=== PATIENT | female | born 1960 | race Caucasian/White ===

== ENCOUNTER → 2020-11-11 08:55 | Outpatient (BNVA) | payer OTHER, SELFPAY | PROVIDERS: PCP Internal Medicine; Visit Provider Nurse Practitioner Family | DX: M47.816 Spondylosis without myelopathy or radiculopathy, lumbar region (principal); M53.3 Sacrococcygeal disorders, not elsewhere classified; Z79.899 Other long term (current) drug therapy | CPT/HCPCS: 99202 ==

== ENCOUNTER → 2020-11-28 15:25 | Outpatient (BNVA) | payer OTHER, SELFPAY | PROVIDERS: PCP Internal Medicine; Visit Provider Nurse Practitioner Family | DX: M47.816 Spondylosis without myelopathy or radiculopathy, lumbar region (principal); M53.3 Sacrococcygeal disorders, not elsewhere classified | CPT/HCPCS: 99212 ==

== ENCOUNTER → 2020-12-26 14:26 | Outpatient (BNVA) | payer OTHER, SELFPAY | PROVIDERS: PCP Internal Medicine; Visit Provider Nurse Practitioner Family | DX: M47.816 Spondylosis without myelopathy or radiculopathy, lumbar region (principal); M53.3 Sacrococcygeal disorders, not elsewhere classified | CPT/HCPCS: 99212 ==

== ENCOUNTER 2021-01-18 12:56 | Outpatient (REF) | payer OTHER, SELFPAY ==
--- NOTE | ~2021-01-18 | XR_ITS ---
EXAMINATION: XR HIP, RIGHT CLINICAL INFORMATION: Unilateral primary osteoarthritis right hip COMPARISON: None TECHNIQUE: Two views of the right hip. FINDINGS: There is no evidence of acute fracture or dislocation of the right hip. Right hip joint space is maintained. There appears to be some mild collar spurring present. No destructive bony lesion appreciated. XR/XR hip RT min 2V IMPRESSION: Mild degenerative change of the right hip.
== END 2021-01-18 12:57 | disposition home or self-care (01) ==
LOC: HO.XRAY 12:56
PROVIDERS: PCP Internal Medicine; Visit Provider Nurse Practitioner Family
DX: M16.11 Unilateral primary osteoarthritis, right hip (principal)
CPT/HCPCS: 73502

== ENCOUNTER → 2021-01-24 12:48 | Outpatient (BNVA) | payer OTHER, SELFPAY | PROVIDERS: PCP Internal Medicine; Visit Provider Nurse Practitioner Family | DX: M47.816 Spondylosis without myelopathy or radiculopathy, lumbar region (principal); M53.3 Sacrococcygeal disorders, not elsewhere classified | CPT/HCPCS: 99212 ==

== ENCOUNTER 2021-02-06 16:13 | Outpatient (REF) | payer OTHER, SELFPAY ==
--- NOTE | ~2021-02-06 | XR_ITS ---
EXAMINATION: XR HAND, LEFT CLINICAL INFORMATION: Synovitis and tenosynovitis COMPARISON: None TECHNIQUE: PA, lateral, and oblique views of the left hand. FINDINGS: Bone alignment is normal. No fracture or dislocation is seen. There are small osteophytes adjacent to the radial side of the MCP joint of the thumb and small linear soft tissue calcification. Joint spaces are otherwise normal. XR/XR hand LT min 3V IMPRESSION: Small osteophyte along the radial side of the MCP joint of the thumb and linear soft tissue calcification.
== END 2021-02-06 16:14 | disposition home or self-care (01) ==
LOC: HO.XRAY 16:13
PROVIDERS: PCP Internal Medicine; Visit Provider Internal Medicine
DX: M65.9 Synovitis and tenosynovitis, unspecified (principal)
CPT/HCPCS: 73130

== ENCOUNTER → 2021-02-21 13:20 | Outpatient (BNVA) | payer OTHER, SELFPAY | PROVIDERS: PCP Internal Medicine; Visit Provider Nurse Practitioner Family | DX: M16.11 Unilateral primary osteoarthritis, right hip (principal); M47.816 Spondylosis without myelopathy or radiculopathy, lumbar region; M53.3 Sacrococcygeal disorders, not elsewhere classified | CPT/HCPCS: 99212 ==

== ENCOUNTER → 2021-03-22 14:22 | Outpatient (BNVA) | payer OTHER, SELFPAY | PROVIDERS: PCP Internal Medicine; Visit Provider Nurse Practitioner Family | DX: M47.816 Spondylosis without myelopathy or radiculopathy, lumbar region (principal); M53.3 Sacrococcygeal disorders, not elsewhere classified; R11.15 Cyclical vomiting syndrome unrelated to migraine; R03.0 Elevated blood-pressure reading, without diagnosis of hypertension; F17.200 Nicotine dependence, unspecified, uncomplicated; Z88.2 Allergy status to sulfonamides; Z79.899 Other long term (current) drug therapy | CPT/HCPCS: 99212 ==

== ENCOUNTER → 2021-04-19 11:25 | Outpatient (BNVA) | payer OTHER, SELFPAY | PROVIDERS: PCP Internal Medicine; Visit Provider Nurse Practitioner Family | DX: Z51.81 Encounter for therapeutic drug level monitoring (principal); M47.816 Spondylosis without myelopathy or radiculopathy, lumbar region; M53.3 Sacrococcygeal disorders, not elsewhere classified | CPT/HCPCS: 99212 ==

== ENCOUNTER → 2021-04-27 10:43 | Day surgery (SDC) | payer OTHER, SELFPAY ==
[2021-04-20 12:12] VITALS: BMI 21.4
--- NOTE | 2021-04-26 09:55 | HO.ANESPROP2 ---
HPI - Anesthesia Eval Consult details Narrative: 60yo F for Bilateral L3-DR L5 Medial Branch Block Chronic opioids PMFSH Active Problems Active Problems: All Active Problems (Updated 02/06/21 @ 15:49 by Charly Carrillo MD) Tenosynovitis of thumb (Acute) Bilateral leg weakness (Acute) Osteoarthritis of right hip (Acute) Sacroiliac joint pain (Acute) Spondylosis of lumbar region without myelopathy or radiculopathy (Acute) Smoker (Acute) Chronic low back pain (Acute) Elevated blood pressure reading (Acute) Past Medical History Medical History (Updated 02/06/21 @ 15:49 by Charly Carrillo MD) Chronic low back pain Cyclical vomiting Elevated blood pressure reading Smoker Tenosynovitis of thumb Family History Family History (Updated 02/06/21 @ 14:50 by HASEEB Redding) Maternal Uncle Diabetes Father No problems noted. Mother No problems noted. Surgical History Surgical History History of appendectomy History of breast surgery Hx of right knee surgery Hx of shoulder surgery S/P laparoscopic cholecystectomy (~2009) Social History Social History (Updated 02/06/21 @ 14:58 by HASEEB Red[place]) Housing: House Alcohol intake: former Patient Tobacco Use Status: Current everyday Tobacco user Cigarettes Per Day: 10 service: No Current occupational status: retired and disabled Meds Allergies Allergy/AdvReac Type Severity Reaction Status Date / Time Sulfa (Sulfonamide Allergy Intermediate Hives, Verified 04/19/21 12:17 Antibiotics) itching Home Medications Medication Instructions Recorded Confirmed Last Taken Type naproxen sodium 220 mg tablet 220 mg PO BID PRN 09/14/20 04/19/21 Unknown History (Aleve) nortriptyline 75 mg capsule 75 mg PO BEDTIME 09/14/20 04/19/21 Unknown History Exam Exam Date and Time: April 26, 2021 0955 Height,Weight and Vital Signs: Height 5 ft 5 in Weight 58.513 kg Assessment and Plan Assessment Anesthesia Assessment: Chart Reviewed
--- NOTE | 2021-04-27 11:51 | P.HPSUR_ITS ---
Pre-Procedural Eval Section A Date of Service: 04/27/21 The patient is an INPATIENT: No Changes since office visit: Yes Patient answered all questions The History & Physical has been completed within 30 days and I have reviewed it.: No Section B Chief Complaint: spondylosis of lumbar region Details of Present Illness: As above Relevant Family History (Specify if Yes): No Relevant Social History: None Present Medications: see Short Stay Collaborative assessment Medical History: No relevant PMH History of Previous Operations: No relevant previous surgery Allergies: Allergies Allergy/AdvReac Type Severity Reaction Status Date / Time Sulfa (Sulfonamide Allergy Intermediate Hives, Verified 04/19/21 12:17 Antibiotics) itching Review of Systems Sugical H&P ROS: Negative: Constitution, Cardiovascular, Respiratory, Neurological, Psychiatric, Hem-Onc, Allergic/Immunologic, Gastrointestinal, Genitourinary, Musculoskeletal, Integumentary, Endocrine and Eyes/E ars/Nose/Throat Exam Surgical H&P Exam: Normal: HEENT, Normal: Heart, Normal: Lungs, Normal: Extremities, Normal: Abdomen, Normal: Skin and Normal: Neurological Plan Diagnosis/Plan: Unchanged I have reviewed the history and physical and performed a pertinent physical examination on my patient. No changes have occurred unless specified.
--- NOTE | 2021-04-27 12:38 | PC.NURSE ---
encouraged patient to stay for her procedure. was bringing her into a room and refused. she wanted to go home and medicate herself for pain and nausea. i offered for her to be medicated for nausea here and she would have a bed for more comfort and a television while she waits. still refused i went to ask how much longer she would have to wait and left the amezcua when i said i would be right back. she mentioned multiple times that she will just reschedule even though she was encouraged multiple times to stay.
== END ==
PROVIDERS: PCP Internal Medicine; Visit Provider Anesthesiology
DX: M47.816 Spondylosis without myelopathy or radiculopathy, lumbar region (principal); Z53.29 Procedure and treatment not carried out because of patient's decision for other reasons; M54.50 Low back pain, unspecified; R03.0 Elevated blood-pressure reading, without diagnosis of hypertension; Z88.2 Allergy status to sulfonamides; Z79.899 Other long term (current) drug therapy

== ENCOUNTER → 2021-05-17 11:25 | Outpatient (BNVA) | payer OTHER, SELFPAY | PROVIDERS: PCP Internal Medicine; Visit Provider Nurse Practitioner Family | DX: Z51.81 Encounter for therapeutic drug level monitoring (principal); M47.816 Spondylosis without myelopathy or radiculopathy, lumbar region; M53.3 Sacrococcygeal disorders, not elsewhere classified | CPT/HCPCS: 99212 ==

== ENCOUNTER → 2021-06-21 10:54 | Outpatient (BNVA) | payer OTHER, SELFPAY | PROVIDERS: PCP Internal Medicine; Visit Provider Nurse Practitioner Family | DX: Z51.81 Encounter for therapeutic drug level monitoring (principal); M47.816 Spondylosis without myelopathy or radiculopathy, lumbar region; M53.3 Sacrococcygeal disorders, not elsewhere classified | CPT/HCPCS: 99212 ==

== ENCOUNTER → 2021-07-28 10:22 | Outpatient (BNVA) | payer OTHER, SELFPAY | PROVIDERS: PCP Internal Medicine; Visit Provider Nurse Practitioner Family | DX: M47.816 Spondylosis without myelopathy or radiculopathy, lumbar region (principal); M53.3 Sacrococcygeal disorders, not elsewhere classified; Z79.891 Long term (current) use of opiate analgesic | CPT/HCPCS: 99212 ==

== ENCOUNTER → 2021-08-25 10:02 | Outpatient (BNVA) | payer OTHER, SELFPAY | PROVIDERS: PCP Internal Medicine; Visit Provider Nurse Practitioner Family | DX: Z51.81 Encounter for therapeutic drug level monitoring (principal); F11.20 Opioid dependence, uncomplicated; M47.816 Spondylosis without myelopathy or radiculopathy, lumbar region; M53.3 Sacrococcygeal disorders, not elsewhere classified; M79.18 Myalgia, other site | CPT/HCPCS: 99212 ==

== ENCOUNTER → 2021-09-22 10:39 | Outpatient (BNVA) | payer OTHER, SELFPAY | PROVIDERS: PCP Internal Medicine; Visit Provider Nurse Practitioner Family | DX: Z51.81 Encounter for therapeutic drug level monitoring (principal); F11.20 Opioid dependence, uncomplicated; M47.816 Spondylosis without myelopathy or radiculopathy, lumbar region; M53.3 Sacrococcygeal disorders, not elsewhere classified; M79.18 Myalgia, other site | CPT/HCPCS: 99212 ==

== ENCOUNTER 2021-10-13 09:14 | Day surgery (SDC) | payer OTHER, SELFPAY ==
[2021-07-12 11:45] VITALS: BMI 22.1
--- NOTE | 2021-07-20 16:39 | HO.ANESPROP2 ---
HPI - Anesthesia Eval Consult details Narrative: 60yo F for Bilateral L3-L4-DR L5 Diagnostic Medial Branch Blocks PMFSH Active Problems Active Problems: All Active Problems (Updated 07/12/21 @ 11:45 by Julianna Olivarez RN) Spondylosis of lumbar region without myelopathy or radiculopathy (Acute) Sacroiliac joint pain (Acute) Osteoarthritis of right hip (Acute) Bilateral leg weakness (Acute) Cyclical vomiting (Acute) Tenosynovitis of thumb (Acute) Smoker (Acute) Chronic low back pain (Acute) Elevated blood pressure reading (Acute) Past Medical History Medical History (Updated 07/12/21 @ 11:45 by Julianna Olivarez RN) Chronic low back pain Cyclical vomiting HTN (hypertension) Smoker Tenosynovitis of thumb Family History Family History Maternal Uncle Diabetes Father No problems noted. Mother No problems noted. Surgical History Surgical History History of appendectomy History of breast surgery Hx of right knee surgery Hx of shoulder surgery S/P laparoscopic cholecystectomy (~2009) Social History Social History Housing: House Alcohol intake: former Patient Tobacco Use Status: Current everyday Tobacco user Tobacco use type: Cigarette Cigarettes Per Day: 10 e-Cigarette/Vaping Use: Never Used Second Hand Smoke Exposure: No service: No Current occupational status: retired and disabled Meds Allergies Allergy/AdvReac Type Severity Reaction Status Date / Time Sulfa (Sulfonamide Allergy Intermediate Hives, Verified 06/29/21 11:52 Antibiotics) itching Home Medications Medication Instructions Recorded Confirmed Last Taken Type naproxen sodium 220 mg tablet 220 mg PO BID PRN 09/14/20 07/12/21 Unknown History (Aleve) nortriptyline 75 mg capsule 75 mg PO BEDTIME 09/14/20 07/12/21 Unknown History Exam Exam Date and Time: July 20, 2021 1639 Height,Weight and Vital Signs: Height 5 ft 5 in Weight 60.328 kg Assessment and Plan Assessment Anesthesia Assessment: Chart Reviewed
--- NOTE | 2021-09-07 09:17 | HO.ANESPROP2 ---
HPI - Anesthesia Eval Consult details Narrative: 61yo Bilateral L3-L4-DR L5 Diagnostic Medial Branch Blocks PMFSH Active Problems Active Problems: All Active Problems (Updated 08/25/21 @ 10:52 by Dina Santizo NP) Myofascial pain (Acute) Spondylosis of lumbar region without myelopathy or radiculopathy (Acute) Sacroiliac joint pain (Acute) Osteoarthritis of right hip (Acute) Bilateral leg weakness (Acute) Cyclical vomiting (Acute) Tenosynovitis of thumb (Acute) Smoker (Acute) Chronic low back pain (Acute) Elevated blood pressure reading (Acute) Past Medical History Medical History (Updated 08/25/21 @ 10:52 by Dina Santizo NP) Chronic low back pain Cyclical vomiting HTN (hypertension) Smoker Tenosynovitis of thumb Family History Family History Maternal Uncle Diabetes Father No problems noted. Mother No problems noted. Surgical History Surgical History History of appendectomy History of breast surgery Hx of right knee surgery Hx of shoulder surgery S/P laparoscopic cholecystectomy (~2009) Social History Social History Housing: House Alcohol intake: former Patient Tobacco Use Status: Current everyday Tobacco user Tobacco use type: Cigarette Cigarettes Per Day: 10 e-Cigarette/Vaping Use: Never Used Second Hand Smoke Exposure: No service: No Current occupational status: retired and disabled Meds Allergies Allergy/AdvReac Type Severity Reaction Status Date / Time Sulfa (Sulfonamide Allergy Intermediate Hives, Verified 08/25/21 10:09 Antibiotics) itching Home Medications Medication Instructions Recorded Confirmed Last Taken Type nortriptyline 75 mg capsule 75 mg PO BEDTIME 09/14/20 08/25/21 Unknown History Exam Exam Date and Time: September 07, [id number] Height,Weight and Vital Signs: Height 5 ft 5 in Weight 60.328 kg Assessment and Plan Assessment Anesthesia Assessment: Chart Reviewed
--- NOTE | 2021-10-11 14:34 | P.CONAN_ITS ---
Documented by User: Effie Mathew NP 10/11/21 14:34 HPI - Anesthesia Eval Consult details Narrative: 61yo F for Bilateral L3-L4-DR L5 Diagnostic Medial Branch Blocks Chronic opioids PMFSH Active Problems Active Problems: All Active Problems (Updated 08/25/21 @ 10:52 by Dina Santizo NP) Myofascial pain (Acute) Spondylosis of lumbar region without myelopathy or radiculopathy (Acute) Sacroiliac joint pain (Acute) Osteoarthritis of right hip (Acute) Bilateral leg weakness (Acute) Cyclical vomiting (Acute) Tenosynovitis of thumb (Acute) Smoker (Acute) Chronic low back pain (Acute) Elevated blood pressure reading (Acute) Past Medical History Medical History (Updated 08/25/21 @ 10:52 by Dina Santizo NP) Chronic low back pain Cyclical vomiting HTN (hypertension) Smoker Tenosynovitis of thumb Family History Family History Maternal Uncle Diabetes Father No problems noted. Mother No problems noted. Surgical History Surgical History History of appendectomy History of breast surgery Hx of right knee surgery Hx of shoulder surgery S/P laparoscopic cholecystectomy (~2009) Social History Social History Housing: House Alcohol intake: former Patient Tobacco Use Status: Current everyday Tobacco user Tobacco use type: Cigarette Cigarettes Per Day: 10 Years Smoked: 45 Smoked in Last 30 Days: Yes e-Cigarette/Vaping Use: Never Used Second Hand Smoke Exposure: No Use of substances other than those prescribed or required for medical reasons: No Have you been hit, kicked, punched, or otherwise hurt by someone within the past year? If so, by whom?: No Are you DNR?: No Advance Directives: No Advance Directives Information Provided: Yes (informational brochure mailed) Advance Directives on File: No Recently lost weight without trying: No Eating poorly because of decreased appetite: No Nutrition Risks: No Nutritional Risk service: No Current occupational status: retired and disabled Meds Allergies Allergy/AdvReac Type Severity Reaction Status Date / Time Sulfa (Sulfonamide Allergy Intermediate Hives, Verified 04/01/22 09:21 Antibiotics) itching sulfamethoxazole Allergy Hives Verified 10/13/21 09:21 [From Bactrim] trimethoprim [From Bactrim] Allergy Hives Verified 10/13/21 09:21 Home Medications Medication Instructions Recorded Confirmed Last Taken Type nortriptyline 75 mg capsule 75 mg PO BEDTIME 09/14/20 09/22/21 Unknown History Exam Exam Date and Time: October 11, 2021 1434 Height,Weight and Vital Signs: Height 5 ft 5 in Weight 60.328 kg Assessment and Plan Assessment Anesthesia Assessment: Chart Reviewed Documented by User: Lacy Roldan MD 10/13/21 10:26 [facility] Past Medical History Medical History (Updated 08/25/21 @ 10:52 by Dina Santizo NP) Chronic low back pain Cyclical vomiting HTN (hypertension) Smoker Tenosynovitis of thumb Family History Family History Maternal Uncle Diabetes Father No problems noted. Mother No problems noted. Family history of problems with anesthesia: No Surgical History Surgical History History of appendectomy History of breast surgery Hx of right knee surgery Hx of shoulder surgery S/P laparoscopic cholecystectomy (~2009) History of Problems with Anesthesia: No Social History Social History Housing: House Alcohol intake: former Patient Tobacco Use Status: Current everyday Tobacco user Tobacco use type: Cigarette Cigarettes Per Day: 10 Years Smoked: 45 Smoked in Last 30 Days: Yes e-Cigarette/Vaping Use: Never Used Second Hand Smoke Exposure: No Use of substances other than those prescribed or required for medical reasons: No Have you been hit, kicked, punched, or otherwise hurt by someone within the past year? If so, by whom?: No Are you DNR?: No Advance Directives: No Advance Directives Information Provided: Yes (informational brochure mailed) Advance Directives on File: No Recently lost weight without trying: No Eating poorly because of decreased appetite: No Nutrition Risks: No Nutritional Risk service: No Current occupational status: retired and disabled Meds Allergies Allergy/AdvReac Type Severity Reaction Status Date / Time Sulfa (Sulfonamide Allergy Intermediate Hives, Verified 10/13/21 09:21 Antibiotics) itching sulfamethoxazole Allergy Hives Verified 10/13/21 09:21 [From Bactrim] trimethoprim [From Bactrim] Allergy Hives Verified 10/13/21 09:21 Home Medications Medication Instructions Recorded Confirmed Last Taken Type nortriptyline 75 mg capsule 75 mg PO BEDTIME 09/14/20 09/22/21 Unknown History Exam Airway Mallampati Class: II TM Dist: >3cm Neck ROM: Full Assessment and Plan Assessment Anesthesia Assessment: Anesthesia Plan Discussed and Smoking Cess. Discussed Final Anesthetic Review Family History of Problems with Anesthesia: No History of Problems with Anesthesia: No NPO: Yes ASA Class: II Final Preanesthetic Review: No Changes in Pt Med Stat, Meds/Allgs Chart Reviewed, Consent Obtained/Reviewed and Anes Risks/Benef Reviewed Patient Risk: Low Procedure Risk: Low Anesthetic Plan Anesthetic Plan: MAC: Disposition: Standard PACU
--- NOTE | ~2021-10-13 | FL_ITS ---
EXAMINATION: XR FLUOROSCOPY WITH IMAGES CLINICAL INFORMATION: L3, L4, L5 diagnostic MBB. COMPARISON: None. TECHNIQUE: Fluoroscopy performed by Dr. Jaime Herrera. Fluoroscopy time: 0.6 minutes DAP: 4.33 Gycm2 Images: 6 FINDINGS: Fluoroscopic images demonstrate nerve root injection bilaterally at L3-L4 and L4-L5 and on the left at L5-S1 level. FL/FL guidance in OR IMPRESSION: Fluoroscopic guidance for injection. Please refer to procedural report for further information.
[2021-10-13 09:23] VITALS: BMI 21.6
[2021-10-13 09:30] VITALS: BP 141/84; PULSE 86; RESP 16; TEMP 36.8; O2SAT 96
[2021-10-13] MEDS: Lactated Ringers 1,000 ML 100 ML IVCONT (09:46)
--- NOTE | 2021-10-13 12:15 | MHC.SHP ---
Pre-Procedural Eval Section A Date of Service: 10/13/21 Section B Chief Complaint: spondylosis of lumbar region w/o myelopathy Details of Present Illness: as above Relevant Family History (Specify if Yes): No Relevant Social History: None Present Medications: see Short Stay Collaborative assessment Medical History: No relevant PMH History of Previous Operations: No relevant previous surgery Allergies: Allergies Allergy/AdvReac Type Severity Reaction Status Date / Time Sulfa (Sulfonamide Allergy Intermediate Hives, Verified 10/13/21 09:21 Antibiotics) itching sulfamethoxazole Allergy Hives Verified 10/13/21 09:21 [From Bactrim] trimethoprim [From Bactrim] Allergy Hives Verified 10/13/21 09:21 Review of Systems Sugical H&P ROS: Negative: Constitution, Cardiovascular, Respiratory, Neurological, Psychiatric, Hem-Onc, Allergic/Immunologic, Gastrointestinal, Genitourinary, Musculoskeletal, Integumentary, Endocrine and Eyes/Ears/Nose/Throat Exam Surgical H&P Exam: Normal: HEENT, Normal: Heart, Normal: Lungs, Normal: Extremities, Normal: Abdomen, Normal: Skin and Normal: Neurological Plan Diagnosis/Plan: Unchanged I have reviewed the history and physical and performed a pertinent physical examination on my patient. No changes have occurred unless specified.
--- NOTE | 2021-10-13 12:16 | P.OP_ITS ---
Operative Note Operative Note Date of Service: 10/13/21 Narrative: Bilateral diagnostic #1 Medial branch block L3-L4 L5. ? ? Informed consent was explained to the patient. All questions were explained and? answered.? The patient was taken inside the operating room where she was positioned prone on the operating table. ASA m-rs applied and the patient was minimally sedated. Time-out was performed delineating correct site, side, the nature of the procedure, patient's allergy, preoperative antibiotic if needed.? All operating room staff was participating in OR time-out procedure. ? ?The lower back was prepped with ChloraPrep and draped with sterile towels. C- arm was brought over the operating field and sq picture of L4-and L5 vertebra and S1 AREA were delineated on the screen.? Point of interest were delineated as connection of superior articular process of L4 and L5 vertebra bilaterally with corresponding transverse processes as well as connection of the sacral ala bilaterally with superior articular process of S1.? The projection of the point of interest to the skin were injected with the small amount of local anesthetic lidocaine 2% 1-1.5 cc.? After that 22 gauge 3-1/2 inch spinal needle was driven sequentially to the points of interest in tunnel vision fashion. After needles gently contacted the bone at the point of interests the needle was injected with small amount of the contrast.? The injection of the contrast did not demonstrate any intravascular or intrathecal spread of the contrast.? After that injection of the?lidocain 2% -1cc was performed at each needle location.? ?Upon completion of the injections? needle was? removed and sterile Band-Aids were applied.? Patient tolerated procedure well
[2021-10-13 12:19] VITALS: BP 121/75; PULSE 82; RESP 20; TEMP 37.1; O2SAT 99
[2021-10-13 12:34] VITALS: BP 111/76; PULSE 78; RESP 20; TEMP 36.6; O2SAT 98
== END 2021-10-13 13:11 ==
LOC: HO.SSS 09:14
PROVIDERS: PCP Internal Medicine; Visit Provider Anesthesiology
PROC: (CPT 64493; principal; 2021-10-13 10:50)
DX: M47.816 Spondylosis without myelopathy or radiculopathy, lumbar region (principal); M53.3 Sacrococcygeal disorders, not elsewhere classified; M79.18 Myalgia, other site; G89.29 Other chronic pain; M54.50 Low back pain, unspecified; I10 Essential (primary) hypertension; F17.210 Nicotine dependence, cigarettes, uncomplicated; Z79.891 Long term (current) use of opiate analgesic
CPT/HCPCS: 64493; 64494; J2250; Q9967

== ENCOUNTER → 2021-10-20 09:47 | Outpatient (BNVA) | payer OTHER, SELFPAY | PROVIDERS: PCP Internal Medicine; Visit Provider Nurse Practitioner Family | DX: Z51.81 Encounter for therapeutic drug level monitoring (principal); F11.20 Opioid dependence, uncomplicated; M47.816 Spondylosis without myelopathy or radiculopathy, lumbar region; M53.3 Sacrococcygeal disorders, not elsewhere classified; M79.18 Myalgia, other site | CPT/HCPCS: 99212 ==

== ENCOUNTER → 2021-11-17 10:56 | Outpatient (BNVA) | payer OTHER, SELFPAY | PROVIDERS: PCP Internal Medicine; Visit Provider Nurse Practitioner Family | DX: Z51.81 Encounter for therapeutic drug level monitoring (principal); M47.816 Spondylosis without myelopathy or radiculopathy, lumbar region; M53.3 Sacrococcygeal disorders, not elsewhere classified; M79.18 Myalgia, other site | CPT/HCPCS: 99212 ==

== ENCOUNTER → 2021-12-15 09:53 | Outpatient (BNVA) | payer OTHER, SELFPAY | PROVIDERS: PCP Internal Medicine; Visit Provider Nurse Practitioner Family | DX: M47.816 Spondylosis without myelopathy or radiculopathy, lumbar region (principal); M53.3 Sacrococcygeal disorders, not elsewhere classified; M79.18 Myalgia, other site; Z79.891 Long term (current) use of opiate analgesic | CPT/HCPCS: 99212 ==

== ENCOUNTER 2022-01-19 09:16 | Outpatient (REF) | payer OTHER, SELFPAY ==
[2022-01-19 09:32] LABS: MANUAL DIFF FLAG NO
[2022-01-19 09:44] LABS: Basophils Absolute Auto 0.1 X10*3/uL (0.0-0.2); Basophils Percent Auto 0.6 % (0-2); Eosinophils Absolute Auto 0.6 X10*3/uL (0.0-0.4); Eosinophils Percent Auto 6.1 % (0-4); Hematocrit 36.7 % (37.0-47.0); Imm Gran Abs Auto 0.04 X10*3/uL (0.00-0.03); Imm Gran Pct Auto 0.4 % (0.0-0.4); Lymphocytes Absolute Auto 3.9 X10*3/uL (1.2-4.9); Mean Corpuscular HGB Conc 32.7 g/dl (31.0-35.0); Mean Corpuscular Hemoglobin 29.9 pg (27.0-33.0); Mean Corpuscular Volume 91.5 fL (80.0-98.0); Mean Platelet Volume 8.8 fL (9.4-12.3); Monocytes Absolute Auto 0.7 X10*3/uL (0.1-1.2); Monocytes Percent Auto 6.9 % (2-11); Neutrophils Absolute Auto 4.7 x10*3/uL (2.0-8.3); Platelet Count 321 X10*3/uL (160-400); Red Blood Count 4.01 X10*6/uL (4.20-5.50); Red Cell Distribution Width 13.7 % (11.0-16.0)
[2022-01-19 10:01] LABS: Appearance Urine CLEAR; Color Urine YELLOW; Glucose Urine UA NEG (NEG); Leukocyte Esterase Urine NEG (NEG); Nitrite Urine NEG (NEG); Specific Gravity - Urine 1.025 (1.005-1.025); UACC Culture Trigger NO; Urine Blood 1+ (NEG); Urine Ketones NEG (NEG); Urine Protein NEG (NEG-TRACE)
[2022-01-19 10:16] LABS: Bacteria Urine 1+ /LPF; Calcium Oxalate Crystals Urine 1+ /LPF; Squamous Epithelial Cell Urine TRACE /LPF; WBC Urine 0-2 /HPF (0-4)
[2022-01-19 10:17] LABS: RBC Urine 0-2 /HPF (0)
[2022-01-19 10:24] LABS: Alanine Aminotransferase 9 U/L (0-31); Albumin Level 4.2 g/dL (3.5-5.0); Alkaline Phosphatase 77 U/L (39-117); Anion Gap 10 (12-20); Aspartate Amino Transferase 14 U/L (5-31); Bilirubin Total < 0.2 mg/dL (0.0-1.0); Blood Urea Nitrogen 14 mg/dL (9-16); Calcium 8.9 mg/dL (8.4-10.2); Carbon Dioxide 25 mmol/L (22-29); Chloride 109 mmol/L (96-108); Cholesterol 186 mg/dL; Estimated Glomerular Filt Rate > 60; Glucose Fasting 109 mg/dL (60-99); HDL Cholesterol 40 mg/dL; LDL Cholesterol Calculated 131 mg/dl; Sodium 140 mmol/L (135-145); Total Protein 6.7 g/dL (6.5-8.0); Triglycerides 77 mg/dL
[2022-01-19 10:44] LABS: Vitamin D 25-OH Total 20.1 ng/mL (>30)
== END 2022-01-19 09:17 | disposition home or self-care (01) ==
LOC: HO.LAB 09:16
PROVIDERS: PCP Internal Medicine; Visit Provider Internal Medicine
DX: Z00.00 Encounter for general adult medical examination without abnormal findings (principal); I10 Essential (primary) hypertension; E55.9 Vitamin D deficiency, unspecified; E78.00 Pure hypercholesterolemia, unspecified; M47.816 Spondylosis without myelopathy or radiculopathy, lumbar region; M53.3 Sacrococcygeal disorders, not elsewhere classified; M79.18 Myalgia, other site; F11.90 Opioid use, unspecified, uncomplicated
CPT/HCPCS: 36415; 80053; 80061; 81001; 81003; 82306; 84443; 85025; 99212

== ENCOUNTER 2022-02-16 15:27 | Outpatient (REF) | payer OTHER, SELFPAY ==
--- NOTE | ~2022-02-16 | CT_ITS ---
EXAMINATION: CT CHEST SCREENING CLINICAL INFORMATION: Nicotine dependence. COMPARISON: None. TECHNIQUE: Multidetector volumetric CT imaging of the chest is performed without contrast using low dose technique. Additional 2D coronal and sagittal reformatted images and axial 3D maximum intensity projection (MIP) images are generated on the CT workstation. This CT examination was performed using dose optimization techniques as appropriate, variously including the following: *Automated exposure control *Adjustment of mA and/or kV according to patient size (this includes techniques or standardized protocols for targeted exams where dose is matched to indication/reason for exam; i.e. extremities or head) *Use of iterative reconstruction technique DLP: 39 mGy-cm FINDINGS: LUNGS: The lungs are well-expanded and clear of acute pneumonic consolidation. There is a 2 mm nodule within the left superior major fissure on axial image 15/4 likely lymph node, 2 mm subpleural nodule left lower lobe superior segment better visualized on 8 mm thick axial scan image 35/9, 2 mm nodule left upper lobe axial image 139/6, 5 mm linear density left lower lobe lateral basal segment image 371/6 likely focal atelectasis. Plate-like atelectatic changes in right lower lobe. MEDIASTINUM: The thyroid lobes are symmetrical and normal. The central trachea and bronchi are widely patent. Heart size and the great vessels are normal caliber. There is no pericardial effusion. No abnormal size mediastinal or hilar lymph nodes seen. PLEURA: There is no pleural effusion. No pleural mass or thickening. AXILLA: No lymphadenopathy. UPPER ABDOMEN: Visualized liver, spleen, pancreas and bilateral adrenal glands are unremarkable. OSSEOUS STRUCTURES: No aggressive lytic or sclerotic process seen. There is mild ventral spondylosis dorsal spine. CT/CT lung screening IMPRESSION: Bilateral small pulmonary nodules as described above. No focal consolidation or mass. ASSESSMENT: Lung-RADS category 2: Benign RECOMMENDATION: Low-dose annual CT chest
== END 2022-02-16 15:28 | disposition home or self-care (01) ==
LOC: HO.CT 15:27
PROVIDERS: PCP Internal Medicine; Visit Provider Physician Assistant Medical
DX: M47.816 Spondylosis without myelopathy or radiculopathy, lumbar region (principal); M53.3 Sacrococcygeal disorders, not elsewhere classified; M79.18 Myalgia, other site; F11.90 Opioid use, unspecified, uncomplicated; F17.210 Nicotine dependence, cigarettes, uncomplicated
CPT/HCPCS: 71271; 99212; G0296

== ENCOUNTER 2022-03-02 07:20 | Day surgery (SDC) | payer OTHER, SELFPAY ==
--- NOTE | 2022-03-01 11:03 | HO.ANESPROP2 ---
Documented by User: Effie Mathew NP 03/01/22 11:04 HPI - Anesthesia Eval Consult details Narrative: 61yo F for Diagnostic L3-L4-DR L5 Medial Branch Block s/p MBB 10/2021 with MAC [facility] Active Problems Active Problems: All Active Problems (Updated 02/16/22 @ 15:21 by Monik Vela PA-C) Microscopic hematuria (Acute) Personal history of nicotine dependence (Acute) Benign essential hypertension (Acute) Chronic, continuous use of opioids (Acute) Myofascial pain (Acute) Spondylosis of lumbar region without myelopathy or radiculopathy (Acute) Chronic low back pain (Acute) Sacroiliac joint pain (Acute) Osteoarthritis of right hip (Acute) Bilateral leg weakness (Acute) Cyclical vomiting (Acute) Allergic rhinitis (Acute) Tenosynovitis of thumb (Acute) Past Medical History Medical History Benign essential hypertension Chronic low back pain Chronic, continuous use of opioids Cyclical vomiting Personal history of nicotine dependence Tenosynovitis of thumb Family History Family History Maternal Uncle Diabetes Father No problems noted. Mother No problems noted. Family history of problems with anesthesia: No Surgical History Surgical History (Updated 02/16/22 @ 15:20 by Monik Vela PA-C) History of appendectomy History of breast surgery History of colonoscopy (~2020) History of selective injection of anesthetic agent around lumbar nerve root History of tonsillectomy Hx of right knee surgery Hx of shoulder surgery S/P laparoscopic cholecystectomy (~2009) History of Problems with Anesthesia: No Social History Social History (Updated 02/16/22 @ 15:14 by Monik Vela PA-C) Housing: House Alcohol intake: former Patient Tobacco Use Status: Current everyday Tobacco user Tobacco use type: Cigarette Cigarettes Per Day: 10 Years Smoked: (onset 15, 1/2-1ppd x 48yrs, 30+PYH) Smoked in Last 30 Days: Yes e-Cigarette/Vaping Use: Never Used Patient Interested in Nicotine Replacement: No Second Hand Smoke Exposure: No Substance Use Frequency: Occasionally Are you DNR?: No Advance Directives: No Advance Directives Information Provided: Yes Nutrition Risks: No Nutritional Risk service: No Current occupational status: retired and disabled Cognitive needs: No Hearing needs: No Vision needs: Yes Meds Allergies Allergy/AdvReac Type Severity Reaction Status Date / Time Sulfa (Sulfonamide Allergy Intermediate Hives, Verified 03/02/22 07:39 Antibiotics) itching trimethoprim [From Bactrim] Allergy Hives Verified 03/02/22 07:40 Home Medications Medication Instructions Recorded Confirmed Last Taken Type nortriptyline 75 mg capsule 75 mg PO BEDTIME 09/14/20 01/04/22 Unknown History Exam Exam Date and Time: March 01, 2022 1103 Pertinent Lab Results Pertinent Lab Results: Laboratory Tests 01/19/22 01/19/22 09:31 09:31 WBC 10.0 Hgb 12.0 Hct 36.7 L Plt Count 321 Sodium 140 Potassium 4.0 Chloride 109 H Carbon Dioxide 25 BUN 14 Creatinine 0.87 Assessment and Plan Assessment Anesthesia Assessment: Chart Reviewed Final Anesthetic Review Family History of Problems with Anesthesia: No History of Problems with Anesthesia: No Documented by User: Tatiana Roldan MD 03/02/22 09:15 [facility] Past Medical History Medical History Benign essential hypertension Chronic low back pain Chronic, continuous use of opioids Cyclical vomiting Personal history of nicotine dependence Tenosynovitis of thumb Family History Family History Maternal Uncle Diabetes Father No problems noted. Mother No problems noted. Surgical History Surgical History (Updated 02/16/22 @ 15:20 by Monik Vela PA-C) History of appendectomy History of breast surgery History of colonoscopy (~2020) History of selective injection of anesthetic agent around lumbar nerve root History of tonsillectomy Hx of right knee surgery Hx of shoulder surgery S/P laparoscopic cholecystectomy (~2009) Social History Social History (Updated 02/16/22 @ 15:14 by Monik M May, PA-C) Housing: House Alcohol intake: former Patient Tobacco Use Status: Current everyday Tobacco user Tobacco use type: Cigarette Cigarettes Per Day: 10 Years Smoked: (onset 15, 1/2-1ppd x 46yrs, 30+PYH) Smoked in Last 30 Days: Yes e-Cigarette/Vaping Use: Never Used Patient Interested in Nicotine Replacement: No Second Hand Smoke Exposure: No Substance Use Frequency: Occasionally Are you DNR?: No Advance Directives: No Advance Directives Information Provided: Yes Nutrition Risks: No Nutritional Risk service: No Current occupational status: retired and disabled Cognitive needs: No Hearing needs: No Vision needs: Yes Meds Allergies Allergy/AdvReac Type Severity Reaction Status Date / Time Sulfa (Sulfonamide Allergy Intermediate Hives, Verified 03/02/22 07:39 Antibiotics) itching trimethoprim [From Bactrim] Allergy Hives Verified 03/02/22 07:40 Home Medications Medication Instructions Recorded Confirmed Last Taken Type nortriptyline 75 mg capsule 75 mg PO BEDTIME 09/14/20 01/04/22 Unknown History Exam Airway Mallampati Class: II TM Dist: >3cm Neck ROM: Full Heart: RRR Lungs: CTA Assessment and Plan Final Anesthetic Review NPO: Yes ASA Class: II Final Preanesthetic Review: No Changes in Pt Med Stat, Meds/Allgs Chart Reviewed, Consent Obtained/Reviewed and Anes Risks/Benef Reviewed Patient Risk: Low Anesthetic Plan Anesthetic Plan: MAC: Disposition: Standard PACU
--- NOTE | ~2022-03-02 | FL_ITS ---
CLINICAL INDICATION: Back pain. FINDINGS: Technical assistance and equipment were provided by the Department of Radiology during intraoperative fluoroscopy for bilateral lumbar injections. 6, limited fluoroscopic spot images are submitted. A radiologist was not present during the procedure. Images demonstrate the tips of percutaneous needles to project roughly over the expected locations of bilateral lower lumbar nerve roots medially. Contrast is injected bilaterally. The images are available for review on PACS. TOTAL FLUOROSCOPY TIME: 0.9 minutes. DOSE AREA PRODUCT: 2.5 Gy-cm2 (cormier-centimeter squared) FL/FL guidance in OR IMPRESSION: Technical assistance and equipment provided by the Department of Radiology during intraoperative fluoroscopy, as above. Please see operative report for further details.
[2022-03-02 07:30] VITALS: BMI 21.4
[2022-03-02 07:37] VITALS: BP 151/83; PULSE 76; RESP 18; TEMP 36.6; O2SAT 97
[2022-03-02] MEDS: Lactated Ringers 1,000 ML 100 ML IVCONT (07:48)
--- NOTE | 2022-03-02 08:50 | P.HPSUR_ITS ---
Pre-Procedural Eval Section A Date of Service: 03/02/22 The patient is an INPATIENT: No Changes since office visit: Yes Patient answered all questions The History & Physical has been completed within 30 days and I have reviewed it.: No Section B Chief Complaint: Spondylosis without myelopathy or radiculopathy, Details of Present Illness: as above Relevant Family History (Specify if Yes): No Present Medications: None Medical History: No relevant PMH History of Previous Operations: No relevant previous surgery Allergies: Allergies Allergy/AdvReac Type Severity Reaction Status Date / Time Sulfa (Sulfonamide Allergy Intermediate Hives, Verified 03/02/22 07:39 Antibiotics) itching trimethoprim [From Bactrim] Allergy Hives Verified 03/02/22 07:40 Review of Systems Sugical H&P ROS: Negative: Constitution, Cardiovascular, Respiratory, Neurological, Psychiatric, Hem-Onc, Allergic/Immunologic, Gastrointestinal, Genitourinary, Musculoskeletal, Integumentary, Endocrine and Eyes/ Ears/Nose/Throat Plan Diagnosis/Plan: Unchanged I have reviewed the history and physical and performed a pertinent physical examination on my patient. No changes have occurred unless specified.
--- NOTE | 2022-03-02 08:51 | P.OP_ITS ---
Operative Note Operative Note Date of Service: 03/02/22 Narrative: Bilateral diagnostic #2 Medial branch block L3-L4 L5. ? ? Informed consent was explained to the patient. All questions were explained and? answered.? The patient was taken inside the operating room where she was positioned prone on the operating table. ASA m-rs applied and the patient was minimally sedated. Time-out was performed delineating correct site, side, the nature of the procedure, patient's allergy, preoperative antibiotic if needed.? All operating room staff was participating in OR time-out procedure. ? ?The lower back was prepped with ChloraPrep and draped with sterile towels. C- arm was brought over the operating field and sq picture of L4-and L5 vertebra and S1 AREA were delineated on the screen.? Point of interest were delineated as connection of superior articular process of L4 and L5 vertebra bilaterally with corresponding transverse processes as well as connection of the sacral ala bilaterally with superior articular process of S1.? The projection of the point of interest to the skin were injected with the small amount of local anesthetic lidocaine 2% 1-1.5 cc.? After that 22 gauge 3-1/2 inch spinal needle was driven sequentially to the points of interest in tunnel vision fashion. After needles gently contacted the bone at the point of interests the needle was injected with small amount of the contrast.? The injection of the contrast did not demonstrate any intravascular or intrathecal spread of the contrast.? After that injection of the?ropivacine 2% -1cc was performed at each needle location.? ?Upon completion of the injections? needle was? removed and sterile Band-Aids were applied.? Patient tolerated procedure well,she was taken outside of the OR to recovery room where she recovered uneventfully.
[2022-03-02 09:37] VITALS: BP 106/65; PULSE 76; RESP 16; TEMP 36.6; O2SAT 100
--- NOTE | 2022-03-02 09:37 | P.BOP_ITS ---
Brief Operative Note Date of Service: 03/02/22 Pre-op diagnosis: spondylosis lumbar spine without myelo/radiculopathy Post-op diagnosis: same Procedure: diagnostic #2 MBB L3-L4-DRL5 Implants: none Surgeon: Jaime Herrera MD Anesthesia: MAC Was an Business Process Manager used for this Procedure?: No Estimated blood loss (mL): 0 Pathology: none sent Condition: stable Disposition: PACU
[2022-03-02 09:50] VITALS: BP 116/78; PULSE 76; RESP 16; O2SAT 100
[2022-03-02 10:05] VITALS: BP 124/75; PULSE 67; RESP 16; TEMP 36.6; O2SAT 99
--- NOTE | 2022-03-02 10:55 | HO.POSTANES ---
Post Anesthesia Evaluation Post Anesthesia Evaluation Vital Signs: Vital Signs Temp Pulse Resp BP Pulse Ox O2 Del Method 03/02/22 10:05 98 F 67 16 124/75 99 Room Air 03/02/22 09:50 76 16 116/78 100 Room Air 03/02/22 09:37 98 F 76 16 106/65 100 Room Air 03/02/22 07:37 97.9 F 76 18 151/83 H 97 Room Air Anesthesia: Monitored Mental Status: Awake Pain Control: Satisfactory Nausea/Vomiting: None Hydration: Adequate Anesthesia-Related Issues: No Anes. Related Issues
== END 2022-03-02 11:00 | disposition home or self-care (01) ==
PROVIDERS: PCP Internal Medicine; Visit Provider Anesthesiology
PROC: (CPT 64493; principal; 2022-03-02 09:00)
DX: M47.816 Spondylosis without myelopathy or radiculopathy, lumbar region (principal); M53.3 Sacrococcygeal disorders, not elsewhere classified; G89.29 Other chronic pain; M54.50 Low back pain, unspecified; Z79.891 Long term (current) use of opiate analgesic; M79.18 Myalgia, other site; R11.15 Cyclical vomiting syndrome unrelated to migraine; I10 Essential (primary) hypertension; Z88.2 Allergy status to sulfonamides; F17.210 Nicotine dependence, cigarettes, uncomplicated; Z98.890 Other specified postprocedural states; Z90.49 Acquired absence of other specified parts of digestive tract
CPT/HCPCS: 64493; 64494; J2250; J2405; J2795; J3010; Q9965; Q9967

== ENCOUNTER 2022-03-16 11:08 | Outpatient (REF) | payer OTHER, SELFPAY ==
[2022-03-16 12:51] LABS: Appearance Urine Clear; Color Urine Yellow; Glucose Urine UA Negative (Negative); Leukocyte Esterase Urine Small (1+) (Negative); Nitrite Urine Negative (Negative); Specific Gravity - Urine 1.025 (1.005-1.025); Urine Blood Trace (Negative); Urine Ketones Negative (Negative); Urine Protein Negative (Neg-Trace)
[2022-03-16 12:56] LABS: Bacteria Urine 2+ (None Seen); Hyaline Casts Urine 0-2 /LPF (0-2); UACC Culture Trigger YES
== END 2022-03-16 11:09 | disposition home or self-care (01) ==
LOC: HO.LAB 11:08
PROVIDERS: Internal Medicine; PCP Internal Medicine; Visit Provider Internal Medicine
DX: Z51.81 Encounter for therapeutic drug level monitoring (principal); Z79.899 Other long term (current) drug therapy
CPT/HCPCS: 81001; 87086; 99211

== ENCOUNTER → 2022-04-20 10:54 | Outpatient (BNVA) | payer OTHER, SELFPAY | PROVIDERS: PCP Internal Medicine; Visit Provider Nurse Practitioner Family | DX: Z51.81 Encounter for therapeutic drug level monitoring (principal); F11.20 Opioid dependence, uncomplicated; M47.816 Spondylosis without myelopathy or radiculopathy, lumbar region; M53.3 Sacrococcygeal disorders, not elsewhere classified; M79.18 Myalgia, other site | CPT/HCPCS: 99212 ==

== ENCOUNTER → 2022-06-18 11:28 | Outpatient (BNVA) | payer OTHER, SELFPAY | PROVIDERS: PCP Internal Medicine; Visit Provider Nurse Practitioner Family | DX: Z51.81 Encounter for therapeutic drug level monitoring (principal); F11.20 Opioid dependence, uncomplicated; M47.816 Spondylosis without myelopathy or radiculopathy, lumbar region; M53.3 Sacrococcygeal disorders, not elsewhere classified; M79.18 Myalgia, other site; G89.29 Other chronic pain | CPT/HCPCS: 99212 ==

== ENCOUNTER → 2022-07-17 10:57 | Outpatient (BNVA) | payer OTHER, SELFPAY | PROVIDERS: PCP Internal Medicine; Visit Provider Nurse Practitioner Family | DX: Z13.89 Encounter for screening for other disorder (principal) ==

== ENCOUNTER 2022-07-23 13:48 | Outpatient (REF) | payer OTHER, SELFPAY ==
[2022-07-23 13:58] LABS: MANUAL DIFF FLAG NO
[2022-07-23 14:16] LABS: Basophils Absolute Auto 0.1 X10*3/uL (0.0-0.2); Basophils Percent Auto 0.5 % (0-2); Eosinophils Absolute Auto 0.4 X10*3/uL (0.0-0.4); Eosinophils Percent Auto 3.7 % (0-4); Hematocrit 36.4 % (37.0-47.0); Hemoglobin 12.2 g/dl (12.0-16.0); Imm Gran Abs Auto 0.05 X10*3/uL (0.00-0.03); Imm Gran Pct Auto 0.4 % (0.0-0.4); Lymphocytes Absolute Auto 4.2 X10*3/uL (1.2-4.9); Lymphocytes Percent Auto 37.4 % (20-40); Mean Corpuscular HGB Conc 33.5 g/dl (31.0-35.0); Mean Corpuscular Hemoglobin 29.5 pg (27.0-33.0); Mean Corpuscular Volume 87.9 fL (80.0-98.0); Mean Platelet Volume 8.8 fL (9.4-12.3); Monocytes Percent Auto 8.6 % (2-11); Neutrophils Absolute Auto 5.6 x10*3/uL (2.0-8.3); Neutrophils Percent Auto 49.4 % (45-73); Platelet Count 376 X10*3/uL (160-400); Red Blood Count 4.14 X10*6/uL (4.20-5.50); Red Cell Distribution Width 12.9 % (11.0-16.0); White Blood Count 11.3 X10*3/uL (4.8-10.8)
[2022-07-23 14:36] LABS: Alanine Aminotransferase 9 U/L (0-31); Albumin Level 4.2 g/dL (3.5-5.0); Alkaline Phosphatase 85 U/L (39-117); Anion Gap 11 (12-20); Aspartate Amino Transferase 12 U/L (5-31); Bilirubin Total 0.3 mg/dL (0.0-1.0); Blood Urea Nitrogen 18 mg/dL (9-16); Calcium 9.8 mg/dL (8.4-10.2); Carbon Dioxide 28 mmol/L (22-29); Chloride 102 mmol/L (96-108); Estimated Glomerular Filt Rate > 60; Glucose Random 96 mg/dL (60-115); Potassium 3.7 mmol/L (3.3-5.1); Sodium 137 mmol/L (135-145); Total Protein 6.8 g/dL (6.5-8.0)
== END 2022-07-23 13:49 | disposition home or self-care (01) ==
LOC: HO.LAB 13:48
PROVIDERS: Visit Provider Internal Medicine Gastroenterology
DX: R11.11 Vomiting without nausea (principal); R10.0 Acute abdomen; I95.9 Hypotension, unspecified
CPT/HCPCS: 36415; 80053; 85025

== ENCOUNTER 2022-07-25 14:24 | Outpatient (REF) | payer OTHER, SELFPAY ==
--- NOTE | ~2022-07-25 | XR_ITS ---
EXAMINATION: XR STERNUM CLINICAL INFORMATION: Unspecified injury of thorax. COMPARISON: None. TECHNIQUE: 2 views of the sternum were obtained. FINDINGS: There are no fractures. No bone, joint or soft tissue abnormality is demonstrated. XR/XR sternum min 2V IMPRESSION: Unremarkable sternum examination.
== END 2022-07-25 14:25 | disposition home or self-care (01) ==
LOC: HO.XRAY 14:24
PROVIDERS: PCP Internal Medicine; Visit Provider Internal Medicine
DX: S29.9XXA Unspecified injury of thorax, initial encounter (principal)
CPT/HCPCS: 71120

== ENCOUNTER → 2022-08-15 13:50 | Outpatient (BNVA) | payer OTHER, SELFPAY | PROVIDERS: PCP Internal Medicine; Visit Provider Advanced Practice Midwife | DX: Z13.89 Encounter for screening for other disorder (principal) ==

== ENCOUNTER → 2022-08-16 12:49 | Outpatient (BNVA) | payer OTHER, SELFPAY | PROVIDERS: PCP Internal Medicine; Visit Provider Nurse Practitioner Family | DX: Z51.81 Encounter for therapeutic drug level monitoring (principal); F11.20 Opioid dependence, uncomplicated; M47.816 Spondylosis without myelopathy or radiculopathy, lumbar region; M53.3 Sacrococcygeal disorders, not elsewhere classified; M79.18 Myalgia, other site | CPT/HCPCS: 99212 ==

== ENCOUNTER 2022-08-22 10:24 | Outpatient (REF) | payer OTHER, SELFPAY ==
--- NOTE | ~2022-08-22 | MM_ITS ---
EXAMINATION: BONE DENSITOMETRY CLINICAL INDICATION: Other specified disorders of bone density and structure, unspecified site. COMPARISON: This is the patient's baseline examination. TECHNIQUE: Using a [employer] DXA System (software version: 13.1) manufactured by [employer], dual-energy x-ray absorptiometry was performed of the lumbar spine and left hip. The images are of good technical quality. Summary results are attached. FINDINGS: AP SPINE L1-L2 (excluding L3 and L4): The data of L1-L4 has been changed to exclude the L3 and L4 vertebral bodies, because degenerative sclerosis at these levels may cause overestimation of lumbar spine density. BMD 0.910 g/cm2, Z-score -0.8, T-score -2.1, osteopenia. LEFT FEMUR, NECK: BMD 0.742 g/cm2, Z-score -0.8, T-score -2.1, osteopenia. LEFT FEMUR, TOTAL: BMD 0.757 g/cm2, Z-score -1.0, T-score -2.0, osteopenia. IDENTIFIED RISK FACTORS: Current smoker. Height loss. Menopause. HISTORY OF FRACTURE: None listed. MEDICATIONS: Vitamin D. MM/XR DEXA axial skeleton IMPRESSION: 1. DIAGNOSIS: Osteopenia based on the lowest T-score value of -2.1 in the lumbar spine and femoral neck applying World Health Organization criteria. 2. 10-YEAR FRACTURE RISK PREDICTION, FRAX: Major osteoporotic fracture (clinical spine, forearm, hip or shoulder) 10.0%. Hip fracture 2.4%. 3. Treatment Recommendations: NOF guidelines recommend consideration for treatment in postmenopausal women and men age 50 and older presenting with the following: -A hip or vertebral (clinical or morphometric) fracture. -T-score less than or equal to -2.5 at the femoral neck or spine after appropriate evaluation to exclude secondary causes. -Low bone mass at the hip or spine and a 10-year fracture probability by FRAX of greater than or equal to 3% for hip fracture or greater than or equal to 20% for major osteoporotic fracture based on the [place] adapted WHO algorithm. 4. Other Recommendations: All treatment decisions require clinical judgment and consideration of individual patient factors, including patient preferences, comorbidities, previous drug use, risk factors not captured in the FRAX model (e.g. frailty, falls, vitamin D deficiency, increased bone turnover, interval significant decline in bone density) and possible under or overestimation of fracture risk by FRAX. Additional medical evaluation for secondary cause of low bone mineral density may be appropriate. FUTURE SCAN RECOMMENDATION: People with diagnosed cases of osteoporosis or at high risk for fracture should have regular bone mineral density tests. For patients eligible for Medicare, routine testing is allowed once every 2 years. The testing frequency can be increased to one year for patients who have rapidly progressing disease, those who are receiving or discontinuing medical therapy to restore bone mass, or have additional risk factors.
== END 2022-08-22 10:25 | disposition home or self-care (01) ==
LOC: HO.MAMMO 10:24
PROVIDERS: Visit Provider Advanced Practice Midwife
DX: Z13.820 Encounter for screening for osteoporosis (principal); Z78.0 Asymptomatic menopausal state; M85.80 Other specified disorders of bone density and structure, unspecified site
CPT/HCPCS: 77080

== ENCOUNTER → 2022-09-13 13:26 | Outpatient (BNVA) | payer OTHER, SELFPAY | PROVIDERS: PCP Internal Medicine; Visit Provider Nurse Practitioner Family | DX: Z51.81 Encounter for therapeutic drug level monitoring (principal); F11.20 Opioid dependence, uncomplicated; M47.816 Spondylosis without myelopathy or radiculopathy, lumbar region; M53.3 Sacrococcygeal disorders, not elsewhere classified; M79.18 Myalgia, other site | CPT/HCPCS: 99212 ==

== ENCOUNTER → 2022-10-11 10:55 | Outpatient (BNVA) | payer OTHER, SELFPAY | PROVIDERS: PCP Internal Medicine; Visit Provider Nurse Practitioner Family | DX: R03.0 Elevated blood-pressure reading, without diagnosis of hypertension (principal); M79.18 Myalgia, other site; F17.210 Nicotine dependence, cigarettes, uncomplicated; G89.29 Other chronic pain; M54.50 Low back pain, unspecified; M47.816 Spondylosis without myelopathy or radiculopathy, lumbar region; M53.3 Sacrococcygeal disorders, not elsewhere classified; Z79.891 Long term (current) use of opiate analgesic | CPT/HCPCS: 99212 ==

== ENCOUNTER → 2022-11-15 12:51 | Outpatient (BNVA) | payer OTHER, SELFPAY | PROVIDERS: PCP Internal Medicine; Visit Provider Nurse Practitioner Family | DX: Z79.891 Long term (current) use of opiate analgesic (principal) | CPT/HCPCS: 99211 ==

== ENCOUNTER → 2022-12-13 12:57 | Outpatient (BNVA) | payer OTHER, SELFPAY | PROVIDERS: PCP Internal Medicine; Visit Provider Nurse Practitioner Family | DX: Z51.81 Encounter for therapeutic drug level monitoring (principal); F11.20 Opioid dependence, uncomplicated; M79.18 Myalgia, other site; M54.59 Other low back pain; M47.816 Spondylosis without myelopathy or radiculopathy, lumbar region; M53.3 Sacrococcygeal disorders, not elsewhere classified; G89.29 Other chronic pain | CPT/HCPCS: 99212 ==

== ENCOUNTER → 2023-01-10 12:54 | Outpatient (BNVA) | payer OTHER, SELFPAY | PROVIDERS: PCP Internal Medicine; Visit Provider Registered Nurse Emergency | DX: Z51.81 Encounter for therapeutic drug level monitoring (principal); M79.18 Myalgia, other site; M47.816 Spondylosis without myelopathy or radiculopathy, lumbar region; M53.3 Sacrococcygeal disorders, not elsewhere classified; M54.50 Low back pain, unspecified; F11.20 Opioid dependence, uncomplicated; G89.29 Other chronic pain | CPT/HCPCS: 99212 ==

== ENCOUNTER 2023-02-14 12:53 | Outpatient (AMB) | payer OTHER, SELFPAY ==
[2023-02-14 13:02] VITALS: BP 146/78; PULSE 72; RESP 14; O2SAT 99; BMI 20.8
--- NOTE | 2023-02-14 13:02 | MHC.OFFVIS ---
Intake Vital Signs 02/14/23 13:02 Height 5 ft 4 in Weight 121 lb BMI 20.8 BP 146/78 H Blood Pressure Location Lt brachial Position Sitting Respiration 14 Pulse 72 Pulse Source Pulse Oximeter Pulse Oximetry (%) 99 Oxygen Delivery Method Room Air Intake Visit Reasons: Pill count Allergies Sulfa (Sulfonamide Antibiotics) Allergy (Intermediate, Verified 02/14/23 13:03) Hives, itching trimethoprim [From Bactrim] Allergy (Verified 02/14/23 13:03) Hives HPI HPI Comments History of Present Illness Details Priya is a very pleasant 62 year old female who presents to the office today for follow up chronic pain and chronic opioid therapy management. Patient is prescribed oxycodone acetaminophen 7.5-325mg take 1 tablet four times daily. Patient arrived today with the expectation of having 52 pills, she presented 57 pills which were counted in the presence of two staff members and returned to the patient in the original prescription bottle. This demonstrates responsible attitude toward patient's opioid medications. Pain is reported today as 4/10 and last dose of pain medication was taken at 11:30 this morning. Pain is well managed on current opioid regimen. Patient denies any recent changes or exacerbations of chronic back pain and states she is able to engage in activities of daily living with minimal interruption due to chronic pain. Patient denies side effects including somnolence, constipation, itching, dyspnea, rash, dizziness or weakness. COUNT INCLUDES THE [facility] Medical History Benign essential hypertension Chronic low back pain Chronic, continuous use of opioids Cyclical vomiting Osteopenia Personal history of nicotine dependence Tenosynovitis of thumb Vitamin D deficiency Surgical History History of appendectomy History of breast surgery History of colonoscopy (~2020) History of selective injection of anesthetic agent around lumbar nerve root History of tonsillectomy Hx of right knee surgery Hx of shoulder surgery S/P laparoscopic cholecystectomy (~2009) Family History Maternal Uncle Diabetes Father No problems noted. Mother No problems noted. Social History Housing: House Alcohol intake: former Patient Tobacco Use Status: Current everyday Tobacco user Tobacco use type: Cigarette Cigarettes Per Day: 4 Years Smoked: (onset 15, 1/2-1ppd x 46yrs, 30+PYH) e-Cigarette/Vaping Use: Never Used Second Hand Smoke Exposure: Yes service: No Current occupational status: retired and disabled Cognitive needs: No Hearing needs: No Vision needs: Yes Female Reproductive History Menstrual Age of Menarche: 14 Review of Systems Const All systems reviewed & are unremarkable except as noted in HPI and below Physical Exam Vital Signs: Last Vital Signs Pulse 72 02/14/23 13:02 Resp 14 02/14/23 13:02 BP 146/78 H 02/14/23 13:02 Pulse Ox 99 02/14/23 13:02 Oxygen Delivery Method Room Air 02/14/23 13:02 BMI result Body Mass Index 20.8 Const Other: General: awake, alert, oriented. Answers questions appropriately. Fully engaged in examination. HEENT: Normocephalic. Conjuntivae clear without exudate. Sclera non-icteric. Hearing intact. Cardiac: External chest normal in appearance. Respiratory: No signs of trauma. No signs of respiratory distress. No cough, audible wheezing or stridor. Abdomen: without gross distension. MS: No obvious swelling or deformities. Able to transition from sit to stand unassisted. Ambulates with bilaterally normal heel strike and toe off Neurological: Oriented to person, place, time and situation. Thought process intact. No gait abnormalities appreciated. Psychiatric: Appropriate mood and affect. Good judgment and insight. 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 No obvious signs of diversion, abuse or misuse of the opioid medications. Will send in prescription for oxycodone/acetaminophen 7.5-325 mg QID with an advanced date of 02/28/2023 Patient to follow-up in the office in 1 month, sooner if needed. All questions and concerns have been answered and patient agrees with the plan. Medications: Refilled oxycodone-acetaminophen 7.5-325 mg Partial Fill upon patient request. 1 tab PO QID PRN 120 tabs 0RF pain, severe 30 days G89.29 - Other chronic pain, M47.816 - Spondylosis without myelopathy or radiculopathy, lumbar region, M53.3 - Sacrococcygeal disorders, not elsewhere classified, M54.5 - Low back pain Coding Level of Care Code Est Pt Level 3 (26286) Diagnoses Myofascial pain M79.18 Chronic low back pain M54.5; G89.29 Back pain laterality: midline Sciatica presence: unspecified whether sciatica present Spondylosis of lumbar region without myelopathy or radiculopathy M47.816 Sacroiliac joint pain M53.3 Chronic, continuous use of opioids F11.90
== END 2023-02-14 13:12 | disposition home or self-care (01) ==
PROVIDERS: PCP Internal Medicine; Visit Provider Registered Nurse Emergency
DX: M79.18 Myalgia, other site (principal); M54.50 Low back pain, unspecified; G89.29 Other chronic pain; M47.816 Spondylosis without myelopathy or radiculopathy, lumbar region; M53.3 Sacrococcygeal disorders, not elsewhere classified; Z79.891 Long term (current) use of opiate analgesic
CPT/HCPCS: 99213

== ENCOUNTER → 2023-02-14 12:53 | Outpatient (BNVA) | payer OTHER, SELFPAY | PROVIDERS: PCP Internal Medicine; Visit Provider Registered Nurse Emergency | DX: Z51.81 Encounter for therapeutic drug level monitoring (principal); F11.20 Opioid dependence, uncomplicated; M79.18 Myalgia, other site; M47.816 Spondylosis without myelopathy or radiculopathy, lumbar region; M54.50 Low back pain, unspecified; M53.3 Sacrococcygeal disorders, not elsewhere classified; G89.29 Other chronic pain | CPT/HCPCS: 99212 ==

== ENCOUNTER 2023-03-14 12:48 | Outpatient (AMB) | payer OTHER, SELFPAY ==
--- NOTE | 2023-03-14 13:17 | A.OFFVIS_ITS ---
Intake Vital Signs 03/14/23 13:18 Height 5 ft 4 in Weight 120 lb 2 oz BMI 20.6 BP 139/75 Blood Pressure Location Lt brachial Position Sitting Respiration 14 Pulse 80 Pulse Source Pulse Oximeter Pulse Oximetry (%) 98 Oxygen Delivery Method Room Air Intake Visit Reasons: Pill count Allergies Sulfa (Sulfonamide Antibiotics) Allergy (Intermediate, Verified 03/14/23 13:19) Hives, itching trimethoprim [From Bactrim] Allergy (Verified 03/14/23 13:19) Hives HPI HPI Comments History of Present Illness Details Priya is a very pleasant 62 year old female who presents to the office today for follow up chronic pain and chronic opioid therapy management. Patient is prescribed oxycodone acetaminophen 7.5-325mg take 1 tablet four times daily. Patient arrived today with the expectation of having 60 pills, she presented 64 pills which were counted in the presence of two staff members and returned to the patient in the original prescription bottle. This demonstrates responsible attitude toward patient's opioid medications. Pain is reported today as 4/10 and last dose of pain medication was taken at 11:45 this morning. Pain is well managed on current opioid regimen. Patient denies any recent changes or exacerbations of chronic back pain and states she is able to engage in activities of daily living with minimal interruption due to chronic pain. Patient denies side effects including somnolence, constipation, itching, dyspnea, rash, dizziness or weakness. [facility] Medical History Benign essential hypertension Chronic low back pain Chronic, continuous use of opioids Cyclical vomiting Osteopenia Personal history of nicotine dependence Tenosynovitis of thumb Vitamin D deficiency Surgical History History of appendectomy History of breast surgery History of colonoscopy (~2020) History of selective injection of anesthetic agent around lumbar nerve root History of tonsillectomy Hx of right knee surgery Hx of shoulder surgery S/P laparoscopic cholecystectomy (~2009) Family History Maternal Uncle Diabetes Father No problems noted. Mother No problems noted. Social History Housing: House Alcohol intake: former Patient Tobacco Use Status: Current everyday Tobacco user Tobacco use type: Cigarette Cigarettes Per Day: 4 Years Smoked: (onset 15, 1/2-1ppd x 46yrs, 30+PYH) e-Cigarette/Vaping Use: Never Used Second Hand Smoke Exposure: Yes service: No Current occupational status: retired and disabled Cognitive needs: No Hearing needs: No Vision needs: Yes Female Reproductive History Menstrual Age of Menarche: 14 Review of Systems Const All systems reviewed & are unremarkable except as noted in HPI and below Physical Exam Vital Signs: Last Vital Signs Pulse 80 03/14/23 13:18 Resp 14 03/14/23 13:18 BP 139/75 03/14/23 13:18 Pulse Ox 98 03/14/23 13:18 Oxygen Delivery Method Room Air 03/14/23 13:18 BMI result Body Mass Index 20.6 General: awake, alert, oriented. Answers questions appropriately. Fully engaged in examination. HEENT: Normocephalic. Conjuntivae clear without exudate. Sclera non-icteric. Hearing intact. Cardiac: External chest normal in appearance. Respiratory: No cough, audible wheezing or stridor. Abdomen: without gross distension. MS: No obvious swelling or deformities. Able to transition from sit to stand unassisted. Ambulates with bilaterally normal heel strike and toe off Neurological: Oriented to person, place, time and situation. Thought process intact. No gait abnormalities appreciated. Psychiatric: Appropriate mood and affect. Good judgment and insight. 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 No obvious signs of diversion, abuse or misuse of the opioid medications. Will send in prescription for oxycodone/acetaminophen 7.5-325 mg QID with an advanced date of 03/30/2023 Patient to follow-up in the office in 1 month, sooner if needed. All questions and concerns have been answered and patient agrees with the plan. Medications: Refilled oxycodone-acetaminophen 7.5-325 mg Partial Fill upon patient request. 1 tab PO QID 30 days PRN 120 tabs 0RF pain, severe G89.29 - Other chronic pain, M47.816 - Spondylosis without myelopathy or radiculopathy, lumbar region, M53.3 - Sacrococcygeal disorders, not elsewhere classified, M54.5 - Low back pain Coding Level of Care Code Est Pt Level 3 (94729) Diagnoses Myofascial pain M79.18 Chronic low back pain M54.5; G89.29 Back pain laterality: midline Sciatica presence: unspecified whether sciatica present Spondylosis of lumbar region without myelopathy or radiculopathy M47.816 Sacroiliac joint pain M53.3 Chronic, continuous use of opioids F11.90
[2023-03-14 13:18] VITALS: BP 139/75; PULSE 80; RESP 14; O2SAT 98; BMI 20.6
== END 2023-03-14 13:22 | disposition home or self-care (01) ==
PROVIDERS: PCP Internal Medicine; Visit Provider Registered Nurse Emergency
DX: M79.18 Myalgia, other site (principal); M54.50 Low back pain, unspecified; G89.29 Other chronic pain; M47.816 Spondylosis without myelopathy or radiculopathy, lumbar region; M53.3 Sacrococcygeal disorders, not elsewhere classified; Z79.891 Long term (current) use of opiate analgesic
CPT/HCPCS: 99213

== ENCOUNTER → 2023-03-14 12:48 | Outpatient (BNVA) | payer OTHER, SELFPAY | PROVIDERS: PCP Internal Medicine; Visit Provider Registered Nurse Emergency | DX: M47.816 Spondylosis without myelopathy or radiculopathy, lumbar region (principal); M79.18 Myalgia, other site; G89.29 Other chronic pain; M54.50 Low back pain, unspecified; M53.3 Sacrococcygeal disorders, not elsewhere classified; Z79.891 Long term (current) use of opiate analgesic | CPT/HCPCS: 99212 ==

== ENCOUNTER 2023-04-10 12:41 | Outpatient (AMB) | payer OTHER, SELFPAY ==
[2023-04-10 12:55] VITALS: BP 133/72; PULSE 80; RESP 16; O2SAT 98; BMI 20.6
--- NOTE | 2023-04-10 12:55 | A.OFFVIS_ITS ---
Intake Vital Signs 04/10/23 12:55 Height 5 ft 4 in Weight 120 lb BMI 20.6 BP 133/72 Blood Pressure Location Lt brachial Position Sitting Respiration 16 Pulse 80 Pulse Source Pulse Oximeter Pulse Oximetry (%) 98 Oxygen Delivery Method Room Air Intake Visit Reasons: PILL COUNT Allergies Sulfa (Sulfonamide Antibiotics) Allergy (Intermediate, Verified 04/10/23 12:56) Hives, itching trimethoprim [From Bactrim] Allergy (Verified 04/10/23 12:56) Hives HPI HPI Comments History of Present Illness Details Priya is a very pleasant 62 year old female who presents to the office today for follow up chronic pain and chronic opioid therapy management. Patient is prescribed oxycodone acetaminophen 7.5-325mg, take 1 tablet four times daily. Patient arrived today with the expectation of having 72 pills, she presented 75 pills which were counted in the presence of two staff members and returned to the patient in the original prescription bottle. This demonstrates responsible attitude toward patient's opioid medications. Pain is reported today as 3/10 and last dose of pain medication was taken at 11:30 this morning. Pain is adequately managed on current opioid regimen. Patient denies any recent changes or exacerbations of chronic back pain and states she is able to engage in activities of daily living with minimal interruption due to chronic pain. Patient denies side effects including somnolence, constipation, itching, dyspnea, rash, dizziness or weakness. [facility] Medical History Benign essential hypertension Chronic low back pain Chronic, continuous use of opioids Cyclical vomiting Osteopenia Personal history of nicotine dependence Tenosynovitis of thumb Vitamin D deficiency Surgical History History of appendectomy History of breast surgery History of colonoscopy (~2020) History of selective injection of anesthetic agent around lumbar nerve root History of tonsillectomy Hx of right knee surgery Hx of shoulder surgery S/P laparoscopic cholecystectomy (~2009) Family History Maternal Uncle Diabetes Father No problems noted. Mother No problems noted. Social History Housing: House Alcohol intake: former Patient Tobacco Use Status: Current everyday Tobacco user Tobacco use type: Cigarette Cigarettes Per Day: 4 Years Smoked: (onset 15, 1/2-1ppd x 46yrs, 30+PYH) e-Cigarette/Vaping Use: Never Used Second Hand Smoke Exposure: Yes service: No Current occupational status: retired and disabled Cognitive needs: No Hearing needs: No Vision needs: Yes Female Reproductive History Menstrual Age of Menarche: 14 Review of Systems Const All systems reviewed & are unremarkable except as noted in HPI and below Physical Exam Vital Signs: Last Vital Signs Pulse 80 04/10/23 12:55 Resp 16 04/10/23 12:55 BP 133/72 04/10/23 12:55 Pulse Ox 98 04/10/23 12:55 Oxygen Delivery Method Room Air 04/10/23 12:55 BMI result Body Mass Index 20.6 General: awake, alert, oriented. Answers questions appropriately. Fully engaged in examination. HEENT: Normocephalic. Hearing intact. Cardiac: External chest normal in appearance. Respiratory: No cough, audible wheezing or stridor. Abdomen: without gross distension. MS: No obvious swelling or deformities. Able to transition from sit to stand unassisted. Ambulates with bilaterally normal heel strike and toe off Neurological: Oriented to person, place, time and situation. Thought process intact. No gait abnormalities appreciated. Psychiatric: Appropriate mood and affect. Good judgment and insight. 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 No obvious signs of diversion, abuse or misuse of the opioid medications. Will send in prescription for oxycodone/acetaminophen 7.5-325 mg QID with an advanced date of 04/29/2023 Patient to follow-up in the office in 1 month, sooner if needed. All questions and concerns have been answered and patient agrees with the plan. Medications: Refilled oxycodone-acetaminophen 7.5-325 mg Partial Fill upon patient request. 1 tab PO QID PRN 120 tabs 0RF pain, severe 30 days G89.29 - Other chronic pain, M47.816 - Spondylosis without myelopathy or radiculopathy, lumbar region, M53.3 - Sacrococcygeal disorders, not elsewhere classified, M54.5 - Low back pain Coding Level of Care Code Est Pt Level 3 (19952) Diagnoses Myofascial pain M79.18 Chronic midline low back pain, unspecified whether sciatica present M54.5; G89.29 Back pain laterality: midline Sciatica presence: unspecified whether sciatica present Spondylosis of lumbar region without myelopathy or radiculopathy M47.816 Sacroiliac joint pain M53.3 Chronic, continuous use of opioids F11.90
== END 2023-04-10 13:07 | disposition home or self-care (01) ==
PROVIDERS: PCP Internal Medicine; Visit Provider Registered Nurse Emergency
DX: G89.29 Other chronic pain (principal); M79.18 Myalgia, other site; M54.50 Low back pain, unspecified; Z79.891 Long term (current) use of opiate analgesic; M47.816 Spondylosis without myelopathy or radiculopathy, lumbar region; M53.3 Sacrococcygeal disorders, not elsewhere classified
CPT/HCPCS: 99213

== ENCOUNTER → 2023-04-10 12:41 | Outpatient (BNVA) | payer OTHER, SELFPAY | PROVIDERS: PCP Internal Medicine; Visit Provider Registered Nurse Emergency | DX: Z51.81 Encounter for therapeutic drug level monitoring (principal); F11.20 Opioid dependence, uncomplicated; M79.18 Myalgia, other site; M54.59 Other low back pain; M53.3 Sacrococcygeal disorders, not elsewhere classified; M47.816 Spondylosis without myelopathy or radiculopathy, lumbar region; G89.29 Other chronic pain | CPT/HCPCS: 99212 ==

== ENCOUNTER 2023-04-22 08:40 | Outpatient (REF) | payer OTHER, SELFPAY | END 2023-04-22 08:41 | disposition home or self-care (01) | LOC: HO.LAB 08:40 | PROVIDERS: PCP Internal Medicine; Visit Provider Internal Medicine | DX: Z00.00 Encounter for general adult medical examination without abnormal findings (principal); R73.01 Impaired fasting glucose; E78.00 Pure hypercholesterolemia, unspecified; I10 Essential (primary) hypertension; E55.9 Vitamin D deficiency, unspecified; R30.0 Dysuria | CPT/HCPCS: 36415; 80053; 80061; 81001; 81003; 82306; 83036; 84443; 85025; 87086 ==

== ENCOUNTER 2023-04-30 17:09 | Outpatient (AMB) | payer OTHER, SELFPAY ==
[2023-04-30 17:10] VITALS: BP 138/90; PULSE 85; O2SAT 96; BMI 22.0
--- NOTE | 2023-04-30 17:10 | A.OFFPC_ITS ---
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: No Accompanied by: Self / Same As Patient Allergies Sulfa (Sulfonamide Antibiotics) Allergy (Intermediate, Verified 04/30/23 18:07) Hives, itching trimethoprim [From Bactrim] Allergy (Verified 04/30/23 18:07) Hives Medication List - Last Reconciled 04/30/23 by Charly Carrillo MD amlodipine 2.5 mg PO DAILY 90 days back brace As directed calcium carbonate (Calcium) 600 mg PO DAILY cholecalciferol (vitamin D3) 50 mcg PO DAILY 90 days diclofenac sodium 1% (Arthritis Pain (diclofenac)) 4 grams topical QID fluticasone propionate 50 mcg/actuation 2 sprays intranasal DAILY PRN 30 days nicotine (polacrilex) (Nicorette) 4 mg buccal Q2H PRN nortriptyline 75 mg PO BEDTIME oxycodone-acetaminophen 7.5-325 mg 1 tab PO QID PRN 30 days sucralfate 1 g PO TID PRN Tobacco use date assessed: 04/30/23 Dental Screening Dental Screen Date: 04/30/23 Did you have a dental visit in the last 12 months?: No Did you have a dental problem in the last 6 months where you did not have access to dental care?: No Was dental information given to patient?: No HPI PE HPI Details Patient comes in today for her annual physical examination States that she feels okay She denies any headaches or dizziness Denies any chest pains, no SOB No nausea/vomiting, no abdominal pain - states that her cyclical vomiting syndrome has been quiet lately No change in bowel habits noted Denies any acute urinary symptoms but often still has the urge to go after using the bathroom - used to see Dr. Herman years ago but has not seen urology lately Would like to see urology again for follow up but wants to see a female provider Needs a couple of her Rx refilled Had her follow up labs done last week - to discuss her results She continues to follow up with the pain management program here at [facility] for her chronic low back pain and Rx Had her screening colonoscopy last done over at [place] with Dr. 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 Had her bone density done in August 2022 - (+) osteopenia States that she will be due for her yearly mammogram soon and used to go to the breast program at [facility] and would like to get a referral to go back to them Adds that she has been experiencing some breast pain/discomfort lately so she wants to go back and see them to have her symptoms checked out Lastly, has a large cyst on her right parieto-occipital scalp area for years and she feels this is getting bigger lately; denies any pain over the cyst but would like to get a referral and have this removed if possible Recalls having a similar cyst removed from the left side years ago back in 1996 - pathology was a ruptured epidermoid cyst [facility] Medical History (Updated 04/30/23 @ 18:57 by Charly Carrillo MD) Osteopenia Vitamin D deficiency Personal history of nicotine dependence Benign essential hypertension Chronic, continuous use of opioids Tenosynovitis of thumb Chronic low back pain Cyclical vomiting Surgical History History of tonsillectomy History of selective injection of anesthetic agent around lumbar nerve root History of colonoscopy (~2020) History of breast surgery Hx of shoulder surgery Hx of right knee surgery S/P laparoscopic cholecystectomy (~2009) History of appendectomy Family History Maternal Uncle Diabetes Father No problems noted. Mother No problems noted. Social History Housing: House Alcohol intake: former Patient Tobacco Use Status: Current everyday Tobacco user Tobacco use type: Cigarette Cigarettes Per Day: 4 Years Smoked: (onset 15, 1/2-1ppd x 46yrs, 30+PYH) e-Cigarette/Vaping Use: Never Used Second Hand Smoke Exposure: Yes service: No Current occupational status: retired and disabled Cognitive needs: No Hearing needs: No Vision needs: Yes Female Reproductive History Menstrual Age of Menarche: 14 Questionnaire PHQ-9 Over the last 2 weeks, how often have you been bothered by any of the following problems? 1. Little interest or pleasure in doing things: not at all 2. Feeling down, depressed, or hopeless: not at all 3. Trouble falling or staying asleep, or sleeping too much: not at all 4. Feeling tired or having little energy: not at all 5. Poor appetite or overeating: not at all 6. Feeling bad about yourself - or that you are a failure or have let yourself or your family down: not at all 7. Trouble concentrating on things, such as reading the newspaper or watching television: not at all 8. Moving or speaking so slowly that other people could have noticed. Or the opposite - being so fidgety or restless that you have been moving around a lot more than usual: not at all 9. Thoughts that you would be better off or of hurting yourself in some way: not at all Total score: 0 Depression Screening Interpretation: Negative Depression Screening Done: Yes 62435 - PHQ-9 Billing: Yes Source: Developed by Drs. Samuel Flaherty, Afia Engle, Chris Aragon and colleagues, with an educational saida from [employer]. Thrive Questionnaire Date Thrive assessed: 04/30/23 I am a: Patient What is your living situation today?: I have a steady place to live Within the past 12 months, did the food you bought not last and you didn't have the money to get more?: Never true Within the past 12 months, did you worry whether your food would run out before you got money to buy more?: Never true Do you have trouble paying for medicines?: No Do you have trouble getting transportation to medical appointments?: No Do you have trouble paying your heating and electricity bill?: No Do you have trouble taking care of your child, family member or friend?: No Do you have trouble with day-to-day activities such as bathing, preparing meals, shopping, managing finances, etc.?: No Are you currently unemployed and looking for a job?: No Are you interested in more education?: No Please select the resources that you would like help with: None Currently or been in a relationship where the following occur: no concerns reported AUDIT C Alcohol Use Questionnaire (AUDIT-C) 1. How often do you have a drink containing alcohol?: Never 3. How often do you have six or more drinks on one occasion?: Never Total Score: 0 Score Reviewed/Action Taken: Yes PACHECO-7 AMB Questionnaire PACHECO-7 Date PACHECO - 7 assessed: 04/30/23 Feeling nervous, anxious, or on edge: 0 = Not at all Not being able to stop or control worryin = Not at all Worrying too much about different things: 0 = Not at all Trouble relaxin = Not at all Being so restless that it is hard to sit still: 0 = Not at all Becoming easily annoyed or irritable: 0 = Not at all Feeling afraid as if something awful might happen: 0 = Not at all Total PACHECO-7 score (0-4 normal; 5-9 mild; 10-14 moderate; 15-21 severe): 0 Source: Developed by Drs. Samuel Flaherty, Afia Engle, Chris Aragon and colleagues, with an educational saida from [employer]. Review of Systems Const Denies chills, Denies fatigue, Denies fever(s), Denies headache(s) and Denies malaise Eyes Denies blurry vision, Denies change in vision, Denies irritation and Denies itchy eyes ENT Denies dysphagia, Denies dizziness, Denies otalgia, Denies headache(s), Denies nasal congestion, Denies neck pain, Denies odynophagia, Denies sinus pain and Denies sore throat Card Denies chest pain, Denies rapid heart rate, Denies irregular heart rhythm, Denies palpitations and Denies dyspnea Resp Denies chest congestion, Denies cough, Denies dyspnea and Denies wheezing GI Denies abdominal pain, Denies bloating, Denies constipation, Denies dysphagia, Denies heartburn, Denies diarrhea, Denies nausea, Denies odynophagia and Denies vomiting Details: (+) sensation of incomplete bladder emptying Denies hematuria, Denies urinary frequency, Denies nocturia, Denies dysuria, Denies urinary incontinence and Denies urinary urgency Musc Reports back pain (over the lower back - chronic), Denies arthralgias, Denies joint swelling, Denies muscle weakness and Denies neck pain Skin/Breast Details: (+) large cystic lesion at the right parieto-occipital area of the scalp Reports breast pain (at times), Denies breast mass, Denies change in pigmentation, Denies rash and Denies unusual bruising Neuro Denies dizziness, Denies headache(s) and Denies paresthesias Psych Denies anxiety and Denies depression Endo Denies fatigue and Denies palpitations Denislon/Lymph Denies easy bruising Aller/Immun Denies itchy eyes and Denies wheezing Physical exam (Primary Care) Vital Signs: Last Vital Signs Pulse 85 04/30/23 17:10 BP 138/90 H 04/30/23 17:10 Pulse Ox 96 04/30/23 17:10 Oxygen Delivery Method Room Air 04/30/23 17:10 BMI result Body Mass Index 22.0 Tobacco/Smoking Status: Tobacco use Status Tobacco use date assessed 04/30/23 04/30/23 17:15 Patient Tobacco Use Status Current everyday Tobacco 04/30/23 17:15 Tobacco use type Cigarette 04/30/23 17:15 e-Cigarette/Vaping Use Never Used 04/30/23 17:15 PHQ-9: PHQ-9 Score PHQ-9: Total score 0 04/30/23 17:15 Depression Screening Interpretation: Negative Thrive Assessment: Date of Thrive Assessment Date Thrive assessed 04/30/23 04/30/23 17:15 Currently or been in a relationship where the following occur: no concerns reported Const General: no acute distress, alert and awake Orientation/consciousness: patient oriented x3 HENMT Head: Yes normocephalic and Yes atraumatic Ears: external ears normal, TM's normal bilaterally and EAC's normal General nose exam: No nasal discharge present Face and sinus: Yes normal facial exam and Yes sinuses nontender Teeth and gingiva: dentition normal Throat: Yes posterior oropharynx normal and Yes tonsils normal (no TP congestion) Eyes Eyelids: Yes eyelids normal Conjunctivae: conjunctivae normal Pupils: Equal, round and reactive pupils present EOM: EOMs intact bilaterally Neck Neck: Yes no lymphadenopathy and Yes supple Thyroid: Thyroid normal Resp Auscultation: clear to auscultation bilaterally, no rales and no wheezes Cardio Rate: regular rate Rhythm: regular rhythm Heart sounds: no murmurs GI Palpation (GI): Soft to palpation, nontender and No hepatosplenomegaly present Auscultation: normal bowel sounds General: Yes no CVA tenderness Back/Spine/Pelvis Back: no CVA tenderness Thoracic/Lumbar Spine: thoracic and lumbar spine normal to inspection Skin Other: (+) large, non-tender cyst on the right parieto-occipital scalp area Rashes: no rashes Neuro General: patient oriented x3, moves all extremities, no focal motor deficits and CN's II-XI intact bilaterally Cranial nerves: Yes Equal, round and reactive pupils present Cognition (Neuro): normal cognition Gait exam (Neuro): Normal gait present Extrem General: Yes no clubbing, cyanosis or edema Results Reviewed Results Reviewed: Laboratory Tests 04/22/23 04/22/23 04/22/23 08:57 08:57 09:45 WBC 9.8 Hgb 12.4 Hct 37.4 Plt Count 320 Sodium 141 Potassium 3.8 Creatinine 0.74 Estimated GFR > 60 Fasting Glucose 94 Hemoglobin A1c % 5.2 Calcium 9.0 D AST 15 ALT 9 Triglycerides 109 Cholesterol 173 LDL Cholesterol, Calc 107 H HDL Cholesterol 45 25-OH Vitamin D Total 35.9 TSH 2.90 Ur Specific [place] 1.025 Urine Protein Negative Urine Glucose (UA) Negative Urine Blood Trace H Assessment and Plan Assessment & Plan (1) Annual physical exam: Code(s): Z00.00 - Encounter for general adult medical examination without abnormal findings Plan: Results of her labs done last week reviewed and discussed with patient She is up-to-date with her colon cancer screening and has an appointment scheduled in August 2023 for 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 and 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 smear Per request, she is referred to the breast cancer program at [facility] for her yearly exam/mammogram there Her BMD is also up-to-date - done in August 2022 (2) Benign essential hypertension: Code(s): I10 - Essential (primary) hypertension Plan: Reinforced low sodium diet - goal is systolic BP of 120 mm or less Continue Amlodipine 2.5 mg QD Patient is reminded to continue monitoring her blood pressure regularly (3) Pure hypercholesterolemia: Code(s): E78.00 - Pure hypercholesterolemia, unspecified Plan: Reinforced low cholesterol diet Her total and LDL cholesterol levels have improved significantly from last year Will have patient recheck her labs and fasting lipids in 1 year for follow up (4) Impaired fasting glucose: Code(s): R73.01 - Impaired fasting glucose Plan: Is advised that her fasting serum glucose was normal and her HgbA1c was also normal at 5.2% on her recent labs Reinforced low calorie diet/exercise as tolerated (5) Cyclical vomiting: Code(s): R11.15 - Cyclical vomiting syndrome unrelated to migraine Plan: Symptoms have been stable lately Continue Nortriptyline 75 mg Q HS (6) Vitamin D deficiency: Code(s): E55.9 - Vitamin D deficiency, unspecified Plan: Continue Vitamin D3 2000 units QD (7) Allergic rhinitis: Code(s): J30.9 - Allergic rhinitis, unspecified Qualifiers: Allergic rhinitis trigger: unspecified Allergic rhinitis seasonality: unspecified Qualified Code(s): J30.9 - Allergic rhinitis, unspecified Plan: Continue Fluticasone 50 mcg nasal spray QD PRN (8) Epidermoid cyst of skin of scalp: Code(s): L72.0 - Epidermal cyst Plan: Will refer to surgery for further evaluation and surgical excision if appropriate Patient recalls having a similar lesion removed from the other side of her scalp by Dr. Ortega Pizano back in 1996 - pathology came out as a ruptured epidermoid cyst (9) Osteopenia: Code(s): M85.80 - Other specified disorders of bone density and structure, unspecified site Qualifiers: Osteopenia location: unspecified Qualified Code(s): M85.80 - Other specified disorders of bone density and structure, unspecified site Plan: BMD done back in August 2022 revealed (+) osteopenia based on the lowest T- score value of -2.1 in the lumbar spine - this is her baseline exam Have encouraged patient to try to stay active physically and to exercise regularly when she can Continue daily oral Vitamin D and Calcium supplements Will continue to monitor her BMD every 2 to 3 years (10) Incomplete bladder emptying: Code(s): R33.9 - Retention of urine, unspecified Plan: Will refer her again to urology for further evaluation and management (used to see Dr. Herman but this time prefers a female practitioner) (11) Breast pain: Code(s): N64.4 - Mastodynia Plan: Per request, will refer her to the [facility] Breast Cancer Program for further evaluation and management (12) Spondylosis of lumbar region without myelopathy or radiculopathy: Code(s): M47.816 - Spondylosis without myelopathy or radiculopathy, lumbar region Plan: Reinforced activity and weight-lifting restrictions Continue Oxycodone-Acetaminophen 7.5 mg-325 mg 1 tablet QID PRN Follow up with [facility] Pain Management as scheduled (13) Smoker: Code(s): F17.200 - Nicotine dependence, unspecified, uncomplicated Plan: Counseled again to continue attempts at smoking cessation Continue Nicorette gum PRN to help patient quit smoking Low dose lung CT done in February 2022 for lung cancer screening - (+) bilateral small pulmonary nodules with no focal consolidation or mass; recommend annual lung CT Plan Follow up in 4 months Will see her again also in 1 year for her next annual physical examination Orders: Orders Complete Blood Count Auto Diff 364 Days I10 - Essential (primary) hypertension, Z00.00 - Encounter for general adult medical examination without abnormal findings TSH reflex Free T4 364 Days E78.00 - Pure hypercholesterolemia, unspecified, Z00.00 - Encounter for general adult medical examination without abnormal findings Comprehensive [place]. Panel Fast 364 Days E78.00 - Pure hypercholesterolemia, unspecified, Z00.00 - Encounter for general adult medical examination without abnormal findings Lipid Panel 364 Days E78.00 - Pure hypercholesterolemia, unspecified, Z00.00 - Encounter for general adult medical examination without abnormal findings UA CC w/rflx Micro + Cult 364 Days R30.0 - Dysuria, Z00.00 - Encounter for ge neral adult medical examination without abnormal findings Vitamin D 25-OH Total 364 Days E55.9 - Vitamin D deficiency, unspecified, Z00.00 - Encounter for general adult medical examination without abnormal findings Hepatitis B,C Profile 4 Months Z00.00 - Encounter for general adult medical examination without abnormal findings, Z20.2 - Contact with and (suspected) exposure to infections with a predominantly sexual mode of transmission Referrals Urology Referral R33.9 - Retention of urine, unspecified Breast Surgery Referral N64.4 - Mastodynia, N64.59 - Other signs and symptoms in breast General Surgery Referral L72.0 - Epidermal cyst Medications: Changed From amlodipine 2.5 mg PO DAILY 90 tabs 2RF To amlodipine 2.5 mg PO DAILY 90 days 90 tabs 3RF Refilled fluticasone propionate 50 mcg/actuation administer into each nostril 2 sprays intranasal DAILY 30 days PRN 16 grams 5RF allergy symptoms Coding Level of Care Code Est Pt Prev Care 40-64y(61848) Diagnoses Annual physical exam Z00.00 Benign essential hypertension I10 Pure hypercholesterolemia E78.00 Impaired fasting glucose R73.01 Cyclical vomiting R11.15 Vitamin D deficiency E55.9 Allergic rhinitis, unspecified seasonality, unspecified trigger J30.9 Allergic rhinitis trigger: unspecified Allergic rhinitis seasonality: unspecified Epidermoid cyst of skin of scalp L72.0 Osteopenia, unspecified location M85.80 Osteopenia location: unspecified Incomplete bladder emptying R33.9 Breast pain N64.4 Spondylosis of lumbar region without myelopathy or radiculopathy M47.816 Smoker F17.200
== END 2023-04-30 17:54 | disposition home or self-care (01) ==
PROVIDERS: PCP Internal Medicine; Visit Provider Internal Medicine
DX: Z00.00 Encounter for general adult medical examination without abnormal findings (principal); I10 Essential (primary) hypertension; E78.00 Pure hypercholesterolemia, unspecified; R73.01 Impaired fasting glucose; R11.15 Cyclical vomiting syndrome unrelated to migraine; E55.9 Vitamin D deficiency, unspecified; J30.9 Allergic rhinitis, unspecified; L72.0 Epidermal cyst; M85.80 Other specified disorders of bone density and structure, unspecified site; R33.9 Retention of urine, unspecified; N64.4 Mastodynia; M47.816 Spondylosis without myelopathy or radiculopathy, lumbar region; F17.200 Nicotine dependence, unspecified, uncomplicated
CPT/HCPCS: 99396

== ENCOUNTER 2023-05-15 12:50 | Outpatient (AMB) | payer OTHER, SELFPAY ==
[2023-05-15 13:05] VITALS: BP 135/77; PULSE 76; RESP 16; O2SAT 97; BMI 21.9
--- NOTE | 2023-05-15 13:05 | A.OFFVIS_ITS ---
Intake Vital Signs 05/15/23 13:05 Height 5 ft 4 in Weight 127 lb 8 oz BMI 21.9 BP 135/77 Blood Pressure Location Rt brachial Position Sitting Respiration 16 Pulse 76 Pulse Source Pulse Oximeter Pulse Oximetry (%) 97 Oxygen Delivery Method Room Air Intake Visit Reasons: Medication Count /Confirmed Allergies Sulfa (Sulfonamide Antibiotics) Allergy (Intermediate, Verified 05/15/23 13:04) Hives, itching trimethoprim [From Bactrim] Allergy (Verified 05/15/23 13:04) Hives HPI HPI Comments History of Present Illness Details Priya is a very pleasant 62 year old female who presents to the office today for follow up chronic pain and chronic opioid therapy management. Patient is prescribed oxycodone acetaminophen 7.5-325mg, take 1 tablet four times daily. Patient arrived today with the expectation of having 52 pills, she presented 56 pills which were counted in the presence of two staff members and returned to the patient in the original prescription bottle. This demonstrates responsible attitude toward patient's opioid medications. Pain is reported today as 3/10 and last dose of pain medication was taken at noon. Pain is adequately managed on current opioid regimen. Patient denies any recent changes or exacerbations of chronic back pain and states she is able to engage in activities of daily living with minimal interruption due to chronic pain. She does report anticipation of increased muscle spasms now that the cold weather is starting. Patient denies side effects including somnolence, constipation, itching, dyspnea, rash, dizziness or weakness. [facility] Medical History (Updated 04/30/23 @ 18:57 by Charly Carrillo MD) Osteopenia Vitamin D deficiency Personal history of nicotine dependence Benign essential hypertension Chronic, continuous use of opioids Tenosynovitis of thumb Chronic low back pain Cyclical vomiting Surgical History History of tonsillectomy History of selective injection of anesthetic agent around lumbar nerve root History of colonoscopy (~2020) History of breast surgery Hx of shoulder surgery Hx of right knee surgery S/P laparoscopic cholecystectomy (~2009) History of appendectomy Family History Maternal Uncle Diabetes Father No problems noted. Mother No problems noted. Social History Housing: House Alcohol intake: former Patient Tobacco Use Status: Current everyday Tobacco user Tobacco use type: Cigarette Cigarettes Per Day: 4 Years Smoked: (onset 15, 1/2-1ppd x 46yrs, 30+PYH) e-Cigarette/Vaping Use: Never Used Second Hand Smoke Exposure: Yes service: No Current occupational status: retired and disabled Cognitive needs: No Hearing needs: No Vision needs: Yes Female Reproductive History Menstrual Age of Menarche: 14 Review of Systems Const All systems reviewed & are unremarkable except as noted in HPI and below Physical Exam Vital Signs: Last Vital Signs Pulse 76 05/15/23 13:05 Resp 16 05/15/23 13:05 BP 135/77 05/15/23 13:05 Pulse Ox 97 05/15/23 13:05 Oxygen Delivery Method Room Air 05/15/23 13:05 BMI result Body Mass Index 21.9 General: awake, alert, oriented. Answers questions appropriately. Fully engaged in examination. HEENT: Normocephalic. Hearing intact. Cardiac: External chest normal in appearance. Respiratory: No cough, audible wheezing or stridor. Abdomen: without gross distension. MS: No obvious swelling or deformities. Able to transition from sit to stand unassisted. Ambulates with bilaterally normal heel strike and toe off Neurological: Oriented to person, place, time and situation. Thought process intact. No gait abnormalities appreciated. Psychiatric: Appropriate mood and affect. Good judgment and insight. 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 No obvious signs of diversion, abuse or misuse of the opioid medications. Will send in prescription for oxycodone/acetaminophen 7.5-325 mg QID with an advanced date of 05/29/2023 Patient to follow-up in the office in 1 month, sooner if needed. All questions and concerns have been answered and patient agrees with the plan. Medications: Refilled oxycodone-acetaminophen 7.5-325 mg Partial Fill upon patient request. 1 tab PO QID PRN 120 tabs 0RF pain, severe 30 days G89.29 - Other chronic pain, M47.816 - Spondylosis without myelopathy or radiculopathy, lumbar region, M53.3 - Sacrococcygeal disorders, not elsewhere classified, M54.5 - Low back pain Coding Level of Care Code Est Pt Level 3 (29845) Diagnoses Myofascial pain M79.18 Chronic midline low back pain, unspecified whether sciatica present M54.5; G89.29 Back pain laterality: midline Sciatica presence: unspecified whether sciatica present Spondylosis of lumbar region without myelopathy or radiculopathy M47.816 Sacroiliac joint pain M53.3 Chronic, continuous use of opioids F11.90
== END 2023-05-15 13:25 | disposition home or self-care (01) ==
PROVIDERS: PCP Internal Medicine; Visit Provider Registered Nurse Emergency
DX: M79.18 Myalgia, other site (principal); M54.50 Low back pain, unspecified; G89.29 Other chronic pain; Z79.891 Long term (current) use of opiate analgesic; M47.816 Spondylosis without myelopathy or radiculopathy, lumbar region; M53.3 Sacrococcygeal disorders, not elsewhere classified
CPT/HCPCS: 99213

== ENCOUNTER → 2023-05-15 12:50 | Outpatient (BNVA) | payer OTHER, SELFPAY | PROVIDERS: PCP Internal Medicine; Visit Provider Registered Nurse Emergency | DX: Z51.81 Encounter for therapeutic drug level monitoring (principal); F11.20 Opioid dependence, uncomplicated; M79.18 Myalgia, other site; M54.59 Other low back pain; M53.3 Sacrococcygeal disorders, not elsewhere classified; M47.816 Spondylosis without myelopathy or radiculopathy, lumbar region; G89.29 Other chronic pain | CPT/HCPCS: 99212 ==

== ENCOUNTER 2023-06-12 09:26 | Outpatient (AMB) | payer OTHER, SELFPAY ==
--- NOTE | 2023-06-12 09:39 | MHC.OFFVIS ---
Intake Vital Signs 06/12/23 09:40 Height 5 ft 4 in Weight 132 lb BMI 22.7 BP 150/82 H Blood Pressure Location Rt brachial Position Sitting Respiration 16 Pulse 84 Pulse Source Pulse Oximeter Pulse Oximetry (%) 97 Oxygen Delivery Method Room Air Intake Visit Reasons: PILL COUNT/random UDS LMOVM Allergies Sulfa (Sulfonamide Antibiotics) Allergy (Intermediate, Verified 05/15/23 13:04) Hives, itching trimethoprim [From Bactrim] Allergy (Verified 05/15/23 13:04) Hives HPI HPI Comments History of Present Illness Details Priya is a very pleasant 62 year old female who presents to the office today for follow up chronic pain and chronic opioid therapy management. Patient is prescribed oxycodone acetaminophen 7.5-325mg, take 1 tablet four times daily. Patient arrived today with the expectation of having 64 pills, she presented 65 pills which were counted in the presence of two staff members and returned to the patient in the original prescription bottle. This demonstrates responsible attitude toward patient's opioid medications. Pain is reported today as 4/10 and last dose of pain medication was taken at 6:30am. Pain is adequately managed on current opioid regimen. Patient denies any recent changes or exacerbations of chronic back pain and states she is able to engage in activities of daily living with minimal interruption due to chronic pain. Patient endorses muscle spasms have started again, happens every winter . Triggered by the colder weather. Requesting muscle relaxer for the spasms, she has tolerated well in the past. Patient denies side effects including somnolence, constipation, itching, dyspnea, rash, dizziness or weakness. [facility] Medical History (Updated 04/30/23 @ 18:57 by Charly Carrillo MD) Osteopenia Vitamin D deficiency Personal history of nicotine dependence Benign essential hypertension Chronic, continuous use of opioids Tenosynovitis of thumb Chronic low back pain Cyclical vomiting Surgical History History of tonsillectomy History of selective injection of anesthetic agent around lumbar nerve root History of colonoscopy (~2020) History of breast surgery Hx of shoulder surgery Hx of right knee surgery S/P laparoscopic cholecystectomy (~2009) History of appendectomy Family History Maternal Uncle Diabetes Father No problems noted. Mother No problems noted. Social History Housing: House Alcohol intake: former Patient Tobacco Use Status: Current everyday Tobacco user Tobacco use type: Cigarette Cigarettes Per Day: 4 Years Smoked: (onset 15, 1/2-1ppd x 46yrs, 30+PYH) e-Cigarette/Vaping Use: Never Used Second Hand Smoke Exposure: Yes service: No Current occupational status: retired and disabled Cognitive needs: No Hearing needs: No Vision needs: Yes Female Reproductive History Menstrual Age of Menarche: 14 Review of Systems Const All systems reviewed & are unremarkable except as noted in HPI and below Physical Exam Vital Signs: Last Vital Signs Pulse 84 06/12/23 09:40 Resp 16 06/12/23 09:40 BP 150/82 H 06/12/23 09:40 Pulse Ox 97 06/12/23 09:40 Oxygen Delivery Method Room Air 06/12/23 09:40 BMI result Body Mass Index 22.7 General: awake, alert, oriented. Answers questions appropriately. Fully engaged in examination. HEENT: Normocephalic. Hearing intact. Cardiac: External chest normal in appearance. Respiratory: No cough, audible wheezing or stridor. Abdomen: without gross distension. MS: No obvious swelling or deformities. Able to transition from sit to stand unassisted. Ambulates with bilaterally normal heel strike and toe off Neurological: Oriented to person, place, time and situation. Thought process intact. No gait abnormalities appreciated. Psychiatric: Appropriate mood and affect. Good judgment and insight. 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 No obvious signs of diversion, abuse or misuse of the opioid medications. Will send in prescription for oxycodone/acetaminophen 7.5-325 mg QID with an advanced date of 06/28/2023 Methocarbamol 500mg po TID as needed for muscle spasms. She has tolerated this medication well in the past. Advised of cautions for use. Random UDS ordered today, to review at next visit. Patient to follow-up in the office in 1 month, sooner if needed. All questions and concerns have been answered and patient agrees with the plan. Medications: Refilled oxycodone-acetaminophen 7.5-325 mg Partial Fill upon patient request. 1 tab PO QID 30 days PRN 120 tabs 0RF pain, severe G89.29 - Other chronic pain, M47.816 - Spondylosis without myelopathy or radiculopathy, lumbar region, M53.3 - Sacrococcygeal disorders, not elsewhere classified, M54.5 - Low back pain methocarbamol 500 mg PO TID PRN 45 tabs 1RF muscle spasm Coding Level of Care Code Est Pt Level 4 (34946) Diagnoses Myofascial pain M79.18 Chronic midline low back pain, unspecified whether sciatica present M54.5; G89.29 Back pain laterality: midline Sciatica presence: unspecified whether sciatica present Spondylosis of lumbar region without myelopathy or radiculopathy M47.816 Sacroiliac joint pain M53.3 Chronic, continuous use of opioids F11.90
[2023-06-12 09:40] VITALS: BP 150/82; PULSE 84; RESP 16; O2SAT 97; BMI 22.7
== END 2023-06-12 09:51 | disposition home or self-care (01) ==
PROVIDERS: PCP Internal Medicine; Visit Provider Registered Nurse Emergency
DX: G89.29 Other chronic pain (principal); M79.18 Myalgia, other site; M54.50 Low back pain, unspecified; Z79.891 Long term (current) use of opiate analgesic; M47.816 Spondylosis without myelopathy or radiculopathy, lumbar region; M53.3 Sacrococcygeal disorders, not elsewhere classified
CPT/HCPCS: 99214

== ENCOUNTER → 2023-06-12 09:26 | Outpatient (BNVA) | payer OTHER, SELFPAY | PROVIDERS: PCP Internal Medicine; Visit Provider Registered Nurse Emergency | DX: Z51.81 Encounter for therapeutic drug level monitoring (principal); F11.20 Opioid dependence, uncomplicated; M79.18 Myalgia, other site; M53.3 Sacrococcygeal disorders, not elsewhere classified; M47.816 Spondylosis without myelopathy or radiculopathy, lumbar region; M54.59 Other low back pain; G89.29 Other chronic pain | CPT/HCPCS: 99212 ==

== ENCOUNTER 2023-07-01 11:44 | Outpatient (AMB) | payer OTHER, SELFPAY ==
--- NOTE | 2023-07-01 13:38 | AM.OFFWIN_ITS ---
Intake Vital Signs 07/01/23 13:39 Height 5 ft 4 in BP 160/100 H Blood Pressure Location Lt brachial Position Sitting Pulse 96 Pulse Source Pulse Oximeter Temp 98.8 F Temp Source Temporal Artery Scan Pulse Oximetry (%) 97 Oxygen Delivery Method Room Air Intake Visit Reasons: EP, cough, body aches, congestion ([phone]) Intake Note: pt is here today for cough body ache congestion started saturday Patient Tobacco Use Status: Current everyday Tobacco user Allergies Sulfa (Sulfonamide Antibiotics) Allergy (Intermediate, Verified 07/01/23 13:39) Hives, itching trimethoprim [From Bactrim] Allergy (Verified 07/01/23 13:39) Hives Do you need a note to return to daycare/school/sports/work: No HPI HPI Comments History of Present Illness Details Priya presents to the walk-in clinic today for sick visit. Complaining of cough, congestion and sore throat for last 3 days. 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 Patient denies shortness of breath, chest pain, weakness or dizziness. [facility] Medical History (Updated 07/01/23 @ 14:12 by Rachel Fernández APRN, INFRASTRUCTURE SOFTWARE ENGINEER) Osteopenia Vitamin D deficiency Personal history of nicotine dependence Benign essential hypertension Chronic, continuous use of opioids Tenosynovitis of thumb Chronic low back pain Cyclical vomiting Surgical History History of tonsillectomy History of selective injection of anesthetic agent around lumbar nerve root History of colonoscopy (~2020) History of breast surgery Hx of shoulder surgery Hx of right knee surgery S/P laparoscopic cholecystectomy (~2009) History of appendectomy Family History Maternal Uncle Diabetes Father No problems noted. Mother No problems noted. Social History Housing: House Alcohol intake: former Patient Tobacco Use Status: Current everyday Tobacco user Tobacco use type: Cigarette Cigarettes Per Day: 4 Years Smoked: (onset 15, 1/2-1ppd x 46yrs, 30+PYH) e-Cigarette/Vaping Use: Never Used Second Hand Smoke Exposure: Yes service: No Current occupational status: retired and disabled Cognitive needs: No Hearing needs: No Vision needs: Yes Female Reproductive History Menstrual Age of Menarche: 14 Review of Systems Const All systems reviewed & are unremarkable except as noted in HPI and below Physical Exam Vital Signs: Last Vital Signs Temp 98.8 F 07/01/23 13:39 Pulse 96 07/01/23 13:39 BP 160/100 H 07/01/23 13:39 Pulse Ox 97 07/01/23 13:39 Oxygen Delivery Method Room Air 07/01/23 13:39 General: awake, alert, oriented. Answers questions appropriately. Fully engaged in examination. Skin: warm, dry, intact HEENT: TMs intact bilaterally, no redness. Posterior pharynx with post nasal drainage. Sclera without icterus or injection. Cardiac: External chest normal in appearance. Respiratory: +cough. LSCTAB. Abdomen: without gross distension. Neurological: Oriented to person, place, time and situation. Thought process intact. Psychiatric: Appropriate mood and affect. Good judgment and insight. Assessment & Plan Assessment & Plan (1) URI (upper respiratory infection): Code(s): J06.9 - Acute upper respiratory infection, unspecified Plan URI, no abx warranted. SARS-CoV2/FLU/RSV swab collected, results pending. Patient aware she will be called with results. Benzonatate 100mg po bid as needed Rest, drink plenty of fluids, tylenol or motrin as needed. Recommend taking OTC nasal decongestants or flonase. Follow up with pcp or in clinic for any new or worsening symptoms. Go to ER for shortness of breath, chest pain, palpitations, weakness, dizziness. Orders: Orders SARS-CoV2/FLU/RSV Today J06.9 - Acute upper respiratory infection, unspecified Medications: New benzonatate 100 mg PO BID PRN 20 caps 0RF cough Coding Level of Care Code Est Pt Level 3 (51712) Diagnoses URI (upper respiratory infection) J06.9
[2023-07-01 13:39] VITALS: BP 160/100; PULSE 96; TEMP 37.1; O2SAT 97
== END 2023-07-01 14:13 | disposition home or self-care (01) ==
PROVIDERS: PCP Internal Medicine; Visit Provider Registered Nurse Emergency
DX: J06.9 Acute upper respiratory infection, unspecified (principal)
CPT/HCPCS: 99213

== ENCOUNTER 2023-07-01 14:04 | Outpatient (REF) | payer OTHER, SELFPAY ==
[2023-07-01 17:44] LABS: Influenza A PCR POSITIVE (Negative); Influenza B PCR NEGATIVE (Negative); Resp Syncy Virus RNA Qual PCR NEGATIVE (Negative); SARS COV2 PCR INHOUSE NEGATIVE (Negative)
== END 2023-07-01 14:05 | disposition home or self-care (01) ==
LOC: HO.LAB 14:04
PROVIDERS: Visit Provider Registered Nurse Emergency
DX: J06.9 Acute upper respiratory infection, unspecified (principal); Z11.52 Encounter for screening for COVID-19
CPT/HCPCS: 0241U

== ENCOUNTER 2023-07-17 09:29 | Outpatient (AMB) | payer OTHER, SELFPAY ==
--- NOTE | 2023-07-17 09:43 | MHC.OFFVIS ---
Intake Vital Signs 07/17/23 09:44 Height 5 ft 4 in Weight 131 lb 6 oz BMI 22.5 BP 142/80 H Blood Pressure Location Lt brachial Position Sitting Respiration 16 Pulse 82 Pulse Source Pulse Oximeter Pulse Oximetry (%) 96 Oxygen Delivery Method Room Air Intake Visit Reasons: Pill Count/Confirmed Allergies Sulfa (Sulfonamide Antibiotics) Allergy (Intermediate, Verified 07/17/23 09:43) Hives, itching trimethoprim [From Bactrim] Allergy (Verified 07/17/23 09:43) Hives HPI HPI Comments History of Present Illness Details Priya is a very pleasant 62 year old female who presents to the office today for follow up chronic pain and chronic opioid therapy management. Patient is prescribed oxycodone acetaminophen 7.5-325mg, take 1 tablet four times daily. Patient arrived today with the expectation of having 44 pills, she presented 45 pills which were counted in the presence of two staff members and returned to the patient in the original prescription bottle. This demonstrates responsible attitude toward patient's opioid medications. Pain is reported today as 3/10 and last dose of pain medication was taken at 7am. Pain is adequately managed on current opioid regimen. Patient denies any recent changes or exacerbations of chronic back pain and states she is able to engage in activities of daily living with minimal interruption due to chronic pain. Patient denies side effects including somnolence, constipation, itching, dyspnea, rash, dizziness or weakness. Patient seen at [facility] a couple weeks ago, tested pos flu A. feeling better but cough persists, denies shortness of breath, chest pain, palpitations. [facility] Medical History (Updated 07/01/23 @ 14:12 by Rachel Fernández APRN, GARBAGE TRUCK DISPATCHER) Osteopenia Vitamin D deficiency Personal history of nicotine dependence Benign essential hypertension Chronic, continuous use of opioids Tenosynovitis of thumb Chronic low back pain Cyclical vomiting Surgical History History of tonsillectomy History of selective injection of anesthetic agent around lumbar nerve root History of colonoscopy (~2020) History of breast surgery Hx of shoulder surgery Hx of right knee surgery S/P laparoscopic cholecystectomy (~2009) History of appendectomy Family History Maternal Uncle Diabetes Father No problems noted. Mother No problems noted. Social History Housing: House Alcohol intake: former Patient Tobacco Use Status: Current everyday Tobacco user Tobacco use type: Cigarette Cigarettes Per Day: 4 Years Smoked: (onset 15, 1/2-1ppd x 46yrs, 30+PYH) e-Cigarette/Vaping Use: Never Used Second Hand Smoke Exposure: Yes service: No Current occupational status: retired and disabled Cognitive needs: No Hearing needs: No Vision needs: Yes Female Reproductive History Menstrual Age of Menarche: 14 Review of Systems Const All systems reviewed & are unremarkable except as noted in HPI and below Physical Exam Vital Signs: Last Vital Signs Pulse 82 07/17/23 09:44 Resp 16 07/17/23 09:44 BP 142/80 H 07/17/23 09:44 Pulse Ox 96 07/17/23 09:44 Oxygen Delivery Method Room Air 07/17/23 09:44 BMI result Body Mass Index 22.5 General: awake, alert, oriented. Answers questions appropriately. Fully engaged in examination. HEENT: Normocephalic. Hearing intact. Cardiac: External chest normal in appearance. Respiratory: No cough, audible wheezing or stridor. Abdomen: without gross distension. MS: No obvious swelling or deformities. Able to transition from sit to stand unassisted. Ambulates with bilaterally normal heel strike and toe off Neurological: Oriented to person, place, time and situation. Thought process intact. No gait abnormalities appreciated. Psychiatric: Appropriate mood and affect. Good judgment and insight. 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 No obvious signs of diversion, abuse or misuse of the opioid medications. Will send in prescription for oxycodone/acetaminophen 7.5-325 mg QID with an advanced date of 07/28/23 C/W muscle relaxers as needed F/U with pcp or urgent care for any new or worsening respiratory concerns. Patient to follow-up in the office in 1 month, sooner if needed. All questions and concerns have been answered and patient agrees with the plan. Medications: Refilled oxycodone-acetaminophen 7.5-325 mg Partial Fill upon patient request. 1 tab PO QID 30 days PRN 120 tabs 0RF pain, severe G89.29 - Other chronic pain, M47.816 - Spondylosis without myelopathy or radiculopathy, lumbar region, M53.3 - Sacrococcygeal disorders, not elsewhere classified, M54.5 - Low back pain Coding Level of Care Code Est Pt Level 4 (23506) Diagnoses Myofascial pain M79.18 Chronic midline low back pain, unspecified whether sciatica present M54.5; G89.29 Back pain laterality: midline Sciatica presence: unspecified whether sciatica present Spondylosis of lumbar region without myelopathy or radiculopathy M47.816 Sacroiliac joint pain M53.3 Chronic, continuous use of opioids F11.90
[2023-07-17 09:44] VITALS: BP 142/80; PULSE 82; RESP 16; O2SAT 96; BMI 22.5
== END 2023-07-17 09:46 | disposition home or self-care (01) ==
PROVIDERS: PCP Internal Medicine; Visit Provider Registered Nurse Emergency
DX: G89.29 Other chronic pain (principal); M53.3 Sacrococcygeal disorders, not elsewhere classified; M79.18 Myalgia, other site; Z79.891 Long term (current) use of opiate analgesic; M54.50 Low back pain, unspecified; M47.816 Spondylosis without myelopathy or radiculopathy, lumbar region
CPT/HCPCS: 99214

== ENCOUNTER → 2023-07-17 09:29 | Outpatient (BNVA) | payer OTHER, SELFPAY | PROVIDERS: PCP Internal Medicine; Visit Provider Registered Nurse Emergency | DX: Z51.81 Encounter for therapeutic drug level monitoring (principal); F11.20 Opioid dependence, uncomplicated; M79.18 Myalgia, other site; M53.3 Sacrococcygeal disorders, not elsewhere classified; M54.50 Low back pain, unspecified; M47.816 Spondylosis without myelopathy or radiculopathy, lumbar region; G89.29 Other chronic pain | CPT/HCPCS: 99212 ==

== ENCOUNTER 2023-08-14 09:10 | Outpatient (REF) | payer OTHER, SELFPAY ==
[2023-08-14 09:40] LABS: MANUAL DIFF FLAG NO
[2023-08-14 10:32] LABS: Basophils Absolute Auto 0.1 X10*3/uL (0.0-0.2); Basophils Percent Auto 0.8 % (0-2); Eosinophils Absolute Auto 0.5 X10*3/uL (0.0-0.4); Hemoglobin 11.9 g/dl (12.0-16.0); Imm Gran Abs Auto 0.03 X10*3/uL (0.00-0.03); Imm Gran Pct Auto 0.4 % (0.0-0.4); Lymphocytes Absolute Auto 3.5 X10*3/uL (1.2-4.9); Mean Corpuscular HGB Conc 32.2 g/dl (31.0-35.0); Mean Corpuscular Hemoglobin 29.2 pg (27.0-33.0); Mean Corpuscular Volume 90.9 fL (80.0-98.0); Mean Platelet Volume 8.7 fL (9.4-12.3); Monocytes Absolute Auto 0.6 X10*3/uL (0.1-1.2); Monocytes Percent Auto 7.5 % (2-11); Neutrophils Absolute Auto 3.6 x10*3/uL (2.0-8.3); Neutrophils Percent Auto 43.3 % (45-73); Platelet Count 421 X10*3/uL (160-400); Red Blood Count 4.07 X10*6/uL (4.20-5.50); Red Cell Distribution Width 13.6 % (11.0-16.0); White Blood Count 8.4 X10*3/uL (4.8-10.8)
[2023-08-14 10:44] LABS: Appearance Urine Clear; Color Urine Yellow; Glucose Urine UA Negative (Negative); Leukocyte Esterase Urine Negative (Negative); Nitrite Urine Negative (Negative); Specific Gravity - Urine >= 1.030 (1.005-1.025); UMIC TRIGGER UACC YES; Urine Blood Trace (Negative); Urine Ketones Negative (Negative); Urine Protein Negative (Neg-Trace)
[2023-08-14 11:05] LABS: Bacteria Urine 1+ (None Seen); Hyaline Casts Urine 0-2 /LPF (0-2); RBC Urine 0-2 /HPF (0-2); WBC Urine 0-5 /HPF (0-5)
[2023-08-14 11:06] LABS: Calcium Oxalate Crystals Urine Present
[2023-08-14 11:22] LABS: Alanine Aminotransferase 19 U/L (0-31); Alkaline Phosphatase 82 U/L (39-117); Anion Gap 12 (12-20); Aspartate Amino Transferase 19 U/L (5-31); Bilirubin Total 0.2 mg/dL (0.0-1.0); Blood Urea Nitrogen 17 mg/dL (9-16); Carbon Dioxide 27 mmol/L (22-29); Chloride 106 mmol/L (96-108); Cholesterol 185 mg/dL (<200); Estimated Glomerular Filt Rate > 60; Glucose Fasting 98 mg/dL (60-99); HDL Cholesterol 45 mg/dL (>40); LDL Cholesterol Calculated 120 mg/dL (<100); Potassium 3.8 mmol/L (3.3-5.1); Sodium 141 mmol/L (135-145); Total Protein 7.1 g/dL (6.5-8.0); Triglycerides 101 mg/dL (<150)
[2023-08-14 11:26] LABS: HBS Num1 0.06 mIU/mL (0-7.99); HBc Num1 0.07 S/CO (0.00-0.79); HBsAGNum1 0.28 S/CO (0.00-0.99); Hepatitis B Core Antibody Nonreactive (Nonreactive); Hepatitis B Surface Antigen Negative (Negative); ~HepC Num1 0.05 S/CO (0.00-0.79); ~Hepatitis B Surface Antibody NONREACTIVE (Nonreactive); ~Hepatitis C Antibody Nonreactive (Nonreactive)
[2023-08-14 11:28] LABS: TSH reflex Free T4 2.73 uIU/mL (0.32-4.0); Vitamin D 25-OH Total 32.4 ng/mL (>30)
== END 2023-08-14 09:11 | disposition home or self-care (01) ==
LOC: HO.LAB 09:10
PROVIDERS: PCP Internal Medicine; Visit Provider Internal Medicine
DX: Z00.00 Encounter for general adult medical examination without abnormal findings (principal); I10 Essential (primary) hypertension; E78.00 Pure hypercholesterolemia, unspecified; E55.9 Vitamin D deficiency, unspecified; M79.18 Myalgia, other site; M54.50 Low back pain, unspecified; M47.816 Spondylosis without myelopathy or radiculopathy, lumbar region; M53.3 Sacrococcygeal disorders, not elsewhere classified; G89.29 Other chronic pain; Z20.2 Contact with and (suspected) exposure to infections with a predominantly sexual mode of transmission; Z79.891 Long term (current) use of opiate analgesic
CPT/HCPCS: 36415; 80053; 80061; 81001; 82306; 84443; 85025; 86704; 86706; 86803; 87340; 99212

== ENCOUNTER 2023-08-14 09:46 | Outpatient (AMB) | payer OTHER, SELFPAY ==
--- NOTE | 2023-08-14 10:07 | MHC.OFFVIS ---
Intake Vital Signs 08/14/23 10:08 Height 5 ft 4 in Weight 136 lb 2 oz BMI 23.4 BP 151/83 H Blood Pressure Location Lt brachial Position Sitting Respiration 18 Pulse 79 Pulse Source Pulse Oximeter Pulse Oximetry (%) 98 Oxygen Delivery Method Room Air Intake Visit Reasons: Pill Count - Confirmed Allergies Sulfa (Sulfonamide Antibiotics) Allergy (Intermediate, Verified 08/14/23 10:07) Hives, itching trimethoprim [From Bactrim] Allergy (Verified 08/14/23 10:07) Hives HPI HPI Comments History of Present Illness Details Priya is a very pleasant 63 year old female who presents to the office today for follow up chronic pain and chronic opioid therapy management. Patient is prescribed oxycodone acetaminophen 7.5-325mg, take 1 tablet four times daily. Patient arrived today with the expectation of having 52 pills, she presented 52 pills which were counted in the presence of two staff members and returned to the patient in the original prescription bottle. This demonstrates responsible attitude toward patient's opioid medications. Pain is reported today as 3/10 and last dose of pain medication was taken this morning at 7am. Pain is adequately managed on current opioid regimen. Patient denies any recent changes or exacerbations of chronic back pain and states she is able to engage in activities of daily living with minimal interruption due to chronic pain. Patient denies side effects including somnolence, constipation, itching, dyspnea, rash, dizziness or weakness. [facility] Medical History (Updated 07/01/23 @ 14:12 by Rachel Fernández, BRIGIDO, REFINISH TECHNICIAN) Osteopenia Vitamin D deficiency Personal history of nicotine dependence Benign essential hypertension Chronic, continuous use of opioids Tenosynovitis of thumb Chronic low back pain Cyclical vomiting Surgical History History of tonsillectomy History of selective injection of anesthetic agent around lumbar nerve root History of colonoscopy (~2020) History of breast surgery Hx of shoulder surgery Hx of right knee surgery S/P laparoscopic cholecystectomy (~2009) History of appendectomy Family History Maternal Uncle Diabetes Father No problems noted. Mother No problems noted. Social History Housing: House Alcohol intake: former Patient Tobacco Use Status: Current everyday Tobacco user Tobacco use type: Cigarette Cigarettes Per Day: 4 Years Smoked: (onset 15, 1/2-1ppd x 46yrs, 30+PYH) e-Cigarette/Vaping Use: Never Used Second Hand Smoke Exposure: Yes service: No Current occupational status: retired and disabled Cognitive needs: No Hearing needs: No Vision needs: Yes Female Reproductive History Menstrual Age of Menarche: 14 Review of Systems Const All systems reviewed & are unremarkable except as noted in HPI and below Physical Exam Vital Signs: Last Vital Signs Pulse 79 08/14/23 10:08 Resp 18 08/14/23 10:08 BP 151/83 H 08/14/23 10:08 Pulse Ox 98 08/14/23 10:08 Oxygen Delivery Method Room Air 08/14/23 10:08 BMI result Body Mass Index 23.4 General: awake, alert, oriented. Answers questions appropriately. Fully engaged in examination. HEENT: Normocephalic. Hearing intact. Cardiac: External chest normal in appearance. Respiratory: No cough, audible wheezing or stridor. Abdomen: without gross distension. MS: No obvious swelling or deformities. Able to transition from sit to stand unassisted. Ambulates with bilaterally normal heel strike and toe off Neurological: Oriented to person, place, time and situation. Thought process intact. No gait abnormalities appreciated. Psychiatric: Appropriate mood and affect. Good judgment and insight. 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 No obvious signs of diversion, abuse or misuse of the opioid medications. Will send in prescription for oxycodone/acetaminophen 7.5-325 mg QID with an advanced date of 08/27/23 C/W muscle relaxers as needed, declines refill today. Patient to follow-up in the office in 1 month, sooner if needed. All questions and concerns have been answered and patient agrees with the plan. Medications: Refilled oxycodone-acetaminophen 7.5-325 mg Partial Fill upon patient request. 1 tab PO QID 30 days PRN 120 tabs 0RF pain, severe G89.29 - Other chronic pain, M47.816 - Spondylosis without myelopathy or radiculopathy, lumbar region, M53.3 - Sacrococcygeal disorders, not elsewhere classified, M54.5 - Low back pain Coding Level of Care Code Est Pt Level 4 (66157) Diagnoses Myofascial pain M79.18 Chronic midline low back pain, unspecified whether sciatica present M54.5; G89.29 Back pain laterality: midline Sciatica presence: unspecified whether sciatica present Spondylosis of lumbar region without myelopathy or radiculopathy M47.816 Sacroiliac joint pain M53.3 Chronic, continuous use of opioids F11.90
[2023-08-14 10:08] VITALS: BP 151/83; PULSE 79; RESP 18; O2SAT 98; BMI 23.4
== END 2023-08-14 10:27 | disposition home or self-care (01) ==
PROVIDERS: PCP Internal Medicine; Visit Provider Registered Nurse Emergency
DX: G89.29 Other chronic pain (principal); M79.18 Myalgia, other site; M54.50 Low back pain, unspecified; Z79.891 Long term (current) use of opiate analgesic; M53.3 Sacrococcygeal disorders, not elsewhere classified; M47.816 Spondylosis without myelopathy or radiculopathy, lumbar region
CPT/HCPCS: 99214

== ENCOUNTER 2023-08-20 12:36 | Outpatient (AMB) | payer OTHER, SELFPAY ==
[2023-08-20 12:56] VITALS: BP 140/80; BMI 23.3
--- NOTE | 2023-08-20 12:56 | A.OFFVIS_ITS ---
Intake Vital Signs 08/20/23 12:56 Height 5 ft 4 in Weight 136 lb BMI 23.3 BP 140/80 H Intake Visit Reasons: Annual Dispatch Lead: Dispatch Lead Present (Chelsey) Allergies Sulfa (Sulfonamide Antibiotics) Allergy (Intermediate, Verified 08/20/23 12:58) Hives, itching trimethoprim [From Bactrim] Allergy (Verified 08/20/23 12:58) Hives HPI HPI Comments History of Present Illness Details She is a postmenopausal woman presenting for her annual director pediatric examination. She is doing well with no concerns. Attempting to eat a healthy diet when not vomiting, with calcium and vitamin D and stays active with exercise. Currently sexually active times 18 years. Denies any vaginal dryness or irritation. She does report a vaginal odor at today's visit. Last pap smear; 2019. Last mammogram; patient reports was completed in the fall [facility] no records today. Colonoscopy is UTD. Denies any family history of breast, ovarian or colon cancer. FORMERLY [facility], [facility]1983 Medical History Osteopenia Vitamin D deficiency Personal history of nicotine dependence Benign essential hypertension Chronic, continuous use of opioids Tenosynovitis of thumb Chronic low back pain Cyclical vomiting Surgical History History of tonsillectomy History of selective injection of anesthetic agent around lumbar nerve root History of colonoscopy (~2020) History of breast surgery Hx of shoulder surgery Hx of right knee surgery S/P laparoscopic cholecystectomy (~2009) History of appendectomy Family History Maternal Uncle Diabetes Father No problems noted. Mother No problems noted. Social History Housing: House Alcohol intake: former Patient Tobacco Use Status: Current everyday Tobacco user Tobacco use type: Cigarette Cigarettes Per Day: 4 Years Smoked: (onset 15, 1/2-1ppd x 48yrs, 30+PYH) e-Cigarette/Vaping Use: Never Used Second Hand Smoke Exposure: Yes service: No Current occupational status: retired and disabled Cognitive needs: No Hearing needs: No Vision needs: Yes Female Reproductive History Menstrual Age of Menarche: 14 Total pregnancies: 3 Full term: 3 Number of Living Children: 3 Date of last pap smear: 04/03/19 (neg pap and hpv) History of abnormal pap smear: Yes (2010 ascus) Date of Mammogram: 06/05/22 (Birad 1) Date of last Bone Density Screenin08/22/22 Review of Systems Const All systems reviewed & are unremarkable except as noted in HPI and below Reports as per HPI Eyes Reports no additional complaints ENT Reports no additional complaints Card Reports no additional complaints Resp Reports no additional complaints GI Reports as per HPI and Reports no additional complaints Reports as per HPI Musc Reports no additional complaints Skin/Breast Reports as per HPI Neuro Reports no additional complaints Psych Reports no additional complaints Endo Reports no additional complaints Denilson/Lymph Reports no additional complaints Aller/Immun Reports no additional complaints Physical Exam Vital Signs: Last Vital Signs BP 140/80 H 08/20/23 12:56 BMI result Body Mass Index 23.3 Const General: cooperative, healthy appearing, no acute distress, well developed and alert Orientation/consciousness: patient oriented x3 HEENT Head: Yes normal to inspection Eyes General: appearance normal, both eyes and all related structures Neck Neck: Yes normal visual inspection Thyroid: Thyroid normal Chest Chest palpation & inspection: normal inspection of the chest and other (no puckering, dimpling, peau de orange, retraction, discharge, masses) Breast/axilla inspection: normal inspection of the breasts Breast/axilla palpation: normal palpation of the breasts Resp Effort & Inspection: normal respiratory effort GI Inspection: Yes normal to inspection Palpation (GI): Soft to palpation Rectal Exam - Female: deferred General: Yes bladder normal to palpation External Female Exam: normal external appearance and normal appearance of the urethra Speculum Exam - Vagina: normal appearance of the vagina, normal palpation, no rmal vaginal discharge and vagina atrophic Speculum Exam - Cervix: normal appearance of the cervix, normal palpation and Other cervical findings present (Bled with Pap) Bimanual exam- vagina & uterus: normal bimanual exam, normal palpation, uterine size normal, bladder normal to palpation, normal palpation and non-tender Bimanual Exam- Adnexa, other: no masses Skin General skin exam: no rashes or lesions noted Rashes: no rashes Neuro General: patient oriented x3 Cognition (Neuro): normal cognition Extrem General: Yes normal to inspection Psych Attitude: cooperative Thought process: Normal thought process present Assessment & Plan Assessment & Plan (1) Encounter for well woman exam with routine gynecological exam: Code(s): Z01.419 - Encounter for gynecological examination (general) (routine) without abnormal findings Plan Discussed: Current recommendations for pap smears per ASCCP guidelines. Breast awareness, periodic self breast exams and yearly mammogram. Maintain a healthy lifestyle, well balanced diet including Calcium 1,200 mg and Vitamin D 600 IU daily, and routine exercise. Encouraged smoking cessation, discussed alternative coping mechanisms for stress, including joining the [employer] and being involved in other activities to keep herself busy. Sign a release for records from [facility] mammogram and ultrasound. Contact the office with any postmenopausal bleeding. Patient verbalizes understanding and agrees to the plan of care. She was given opportunity to ask questions and all questions were answered to the best of my ability. RTO in 1 year for annual director pediatric exam. This note is constructed using voice recognition software. While every effort has been made to ensure accuracy, opthalmic tech errors may have been included. Medications: Refilled calcium carbonate (Calcium) 600 mg PO DAILY 90 tabs 4RF Coding Level of Care Code Est Pt Prev Care 40-64y(87833) Diagnoses Encounter for well woman exam with routine gynecological exam Z01.419
== END 2023-08-20 13:36 | disposition home or self-care (01) ==
PROVIDERS: PCP Internal Medicine; Visit Provider Advanced Practice Midwife
DX: Z01.419 Encounter for gynecological examination (general) (routine) without abnormal findings (principal)
CPT/HCPCS: 99396

== ENCOUNTER 2023-08-20 12:36 | Outpatient (REF) | payer OTHER, SELFPAY | END 2023-08-20 12:37 | disposition home or self-care (01) | LOC: HO.LAB 12:36 | PROVIDERS: Visit Provider Advanced Practice Midwife | DX: Z01.419 Encounter for gynecological examination (general) (routine) without abnormal findings (principal) | CPT/HCPCS: 99396 ==

== ENCOUNTER 2023-08-20 13:38 | Outpatient (REF) | payer OTHER, SELFPAY ==
[2023-08-21 13:42] LABS: BV Int Neg Control Negative (Negative); BV Int Pos Control Positive (Positive)
[2023-08-26 20:09] LABS: HPV mRNA E6/E7 rflx Not Detected (Not Detected)
== END 2023-08-20 13:39 | disposition home or self-care (01) ==
LOC: HO.LNP 13:38
PROVIDERS: Visit Provider Advanced Practice Midwife
DX: Z01.419 Encounter for gynecological examination (general) (routine) without abnormal findings (principal); Z11.51 Encounter for screening for human papillomavirus (HPV); N89.8 Other specified noninflammatory disorders of vagina
CPT/HCPCS: 87480; 87510; 87624; 87660; 88142

== ENCOUNTER 2023-09-04 16:03 | Outpatient (AMB) | payer OTHER, SELFPAY ==
[2023-09-04 16:08] VITALS: BP 160/110; BMI 23.8
--- NOTE | 2023-09-04 16:08 | MHC.PC.OV ---
Vital Signs 09/04/23 16:08 09/04/23 16:35 Height 5 ft 4 in Weight 138 lb 8 oz BMI 23.8 BP 160/110 H 136/88 Blood Pressure Location Lt brachial Lt brachial Position Sitting Sitting Intake Visit Reasons: 4 month f/u Intake Note: Patient here for a 4 month follow up Safety Director Required: No Accompanied by: Self / Same As Patient Allergies Sulfa (Sulfonamide Antibiotics) Allergy (Intermediate, Verified 09/04/23 16:36) Hives, itching trimethoprim [From Bactrim] Allergy (Verified 09/04/23 16:36) Hives Medication List - Last Reconciled 09/04/23 by Charly Carrillo MD amlodipine 2.5 mg PO DAILY 90 days back brace As directed calcium carbonate (Calcium) 600 mg PO DAILY cholecalciferol (vitamin D3) 50 mcg PO DAILY 90 days fluticasone propionate 50 mcg/actuation 2 sprays intranasal DAILY PRN 30 days methocarbamol 500 mg PO TID PRN metronidazole 0.75%(37.5mg/5gram) 1 appful vaginal BEDTIME 5 days nortriptyline 75 mg PO BEDTIME oxycodone-acetaminophen 7.5-325 mg 1 tab PO QID PRN 30 days Tobacco use date assessed: 09/04/23 Dental Screening Dental Screen Date: 09/04/23 Did you have a dental visit in the last 12 months?: No Did you have a dental problem in the last 6 months where you did not have access to dental care?: No Was dental information given to patient?: Patient has dentist HPI 4 month f/u HPI Details Patient comes in today for her follow up visit States that she feels okay She denies any headaches or dizziness Denies any chest pains, no SOB No nausea/vomiting, no abdominal pain No change in bowel habits noted She had her follow up labs done a few weeks ago - to discuss her results [facility] Medical History Osteopenia Vitamin D deficiency Personal history of nicotine dependence Benign essential hypertension Chronic, continuous use of opioids Tenosynovitis of thumb Chronic low back pain Cyclical vomiting Surgical History History of tonsillectomy History of selective injection of anesthetic agent around lumbar nerve root History of colonoscopy (~2020) History of breast surgery Hx of shoulder surgery Hx of right knee surgery S/P laparoscopic cholecystectomy (~2009) History of appendectomy Family History Maternal Uncle Diabetes Father No problems noted. Mother No problems noted. Social History Housing: House Alcohol intake: former Patient Tobacco Use Status: Current everyday Tobacco user Tobacco use type: Cigarette Cigarettes Per Day: 4 Years Smoked: (onset 15, 1/2-1ppd x 48yrs, 30+PYH) e-Cigarette/Vaping Use: Never Used Second Hand Smoke Exposure: Yes service: No Current occupational status: retired and disabled Cognitive needs: No Hearing needs: No Vision needs: Yes Female Reproductive History Menstrual Age of Menarche: 14 Questionnaire PHQ-9 Over the last 2 weeks, how often have you been bothered by any of the following problems? 1. Little interest or pleasure in doing things: not at all 2. Feeling down, depressed, or hopeless: not at all 3. Trouble falling or staying asleep, or sleeping too much: not at all 4. Feeling tired or having little energy: not at all 5. Poor appetite or overeating: not at all 6. Feeling bad about yourself - or that you are a failure or have let yourself or your family down: not at all 7. Trouble concentrating on things, such as reading the newspaper or watching television: not at all 8. Moving or speaking so slowly that other people could have noticed. Or the opposite - being so fidgety or restless that you have been moving around a lot more than usual: not at all 9. Thoughts that you would be better off or of hurting yourself in some way: not at all Total score: 0 Depression Screening Interpretation: Negative Depression Screening Done: Yes 02062 - PHQ-9 Billing: Yes Source: Developed by Drs. Samuel Flaherty, Afia Engle, Chris Aragon and colleagues, with an educational saida from [employer]. Thrive Questionnaire Date Thrive assessed: 09/04/23 I am a: Patient What is your living situation today?: I have a steady place to live Within the past 12 months, did the food you bought not last and you didn't have the money to get more?: Never true Within the past 12 months, did you worry whether your food would run out before you got money to buy more?: Never true Do you have trouble paying for medicines?: No Do you have trouble getting transportation to medical appointments?: No Do you have trouble paying your heating and electricity bill?: No Do you have trouble taking care of your child, family member or friend?: No Do you have trouble with day-to-day activities such as bathing, preparing meals, shopping, managing finances, etc.?: No Are you currently unemployed and looking for a job?: No Are you interested in more education?: No Please select the resources that you would like help with: None Currently or been in a relationship where the following occur: no concerns reported THRIVE Score: 0 AUDIT C Alcohol Use Questionnaire (AUDIT-C) 1. How often do you have a drink containing alcohol?: Never Total Score: 0 Score Reviewed/Action Taken: Yes PACHECO-7 AMB Questionnaire PACHECO-7 Date PACHECO - 7 assessed: 09/04/23 Feeling nervous, anxious, or on edge: 0 = Not at all Not being able to stop or control worryin = Not at all Worrying too much about different things: 0 = Not at all Trouble relaxin = Not at all Being so restless that it is hard to sit still: 0 = Not at all Becoming easily annoyed or irritable: 0 = Not at all Feeling afraid as if something awful might happen: 0 = Not at all Total PACHECO-7 score (0-4 normal; 5-9 mild; 10-14 moderate; 15-21 severe): 0 Source: Developed by Drs. Samuel Flaherty, Afia Engle, Chris Aragon and colleagues, with an educational saida from [employer]. Review of Systems Const Denies chills, Denies fatigue, Denies fever(s) and Denies headache(s) ENT Denies dysphagia, Denies dizziness, Denies otalgia, Denies headache(s), Denies neck pain, Denies odynophagia and Denies sore throat Card Denies chest pain, Denies rapid heart rate, Denies irregular heart rhythm, Denies palpitations and Denies dyspnea Resp Denies chest congestion, Denies cough, Denies dyspnea and Denies wheezing GI Denies abdominal pain, Denies constipation, Denies dysphagia, Denies diarrhea, Denies nausea, Denies odynophagia and Denies vomiting Details: (+) sensation of incomplete bladder emptying at times Denies urinary frequency, Denies nocturia, Denies dysuria, Denies urinary incontinence and Denies urinary urgency Musc Reports back pain (over the lower back - chronic), Denies arthralgias and Denies neck pain Skin/Breast Denies rash Neuro Denies dizziness and Denies headache(s) Endo Denies fatigue and Denies palpitations Aller/Immun Denies wheezing Physical exam (Primary Care) Vital Signs: Last Vital Signs BP 136/88 09/04/23 16:35 BMI result Body Mass Index 23.8 Tobacco/Smoking Status: Tobacco use Status Tobacco use date assessed 09/04/23 09/04/23 16:09 Patient Tobacco Use Status Current everyday Tobacco 09/04/23 16:09 Tobacco use type Cigarette 09/04/23 16:09 e-Cigarette/Vaping Use Never Used 09/04/23 16:09 PHQ-9: PHQ-9 Score PHQ-9: Total score 0 09/04/23 16:38 Depression Screening Interpretation: Negative Thrive Assessment: Date of Thrive Assessment Date Thrive assessed 09/04/23 09/04/23 16:09 Currently or been in a relationship where the following occur: no concerns reported Const General: no acute distress and alert HENMT Ears: TM's normal bilaterally and EAC's normal Throat: Yes posterior oropharynx normal and Yes tonsils normal (no TP congestion) Neck Neck: Yes no lymphadenopathy and Yes supple Thyroid: Thyroid normal Resp Auscultation: clear to auscultation bilaterally, no rales and no wheezes Cardio Rate: regular rate Rhythm: regular rhythm Heart sounds: no murmurs GI Palpation (GI): Soft to palpation and nontender Auscultation: normal bowel sounds General: Yes no CVA tenderness Back/Spine/Pelvis Back: no CVA tenderness Thoracic/Lumbar Spine: lumbar spinal tenderness Skin Rashes: no rashes Extrem General: Yes no clubbing, cyanosis or edema Results Reviewed Results Reviewed: Laboratory Tests 08/14/23 08/14/23 08/14/23 09:38 09:38 09:45 WBC 8.4 Hgb 11.9 L Hct 37.0 Plt Count 421 H D Sodium 141 Potassium 3.8 Creatinine 0.83 Estimated GFR > 60 Fasting Glucose 98 Calcium 9.0 AST 19 ALT 19 Triglycerides 101 Cholesterol 185 LDL Cholesterol, Calc 120 H HDL Cholesterol 45 25-OH Vitamin D Total 32.4 TSH 2.73 Ur Specific [place] >= 1.030 H Urine Protein Negative Urine Glucose (UA) Negative Urine Blood Trace H Urine Nitrite Negative Ur Leukocyte Esterase 08/14/23 09:45 WBC Hgb Hct Plt Count Sodium Potassium Creatinine Estimated GFR Fasting Glucose Calcium AST ALT Triglycerides Cholesterol LDL Cholesterol, Calc HDL Cholesterol 25-OH Vitamin D Total TSH Ur Specific [place] Urine Protein Urine Glucose (UA) Urine Blood Urine Nitrite Ur Leukocyte Esterase Negative Assessment and Plan Assessment & Plan (1) Benign essential hypertension: Code(s): I10 - Essential (primary) hypertension Plan: Reinforced low sodium diet - goal is systolic BP of 120 mm or less Continue Amlodipine 2.5 mg QD Patient is reminded to continue monitoring her blood pressure regularly (2) Pure hypercholesterolemia: Code(s): E78.00 - Pure hypercholesterolemia, unspecified Plan: Results of her labs done a few weeks ago reviewed and discussed with patient Reinforced low cholesterol diet Will have patient recheck her labs and fasting lipids in 4 months for follow up (3) Impaired fasting glucose: Code(s): R73.01 - Impaired fasting glucose Plan: Her fasting serum glucose was normal at 98 mg/dl on her recent labs; her HgbA1c was normal at 5.2% when previously checked Reinforced low calorie diet/exercise as tolerated (4) Cyclical vomiting: Code(s): R11.15 - Cyclical vomiting syndrome unrelated to migraine Plan: Symptoms have remained stable lately Continue Nortriptyline 75 mg Q HS (5) Vitamin D deficiency: Code(s): E55.9 - Vitamin D deficiency, unspecified Plan: Continue Vitamin D3 2000 units QD (6) Allergic rhinitis: Code(s): J30.9 - Allergic rhinitis, unspecified Qualifiers: Allergic rhinitis seasonality: unspecified Allergic rhinitis trigger: unspecified Qualified Code(s): J30.9 - Allergic rhinitis, unspecified Plan: Continue Fluticasone 50 mcg nasal spray QD PRN (7) Osteopenia: Code(s): M85.80 - Other specified disorders of bone density and structure, unspecified site Qualifiers: Osteopenia location: unspecified Qualified Code(s): M85.80 - Other specified disorders of bone density and structure, unspecified site Plan: BMD done back in August 2022 revealed (+) osteopenia based on the lowest T-score value of -2.1 in the lumbar spine - this is her baseline exam Have encouraged patient to try to stay active physically and to exercise regularly when she can Continue daily oral Vitamin D and Calcium supplements Will continue to monitor her BMD every 2 to 3 years (8) Incomplete bladder emptying: Code(s): R33.9 - Retention of urine, unspecified Plan: She was previously referred to urology for further evaluation and management of this issue but she apparently has not seen urology yet nor does she have any appointment scheduled Is encouraged to reach out to urology to schedule her appt REBEKAH (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: Code(s): M47.816 - Spondylosis without myelopathy or radiculopathy, lumbar region Plan: Reinforced activity and weight-lifting restrictions Continue Oxycodone-Acetaminophen 7.5 mg-325 mg 1 tablet QID PRN Follow up with [facility] as scheduled (10) Smoker: Code(s): F17.200 - Nicotine dependence, unspecified, uncomplicated Plan: Counseled again to continue attempts at smoking cessation Continue Nicorette gum PRN to help patient quit smoking Low dose lung CT done in February 2022 for lung cancer screening - (+) bilateral small pulmonary nodules with no focal consolidation or mass; recommend annual lung CT Plan Follow up in 4 months Orders: Orders Lipid Panel 4 Months E78.00 - Pure hypercholesterolemia, unspecified Comprehensive [place]. Panel Fast 4 Months E78.00 - Pure hypercholesterolemia, unspecified Complete Blood Count Auto Diff 4 Months D64.9 - Anemia, unspecified Coding Level of Care Code Est Pt Level 4 (69517) Diagnoses Benign essential hypertension I10 Pure hypercholesterolemia E78.00 Impaired fasting glucose R73.01 Cyclical vomiting R11.15 Vitamin D deficiency E55.9 Allergic rhinitis, unspecified seasonality, unspecified trigger J30.9 Allergic rhinitis seasonality: unspecified Allergic rhinitis trigger: unspecified Osteopenia, unspecified location M85.80 Osteopenia location: unspecified Incomplete bladder emptying R33.9 Spondylosis of lumbar region without myelopathy or radiculopathy M47.816 Smoker F17.200
[2023-09-04 16:35] VITALS: BP 136/88
== END 2023-09-04 16:48 | disposition home or self-care (01) ==
PROVIDERS: PCP Internal Medicine; Visit Provider Internal Medicine
DX: I10 Essential (primary) hypertension (principal); E78.00 Pure hypercholesterolemia, unspecified; R73.01 Impaired fasting glucose; R11.15 Cyclical vomiting syndrome unrelated to migraine; E55.9 Vitamin D deficiency, unspecified; J30.9 Allergic rhinitis, unspecified; M85.80 Other specified disorders of bone density and structure, unspecified site; R33.9 Retention of urine, unspecified; M47.816 Spondylosis without myelopathy or radiculopathy, lumbar region; F17.200 Nicotine dependence, unspecified, uncomplicated
CPT/HCPCS: 99214

== ENCOUNTER 2023-09-13 09:51 | Outpatient (AMB) | payer OTHER, SELFPAY ==
--- NOTE | 2023-09-13 09:54 | MHC.OFFVIS ---
Intake Vital Signs 09/13/23 10:03 Height 5 ft 4 in Weight 138 lb BMI 23.7 BP 162/91 H Blood Pressure Location Rt brachial Position Sitting Pulse 77 Pulse Source Pulse Oximeter Pulse Oximetry (%) 96 Oxygen Delivery Method Room Air Intake Visit Reasons: PILL COUNT Intake Note: Priya comes in today for pill count to oxycodone-acetaminophen. Patient should have 52 tablets and presents with 53 tablets which she last took today 09/13/23 at 7am. Pain today 09/21. 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 She is supposed to have #52 pills and has #53. This demonstrates a responsible attitude in regards to her medication regimen. Patient reports improved function and adequate pain relief , with no noted side effects. Patient reports current opiod regime of oxycodone-acetaminophen 7.5-325 mg QID prn allows her to be less symptomatic and more functional. Denies any recent cough, cold, infection, fever, constipation, sedation, nausea, dizziness or urinary retention or other significant changes in medical history since last office visit. [facility] Medical History Osteopenia Vitamin D deficiency Personal history of nicotine dependence Benign essential hypertension Chronic, continuous use of opioids Tenosynovitis of thumb Chronic low back pain Cyclical vomiting Surgical History History of tonsillectomy History of selective injection of anesthetic agent around lumbar nerve root History of colonoscopy (~2020) History of breast surgery Hx of shoulder surgery Hx of right knee surgery S/P laparoscopic cholecystectomy (~2009) History of appendectomy Family History Maternal Uncle Diabetes Father No problems noted. Mother No problems noted. Social History Housing: House Alcohol intake: former Patient Tobacco Use Status: Current everyday Tobacco user Tobacco use type: Cigarette Cigarettes Per Day: 4 Years Smoked: (onset 15, 1/2-1ppd x 46yrs, 30+PYH) e-Cigarette/Vaping Use: Never Used Second Hand Smoke Exposure: Yes service: No Current occupational status: retired and disabled Cognitive needs: No Hearing needs: No Vision needs: Yes Female Reproductive History Menstrual Age of Menarche: 14 Review of Systems Const All systems reviewed & are unremarkable except as noted in HPI and below Physical Exam Vital Signs: Last Vital Signs Pulse 77 09/13/23 10:03 BP 162/91 H 09/13/23 10:03 Pulse Ox 96 09/13/23 10:03 Oxygen Delivery Method Room Air 09/13/23 10:03 BMI result Body Mass Index 23.7 General: Appears afebrile. Alert and oriented. Mood and affect appropriate. Follows and participates in conversation appropriately. Respiratory effort is unlabored. No cough. Able to transition from sit to stand unassisted. Ambulates with bilaterally normal heel strike and toe off. Psych Appearance: grossly normal and well kempt Mental Status: mental status grossly normal Speech and movement: Normal speech and movement present Affect: normal affect Attitude: cooperative Thought process: Normal thought process present Thought content: Normal thought content present, suicidality (none), no hallucinations and No Depressive thoughts present Insight: Good insight present (Psych) Judgement: Good judgement present (Psych) Results Reviewed Results Reviewed: 08/22/22 MM/XR DEXA axial skeleton IMPRESSION: Osteopenia based on the lowest T-score value of -2.1 in the lumbar spine and femoral neck applying World Health Organization criteria. 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 No obvious signs of diversion, abuse or misuse of the opioid medications. Will send in prescription for oxycodone/acetaminophen 7.5-325 mg QID with an advanced date of 09/24/23 Continue muscle relaxers as needed, monitor for any side effects. Patient to follow-up in the office in 1 month, sooner if needed. All questions and concerns have been answered and patient agrees with the plan. Medications: Refilled oxycodone-acetaminophen 7.5-325 mg Partial Fill upon patient request. 1 tab PO QID PRN 120 tabs 0RF pain, severe 30 days G89.29 - Other chronic pain, M47.816 - Spondylosis without myelopathy or radiculopathy, lumbar region, M53.3 - Sacrococcygeal disorders, not elsewhere classified, M54.5 - Low back pain Coding Level of Care Code Est Pt Level 4 (54911) Diagnoses Myofascial pain M79.18 Chronic midline low back pain, unspecified whether sciatica present M54.5; G89.29 Back pain laterality: midline Sciatica presence: unspecified whether sciatica present Spondylosis of lumbar region without myelopathy or radiculopathy M47.816 Sacroiliac joint pain M53.3 Chronic, continuous use of opioids F11.90
[2023-09-13 10:03] VITALS: BP 162/91; PULSE 77; O2SAT 96; BMI 23.7
== END 2023-09-13 10:17 | disposition home or self-care (01) ==
PROVIDERS: PCP Internal Medicine; Visit Provider Nurse Practitioner Family
DX: G89.29 Other chronic pain (principal); M54.50 Low back pain, unspecified; M79.18 Myalgia, other site; Z79.891 Long term (current) use of opiate analgesic; M47.816 Spondylosis without myelopathy or radiculopathy, lumbar region; M53.3 Sacrococcygeal disorders, not elsewhere classified
CPT/HCPCS: 99214

== ENCOUNTER → 2023-09-13 09:51 | Outpatient (BNVA) | payer OTHER, SELFPAY | PROVIDERS: PCP Internal Medicine; Visit Provider Nurse Practitioner Family | DX: Z51.81 Encounter for therapeutic drug level monitoring (principal); F11.20 Opioid dependence, uncomplicated; M79.18 Myalgia, other site; M47.816 Spondylosis without myelopathy or radiculopathy, lumbar region; M54.50 Low back pain, unspecified; M53.3 Sacrococcygeal disorders, not elsewhere classified; G89.29 Other chronic pain | CPT/HCPCS: 99212 ==

== ENCOUNTER 2023-10-11 12:59 | Outpatient (AMB) | payer OTHER, SELFPAY ==
[2023-10-11 13:06] VITALS: BP 179/82; PULSE 72; RESP 16; O2SAT 97; BMI 23.7
--- NOTE | 2023-10-11 13:06 | MHC.OFFVIS ---
Intake Vital Signs 10/11/23 13:06 Height 5 ft 4 in Weight 138 lb BMI 23.7 BP 179/82 H Blood Pressure Location Lt brachial Position Sitting Respiration 16 Pulse 72 Pulse Source Pulse Oximeter Pulse Oximetry (%) 97 Oxygen Delivery Method Room Air Intake Visit Reasons: PILL COUNT Allergies Sulfa (Sulfonamide Antibiotics) Allergy (Intermediate, Verified 10/11/23 13:06) Hives, itching trimethoprim [From Bactrim] Allergy (Verified 10/11/23 13:06) Hives HPI HPI Comments History of Present Illness Details Priya is a very pleasant 63 year old female who presents to the office today for follow up chronic pain and chronic opioid therapy management. Patient is prescribed oxycodone acetaminophen 7.5-325mg, take 1 tablet four times daily. Patient arrived today with the expectation of having 56 pills, she presented 61 pills which were counted in the presence of two staff members and returned to the patient in the original prescription bottle. This demonstrates responsible attitude toward patient's opioid medications. Pain is reported today as 3/10 and last dose of pain medication was taken this morning at 8:30am. Pain is adequately managed on current opioid regimen. Patient denies side effects including somnolence, constipation, itching, dyspnea, rash, dizziness or weakness. Patient reports some increasing right hip pain over last couple of weeks. Has been taking motrin without improvement. Doing HEP with minimal improvement. [facility] Medical History Osteopenia Vitamin D deficiency Personal history of nicotine dependence Benign essential hypertension Chronic, continuous use of opioids Tenosynovitis of thumb Chronic low back pain Cyclical vomiting Surgical History History of tonsillectomy History of selective injection of anesthetic agent around lumbar nerve root History of colonoscopy (~2020) History of breast surgery Hx of shoulder surgery Hx of right knee surgery S/P laparoscopic cholecystectomy (~2009) History of appendectomy Family History Maternal Uncle Diabetes Father No problems noted. Mother No problems noted. Social History Housing: House Alcohol intake: former Patient Tobacco Use Status: Current everyday Tobacco user Tobacco use type: Cigarette Cigarettes Per Day: 4 Years Smoked: (onset 15, 1/2-1ppd x 46yrs, 30+PYH) e-Cigarette/Vaping Use: Never Used Second Hand Smoke Exposure: Yes service: No Current occupational status: retired and disabled Cognitive needs: No Hearing needs: No Vision needs: Yes Female Reproductive History Menstrual Age of Menarche: 14 Review of Systems Const All systems reviewed & are unremarkable except as noted in HPI and below Physical Exam Vital Signs: Last Vital Signs Pulse 72 10/11/23 13:06 Resp 16 10/11/23 13:06 BP 179/82 H 10/11/23 13:06 Pulse Ox 97 10/11/23 13:06 Oxygen Delivery Method Room Air 10/11/23 13:06 BMI result Body Mass Index 23.7 General: awake, alert, oriented. Answers questions appropriately. Fully engaged in examination. HEENT: Normocephalic. Hearing intact. Cardiac: External chest normal in appearance. Respiratory: No cough, audible wheezing or stridor. Abdomen: without gross distension. MS: No obvious swelling or deformities. Able to transition from sit to stand unassisted. Ambulates with bilaterally normal heel strike and toe off Pain with external rotation of right hip Neurological: Oriented to person, place, time and situation. Thought process intact. No gait abnormalities appreciated. Psychiatric: Appropriate mood and affect. Good judgment and insight. Results Reviewed Results Reviewed: 08/22/22 MM/XR DEXA axial skeleton IMPRESSION: Osteopenia based on the lowest T-score value of -2.1 in the lumbar spine and femoral neck applying World Health Organization criteria. Assessment & Plan Assessment & Plan (1) Right hip pain: Code(s): M25.551 - Pain in right hip (2) Myofascial pain: Code(s): M79.18 - Myalgia, other site (3) Chronic low back pain: Code(s): M54.5 - Low back pain; G89.29 - Other chronic pain Qualifiers: Back pain laterality: midline Sciatica presence: unspecified whether sciatica present Qualified Code(s): M54.5 - Low back pain; G89.29 - Other chronic pain (4) Spondylosis of lumbar region without myelopathy or radiculopathy: Code(s): M47.816 - Spondylosis without myelopathy or radiculopathy, lumbar region (5) Sacroiliac joint pain: Code(s): M53.3 - Sacrococcygeal disorders, not elsewhere classified (6) Chronic, continuous use of opioids: Code(s): F1.90 - Opioid use, unspecified, uncomplicated Plan Masspat was reviewed and without concerns. No obvious signs of diversion, abuse or misuse of the opioid medications. Will send in prescription for oxycodone/acetaminophen 7.5-325 mg QID with an advanced date of 10/26/23 XR right hip ordered. We discussed intra-articular right hip injection under fluoroscopy. Patient states she needs all injections to be preformed under sedation. Advised that we do not typically offer sedation for simple joint injections as the risks of anesthesia are greater than the benefit received from elective steroid injection. Patient insists on sedation, will discuss with Dr Herrera who would be performing the injection to discuss the option prior to scheduling. Will discuss with patient at next visit. She has been doing HEP, declines PT referral today. May take additional 325mg tylenol Q8H as needed. Patient to follow-up in the office in 1 month, sooner if needed. All questions and concerns have been answered and patient agrees with the plan. Orders: Orders XR hip RT min 2V Today M25.551 - Pain in right hip Medications: Refilled oxycodone-acetaminophen 7.5-325 mg Partial Fill upon patient request. 1 tab PO QID 30 days PRN 120 tabs 0RF pain, severe G89.29 - Other chronic pain, M47.816 - Spondylosis without myelopathy or radiculopathy, lumbar region, M53.3 - Sacrococcygeal disorders, not elsewhere classified, M54.5 - Low back pain Coding Level of Care Code Est Pt Level 4 (33301) Diagnoses Right hip pain M25.551 Myofascial pain M79.18 Chronic midline low back pain, unspecified whether sciatica present M54.5; G89.29 Back pain laterality: midline Sciatica presence: unspecified whether sciatica present Spondylosis of lumbar region without myelopathy or radiculopathy M47.816 Sacroiliac joint pain M53.3 Chronic, continuous use of opioids F11.90
== END 2023-10-11 13:20 | disposition home or self-care (01) ==
PROVIDERS: PCP Internal Medicine; Visit Provider Registered Nurse Emergency
DX: G89.4 Chronic pain syndrome (principal); M47.816 Spondylosis without myelopathy or radiculopathy, lumbar region; M53.3 Sacrococcygeal disorders, not elsewhere classified; Z79.891 Long term (current) use of opiate analgesic
CPT/HCPCS: 99214

== ENCOUNTER → 2023-10-11 12:59 | Outpatient (BNVA) | payer OTHER, SELFPAY | PROVIDERS: PCP Internal Medicine; Visit Provider Registered Nurse Emergency | DX: M25.551 Pain in right hip (principal); M79.18 Myalgia, other site; M47.816 Spondylosis without myelopathy or radiculopathy, lumbar region; M53.3 Sacrococcygeal disorders, not elsewhere classified; G89.29 Other chronic pain; Z51.81 Encounter for therapeutic drug level monitoring; Z79.891 Long term (current) use of opiate analgesic | CPT/HCPCS: 99212 ==

== ENCOUNTER 2023-11-04 08:47 | Outpatient (REF) | payer OTHER, SELFPAY ==
--- NOTE | ~2023-11-04 | XR_ITS ---
EXAMINATION: XR HIP, RIGHT CLINICAL INFORMATION: Pain in right hip, patient stated her hip pain, no trauma. COMPARISON: 01/18/2021 TECHNIQUE: 2 views of the right hip. FINDINGS: Moderate degenerative changes in the right sacroiliac joint. Bones are diffusely demineralized. Right hip alignment preserved. Mild degenerative changes in the right hip. XR/XR hip RT min 2V IMPRESSION: 1. Mild degenerative changes in the right hip. 2. Moderate degenerative changes right sacroiliac joint.
== END 2023-11-04 08:48 | disposition home or self-care (01) ==
LOC: HO.XRAY 08:47
PROVIDERS: PCP Internal Medicine; Visit Provider Registered Nurse Emergency
DX: M25.551 Pain in right hip (principal)
CPT/HCPCS: 73502

== ENCOUNTER 2023-11-08 13:19 | Outpatient (AMB) | payer OTHER, SELFPAY ==
--- NOTE | 2023-11-08 13:21 | MHC.OFFVIS ---
Vital Signs 11/08/23 13:38 Height 5 ft 4 in Weight 135 lb 8 oz BMI 23.3 BP 140/90 H Blood Pressure Location Lt brachial Position Sitting Respiration 12 Pulse 78 Pulse Source Pulse Oximeter Pulse Oximetry (%) 97 Oxygen Delivery Method Room Air Intake Visit Reasons: Medication Count Allergies Sulfa (Sulfonamide Antibiotics) Allergy (Intermediate, Verified 11/08/23 13:39) Hives, itching trimethoprim [From Bactrim] Allergy (Verified 11/08/23 13:39) Hives HPI Comments Details: Priya is a very pleasant 63 year old female who presents to the office today for follow up chronic pain and chronic opioid therapy management. Patient is prescribed oxycodone acetaminophen 7.5-325mg, take 1 tablet four times daily. Patient arrived today with the expectation of having 60 pills, she presented 64 pills which were counted in the presence of two staff members and returned to the patient in the original prescription bottle. This demonstrates responsible attitude toward patient's opioid medications. Pain is reported today as 4/10 and last dose of pain medication was taken this morning at 12:30am. Pain is adequately managed on current opioid regimen. Patient denies side effects including somnolence, constipation, itching, dyspnea, rash, dizziness or weakness. Continues with right hip pain. Has been taking motrin without improvement. Doing HEP with minimal improvement. Would like to proceed with steroid injection but requesting to be done with sedation. [facility] Medical History Osteopenia Vitamin D deficiency Personal history of nicotine dependence Benign essential hypertension Chronic, continuous use of opioids Tenosynovitis of thumb Chronic low back pain Cyclical vomiting Surgical History History of tonsillectomy History of selective injection of anesthetic agent around lumbar nerve root History of colonoscopy (~2020) History of breast surgery Hx of shoulder surgery Hx of right knee surgery S/P laparoscopic cholecystectomy (~2009) History of appendectomy Family History Maternal Uncle Diabetes Father No problems noted. Mother No problems noted. Social History Housing: House Alcohol intake: former Patient Tobacco Use Status: Current everyday Tobacco user Tobacco use type: Cigarette Cigarettes Per Day: 4 Years Smoked: (onset 15, 1/2-1ppd x 46yrs, 30+PYH) e-Cigarette/Vaping Use: Never Used Second Hand Smoke Exposure: Yes service: No Current occupational status: retired and disabled Cognitive needs: No Hearing needs: No Vision needs: Yes Female Reproductive History Menstrual Age of Menarche: 14 Review of Systems Const All systems reviewed & are unremarkable except as noted in HPI and below Physical Exam Vital Signs: Last Vital Signs Pulse 78 11/08/23 13:38 Resp 12 11/08/23 13:38 BP 140/90 H 11/08/23 13:38 Pulse Ox 97 11/08/23 13:38 Oxygen Delivery Method Room Air 11/08/23 13:38 BMI result Body Mass Index 23.3 General: awake, alert, oriented. Answers questions appropriately. Fully engaged in examination. HEENT: Normocephalic. Hearing intact. Cardiac: External chest normal in appearance. Respiratory: No cough, audible wheezing or stridor. Abdomen: without gross distension. MS: No obvious swelling or deformities. Able to transition from sit to stand unassisted. Ambulates with bilaterally normal heel strike and toe off Pain with external rotation of right hip Neurological: Oriented to person, place, time and situation. Thought process intact. No gait abnormalities appreciated. Psychiatric: Appropriate mood and affect. Good judgment and insight. Results Reviewed Results Reviewed: 08/22/22 MM/XR DEXA axial skeleton IMPRESSION: Osteopenia based on the lowest T-score value of -2.1 in the lumbar spine and femoral neck applying World Health Organization criteria. Assessment & Plan Assessment & Plan (1) Right hip pain: Code(s): M25.551 - Pain in right hip Category: Medical (2) Myofascial pain: Code(s): M79.18 - Myalgia, other site Category: Medical (3) Chronic low back pain: Code(s): M54.5 - Low back pain; G89.29 - Other chronic pain Category: Medical Qualifiers: Back pain laterality: midline Sciatica presence: unspecified whether sciatica present Qualified Code(s): M54.5 - Low back pain; G89.29 - Other chronic pain (4) Spondylosis of lumbar region without myelopathy or radiculopathy: Code(s): M47.816 - Spondylosis without myelopathy or radiculopathy, lumbar region Category: Medical (5) Sacroiliac joint pain: Code(s): M53.3 - Sacrococcygeal disorders, not elsewhere classified Category: Medical (6) Chronic, continuous use of opioids: Code(s): F11.90 - Opioid use, unspecified, uncomplicated Category: Medical Plan Masspat was reviewed and without concerns. No obvious signs of diversion, abuse or misuse of the opioid medications. Will send in prescription for oxycodone/acetaminophen 7.5-325 mg QID with an advanced date of 11/25/23 Will schedule for right intra-articular hip injection, fluoroscopy guided, with sedation. Patient to follow-up in the office in 1 month, sooner if needed. All questions and concerns have been answered and patient agrees with the plan. Medications: New cyclobenzaprine 5 mg PO BID PRN 60 tabs 0RF muscle spasm Refilled oxycodone-acetaminophen 7.5-325 mg Partial Fill upon patient request. 1 tab PO QID 30 days PRN 120 tabs 0RF pain, severe G89.29 - Other chronic pain, M47.816 - Spondylosis without myelopathy or radiculopathy, lumbar region, M53.3 - Sacrococcygeal disorders, not elsewhere classified, M54.5 - Low back pain Coding Level of Care Code Est Pt Level 4 (40645) Diagnoses Right hip pain M25.551 Myofascial pain M79.18 Chronic midline low back pain, unspecified whether sciatica present M54.5; G89.29 Back pain laterality: midline Sciatica presence: unspecified whether sciatica present Spondylosis of lumbar region without myelopathy or radiculopathy M47.816 Sacroiliac joint pain M53.3 Chronic, continuous use of opioids F11.90
[2023-11-08 13:38] VITALS: BP 140/90; PULSE 78; RESP 12; O2SAT 97; BMI 23.3
== END 2023-11-08 13:40 | disposition home or self-care (01) ==
PROVIDERS: PCP Internal Medicine; Visit Provider Registered Nurse Emergency
DX: G89.29 Other chronic pain (principal); M25.551 Pain in right hip; M79.18 Myalgia, other site; Z79.891 Long term (current) use of opiate analgesic; M54.50 Low back pain, unspecified; M47.816 Spondylosis without myelopathy or radiculopathy, lumbar region; M53.3 Sacrococcygeal disorders, not elsewhere classified
CPT/HCPCS: 99214

== ENCOUNTER → 2023-11-08 13:19 | Outpatient (BNVA) | payer OTHER, SELFPAY | PROVIDERS: PCP Internal Medicine; Visit Provider Registered Nurse Emergency | DX: M25.551 Pain in right hip (principal); M79.18 Myalgia, other site; G89.29 Other chronic pain; M54.50 Low back pain, unspecified; M47.816 Spondylosis without myelopathy or radiculopathy, lumbar region; M53.3 Sacrococcygeal disorders, not elsewhere classified; Z79.891 Long term (current) use of opiate analgesic | CPT/HCPCS: 99212 ==

== ENCOUNTER 2023-12-13 13:16 | Outpatient (AMB) | payer OTHER, SELFPAY ==
[2023-12-13 13:36] VITALS: BP 184/88; PULSE 79; RESP 16; O2SAT 97; BMI 22.7
--- NOTE | 2023-12-13 13:36 | A.OFFVIS_ITS ---
Vital Signs 12/13/23 13:36 Height 5 ft 4 in Weight 132 lb 2 oz BMI 22.7 BP 184/88 H Blood Pressure Location Lt brachial Position Sitting Respiration 16 Pulse 79 Pulse Source Pulse Oximeter Pulse Oximetry (%) 97 Oxygen Delivery Method Room Air Intake Visit Reasons: PILL COUNT/ Proc Discussion w/ Kandace Allergies Sulfa (Sulfonamide Antibiotics) Allergy (Intermediate, Verified 12/13/23 13:36) Hives, itching trimethoprim [From Bactrim] Allergy (Verified 12/13/23 13:36) Hives HPI Comments Details: Priya is a very pleasant 63 year old female who presents to the office today for follow up chronic pain and chronic opioid therapy management. Patient is prescribed oxycodone acetaminophen 7.5-325mg, take 1 tablet four times daily. Patient arrived today with the expectation of having 44 pills, she presented 43 pills which were counted in the presence of two staff members and returned to the patient in the original prescription bottle. This demonstrates responsible attitude toward patient's opioid medications. Pain is reported today as 4/10 and last dose of pain medication was taken this morning at 12:30pm. Pain is adequately managed on current opioid regimen. Patient denies side effects including somnolence, constipation, itching, dyspnea, rash, dizziness or weakness. Continues with right hip pain. Has been taking motrin without improvement. Is awaiting steroid injection to the right hip. Patient has been out in [place] with her friend who was in the hospital so she has not been able to schedule. Has been suffering with right upper dental abscess for last one-week, states she did not want to schedule the injections while she had this active infection. [facility] Medical History Osteopenia Vitamin D deficiency Personal history of nicotine dependence Benign essential hypertension Chronic, continuous use of opioids Tenosynovitis of thumb Chronic low back pain Cyclical vomiting Surgical History History of tonsillectomy History of selective injection of anesthetic agent around lumbar nerve root History of colonoscopy (~2020) History of breast surgery Hx of shoulder surgery Hx of right knee surgery S/P laparoscopic cholecystectomy (~2009) History of appendectomy Family History Maternal Uncle Diabetes Father No problems noted. Mother No problems noted. Social History Housing: House Alcohol intake: former Patient Tobacco Use Status: Current everyday Tobacco user Tobacco use type: Cigarette Cigarettes Per Day: 4 Years Smoked: (onset 15, 1/2-1ppd x 46yrs, 30+PYH) e-Cigarette/Vaping Use: Never Used Second Hand Smoke Exposure: Yes service: No Current occupational status: retired and disabled Cognitive needs: No Hearing needs: No Vision needs: Yes Female Reproductive History Menstrual Age of Menarche: 14 Review of Systems Const All systems reviewed & are unremarkable except as noted in HPI and below Physical Exam Vital Signs: Last Vital Signs Pulse 79 12/13/23 13:36 Resp 16 12/13/23 13:36 BP 184/88 H 12/13/23 13:36 Pulse Ox 97 12/13/23 13:36 Oxygen Delivery Method Room Air 12/13/23 13:36 BMI result Body Mass Index 22.7 General: awake, alert, oriented. Answers questions appropriately. Fully engaged in examination. HEENT: Normocephalic. Hearing intact. Swelling right upper gums Cardiac: External chest normal in appearance. Respiratory: No cough, audible wheezing or stridor. Abdomen: without gross distension. MS: No obvious swelling or deformities. Able to transition from sit to stand unassisted. Ambulates with bilaterally normal heel strike and toe off Pain with external rotation of right hip Neurological: Oriented to person, place, time and situation. Thought process intact. No gait abnormalities appreciated. Psychiatric: Appropriate mood and affect. Good judgment and insight. Results Reviewed Results Reviewed: 08/22/22 MM/XR DEXA axial skeleton IMPRESSION: Osteopenia based on the lowest T-score value of -2.1 in the lumbar spine and femoral neck applying World Health Organization criteria. Assessment & Plan Assessment & Plan (1) Right hip pain: Code(s): M25.551 - Pain in right hip Category: Medical (2) Myofascial pain: Code(s): M79.18 - Myalgia, other site Category: Medical (3) Chronic low back pain: Code(s): M54.5 - Low back pain; G89.29 - Other chronic pain Category: Medical Qualifiers: Back pain laterality: midline Sciatica presence: unspecified whether sciatica present Qualified Code(s): M54.5 - Low back pain; G89.29 - Other chronic pain (4) Spondylosis of lumbar region without myelopathy or radiculopathy: Code(s): M47.816 - Spondylosis without myelopathy or radiculopathy, lumbar region Category: Medical (5) Sacroiliac joint pain: Code(s): M53.3 - Sacrococcygeal disorders, not elsewhere classified Category: Medical (6) Chronic, continuous use of opioids: Code(s): F11.90 - Opioid use, unspecified, uncomplicated Category: Medical (7) Dental abscess: Code(s): K04.7 - Periapical abscess without sinus Category: Medical Plan Masspat was reviewed and without concerns. No obvious signs of diversion, abuse or misuse of the opioid medications. Will send in prescription for oxycodone/acetaminophen 7.5-325 mg QID with an advanced date of 12/24/23 Continue with cyclobenzaprine 5 mg p.o. twice daily as needed for muscle spasm Plan for right intra-articular hip injection, fluoroscopy guided, with sedation. Patient will call Saturday to schedule. Amoxicillin 500 mg p.o. t.i.d. x7 days for dental abscess. Patient to follow-up in the office in 1 month, sooner if needed. All questions and concerns have been answered and patient agrees with the plan. Medications: New amoxicillin 500 mg PO TID 21 caps 0RF Refilled cyclobenzaprine 5 mg PO BID PRN 60 tabs 3RF muscle spasm oxycodone-acetaminophen 7.5-325 mg Partial Fill upon patient request. 1 tab PO QID 30 days PRN 120 tabs 0RF pain, severe G89.29 - Other chronic pain, M47.816 - Spondylosis without myelopathy or radiculopathy, lumbar region, M53.3 - Sacrococcygeal disorders, not elsewhere classified, M54.5 - Low back pain Discontinued methocarbamol Discontinued Reason: Patient no longer taking 500 mg PO TID PRN 45 tabs 1RF muscle spasm Coding Level of Care Code Est Pt Level 4 (13350) Diagnoses Right hip pain M25.551 Myofascial pain M79.18 Chronic midline low back pain, unspecified whether sciatica present M54.5; G89.29 Back pain laterality: midline Sciatica presence: unspecified whether sciatica present Spondylosis of lumbar region without myelopathy or radiculopathy M47.816 Sacroiliac joint pain M53.3 Chronic, continuous use of opioids F11.90 Dental abscess K04.7
== END 2023-12-13 14:05 | disposition home or self-care (01) ==
PROVIDERS: PCP Internal Medicine; Visit Provider Registered Nurse Emergency
DX: M25.551 Pain in right hip (principal); M79.18 Myalgia, other site; M54.50 Low back pain, unspecified; Z79.891 Long term (current) use of opiate analgesic; G89.29 Other chronic pain; M47.816 Spondylosis without myelopathy or radiculopathy, lumbar region; M53.3 Sacrococcygeal disorders, not elsewhere classified; K04.7 Periapical abscess without sinus
CPT/HCPCS: 99214

== ENCOUNTER → 2023-12-13 13:16 | Outpatient (BNVA) | payer OTHER, SELFPAY | PROVIDERS: PCP Internal Medicine; Visit Provider Registered Nurse Emergency | DX: Z51.81 Encounter for therapeutic drug level monitoring (principal); F11.20 Opioid dependence, uncomplicated; M25.551 Pain in right hip; M79.18 Myalgia, other site; M47.816 Spondylosis without myelopathy or radiculopathy, lumbar region; M53.3 Sacrococcygeal disorders, not elsewhere classified; M54.59 Other low back pain; G89.29 Other chronic pain; K04.7 Periapical abscess without sinus | CPT/HCPCS: 99212 ==

== ENCOUNTER 2024-01-03 07:33 | Day surgery (SDC) | payer OTHER, SELFPAY ==
--- NOTE | 2024-01-01 10:32 | HO.ANESPROP2 ---
Documented by User: Effie Mathew NP 01/01/24 10:39 HPI - Anesthesia Eval Consult details Narrative: 63yo F for Right Intra-Articular Hip Steroid Injection PMFSH Active Problems Active Problems: All Active Problems Dental abscess (Acute) Right hip pain (Acute) URI (upper respiratory infection) (Acute) Osteopenia (Acute) Epidermoid cyst of skin of scalp (Acute) Breast signs and symptoms (Acute) Breast pain (Acute) Incomplete bladder emptying (Acute) Cough (Acute) Chest wall contusion (Acute) Breast cancer screening by mammogram (Acute) Vitamin D deficiency (Acute) Impaired fasting glucose (Acute) Pure hypercholesterolemia (Acute) Skin exam for malignant neoplasm (Acute) Microscopic hematuria (Acute) Personal history of nicotine dependence (Acute) Benign essential hypertension (Acute) Chronic, continuous use of opioids (Acute) Myofascial pain (Acute) Spondylosis of lumbar region without myelopathy or radiculopathy (Acute) Chronic low back pain (Acute) Sacroiliac joint pain (Acute) Osteoarthritis of right hip (Acute) Bilateral leg weakness (Acute) Cyclical vomiting (Acute) Allergic rhinitis (Acute) Tenosynovitis of thumb (Acute) Past Medical History Medical History Osteopenia Vitamin D deficiency Personal history of nicotine dependence Benign essential hypertension Chronic, continuous use of opioids Tenosynovitis of thumb Chronic low back pain Cyclical vomiting Family History Family History Maternal Uncle Diabetes Father No problems noted. Mother No problems noted. Family history of problems with anesthesia: No Surgical History Surgical History History of tonsillectomy History of selective injection of anesthetic agent around lumbar nerve root History of colonoscopy (~2020) History of breast surgery Hx of shoulder surgery Hx of right knee surgery S/P laparoscopic cholecystectomy (~2009) History of appendectomy History of Problems with Anesthesia: No Social History Social History Housing: House Alcohol intake: former Patient Tobacco Use Status: Current everyday Tobacco user Tobacco use type: Cigarette Cigarettes Per Day: 5 Years Smoked: (onset 15, 1/2-1ppd x 46yrs, 30+PYH) e-Cigarette/Vaping Use: Never Used Second Hand Smoke Exposure: Yes service: No Current occupational status: retired and disabled Cognitive needs: No Hearing needs: No Vision needs: Yes Meds Allergies Allergy/AdvReac Type Severity Reaction Status Date / Time Sulfa (Sulfonamide Allergy Intermediate Hives, Verified 12/13/23 13:36 Antibiotics) itching trimethoprim [From Bactrim] Allergy Hives Verified 12/13/23 13:36 Home Medications ?Medication ?Instructions ?Recorded ?Confirmed ?Last Taken ?Type nortriptyline 75 mg capsule 75 mg PO BEDTIME 09/14/20 09/04/23 Unknown History Exam Pertinent Lab Results Pertinent Lab Results: Laboratory Tests 08/14/23 09:38 WBC 8.4 Hgb 11.9 L Hct 37.0 Plt Count 421 H D Sodium 141 Potassium 3.8 Chloride 106 Carbon Dioxide 27 BUN 17 H Creatinine 0.83 Assessment and Plan Assessment Anesthesia Assessment: Chart Reviewed Final Anesthetic Review Family History of Problems with Anesthesia: No History of Problems with Anesthesia: No Documented by User: Shashi Morales MD 01/03/24 09:13 PMFSH Past Medical History Medical History Osteopenia Vitamin D deficiency Personal history of nicotine dependence Benign essential hypertension Chronic, continuous use of opioids Tenosynovitis of thumb Chronic low back pain Cyclical vomiting Family History Family History Maternal Uncle Diabetes Father No problems noted. Mother No problems noted. Surgical History Surgical History History of tonsillectomy History of selective injection of anesthetic agent around lumbar nerve root History of colonoscopy (~2020) History of breast surgery Hx of shoulder surgery Hx of right knee surgery S/P laparoscopic cholecystectomy (~2009) History of appendectomy Social History Social History Housing: House Alcohol intake: former Patient Tobacco Use Status: Current everyday Tobacco user Tobacco use type: Cigarette Cigarettes Per Day: 5 Years Smoked: (onset 15, 1/2-1ppd x 46yrs, 30+PYH) e-Cigarette/Vaping Use: Never Used Second Hand Smoke Exposure: Yes service: No Current occupational status: retired and disabled Cognitive needs: No Hearing needs: No Vision needs: Yes Meds Allergies Allergy/AdvReac Type Severity Reaction Status Date / Time Sulfa (Sulfonamide Allergy Intermediate Hives, Verified 12/13/23 13:36 Antibiotics) itching trimethoprim [From Bactrim] Allergy Hives Verified 12/13/23 13:36 Home Medications ?Medication ?Instructions ?Recorded ?Confirmed ?Last Taken ?Type nortriptyline 75 mg capsule 75 mg PO BEDTIME 09/14/20 09/04/23 Unknown History Exam Airway Mallampati Class: I TM Dist: >3cm Neck ROM: Full Loose/Missing/Broken Teeth: Yes and Upper Heart: ok Lungs: ok Assessment and Plan Assessment Anesthesia Assessment: Anesthesia Plan Discussed Final Anesthetic Review NPO: Yes ASA Class: II Final Preanesthetic Review: No Changes in Pt Med Stat, Meds/Allgs Chart Reviewed, Consent Obtained/Reviewed and Anes Risks/Benef Reviewed Patient Risk: Intermediate Procedure Risk: Intermediate Anesthetic Plan Anesthetic Plan: Agree w/ Assess. and Plan and TIVA Disposition: Standard PACU
--- NOTE | ~2024-01-03 | FL_ITS ---
EXAMINATION: XR FLUOROSCOPY WITH IMAGES CLINICAL INFORMATION: Right hip steroid . COMPARISON: None available. TECHNIQUE: Fluoroscopy Supervised By: Dr. Jaime Herrera. Fluoroscopy Time: 16.4 seconds. Cumulative Dose: 6.3193 mGy. DAP: 2.0508 Gy-cm2. Images: 2 (1 duplicate). FINDINGS: Intraoperative fluoroscopy and spot films were performed during a procedure in the OR. A needle is seen overlying the right hip joint with intra-articular contrast media present. Please correlate with Dr. Jaime Herrera's report for complete details. FL/FL guidance in OR IMPRESSION: Intraoperative fluoroscopy and spot films were obtained. Please see Dr. Jaime Herrera's report for complete details.
[2024-01-03 07:53] VITALS: BMI 22.8
[2024-01-03 07:55] VITALS: BP 144/91; PULSE 76; RESP 16; TEMP 37; O2SAT 96
[2024-01-03] MEDS: Lactated Ringers 1,000 ML 100 ML IVCONT (08:06)
--- NOTE | 2024-01-03 08:24 | P.HPSUR_ITS ---
Pre-Procedural Eval Section A - 24 Hr Update-Section A only Date of Service: 01/03/24 The patient is an INPATIENT: No Changes since office visit: Yes Patient answered all questions The patient has been examined within 24 hours of the surgical procedure. The History & Physical has been completed within 30 days and I have reviewed it.: No Section B - Complete if H&P > 30 days Chief Complaint: Pain in right hip Details of Present Illness: As above, right hip OA Relevant Family History (Specify if Yes): No Relevant Social History: None Present Medications: see Short Stay Collaborative assessment Medical History: No relevant PMH History of Previous Operations: No relevant previous surgery Allergies: Allergies Allergy/AdvReac Type Severity Reaction Status Date / Time Sulfa (Sulfonamide Allergy Intermediate Hives, Verified 12/13/23 13:36 Antibiotics) itching trimethoprim [From Bactrim] Allergy Hives Verified 12/13/23 13:36 Review of Systems Sugical H&P ROS: Negative: Constitution, Neurological, Psychiatric, Hem-Onc, Allergic/Immunologic, Gastrointestinal, Genitourinary, Integumentary, Endocrine and Eyes/Ears/Nose/Throat and Yes, Specify: Cardiovascular (HTN), Respiratory (Smoker,) and Musculoskeletal (OA, osteopenia) Exam Surgical H&P Exam: Normal: HEENT, Normal: Heart, Normal: Lungs, Normal: E xtremities, Normal: Abdomen, Normal: Skin and Normal: Neurological Plan I have reviewed the history and physical and performed a pertinent physical examination on my patient. No changes have occurred unless specified. Time Spent With Patient Time: Total time managing care of this patient today ___5_ minutes.
[2024-01-03 09:31] VITALS: BP 134/80; PULSE 79; RESP 16; TEMP 36.3
[2024-01-03 09:46] VITALS: BP 128/99; PULSE 71; RESP 16; O2SAT 96
--- NOTE | 2024-01-03 09:52 | PM.OP ---
Brief Operative Note Date of Service: 01/03/24 Pre-op diagnosis: Osteoarthritis right hip, right hip pain. Post-op diagnosis: same Procedure: Right hip joint steroid injection. Surgeon: Jaime Herrera MD Anesthesia: MAC Was an C D Reactor Operator used for this Procedure?: No Estimated blood loss (mL): 0 Condition: stable Disposition: PACU
[2024-01-03 09:53] VITALS: BP 136/84; PULSE 72; RESP 20; TEMP 36.8; O2SAT 96
--- NOTE | 2024-01-03 15:08 | P.OP_ITS ---
Operative Note Operative Note Date of Service: 01/03/24 Narrative: Right hip steroid injection. Informed consent was explained to the patient. All questions were explained and answered. [employer] monitors were applied and patient was sedated. The patient was taken inside of the operating room where she was positioned left lateral decubitus on operating table.. Time-out was performed delineating patient's name and date of , correct site, side, the nature of the procedure, patient's allergy, preoperative antibiotic if needed, need for VT prophylaxis.. All operating room staff was participating in OR time-out procedure. Right hip area of the patient was prepped with ChloraPrep and draped with sterile towels. C-arm was brought over the operating field and picture of left and right lateral views of the bilateral hip joints were delineated on the screen. The smaller joint silhouette was chosen as the target. Projection of the right trochanter to the skin was chosen as the initial needle insertion point. After that the skin and subcutaneous tissues was anesthetized with 2% lidocaine 2.5 mL. 22 gauge 5 in long needle was inserted through the skin and started to advance to the joint space under intermittent lateral and anterior posterior views. When needle entered the capsule of the joint small amount of the contrast was injected delineating intra-articular space. After that treatment solution containing 3 cc of lidocaine 2%, 2 cc of bupivacaine 0.5% and 40 mg of Kenalog was injected into the joint. The needle was withdrawn sterile dressing was applied.The patient tolerated procedure well
== END 2024-01-03 10:12 | disposition home or self-care (01) ==
PROVIDERS: PCP Internal Medicine; Visit Provider Anesthesiology
PROC: (CPT 20610; principal; 2024-01-03 09:00)
DX: M25.551 Pain in right hip (principal); M16.11 Unilateral primary osteoarthritis, right hip; G89.4 Chronic pain syndrome; M54.50 Low back pain, unspecified; I10 Essential (primary) hypertension; M85.80 Other specified disorders of bone density and structure, unspecified site; E55.9 Vitamin D deficiency, unspecified; Z79.891 Long term (current) use of opiate analgesic; Z79.899 Other long term (current) drug therapy; Z88.2 Allergy status to sulfonamides; F17.210 Nicotine dependence, cigarettes, uncomplicated; Z98.890 Other specified postprocedural states
CPT/HCPCS: 20610; J2250; J2704; J2795; J3010; J3301; Q9967

== ENCOUNTER → 2024-01-03 07:33 | Outpatient (BNV) | payer OTHER, SELFPAY | PROVIDERS: PCP Internal Medicine; Visit Provider Anesthesiology | DX: M25.551 Pain in right hip (principal) | CPT/HCPCS: 20610; 77002 ==

== ENCOUNTER 2024-01-08 08:14 | Outpatient (REF) | payer OTHER, SELFPAY ==
[2024-01-08 08:27] LABS: MANUAL DIFF FLAG NO
[2024-01-08 08:53] LABS: Basophils Absolute Auto 0.1 X10*3/uL (0.0-0.2); Basophils Percent Auto 0.5 % (0-2); Eosinophils Absolute Auto 0.5 X10*3/uL (0.0-0.4); Eosinophils Percent Auto 4.5 % (0-4); Hematocrit 39.5 % (37.0-47.0); Hemoglobin 13.1 g/dl (12.0-16.0); Imm Gran Abs Auto 0.08 X10*3/uL (0.00-0.03); Imm Gran Pct Auto 0.7 % (0.0-0.4); Lymphocytes Absolute Auto 4.5 X10*3/uL (1.2-4.9); Lymphocytes Percent Auto 39.6 % (20-40); Mean Corpuscular HGB Conc 33.2 g/dl (31.0-35.0); Mean Corpuscular Hemoglobin 30.1 pg (27.0-33.0); Mean Corpuscular Volume 90.8 fL (80.0-98.0); Mean Platelet Volume 8.7 fL (9.4-12.3); Monocytes Absolute Auto 0.7 X10*3/uL (0.1-1.2); Monocytes Percent Auto 6.4 % (2-11); Neutrophils Absolute Auto 5.5 x10*3/uL (2.0-8.3); Neutrophils Percent Auto 48.3 % (45-73); Platelet Count 369 X10*3/uL (160-400); Red Blood Count 4.35 X10*6/uL (4.20-5.50); Red Cell Distribution Width 13.9 % (11.0-16.0); White Blood Count 11.4 X10*3/uL (4.8-10.8)
[2024-01-08 09:04] LABS: Appearance Urine Cloudy; Color Urine Yellow; Glucose Urine UA Negative (Negative); Leukocyte Esterase Urine Negative (Negative); Nitrite Urine Negative (Negative); PH 6.5 (5.0-9.0); Specific Gravity - Urine >= 1.030 (1.005-1.025); Urine Blood Negative (Negative); Urine Ketones Negative (Negative); Urine Protein Negative (Neg-Trace)
[2024-01-08 09:33] LABS: Alanine Aminotransferase 10 U/L (0-31); Albumin Level 3.9 g/dL (3.5-5.0); Alkaline Phosphatase 73 U/L (39-117); Anion Gap 10 (12-20); Aspartate Amino Transferase 13 U/L (5-31); Bilirubin Total 0.2 mg/dL (0.0-1.0); Blood Urea Nitrogen 18 mg/dL (9-16); Calcium 8.8 mg/dL (8.4-10.2); Carbon Dioxide 27 mmol/L (22-29); Chloride 107 mmol/L (96-108); Cholesterol 192 mg/dL (<200); Estimated Glomerular Filt Rate > 60; Glucose Fasting 95 mg/dL (60-99); HDL Cholesterol 40 mg/dL (>40); LDL Cholesterol Calculated 133 mg/dL (<100); Sodium 140 mmol/L (135-145); Total Protein 6.7 g/dL (6.5-8.0); Triglycerides 96 mg/dL (<150)
== END 2024-01-08 08:15 | disposition home or self-care (01) ==
LOC: HO.LAB 08:14
PROVIDERS: PCP Internal Medicine; Visit Provider Internal Medicine
DX: Z00.00 Encounter for general adult medical examination without abnormal findings (principal); D64.9 Anemia, unspecified; R30.0 Dysuria; E78.00 Pure hypercholesterolemia, unspecified
CPT/HCPCS: 36415; 80053; 80061; 81003; 85025

== ENCOUNTER 2024-01-10 12:55 | Outpatient (AMB) | payer OTHER, SELFPAY ==
--- NOTE | 2024-01-10 12:59 | A.OFFVIS_ITS ---
Vital Signs 01/10/24 13:07 Height 5 ft 5 in Weight 134 lb 2 oz BMI 22.3 BP 184/88 H Blood Pressure Location Lt brachial Position Sitting Pulse 79 Pulse Source Pulse Oximeter Pulse Oximetry (%) 97 Oxygen Delivery Method Room Air Intake Visit Reasons: PILL COUNT Intake Note: Priya comes in today for a pill count to oxycodone-acetaminophen, patient should have 48 tablets and presents with 52 tablets which she last took today 01/10/24 at 8am. Pain today 2 Inspector Precision Assembly Required: No Accompanied by: Self / Same As Patient Allergies Sulfa (Sulfonamide Antibiotics) Allergy (Intermediate, Verified 01/10/24 13:07) Hives, itching trimethoprim [From Bactrim] Allergy (Verified 01/10/24 13:07) Hives HPI Comments Details: Priya is a very pleasant 63 year old female who presents to the office today for follow up chronic pain and chronic opioid therapy management. Patient is prescribed oxycodone acetaminophen 7.5-325mg, take 1 tablet four times daily. Patient arrived today with the expectation of having 48 pills, she presented 52 pills which were counted in the presence of two staff members and returned to the patient in the original prescription bottle. This demonstrates responsible attitude toward patient's opioid medications. Pain is reported today as 2/10 and last dose of pain medication was taken this morning at 8am. Pain is adequately managed on current opioid regimen. Patient denies side effects including somnolence, constipation, itching, dyspnea, rash, dizziness or weakness. Status post right hip therapeutic injection one-week ago. Pain significantly improved, also reports able to sleep on that side, walk without limping and sit without discomfort. Was not able to do this prior to the injection. [facility] Medical History Osteopenia Vitamin D deficiency Personal history of nicotine dependence Benign essential hypertension Chronic, continuous use of opioids Tenosynovitis of thumb Chronic low back pain Cyclical vomiting Surgical History History of tonsillectomy History of selective injection of anesthetic agent around lumbar nerve root History of colonoscopy (~2020) History of breast surgery Hx of shoulder surgery Hx of right knee surgery S/P laparoscopic cholecystectomy (~2009) History of appendectomy Family History Maternal Uncle Diabetes Father No problems noted. Mother No problems noted. Social History Housing: House Alcohol intake: former Patient Tobacco Use Status: Current everyday Tobacco user Tobacco use type: Cigarette Cigarettes Per Day: 5 Years Smoked: (onset 15, 1/2-1ppd x 46yrs, 30+PYH) e-Cigarette/Vaping Use: Never Used Second Hand Smoke Exposure: Yes service: No Current occupational status: retired and disabled Cognitive needs: No Hearing needs: No Vision needs: Yes Female Reproductive History Menstrual Age of Menarche: 14 Review of Systems Const All systems reviewed & are unremarkable except as noted in HPI and below Physical Exam Vital Signs: Last Vital Signs Pulse 79 01/10/24 13:07 BP 184/88 H 01/10/24 13:07 Pulse Ox 97 01/10/24 13:07 Oxygen Delivery Method Room Air 01/10/24 13:07 BMI result Body Mass Index 22.3 General: awake, alert, oriented. Answers questions appropriately. Fully engaged in examination. HEENT: Normocephalic. Hearing intact. Swelling right upper gums Cardiac: External chest normal in appearance. Respiratory: No cough, audible wheezing or stridor. Abdomen: without gross distension. MS: No obvious swelling or deformities. Able to transition from sit to stand unassisted. Ambulates with bilaterally normal heel strike and toe off Neurological: Oriented to person, place, time and situation. Thought process intact. No gait abnormalities appreciated. Psychiatric: Appropriate mood and affect. Good judgment and insight. Results Reviewed Results Reviewed: 08/22/22 MM/XR DEXA axial skeleton IMPRESSION: Osteopenia based on the lowest T-score value of -2.1 in the lumbar spine and femoral neck applying World Health Organization criteria. Assessment & Plan Assessment & Plan (1) Right hip pain: Code(s): M25.551 - Pain in right hip Category: Medical (2) Myofascial pain: Code(s): M79.18 - Myalgia, other site Category: Medical (3) Chronic low back pain: Code(s): M54.5 - Low back pain; G89.29 - Other chronic pain Category: Medical Qualifiers: Back pain laterality: midline Sciatica presence: unspecified whether sciatica present Qualified Code(s): M54.5 - Low back pain; G89.29 - Other chronic pain (4) Spondylosis of lumbar region without myelopathy or radiculopathy: Code(s): M47.816 - Spondylosis without myelopathy or radiculopathy, lumbar region Category: Medical (5) Sacroiliac joint pain: Code(s): M53.3 - Sacrococcygeal disorders, not elsewhere classified Category: Medical (6) Chronic, continuous use of opioids: Code(s): F11.90 - Opioid use, unspecified, uncomplicated Category: Medical (7) Dental abscess: Code(s): K04.7 - Periapical abscess without sinus Category: Medical Plan Masspat was reviewed and without concerns. No obvious signs of diversion, abuse or misuse of the opioid medications. Will send in prescription for oxycodone/acetaminophen 7.5-325 mg QID with an advanced date of 01/23/24 Continue with cyclobenzaprine 5 mg p.o. twice daily as needed for muscle spasm Patient to follow-up in the office in 1 month, sooner if needed. All questions and concerns have been answered and patient agrees with the plan. Medications: Refilled oxycodone-acetaminophen 7.5-325 mg Partial Fill upon patient request. 1 tab PO QID PRN 120 tabs 0RF pain, severe 30 days G89.29 - Other chronic pain, M47.816 - Spondylosis without myelopathy or radiculopathy, lumbar region, M53.3 - Sacrococcygeal disorders, not elsewhere classified, M54.5 - Low back pain Coding Level of Care Code Est Pt Level 4 (72989) Diagnoses Right hip pain M25.551 Myofascial pain M79.18 Chronic midline low back pain, unspecified whether sciatica present M54.5; G89.29 Back pain laterality: midline Sciatica presence: unspecified whether sciatica present Spondylosis of lumbar region without myelopathy or radiculopathy M47.816 Sacroiliac joint pain M53.3 Chronic, continuous use of opioids Dental abscess K04.7
[2024-01-10 13:07] VITALS: BP 184/88; PULSE 79; O2SAT 97; BMI 22.3
== END 2024-01-10 13:14 | disposition home or self-care (01) ==
PROVIDERS: PCP Internal Medicine; Visit Provider Registered Nurse Emergency
DX: M25.551 Pain in right hip (principal); M79.18 Myalgia, other site; M54.50 Low back pain, unspecified; G89.29 Other chronic pain; M47.816 Spondylosis without myelopathy or radiculopathy, lumbar region; M53.3 Sacrococcygeal disorders, not elsewhere classified; Z79.891 Long term (current) use of opiate analgesic; K04.7 Periapical abscess without sinus
CPT/HCPCS: 99214

== ENCOUNTER → 2024-01-10 12:55 | Outpatient (BNVA) | payer OTHER, SELFPAY | PROVIDERS: PCP Internal Medicine; Visit Provider Registered Nurse Emergency | DX: Z51.81 Encounter for therapeutic drug level monitoring (principal); F11.20 Opioid dependence, uncomplicated; M25.551 Pain in right hip; M79.18 Myalgia, other site; M54.59 Other low back pain; M47.816 Spondylosis without myelopathy or radiculopathy, lumbar region; M53.3 Sacrococcygeal disorders, not elsewhere classified; G89.29 Other chronic pain; K04.7 Periapical abscess without sinus | CPT/HCPCS: 99212 ==

== ENCOUNTER 2024-01-13 17:02 | Outpatient (AMB) | payer OTHER, SELFPAY ==
[2024-01-13 17:36] VITALS: BP 148/80; PULSE 103; O2SAT 97; BMI 22.3
--- NOTE | 2024-01-13 17:36 | MHC.PC.OV ---
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 Accompanied by: Self / Same As Patient Allergies Sulfa (Sulfonamide Antibiotics) Allergy (Intermediate, Verified 01/13/24 17:55) Hives, itching trimethoprim [From Bactrim] Allergy (Verified 01/13/24 17:55) Hives Medication List - Last Reconciled 01/13/24 by Charly Carrillo MD amlodipine 2.5 mg PO DAILY 90 days back brace As directed calcium carbonate (Calcium 600) 600 mg PO DAILY cholecalciferol (vitamin D3) 50 mcg PO DAILY 90 days cyclobenzaprine 5 mg PO BID PRN fluticasone propionate 50 mcg/actuation 2 sprays intranasal DAILY PRN 90 days nortriptyline 75 mg PO BEDTIME oxycodone-acetaminophen 7.5-325 mg 1 tab PO QID PRN 30 days Tobacco use date assessed: 09/04/23 Dental Screening Dental Screen Date: 09/04/23 HPI 4 month f/u HPI Details Patient comes in today for her follow-up visit States that she currently feels okay She denies any headaches or dizziness Denies any chest pains, no shortness of breath No nausea/ vomiting, no abdominal pain No change in bowel habits noted States that her blood pressure is usually much better when she checks it at home compared to her readings here Notes that her BP was at 113/67 mm an hour ago at 4 PM before she left her house and at 112/67 mm around 3 PM States that she has noticed that her blood pressure tends to run lower than usual at night, averaging around 90/58 mm, but states that she feels okay at night and denies any dizziness, lightheadedness or weakness even when her blood pressure is lower Patient states that her right hip pain has improved significantly with the recent injections that she has received from pain management States that her low back pain remains adequately controlled on her current medications She had her follow-up labs done a few days ago - to discuss her results [facility] Medical History Osteopenia Vitamin D deficiency Personal history of nicotine dependence Benign essential hypertension Chronic, continuous use of opioids Tenosynovitis of thumb Chronic low back pain Cyclical vomiting Surgical History History of tonsillectomy History of selective injection of anesthetic agent around lumbar nerve root History of colonoscopy (~2020) History of breast surgery Hx of shoulder surgery Hx of right knee surgery S/P laparoscopic cholecystectomy (~2009) History of appendectomy Family History Maternal Uncle Diabetes Father No problems noted. Mother No problems noted. Social History Housing: House Alcohol intake: former Patient Tobacco Use Status: Current everyday Tobacco user Tobacco use type: Cigarette Cigarettes Per Day: 5 Years Smoked: (onset 15, 1/2-1ppd x 46yrs, 30+PYH) e-Cigarette/Vaping Use: Never Used Second Hand Smoke Exposure: Yes service: No Current occupational status: retired and disabled Cognitive needs: No Hearing needs: No Vision needs: Yes Female Reproductive History Menstrual Age of Menarche: 14 Questionnaire Thrive Questionnaire Date Thrive assessed: 09/04/23 PACHECO-7 AMB Questionnaire PACHECO-7 Date PACHECO - 7 assessed: 09/04/23 Source: Developed by Drs. Samuel Flaherty, Afia nEgle, Chris Aragon and colleagues, with an educational saida from [employer]. Review of Systems Const Denies chills, Denies fatigue, Denies fever(s) and Denies headache(s) ENT Denies dysphagia, Denies dizziness, Denies otalgia, Denies headache(s), Denies neck pain, Denies odynophagia and Denies sore throat Card Denies chest pain, Denies rapid heart rate, Denies irregular heart rhythm, Denies palpitations and Denies dyspnea Resp Denies chest congestion, Denies cough, Denies dyspnea and Denies wheezing GI Denies abdominal pain, Denies constipation, Denies dysphagia, Denies diarrhea, Denies nausea, Denies odynophagia and Denies vomiting Details: (+) sensation of incomplete bladder emptying at times Denies urinary frequency, Denies nocturia, Denies dysuria, Denies urinary incontinence and Denies urinary urgency Musc Reports back pain (over the lower back - chronic), Reports arthralgias (right hip - pain has improved significantly with recent injections) and Denies neck pain Skin/Breast Denies rash Neuro Denies dizziness and Denies headache(s) Endo Denies fatigue and Denies palpitations Aller/Immun Denies wheezing Physical exam (Primary Care) Vital Signs: Last Vital Signs Pulse 103 H 01/13/24 17:36 BP 113/67 01/13/24 17:51 Pulse Ox 97 01/13/24 17:36 Oxygen Delivery Method Room Air 01/13/24 17:36 BMI result Body Mass Index 22.3 Tobacco/Smoking Status: Tobacco use Status Tobacco use date assessed 09/04/23 01/13/24 17:37 Patient Tobacco Use Status Current everyday Tobacco 01/13/24 17:37 Tobacco use type Cigarette 01/13/24 17:37 e-Cigarette/Vaping Use Never Used 01/13/24 17:37 Thrive Assessment: Date of Thrive Assessment Date Thrive assessed 09/04/23 01/13/24 17:37 Const General: no acute distress and alert HENMT Ears: TM's normal bilaterally and EAC's normal Throat: Yes posterior oropharynx normal and Yes tonsils normal (no TP congestion) Neck Neck: Yes no lymphadenopathy and Yes supple Thyroid: Thyroid normal Resp Auscultation: clear to auscultation bilaterally, no rales and no wheezes Cardio Rate: regular rate Rhythm: regular rhythm Heart sounds: no murmurs GI Palpation (GI): Soft to palpation and nontender Auscultation: normal bowel sounds General: Yes no CVA tenderness Back/Spine/Pelvis Back: no CVA tenderness Thoracic/Lumbar Spine: lumbar spinal tenderness Skin Rashes: no rashes Extrem General: Yes no clubbing, cyanosis or edema Right lower extremity: hip/thigh Details: tenderness Location: of the hip (improved with injections from pain management) Results Reviewed Results Reviewed: Laboratory Tests 01/08/24 01/08/24 08:26 Unknown WBC 11.4 H Hgb 13.1 Hct 39.5 Plt Count 369 Sodium 140 Potassium 4.0 Creatinine 0.75 Estimated GFR > 60 Fasting Glucose 95 Calcium 8.8 AST 13 ALT 10 Triglycerides 96 Cholesterol 192 LDL Cholesterol, Calc 133 H HDL Cholesterol 40 L Urine pH 6.5 Ur Specific [place] >= 1.030 H Urine Protein Negative Urine Glucose (UA) Negative Urine Blood Negative Urine Nitrite Negative Ur Leukocyte Esterase Negative Assessment and Plan Assessment & Plan (1) Benign essential hypertension: Code(s): I10 - Essential (primary) hypertension Plan: Reinforced low sodium diet - goal is systolic BP of 120 mm or less Continue Amlodipine 2.5 mg QD Patient is reminded to continue monitoring her blood pressure regularly - notes again that her readings tend to be much better and lower at home than the ones obtained here (2) Pure hypercholesterolemia: Code(s): E78.00 - Pure hypercholesterolemia, unspecified Plan: Results of her labs done a few days ago reviewed and discussed with patient Reinforced low cholesterol diet Will have patient recheck her labs and fasting lipids in 4 months for follow up (3) Impaired fasting glucose: Code(s): R73.01 - Impaired fasting glucose Plan: Her fasting serum glucose was normal at 95 mg/dl on her recent labs; her HgbA1c was normal at 5.2% when previously checked Reinforced low calorie diet/exercise as tolerated (4) Cyclical vomiting: Code(s): R11.15 - Cyclical vomiting syndrome unrelated to migraine Plan: Patient states that her symptoms have remained stable lately Continue Nortriptyline 75 mg Q HS (5) Vitamin D deficiency: Code(s): E55.9 - Vitamin D deficiency, unspecified Plan: Continue Vitamin D3 2000 units QD (6) Allergic rhinitis: Code(s): J30.9 - Allergic rhinitis, unspecified Qualifiers: Allergic rhinitis seasonality: unspecified Allergic rhinitis trigger: unspecified Qualified Code(s): J30.9 - Allergic rhinitis, unspecified Plan: Continue Fluticasone 50 mcg nasal spray QD PRN (7) Osteopenia: Code(s): M85.80 - Other specified disorders of bone density and structure, unspecified site Qualifiers: Osteopenia location: unspecified Qualified Code(s): M85.80 - Other specified disorders of bone density and structure, unspecified site Plan: BMD done back in August 2022 revealed (+) osteopenia based on the lowest T-score value of -2.1 in the lumbar spine - this is her baseline exam Have encouraged patient to try to stay active physically and to exercise regularly when she can Continue daily oral Vitamin D and Calcium supplements Will continue to monitor her BMD every 2 to 3 years (8) Spondylosis of lumbar region without myelopathy or radiculopathy: Code(s): M47.816 - Spondylosis without myelopathy or radiculopathy, lumbar region Plan: Reinforced activity and weight-lifting restrictions Continue Oxycodone-Acetaminophen 7.5 mg-325 mg 1 tablet QID PRN Follow up with [facility] Pain Management as scheduled (9) Right hip pain: Code(s): M25.551 - Pain in right hip Plan: Patient states that her right hip pain has improved significantly with injections that she gets from Pain Management Follow-up with Pain Management as scheduled (10) Smoker: Code(s): F17.200 - Nicotine dependence, unspecified, uncomplicated Plan: Counseled again to continue attempts at smoking cessation Continue Nicorette gum PRN to help patient quit smoking She last had low dose lung CT done in February 2022 for lung cancer screening - (+) bilateral small pulmonary nodules with no focal consolidation or mass; recommend annual lung CT Plan Follow up in 4 months Orders: Orders Comprehensive [place]. Panel Fast 4 Months E78.00 - Pure hypercholesterolemia, unspecified Lipid Panel 4 Months E78.00 - Pure hypercholesterolemia, unspecified UA CC w/rflx Micro + Cult 4 Months R30.0 - Dysuria TSH reflex Free T4 4 Months E78.00 - Pure hypercholesterolemia, unspecified Complete Blood Count Auto Diff 4 Months D64.9 - Anemia, unspecified Coding Level of Care Code Est Pt Level 4 (27417) Diagnoses Benign essential hypertension I10 Pure hypercholesterolemia E78.00 Impaired fasting glucose R73.01 Cyclical vomiting R11.15 Vitamin D deficiency E55.9 Allergic rhinitis, unspecified seasonality, unspecified trigger J30.9 Allergic rhinitis seasonality: unspecified Allergic rhinitis trigger: unspecified Osteopenia, unspecified location M85.80 Osteopenia location: unspecified Spondylosis of lumbar region without myelopathy or radiculopathy M47.816 Right hip pain M25.551 Smoker F17.200
[2024-01-13 17:51] VITALS: BP 113/67
== END 2024-01-13 17:57 | disposition home or self-care (01) ==
PROVIDERS: PCP Internal Medicine; Visit Provider Internal Medicine
DX: I10 Essential (primary) hypertension (principal); E78.00 Pure hypercholesterolemia, unspecified; R73.01 Impaired fasting glucose; R11.15 Cyclical vomiting syndrome unrelated to migraine; E55.9 Vitamin D deficiency, unspecified; J30.9 Allergic rhinitis, unspecified; M85.80 Other specified disorders of bone density and structure, unspecified site; M47.816 Spondylosis without myelopathy or radiculopathy, lumbar region; M25.551 Pain in right hip; F17.200 Nicotine dependence, unspecified, uncomplicated
CPT/HCPCS: 99214

== ENCOUNTER 2024-02-05 12:45 | Outpatient (AMB) | payer OTHER, SELFPAY ==
[2024-02-05 12:55] VITALS: PULSE 93; O2SAT 98; BMI 22.1
--- NOTE | 2024-02-05 12:58 | A.OFFVIS_ITS ---
Vital Signs 02/05/24 12:55 Height 5 ft 5 in Weight 133 lb BMI 22.1 Pulse 93 Pulse Source Pulse Oximeter Pulse Oximetry (%) 98 Oxygen Delivery Method Room Air Intake Visit Reasons: S/p (R) Intraarticular Hip Inj 01/03/24 & MED Count Allergies Sulfa (Sulfonamide Antibiotics) Allergy (Intermediate, Verified 01/13/24 17:55) Hives, itching trimethoprim [From Bactrim] Allergy (Verified 01/13/24 17:55) Hives HPI Comments Details: Priya is a very pleasant 63 year old female who presents to the office today for follow up chronic pain and chronic opioid therapy management. Patient is prescribed oxycodone acetaminophen 7.5-325mg, take 1 tablet four times daily. Patient arrived today with the expectation of having 64 pills, she presented 68 pills which were counted in the presence of two staff members and returned to the patient in the original prescription bottle. This demonstrates responsible attitude toward patient's opioid medications. Pain is reported today as 4/10 and last dose of pain medication was taken this morning at 8am. Pain is adequately managed on current opioid regimen. Denies side effects including somnolence, constipation, itching, dyspnea, rash, dizziness or weakness. Reports for last 2 weeks has noticed right lower back pain worse with bending, moving, twisting and tender to palpation. Was getting relief with 5mg Flexeril but would like dose increase. Denies any side effects of the medication, [facility] Medical History Osteopenia Vitamin D deficiency Personal history of nicotine dependence Benign essential hypertension Chronic, continuous use of opioids Tenosynovitis of thumb Chronic low back pain Cyclical vomiting Surgical History History of tonsillectomy History of selective injection of anesthetic agent around lumbar nerve root History of colonoscopy (~2020) History of breast surgery Hx of shoulder surgery Hx of right knee surgery S/P laparoscopic cholecystectomy (~2009) History of appendectomy Family History Maternal Uncle Diabetes Father No problems noted. Mother No problems noted. Social History Housing: House Alcohol intake: former Patient Tobacco Use Status: Current everyday Tobacco user Tobacco use type: Cigarette Cigarettes Per Day: 5 Years Smoked: (onset 15, 1/2-1ppd x 46yrs, 30+PYH) e-Cigarette/Vaping Use: Never Used Second Hand Smoke Exposure: Yes service: No Current occupational status: retired and disabled Cognitive needs: No Hearing needs: No Vision needs: Yes Female Reproductive History Menstrual Age of Menarche: 14 Review of Systems Const All systems reviewed & are unremarkable except as noted in HPI and below Physical Exam Vital Signs: Last Vital Signs Pulse 93 02/05/24 12:55 Pulse Ox 98 02/05/24 12:55 Oxygen Delivery Method Room Air 02/05/24 12:55 BMI result Body Mass Index 22.1 General: awake, alert, oriented. Answers questions appropriately. Fully engaged in examination. HEENT: Normocephalic. Hearing intact. Swelling right upper gums Cardiac: External chest normal in appearance. Respiratory: No cough, audible wheezing or stridor. Abdomen: without gross distension. MS: No obvious swelling or deformities. Able to transition from sit to stand unassisted. Ambulates with bilaterally normal heel strike and toe off Neurological: Oriented to person, place, time and situation. Thought process intact. No gait abnormalities appreciated. Psychiatric: Appropriate mood and affect. Good judgment and insight. Results Reviewed Results Reviewed: 08/22/22 MM/XR DEXA axial skeleton IMPRESSION: Osteopenia based on the lowest T-score value of -2.1 in the lumbar spine and femoral neck applying World Health Organization criteria. Assessment & Plan Assessment & Plan (1) Right hip pain: Code(s): M25.551 - Pain in right hip Category: Medical (2) Myofascial pain: Code(s): M79.18 - Myalgia, other site Category: Medical (3) Chronic low back pain: Code(s): M54.5 - Low back pain; G89.29 - Other chronic pain Category: Medical Qualifiers: Back pain laterality: midline Sciatica presence: unspecified whether sciatica present Qualified Code(s): M54.5 - Low back pain; G89.29 - Other chronic pain (4) Spondylosis of lumbar region without myelopathy or radiculopathy: Code(s): M47.816 - Spondylosis without myelopathy or radiculopathy, lumbar region Category: Medical (5) Sacroiliac joint pain: Code(s): M53.3 - Sacrococcygeal disorders, not elsewhere classified Category: Medical (6) Chronic, continuous use of opioids: Code(s): F11.90 - Opioid use, unspecified, uncomplicated Category: Medical (7) Dental abscess: Code(s): K04.7 - Periapical abscess without sinus Category: Medical Plan [place]pat was reviewed and without concerns. No obvious signs of diversion, abuse or misuse of the opioid medications. Will send in prescription for oxycodone/acetaminophen 7.5-325 mg QID with an advanced date of 02/22/24 Cyclobenzaprine 10 mg p.o. twice daily as needed for muscle spasm. Dose increased, patient advised on cautions for use. Patient to follow-up in the office in 1 month, sooner if needed. All questions and concerns have been answered and patient agrees with the plan. Medications: Changed From cyclobenzaprine 5 mg PO BID PRN 60 tabs 3RF muscle spasm To cyclobenzaprine 10 mg PO BID PRN 60 tabs 3RF muscle spasm Refilled oxycodone-acetaminophen 7.5-325 mg Partial Fill upon patient request. 1 tab PO QID PRN 120 tabs 0RF pain, severe 30 days G89.29 - Other chronic pain, M47.816 - Spondylosis without myelopathy or radiculopathy, lumbar region, M53.3 - Sacrococcygeal disorders, not elsewhere classified, M54.5 - Low back pain Coding Level of Care Code Est Pt Level 4 (46399) Diagnoses Right hip pain M25.551 Myofascial pain M79.18 Chronic midline low back pain, unspecified whether sciatica present M54.5; G89.29 Back pain laterality: midline Sciatica presence: unspecified whether sciatica present Spondylosis of lumbar region without myelopathy or radiculopathy M47.816 Sacroiliac joint pain M53.3 Chronic, continuous use of opioids F11.90 Dental abscess K04.7
== END 2024-02-05 13:06 | disposition home or self-care (01) ==
PROVIDERS: PCP Internal Medicine; Visit Provider Registered Nurse Emergency
DX: G89.29 Other chronic pain (principal); M25.551 Pain in right hip; M79.18 Myalgia, other site; Z79.891 Long term (current) use of opiate analgesic; M54.50 Low back pain, unspecified; M47.816 Spondylosis without myelopathy or radiculopathy, lumbar region; M53.3 Sacrococcygeal disorders, not elsewhere classified; K04.7 Periapical abscess without sinus
CPT/HCPCS: 99214

== ENCOUNTER → 2024-02-05 12:45 | Outpatient (BNVA) | payer OTHER, SELFPAY | PROVIDERS: PCP Internal Medicine; Visit Provider Registered Nurse Emergency | DX: M25.551 Pain in right hip (principal); M79.18 Myalgia, other site; M54.50 Low back pain, unspecified; G89.29 Other chronic pain; M47.816 Spondylosis without myelopathy or radiculopathy, lumbar region; M53.3 Sacrococcygeal disorders, not elsewhere classified; K04.7 Periapical abscess without sinus; F11.90 Opioid use, unspecified, uncomplicated; Z51.81 Encounter for therapeutic drug level monitoring | CPT/HCPCS: 99212 ==

== ENCOUNTER 2024-03-06 10:36 | Outpatient (AMB) | payer OTHER, SELFPAY ==
[2024-03-06 10:49] VITALS: BP 145/82; PULSE 81; O2SAT 96; BMI 22.3
--- NOTE | 2024-03-06 10:49 | A.OFFVIS_ITS ---
Vital Signs 03/06/24 10:49 Height 5 ft 5 in Weight 134 lb BMI 22.3 BP 145/82 H Blood Pressure Location Lt brachial Position Sitting Pulse 81 Pulse Source Pulse Oximeter Pulse Oximetry (%) 96 Oxygen Delivery Method Room Air Intake Visit Reasons: Pill Count Allergies Sulfa (Sulfonamide Antibiotics) Allergy (Intermediate, Verified 01/13/24 17:55) Hives, itching trimethoprim [From Bactrim] Allergy (Verified 01/13/24 17:55) Hives HPI Comments Details: Priya is a very pleasant 63 year old female who presents to the office today for follow up chronic pain and chronic opioid therapy management. Patient is prescribed oxycodone acetaminophen 7.5-325mg, take 1 tablet four times daily. Patient arrived today with the expectation of having 68 pills, she presented 69 pills which were counted in the presence of two staff members and returned to the patient in the original prescription bottle. This demonstrates responsible attitude toward patient's opioid medications. Pain is reported today as 3/10 and last dose of pain medication was taken this morning at 8am. Pain is adequately managed on current opioid regimen. Denies side effects including somnolence, constipation, itching, dyspnea, rash, dizziness or weakness. Right lower back pain has improved since last visit. Finding relief with the muscle relaxers. States hip has also been feeling better since the recent injection. [facility] Medical History Osteopenia Vitamin D deficiency Personal history of nicotine dependence Benign essential hypertension Chronic, continuous use of opioids Tenosynovitis of thumb Chronic low back pain Cyclical vomiting Surgical History History of tonsillectomy History of selective injection of anesthetic agent around lumbar nerve root History of colonoscopy (~2020) History of breast surgery Hx of shoulder surgery Hx of right knee surgery S/P laparoscopic cholecystectomy (~2009) History of appendectomy Family History Maternal Uncle Diabetes Father No problems noted. Mother No problems noted. Social History Housing: House Alcohol intake: former Patient Tobacco Use Status: Current everyday Tobacco user Tobacco use type: Cigarette Cigarettes Per Day: 5 Years Smoked: (onset 15, 1/2-1ppd x 46yrs, 30+PYH) e-Cigarette/Vaping Use: Never Used Second Hand Smoke Exposure: Yes service: No Current occupational status: retired and disabled Cognitive needs: No Hearing needs: No Vision needs: Yes Female Reproductive History Menstrual Age of Menarche: 14 Review of Systems Const All systems reviewed & are unremarkable except as noted in HPI and below Physical Exam Vital Signs: Last Vital Signs Pulse 81 03/06/24 10:49 BP 145/82 H 03/06/24 10:49 Pulse Ox 96 03/06/24 10:49 Oxygen Delivery Method Room Air 03/06/24 10:49 BMI result Body Mass Index 22.3 General: awake, alert, oriented. Answers questions appropriately. Fully engaged in examination. HEENT: Normocephalic. Hearing intact. Swelling right upper gums Cardiac: External chest normal in appearance. Respiratory: No cough, audible wheezing or stridor. Abdomen: without gross distension. MS: No obvious swelling or deformities. Able to transition from sit to stand unassisted. Ambulates with bilaterally normal heel strike and toe off Neurological: Oriented to person, place, time and situation. Thought process intact. No gait abnormalities appreciated. Psychiatric: Appropriate mood and affect. Good judgment and insight. Results Reviewed Results Reviewed: 08/22/22 MM/XR DEXA axial skeleton IMPRESSION: Osteopenia based on the lowest T-score value of -2.1 in the lumbar spine and femoral neck applying World Health Organization criteria. Assessment & Plan Assessment & Plan (1) Right hip pain: Code(s): M25.551 - Pain in right hip Category: Medical (2) Myofascial pain: Code(s): M79.18 - Myalgia, other site Category: Medical (3) Chronic low back pain: Code(s): M54.5 - Low back pain; G89.29 - Other chronic pain Category: Medical Qualifiers: Back pain laterality: midline Sciatica presence: unspecified whether sciatica present Qualified Code(s): M54.5 - Low back pain; G89.29 - Other chronic pain (4) Spondylosis of lumbar region without myelopathy or radiculopathy: Code(s): M47.816 - Spondylosis without myelopathy or radiculopathy, lumbar region Category: Medical (5) Sacroiliac joint pain: Code(s): M53.3 - Sacrococcygeal disorders, not elsewhere classified Category: Medical (6) Chronic, continuous use of opioids: Code(s): F11.90 - Opioid use, unspecified, uncomplicated Category: Medical (7) Dental abscess: Code(s): K04.7 - Periapical abscess without sinus Category: Medical Plan [place] was reviewed and without concerns. No obvious signs of diversion, abuse or misuse of the opioid medications. Will send in prescription for oxycodone/acetaminophen 7.5-325 mg QID with an advanced date of 03/23/24 Continue with Cyclobenzaprine 10 mg p.o. twice daily as needed for muscle spasm. Patient to follow-up in the office in 1 month, sooner if needed. All questions and concerns have been answered and patient agrees with the plan. Medications: Refilled oxycodone-acetaminophen 7.5-325 mg Partial Fill upon patient request. 1 tab PO QID PRN 120 tabs 0RF pain, severe 30 days G89.29 - Other chronic pain, M47.816 - Spondylosis without myelopathy or radiculopathy, lumbar region, M53.3 - Sacrococcygeal disorders, not elsewhere classified, M54.5 - Low back pain Coding Level of Care Code Est Pt Level 4 (24775) Diagnoses Right hip pain M25.551 Myofascial pain M79.18 Chronic midline low back pain, unspecified whether sciatica present M54.5; G89.29 Back pain laterality: midline Sciatica presence: unspecified whether sciatica present Spondylosis of lumbar region without myelopathy or radiculopathy M47.816 Sacroiliac joint pain M53.3 Chronic, continuous use of opioids F11.90 Dental abscess K04.7
== END 2024-03-06 11:06 | disposition home or self-care (01) ==
PROVIDERS: PCP Internal Medicine; Visit Provider Registered Nurse Emergency
DX: G89.29 Other chronic pain (principal); M25.551 Pain in right hip; M79.18 Myalgia, other site; Z79.891 Long term (current) use of opiate analgesic; M54.50 Low back pain, unspecified; M47.816 Spondylosis without myelopathy or radiculopathy, lumbar region; M53.3 Sacrococcygeal disorders, not elsewhere classified; K04.7 Periapical abscess without sinus
CPT/HCPCS: 99214

== ENCOUNTER → 2024-03-06 10:36 | Outpatient (BNVA) | payer OTHER, SELFPAY | PROVIDERS: PCP Internal Medicine; Visit Provider Registered Nurse Emergency | DX: M25.551 Pain in right hip (principal); M79.18 Myalgia, other site; M53.3 Sacrococcygeal disorders, not elsewhere classified; M47.816 Spondylosis without myelopathy or radiculopathy, lumbar region; G89.29 Other chronic pain; F11.90 Opioid use, unspecified, uncomplicated; Z51.81 Encounter for therapeutic drug level monitoring | CPT/HCPCS: 99212 ==

== ENCOUNTER 2024-04-10 10:34 | Outpatient (AMB) | payer OTHER, SELFPAY ==
[2024-04-10 10:40] VITALS: BP 164/87; PULSE 81; O2SAT 99; BMI 22.0
--- NOTE | 2024-04-10 10:40 | A.OFFVIS_ITS ---
Vital Signs 04/10/24 10:40 Height 5 ft 5 in Weight 132 lb BMI 22.0 BP 164/87 H Blood Pressure Location Lt brachial Position Sitting Pulse 81 Pulse Source Pulse Oximeter Pulse Oximetry (%) 99 Oxygen Delivery Method Room Air Intake Visit Reasons: PILL COUNT Allergies Sulfa (Sulfonamide Antibiotics) Allergy (Intermediate, Verified 04/10/24 10:41) Hives, itching trimethoprim [From Bactrim] Allergy (Verified 04/10/24 10:41) Hives Medication List - Last Reconciled 04/10/24 by Kandace Angela amlodipine 2.5 mg PO DAILY 90 days back brace As directed calcium carbonate (Calcium 600) 600 mg PO DAILY cholecalciferol (vitamin D3) 50 mcg PO DAILY 90 days cyclobenzaprine 10 mg PO BID PRN fluticasone propionate 50 mcg/actuation 2 sprays intranasal DAILY PRN 90 days nortriptyline 75 mg PO BEDTIME oxycodone-acetaminophen 7.5-325 mg 1 tab PO QID PRN 30 days HPI Comments Details: Priya presents to the office today for follow up chronic pain and chronic opioid therapy management. Patient is prescribed oxycodone acetaminophen 7.5-325mg, take 1 tablet four times daily. Patient arrived today with the expectation of having 48 pills, she presented 49 pills which were counted in the presence of two staff members and returned to the patient in the original prescription bottle. This demonstrates responsible attitude toward patient's opioid medications. Pain is reported today as 3/10 and last dose of pain medication was taken this morning at 6:30am. Pain is adequately managed on current opioid regimen. Denies side effects including somnolence, constipation, itching, dyspnea, rash, dizziness or weakness. One-week ago injured her left foot going down the stairs. Evaluated in the emergency room, x-ray negative. Using walking boot and crutches. Pain is improved. She is unable to get follow up with the primary care doctor as wondering what to do for next steps. [facility] Medical History Osteopenia Vitamin D deficiency Personal history of nicotine dependence Benign essential hypertension Chronic, continuous use of opioids Tenosynovitis of thumb Chronic low back pain Cyclical vomiting Surgical History History of tonsillectomy History of selective injection of anesthetic agent around lumbar nerve root History of colonoscopy (~2020) History of breast surgery Hx of shoulder surgery Hx of right knee surgery S/P laparoscopic cholecystectomy (~2009) History of appendectomy Family History Maternal Uncle Diabetes Father No problems noted. Mother No problems noted. Social History Housing: House Alcohol intake: former Patient Tobacco Use Status: Current everyday Tobacco user Tobacco use type: Cigarette Cigarettes Per Day: 5 Years Smoked: (onset 15, 1/2-1ppd x 46yrs, 30+PYH) e-Cigarette/Vaping Use: Never Used Second Hand Smoke Exposure: Yes service: No Current occupational status: retired and disabled Cognitive needs: No Hearing needs: No Vision needs: Yes Female Reproductive History Menstrual Age of Menarche: 14 Review of Systems Const All systems reviewed & are unremarkable except as noted in HPI and below Physical Exam Vital Signs: Last Vital Signs Pulse 81 04/10/24 10:40 BP 164/87 H 04/10/24 10:40 Pulse Ox 99 04/10/24 10:40 Oxygen Delivery Method Room Air 04/10/24 10:40 BMI result Body Mass Index 22.0 General: awake, alert, oriented. Answers questions appropriately. Fully engaged in examination. HEENT: Normocephalic. Hearing intact. Swelling right upper gums Cardiac: External chest normal in appearance. Respiratory: No cough, audible wheezing or stridor. Abdomen: without gross distension. MS: No obvious swelling or deformities. Able to transition from sit to stand unassisted. Ambulates with bilaterally normal heel strike and toe off Left foot: Yellow/purple bruising to the top and bottom of the left foot. M inimally tender to palpation. full range of motion. Neurological: Oriented to person, place, time and situation. Thought process intact. No gait abnormalities appreciated. Psychiatric: Appropriate mood and affect. Good judgment and insight. Results Reviewed Results Reviewed: 08/22/22 MM/XR DEXA axial skeleton IMPRESSION: Osteopenia based on the lowest T-score value of -2.1 in the lumbar spine and femoral neck applying World Health Organization criteria. Assessment & Plan Assessment & Plan (1) Right hip pain: Code(s): M25.551 - Pain in right hip Category: Medical (2) Myofascial pain: Code(s): M79.18 - Myalgia, other site Category: Medical (3) Chronic low back pain: Code(s): M54.5 - Low back pain; G89.29 - Other chronic pain Category: Medical Qualifiers: Back pain laterality: midline Sciatica presence: unspecified whether sciatica present Qualified Code(s): M54.5 - Low back pain; G89.29 - Other chronic pain (4) Spondylosis of lumbar region without myelopathy or radiculopathy: Code(s): M47.816 - Spondylosis without myelopathy or radiculopathy, lumbar region Category: Medical (5) Sacroiliac joint pain: Code(s): M53.3 - Sacrococcygeal disorders, not elsewhere classified Category: Medical (6) Chronic, continuous use of opioids: Code(s): F11.90 - Opioid use, unspecified, uncomplicated Category: Medical (7) Dental abscess: Code(s): K04.7 - Periapical abscess without sinus Category: Medical Plan [place]pat was reviewed and without concerns. No obvious signs of diversion, abuse or misuse of the opioid medications. Will send in prescription for oxycodone/acetaminophen 7.5-325 mg QID with an advanced date of Continue with walking boot crutches while having pain. Once pain resolves can then return to full weight-bearing and normal activity to left foot. Patient will call if pain persists and referral for orthopedics will be placed Patient to follow-up in the office in 1 month, sooner if needed. All questions and concerns have been answered and patient agrees with the plan. Medications: Refilled oxycodone-acetaminophen 7.5-325 mg Partial Fill upon patient request. 1 tab PO QID PRN 120 tabs 0RF pain, severe 30 days G89.29 - Other chronic pain, M47.816 - Spondylosis without myelopathy or radiculopathy, lumbar region, M53.3 - Sacrococcygeal disorders, not elsewhere classified, M54.5 - Low back pain Coding Level of Care Code Est Pt Level 4 (90297) Complex EM visit Add On G2211 Diagnoses Right hip pain M25.551 Myofascial pain M79.18 Chronic midline low back pain, unspecified whether sciatica present M54.5; G89.29 Back pain laterality: midline Sciatica presence: unspecified whether sciatica present Spondylosis of lumbar region without myelopathy or radiculopathy M47.816 Sacroiliac joint pain M53.3 Chronic, continuous use of opioids F11.90 Dental abscess K04.7
== END 2024-04-10 11:01 | disposition home or self-care (01) ==
PROVIDERS: PCP Internal Medicine; Visit Provider Registered Nurse Emergency
DX: M25.551 Pain in right hip (principal); M79.18 Myalgia, other site; M54.50 Low back pain, unspecified; Z79.891 Long term (current) use of opiate analgesic; G89.29 Other chronic pain; M47.816 Spondylosis without myelopathy or radiculopathy, lumbar region; M53.3 Sacrococcygeal disorders, not elsewhere classified; K04.7 Periapical abscess without sinus
CPT/HCPCS: 99214; G2211

== ENCOUNTER → 2024-04-10 10:34 | Outpatient (BNVA) | payer OTHER, SELFPAY | PROVIDERS: PCP Internal Medicine; Visit Provider Registered Nurse Emergency | DX: M25.551 Pain in right hip (principal); M79.18 Myalgia, other site; M47.816 Spondylosis without myelopathy or radiculopathy, lumbar region; G89.29 Other chronic pain; M53.3 Sacrococcygeal disorders, not elsewhere classified; F11.90 Opioid use, unspecified, uncomplicated; Z51.81 Encounter for therapeutic drug level monitoring | CPT/HCPCS: 99212 ==

== ENCOUNTER 2024-05-08 10:39 | Outpatient (AMB) | payer OTHER, SELFPAY ==
[2024-05-08 10:47] VITALS: BP 148/82; PULSE 70; O2SAT 96; BMI 22.3
--- NOTE | 2024-05-08 10:47 | A.OFFVIS_ITS ---
Vital Signs 05/08/24 10:47 Height 5 ft 5 in Weight 134 lb BMI 22.3 BP 148/82 H Blood Pressure Location Rt brachial Position Sitting Pulse 70 Pulse Source Pulse Oximeter Pulse Oximetry (%) 96 Oxygen Delivery Method Room Air Intake Visit Reasons: Pill Count Allergies Sulfa (Sulfonamide Antibiotics) Allergy (Intermediate, Verified 05/08/24 10:48) Hives, itching trimethoprim [From Bactrim] Allergy (Verified 05/08/24 10:48) Hives Medication List - Last Reconciled 05/08/24 by Kandace Angela amlodipine 2.5 mg PO DAILY 90 days back brace As directed calcium carbonate (Calcium 600) 600 mg PO DAILY cholecalciferol (vitamin D3) 50 mcg PO DAILY 90 days cyclobenzaprine 10 mg PO BID PRN fluticasone propionate 50 mcg/actuation 2 sprays intranasal DAILY PRN 90 days nortriptyline 75 mg PO BEDTIME oxycodone-acetaminophen 7.5-325 mg 1 tab PO QID PRN 30 days HPI Comments Details: Priya presents back to the office today for follow up chronic pain and chronic opioid therapy management. Patient is prescribed oxycodone acetaminophen 7.5-325mg, take 1 tablet four times daily. Patient arrived today with the expectation of having 56 pills, she presented 57 pills which were counted in the presence of two staff members and returned to the patient in the original prescription bottle. This demonstrates responsible attitude toward patient's opioid medications. Pain is reported today as 4/10 and last dose of pain medication was taken this morning at 7am. Pain is adequately managed on current opioid regimen. Denies side effects including somnolence, constipation, itching, dyspnea, rash, dizziness or weakness. Left foot injury healing well. No longer wearing walking boot. No longer using crutches. FOR[facility]LY [facility] Medical History Osteopenia Vitamin D deficiency Personal history of nicotine dependence Benign essential hypertension Chronic, continuous use of opioids Tenosynovitis of thumb Chronic low back pain Cyclical vomiting Surgical History History of tonsillectomy History of selective injection of anesthetic agent around lumbar nerve root History of colonoscopy (~2020) History of breast surgery Hx of shoulder surgery Hx of right knee surgery S/P laparoscopic cholecystectomy (~2009) History of appendectomy Family History Maternal Uncle Diabetes Father No problems noted. Mother No problems noted. Social History Housing: House Alcohol intake: former Patient Tobacco Use Status: Current everyday Tobacco user Tobacco use type: Cigarette Cigarettes Per Day: 5 Years Smoked: (onset 15, 1/2-1ppd x 46yrs, 30+PYH) e-Cigarette/Vaping Use: Never Used Second Hand Smoke Exposure: Yes service: No Current occupational status: retired and disabled Cognitive needs: No Hearing needs: No Vision needs: Yes Female Reproductive History Menstrual Age of Menarche: 14 Review of Systems Const All systems reviewed & are unremarkable except as noted in HPI and below Physical Exam Vital Signs: Last Vital Signs Pulse 70 05/08/24 10:47 BP 148/82 H 05/08/24 10:47 Pulse Ox 96 05/08/24 10:47 Oxygen Delivery Method Room Air 05/08/24 10:47 BMI result Body Mass Index 22.3 General: awake, alert, oriented. Answers questions appropriately. Fully engaged in examination. HEENT: Normocephalic. Hearing intact. Cardiac: External chest normal in appearance. Respiratory: No cough, audible wheezing or stridor. Abdomen: without gross distension. MS: No obvious swelling or deformities. Able to transition from sit to stand unassisted. Ambulates with bilaterally normal heel strike and toe off Neurological: Oriented to person, place, time and situation. Thought process intact. No gait abnormalities appreciated. Psychiatric: Appropriate mood and affect. Good judgment and insight. Results Reviewed Results Reviewed: 08/22/22 MM/XR DEXA axial skeleton IMPRESSION: Osteopenia based on the lowest T-score value of -2.1 in the lumbar spine and femoral neck applying World Health Organization criteria. Assessment & Plan Assessment & Plan (1) Right hip pain: Code(s): M25.551 - Pain in right hip Category: Medical (2) Myofascial pain: Code(s): M79.18 - Myalgia, other site Category: Medical (3) Chronic low back pain: Code(s): M54.5 - Low back pain; G89.29 - Other chronic pain Category: Medical Qualifiers: Back pain laterality: midline Sciatica presence: unspecified whether sciatica present Qualified Code(s): M54.5 - Low back pain; G89.29 - Other chronic pain (4) Spondylosis of lumbar region without myelopathy or radiculopathy: Code(s): M47.816 - Spondylosis without myelopathy or radiculopathy, lumbar region Category: Medical (5) Sacroiliac joint pain: Code(s): M53.3 - Sacrococcygeal disorders, not elsewhere classified Category: Medical (6) Chronic, continuous use of opioids: Code(s): F1.90 - Opioid use, unspecified, uncomplicated Category: Medical (7) Dental abscess: Code(s): K04.7 - Periapical abscess without sinus Category: Medical Plan [place] was reviewed and without concerns. No obvious signs of diversion, abuse or misuse of the opioid medications. Will send in prescription for oxycodone/acetaminophen 7.5-325 mg QID with an advanced date of 05/22/24 Continue with cyclobenzaprine 10 mg twice daily as needed Patient to follow-up in the office in 1 month, sooner if needed. All questions and concerns have been answered and patient agrees with the plan. Medications: Refilled oxycodone-acetaminophen 7.5-325 mg Partial Fill upon patient request. 1 tab PO QID PRN 120 tabs 0RF pain, severe 30 days G89.29 - Other chronic pain, M47.816 - Spondylosis without myelopathy or radiculopathy, lumbar region, M53.3 - Sacrococcygeal disorders, not elsewhere classified, M54.5 - Low back pain Coding Level of Care Code Est Pt Level 4 (10378) Complex EM visit Add On G2211 Diagnoses Right hip pain M25.551 Myofascial pain M79.18 Chronic midline low back pain, unspecified whether sciatica present M54.5; G89.29 Back pain laterality: midline Sciatica presence: unspecified whether sciatica present Spondylosis of lumbar region without myelopathy or radiculopathy M47.816 Sacroiliac joint pain M53.3 Chronic, continuous use of opioids Dental abscess K04.7
== END 2024-05-08 11:00 | disposition home or self-care (01) ==
PROVIDERS: PCP Internal Medicine; Visit Provider Registered Nurse Emergency
DX: M25.551 Pain in right hip (principal); M79.18 Myalgia, other site; M54.50 Low back pain, unspecified; Z79.891 Long term (current) use of opiate analgesic; G89.29 Other chronic pain; M47.816 Spondylosis without myelopathy or radiculopathy, lumbar region; M53.3 Sacrococcygeal disorders, not elsewhere classified; K04.7 Periapical abscess without sinus
CPT/HCPCS: 99214; G2211

== ENCOUNTER → 2024-05-08 10:39 | Outpatient (BNVA) | payer OTHER, SELFPAY | PROVIDERS: PCP Internal Medicine; Visit Provider Registered Nurse Emergency | DX: M25.551 Pain in right hip (principal); M54.50 Low back pain, unspecified; G89.29 Other chronic pain; M85.80 Other specified disorders of bone density and structure, unspecified site; M79.18 Myalgia, other site; M47.816 Spondylosis without myelopathy or radiculopathy, lumbar region; M53.3 Sacrococcygeal disorders, not elsewhere classified; K04.7 Periapical abscess without sinus; E55.9 Vitamin D deficiency, unspecified; Z79.891 Long term (current) use of opiate analgesic | CPT/HCPCS: 99212 ==

== ENCOUNTER 2024-05-30 09:27 | Outpatient (REF) | payer OTHER, SELFPAY ==
[2024-05-30 10:02] LABS: MANUAL DIFF FLAG NO
[2024-05-30 11:32] LABS: Basophils Absolute Auto 0.1 X10*3/uL (0.0-0.2); Basophils Percent Auto 0.6 % (0-2); Eosinophils Absolute Auto 0.4 X10*3/uL (0.0-0.4); Eosinophils Percent Auto 3.9 % (0-4); Hemoglobin 13.6 g/dl (12.0-16.0); Imm Gran Abs Auto 0.04 X10*3/uL (0.00-0.03); Imm Gran Pct Auto 0.4 % (0.0-0.4); Lymphocytes Absolute Auto 3.7 X10*3/uL (1.2-4.9); Lymphocytes Percent Auto 36.4 % (20-40); Mean Corpuscular HGB Conc 33.2 g/dl (31.0-35.0); Mean Corpuscular Hemoglobin 29.9 pg (27.0-33.0); Mean Corpuscular Volume 90.1 fL (80.0-98.0); Mean Platelet Volume 9.3 fL (9.4-12.3); Monocytes Absolute Auto 0.7 X10*3/uL (0.1-1.2); Monocytes Percent Auto 6.6 % (2-11); Neutrophils Absolute Auto 5.3 x10*3/uL (2.0-8.3); Neutrophils Percent Auto 52.1 % (45-73); Platelet Count 421 X10*3/uL (160-400); Red Blood Count 4.55 X10*6/uL (4.20-5.50); Red Cell Distribution Width 13.4 % (11.0-16.0); White Blood Count 10.2 X10*3/uL (4.8-10.8)
[2024-05-30 11:51] LABS: Appearance Urine Cloudy; Color Urine Dark Yellow; Glucose Urine UA Negative (Negative); Leukocyte Esterase Urine Moderate (2+) (Negative); Nitrite Urine Negative (Negative); PH 6.5 (5.0-9.0); Specific Gravity - Urine 1.025 (1.005-1.025); UMIC TRIGGER UACC YES; Urine Blood Moderate (2+) (Negative); Urine Ketones Trace mg/dL (Negative); Urine Protein Trace mg/dL (Neg-Trace)
[2024-05-30 11:55] LABS: Bacteria Urine 3+ (None Seen); Hyaline Casts Urine 0-2 /LPF (0-2); UACC Culture Trigger YES; WBC Urine 21-50 /HPF (0-5)
[2024-05-30 12:22] LABS: Alanine Aminotransferase 15 U/L (0-31); Albumin Level 4.4 g/dL (3.5-5.0); Alkaline Phosphatase 86 U/L (39-117); Anion Gap 11 (12-20); Aspartate Amino Transferase 20 U/L (5-31); Bilirubin Total 0.5 mg/dL (0.0-1.0); Blood Urea Nitrogen 10 mg/dL (9-16); Calcium 9.7 mg/dL (8.4-10.2); Carbon Dioxide 27 mmol/L (22-29); Chloride 106 mmol/L (96-108); Cholesterol 212 mg/dL (<200); Estimated Glomerular Filt Rate > 60; Glucose Fasting 96 mg/dL (60-99); HDL Cholesterol 43 mg/dL (>40); LDL Cholesterol Calculated 148 mg/dL (<100); Potassium 3.5 mmol/L (3.3-5.1); Sodium 140 mmol/L (135-145); Total Protein 7.5 g/dL (6.5-8.0); Triglycerides 109 mg/dL (<150)
[2024-05-30 12:38] LABS: TSH reflex Free T4 1.71 uIU/mL (0.32-4.0)
== END 2024-05-30 09:28 | disposition home or self-care (01) ==
LOC: HO.LAB 09:27
PROVIDERS: PCP Internal Medicine; Visit Provider Internal Medicine
DX: D64.9 Anemia, unspecified (principal); E78.00 Pure hypercholesterolemia, unspecified
CPT/HCPCS: 36415; 80053; 80061; 81001; 84443; 85025; 87086

== ENCOUNTER 2024-06-05 10:38 | Outpatient (AMB) | payer OTHER, SELFPAY ==
--- NOTE | 2024-06-05 10:42 | MHC.OFFVIS ---
Vital Signs 06/05/24 10:50 Height 5 ft 5 in Weight 131 lb 6 oz BMI 21.9 BP 150/82 H Blood Pressure Location Lt brachial Position Sitting Respiration 16 Pulse 90 Pulse Source Pulse Oximeter Pulse Oximetry (%) 97 Oxygen Delivery Method Room Air Intake Visit Reasons: Pill Count Intake Note: Patient comes in for pill count. Allergies Sulfa (Sulfonamide Antibiotics) Allergy (Intermediate, Verified 06/05/24 10:49) Hives, itching trimethoprim [From Bactrim] Allergy (Verified 06/05/24 10:49) Hives HPI Comments Details: Priya presents back to the office today for follow up chronic pain and chronic opioid therapy management. Patient is prescribed oxycodone acetaminophen 7.5-325mg, take 1 tablet four times daily. Patient arrived today with the expectation of having 60 pills, she presented 66 pills which were counted in the presence of two staff members and returned to the patient in the original prescription bottle. This demonstrates responsible attitude toward patient's opioid medications. Pain is reported today as 2/10 and last dose of pain medication was taken this morning at 7am. Pain is adequately managed on current opioid regimen. Denies side effects including somnolence, constipation, itching, dyspnea, rash, dizziness or weakness. Right hip has been starting to hurt again. Would like to repeat hip injection. [facility] Medical History Osteopenia Vitamin D deficiency Personal history of nicotine dependence Benign essential hypertension Chronic, continuous use of opioids Tenosynovitis of thumb Chronic low back pain Cyclical vomiting Surgical History History of tonsillectomy History of selective injection of anesthetic agent around lumbar nerve root History of colonoscopy (~2020) History of breast surgery Hx of shoulder surgery Hx of right knee surgery S/P laparoscopic cholecystectomy (~2009) History of appendectomy Family History Maternal Uncle Diabetes Father No problems noted. Mother No problems noted. Social History Housing: House Alcohol intake: former Patient Tobacco Use Status: Current everyday Tobacco user Tobacco use type: Cigarette Cigarettes Per Day: 5 Years Smoked: (onset 15, 1/2-1ppd x 46yrs, 30+PYH) e-Cigarette/Vaping Use: Never Used Second Hand Smoke Exposure: Yes service: No Current occupational status: retired and disabled Cognitive needs: No Hearing needs: No Vision needs: Yes Female Reproductive History Menstrual Age of Menarche: 14 Review of Systems Const All systems reviewed & are unremarkable except as noted in HPI and below Physical Exam Vital Signs: Last Vital Signs Pulse 90 06/05/24 10:50 Resp 16 06/05/24 10:50 BP 150/82 H 06/05/24 10:50 Pulse Ox 97 06/05/24 10:50 Oxygen Delivery Method Room Air 06/05/24 10:50 BMI result Body Mass Index 21.9 General: awake, alert, oriented. Answers questions appropriately. Fully engaged in examination. HEENT: Normocephalic. Hearing intact. Cardiac: External chest normal in appearance. Respiratory: No cough, audible wheezing or stridor. Abdomen: without gross distension. MS: No obvious swelling or deformities. Able to transition from sit to stand unassisted. Ambulates with bilaterally normal heel strike and toe off Right hip: pain with I/E rotation Neurological: Oriented to person, place, time and situation. Thought process intact. No gait abnormalities appreciated. Psychiatric: Appropriate mood and affect. Good judgment and insight. Results Reviewed Results Reviewed: 10/2023 Right hip XR IMPRESSION: 1. Mild degenerative changes in the right hip. 2. Moderate degenerative changes right sacroiliac joint. 08/22/22 MM/XR DEXA axial skeleton IMPRESSION: Osteopenia based on the lowest T-score value of -2.1 in the lumbar spine and femoral neck applying World Health Organization criteria. Assessment & Plan Assessment & Plan (1) Right hip pain: Code(s): M25.551 - Pain in right hip Category: Medical (2) Myofascial pain: Code(s): M79.18 - Myalgia, other site Category: Medical (3) Chronic low back pain: Code(s): M54.5 - Low back pain; G89.29 - Other chronic pain Category: Medical Qualifiers: Back pain laterality: midline Sciatica presence: unspecified whether sciatica present Qualified Code(s): M54.5 - Low back pain; G89.29 - Other chronic pain (4) Spondylosis of lumbar region without myelopathy or radiculopathy: Code(s): M47.816 - Spondylosis without myelopathy or radiculopathy, lumbar region Category: Medical (5) Sacroiliac joint pain: Code(s): M53.3 - Sacrococcygeal disorders, not elsewhere classified Category: Medical (6) Chronic, continuous use of opioids: Code(s): F1. - Opioid use, unspecified, uncomplicated Category: Medical (7) Dental abscess: Code(s): K04.7 - Periapical abscess without sinus Category: Medical Plan [place] was reviewed and without concerns. No obvious signs of diversion, abuse or misuse of the opioid medications. Will send in prescription for oxycodone/acetaminophen 7.5-325 mg QID with an advanced date of 06/21/24 Will schedule for fluoroscopy guided right intra-articular hip injection with local anesthetic Patient to follow-up in the office in 1 month, sooner if needed. All questions and concerns have been answered and patient agrees with the plan. Medications: Refilled oxycodone-acetaminophen 7.5-325 mg Partial Fill upon patient request. 1 tab PO QID 30 days PRN 120 tabs 0RF pain, severe G89.29 - Other chronic pain, M47.816 - Spondylosis without myelopathy or radiculopathy, lumbar region, M53.3 - Sacrococcygeal disorders, not elsewhere classified, M54.5 - Low back pain Coding Level of Care Code Est Pt Level 4 (96863) Complex EM visit Add On G2211 Diagnoses Right hip pain M25.551 Myofascial pain M79.18 Chronic midline low back pain, unspecified whether sciatica present M54.5; G89.29 Back pain laterality: midline Sciatica presence: unspecified whether sciatica present Spondylosis of lumbar region without myelopathy or radiculopathy M47.816 Sacroiliac joint pain M53.3 Chronic, continuous use of opioids Dental abscess K04.7
[2024-06-05 10:50] VITALS: BP 150/82; PULSE 90; RESP 16; O2SAT 97; BMI 21.9
== END 2024-06-05 11:23 | disposition home or self-care (01) ==
PROVIDERS: PCP Internal Medicine; Visit Provider Registered Nurse Emergency
DX: G89.29 Other chronic pain (principal); M25.551 Pain in right hip; M79.18 Myalgia, other site; Z79.891 Long term (current) use of opiate analgesic; M54.50 Low back pain, unspecified; M47.816 Spondylosis without myelopathy or radiculopathy, lumbar region; M53.3 Sacrococcygeal disorders, not elsewhere classified; K04.7 Periapical abscess without sinus
CPT/HCPCS: 99214; G2211

== ENCOUNTER → 2024-06-05 10:38 | Outpatient (BNVA) | payer OTHER, SELFPAY | PROVIDERS: PCP Internal Medicine; Visit Provider Registered Nurse Emergency | DX: M25.551 Pain in right hip (principal); M54.50 Low back pain, unspecified; G89.29 Other chronic pain; M79.18 Myalgia, other site; M47.816 Spondylosis without myelopathy or radiculopathy, lumbar region; M53.3 Sacrococcygeal disorders, not elsewhere classified; K04.7 Periapical abscess without sinus; Z79.891 Long term (current) use of opiate analgesic | CPT/HCPCS: 99212 ==

== ENCOUNTER 2024-06-08 16:36 | Outpatient (AMB) | payer OTHER, SELFPAY ==
--- NOTE | 2024-06-08 16:45 | MHC.PC.OV ---
Vital Signs 06/08/24 16:46 Height 5 ft 5 in Weight 132 lb 8 oz BMI 22.0 BP 136/84 Blood Pressure Location Lt brachial Position Sitting Pulse 82 Pulse Source Pulse Oximeter Pulse Oximetry (%) 97 Oxygen Delivery Method Room Air Intake Visit Reasons: OFFICE VISIT 4 MONTHS Solution Developer Required: No Accompanied by: Self / Same As Patient Allergies Sulfa (Sulfonamide Antibiotics) Allergy (Intermediate, Verified 06/08/24 17:14) Hives, itching trimethoprim [From Bactrim] Allergy (Verified 06/08/24 17:14) Hives Medication List - Last Reconciled 06/08/24 by Charly Carrillo MD amlodipine 2.5 mg PO DAILY 90 days back brace As directed calcium carbonate (Calcium 600) 600 mg PO DAILY cholecalciferol (vitamin D3) 50 mcg PO DAILY 90 days cyclobenzaprine 10 mg PO BID PRN fluticasone propionate 50 mcg/actuation 2 sprays intranasal DAILY PRN 90 days nortriptyline 75 mg PO BEDTIME oxycodone-acetaminophen 7.5-325 mg 1 tab PO QID PRN 30 days Tobacco use date assessed: 06/08/24 Dental Screening Dental Screen Date: 06/08/24 Did you have a dental visit in the last 12 months?: No Did you have a dental problem in the last 6 months where you did not have access to dental care?: No Was dental information given to patient?: No HPI OFFICE VISIT 4 MONTHS HPI Details Patient comes in today for her follow-up visit States that she feels okay except for increased right elbow pain lately Relates that she hurt her right elbow about 9 to 10 months ago when she hit her elbow on a metal railing Recalls that her elbow was increasingly painful at the time but the pain gradually subsided over the next few months but it recently seems to have flared up again and notes increased pain with activities that involve the elbow lately She denies any headaches or dizziness Denies any chest pains, no increased shortness of breath No nausea/vomiting, no abdominal pain No change in bowel habits noted She continues to follow-up with pain management for her chronic low back pain and joint pains She had her follow-up labs done a couple of weeks ago - to discuss her results [facility] Medical History Pure hypercholesterolemia Nicotine dependence, cigarettes, uncomplicated Osteopenia Vitamin D deficiency Benign essential hypertension Chronic, continuous use of opioids Tenosynovitis of thumb Chronic low back pain Cyclical vomiting Surgical History History of tonsillectomy History of selective injection of anesthetic agent around lumbar nerve root History of colonoscopy (~2020) History of breast surgery Hx of shoulder surgery Hx of right knee surgery S/P laparoscopic cholecystectomy (~2009) History of appendectomy Family History Maternal Uncle Diabetes Father No problems noted. Mother No problems noted. Social History Housing: House Alcohol intake: former Patient Tobacco Use Status: Current everyday Tobacco user Tobacco use type: Cigarette Cigarettes Per Day: 5 Years Smoked: (onset 15, 1/2-1ppd x 46yrs, 30+PYH) e-Cigarette/Vaping Use: Never Used Second Hand Smoke Exposure: Yes service: No Current occupational status: retired and disabled Cognitive needs: No Hearing needs: No Vision needs: Yes Female Reproductive History Menstrual Age of Menarche: 14 Questionnaire PHQ-9 Over the last 2 weeks, how often have you been bothered by any of the following problems? 1. Little interest or pleasure in doing things: not at all 2. Feeling down, depressed, or hopeless: not at all 3. Trouble falling or staying asleep, or sleeping too much: not at all 4. Feeling tired or having little energy: not at all 5. Poor appetite or overeating: not at all 6. Feeling bad about yourself - or that you are a failure or have let yourself or your family down: not at all 7. Trouble concentrating on things, such as reading the newspaper or watching television: not at all 8. Moving or speaking so slowly that other people could have noticed. Or the opposite - being so fidgety or restless that you have been moving around a lot more than usual: not at all 9. Thoughts that you would be better off or of hurting yourself in some way: not at all Total score: 0 Depression Screening Interpretation: Negative Depression Screening Done: Yes 49460 - PHQ-9 Billing: Yes Source: Developed by Drs. Samuel Flaherty, Chris Nunez and colleagues, with an educational saida from [employer]. Thrive Questionnaire Date Thrive assessed: 06/08/24 I am a: Patient What is your living situation today?: I have a steady place to live Within the past 12 months, did the food you bought not last and you didn't have the money to get more?: Never true Within the past 12 months, did you worry whether your food would run out before you got money to buy more?: Never true Do you have trouble paying for medicines?: No Do you have trouble getting transportation to medical appointments?: No Do you have trouble paying your heating and electricity bill?: No Do you have trouble taking care of your child, family member or friend?: No Do you have trouble with day-to-day activities such as bathing, preparing meals, shopping, managing finances, etc.?: No Are you currently unemployed and looking for a job?: No Are you interested in more education?: No Please select the resources that you would like help with: None Currently or been in a relationship where the following occur: No concerns reported THRIVE Score: 0 AUDIT C Alcohol Use Questionnaire (AUDIT-C) 1. How often do you have a drink containing alcohol?: Never Total Score: 0 Score Reviewed/Action Taken: Yes PACHECO-7 AMB Questionnaire PACHECO-7 Date PACHECO - 7 assessed: 06/08/24 Feeling nervous, anxious, or on edge: 0 = Not at all Not being able to stop or control worryin = Not at all Worrying too much about different things: 0 = Not at all Trouble relaxin = Not at all Being so restless that it is hard to sit still: 0 = Not at all Becoming easily annoyed or irritable: 0 = Not at all Feeling afraid as if something awful might happen: 0 = Not at all Total PACHECO-7 score (0-4 normal; 5-9 mild; 10-14 moderate; 15-21 severe): 0 Source: Developed by Afia Ashby Kurt Kroenke and colleagues, with an educational saida from [employer]. Review of Systems Const Denies chills, Denies fatigue, Denies fever(s) and Denies headache(s) ENT Denies dysphagia, Denies dizziness, Denies otalgia, Denies headache(s), Denies neck pain, Denies odynophagia and Denies sore throat Card Denies chest pain, Denies irregular heart rhythm, Denies palpitations and Denies dyspnea Resp Denies chest congestion, Denies cough and Denies dyspnea GI Denies abdominal pain, Denies constipation, Denies dysphagia, Denies diarrhea, Denies nausea, Denies odynophagia and Denies vomiting Details: (+) sensation of incomplete bladder emptying at times Denies urinary frequency, Denies nocturia, Denies dysuria, Denies urinary incontinence and Denies urinary urgency Musc Reports back pain (over the lower back - chronic), Reports arthralgias (increasing pain over the right elbow) and Denies neck pain Skin/Breast Denies rash Neuro Denies dizziness and Denies headache(s) Endo Denies fatigue and Denies palpitations Physical exam (Primary Care) Vital Signs: Last Vital Signs Pulse 82 06/08/24 16:46 BP 136/84 06/08/24 16:46 Pulse Ox 97 06/08/24 16:46 Oxygen Delivery Method Room Air 06/08/24 16:46 BMI result Body Mass Index 22.0 Tobacco/Smoking Status: Tobacco use Status Tobacco use date assessed 06/08/24 06/08/24 16:53 Patient Tobacco Use Status Current everyday Tobacco 06/08/24 16:53 Tobacco use type Cigarette 06/08/24 16:53 e-Cigarette/Vaping Use Never Used 06/08/24 16:53 PHQ-9: PHQ-9 Score PHQ-9: Total score 0 06/08/24 17:19 Depression Screening Interpretation: Negative Thrive Assessment: Date of Thrive Assessment Date Thrive assessed 06/08/24 06/08/24 16:53 Currently or been in a relationship where the following occur: No concerns reported Const General: no acute distress and alert HENMT Ears: TM's normal bilaterally and EAC's normal Throat: Yes posterior oropharynx normal and Yes tonsils normal (no TP congestion) Neck Neck: Yes no lymphadenopathy and Yes supple Thyroid: Thyroid normal Resp Auscultation: clear to auscultation bilaterally, no rales and no wheezes Cardio Rate: regular rate Rhythm: regular rhythm Heart sounds: no murmurs GI Palpation (GI): Soft to palpation and nontender Auscultation: normal bowel sounds General: Yes no CVA tenderness Back/Spine/Pelvis Back: no CVA tenderness Thoracic/Lumbar Spine: lumbar spinal tenderness Skin Rashes: no rashes Extrem General: Yes no clubbing, cyanosis or edema Right upper extremity: elbow/forearm Details: tenderness Location: of the olecranon; no swelling Right lower extremity: hip/thigh Details: tenderness Location: of the hip (improved with injections from pain management) Results Reviewed Results Reviewed: Laboratory Tests 05/30/24 05/30/24 10:01 Unknown WBC 10.2 Hgb 13.6 Hct 41.0 Plt Count 421 H Sodium 140 Potassium 3.5 Creatinine 0.73 Estimated GFR > 60 Fasting Glucose 96 Calcium 9.7 D AST 20 ALT 15 Triglycerides 109 Cholesterol 212 H LDL Cholesterol, Calc 148 H HDL Cholesterol 43 TSH 1.71 Ur Specific [place] 1.025 Urine Protein Trace Urine Glucose (UA) Negative Urine Blood Moderate (2+) H Urine Nitrite Negative Ur Leukocyte Esterase Moderate (2+) H Coding Level of Care Code Est Pt Level 4 (64175) Diagnoses Right elbow pain M25.521 Benign essential hypertension I10 Pure hypercholesterolemia E78.00 Impaired fasting glucose R73.01 Cyclical vomiting R11.15 Allergic rhinitis, unspecified seasonality, unspecified trigger J30.9 Allergic rhinitis trigger: unspecified Allergic rhinitis seasonality: unspecified Vitamin D deficiency E55.9 Osteopenia, unspecified location M85.80 Osteopenia location: unspecified Spondylosis of lumbar region without myelopathy or radiculopathy M47.816 Primary osteoarthritis of right hip M16.11 Osteoarthritis type: primary Smoker F17.200 Additional Codes PHQ-9 - 08617 - PHQ-9 Billing: Yes ([id number]) Assessment & Plan Assessment & Plan (1) Right elbow pain: Code(s): M25.521 - Pain in right elbow Category: Medical Plan: Will send patient for right elbow x-rays for further evaluation (2) Benign essential hypertension: Code(s): I10 - Essential (primary) hypertension Category: Medical Plan: Reinforced low sodium diet - goal is systolic BP of 120 mm or less Continue Amlodipine 2.5 mg QD Patient is reminded to continue monitoring her blood pressure regularly - notes again that her readings tend to be much better and lower at home than the ones obtained here (3) Pure hypercholesterolemia: Code(s): E78.00 - Pure hypercholesterolemia, unspecified Category: Medical Plan: Results of her labs done a couple of weeks ago reviewed and discussed with patient Reinforced low cholesterol diet Will have patient recheck her labs and fasting lipids in 4 months for follow up (4) Impaired fasting glucose: Code(s): R73.01 - Impaired fasting glucose Category: Medical Plan: Her fasting serum glucose was normal at 96 mg/dl on her recent labs; her HgbA1c was normal at 5.2% when previously checked Reinforced low calorie diet/exercise as tolerated (5) Cyclical vomiting: Code(s): R11.15 - Cyclical vomiting syndrome unrelated to migraine Category: Medical Plan: Patient states that her symptoms have remained stable lately Continue Nortriptyline 75 mg Q HS (6) Allergic rhinitis: Code(s): J30.9 - Allergic rhinitis, unspecified Category: Medical Qualifiers: Allergic rhinitis trigger: unspecified Allergic rhinitis seasonality: unspecified Qualified Code(s): J30.9 - Allergic rhinitis, unspecified Plan: Continue Fluticasone 50 mcg nasal spray QD PRN (7) Vitamin D deficiency: Code(s): E55.9 - Vitamin D deficiency, unspecified Category: Medical Plan: Continue Vitamin D3 2000 units QD (8) Osteopenia: Code(s): M85.80 - Other specified disorders of bone density and structure, unspecified site Category: Medical Qualifiers: Osteopenia location: unspecified Qualified Code(s): M85.80 - Other specified disorders of bone density and structure, unspecified site Plan: BMD done back in August 2022 revealed (+) osteopenia based on the lowest T-score value of -2.1 in the lumbar spine - this is her baseline exam Have encouraged patient to try to stay active physically and to exercise regularly when she can Continue daily oral Vitamin D and Calcium supplements Will continue to monitor her BMD every 2 to 3 years (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: Code(s): M47.816 - Spondylosis without myelopathy or radiculopathy, lumbar region Category: Medical Plan: Reinforced activity and weight-lifting restrictions Continue Oxycodone-Acetaminophen 7.5 mg-325 mg 1 tablet QID PRN Follow up with [facility] Pain Management as scheduled (10) Osteoarthritis of right hip: Code(s): M16.11 - Unilateral primary osteoarthritis, right hip Category: Medical Qualifiers: Osteoarthritis type: primary Qualified Code(s): M16.11 - Unilateral primary osteoarthritis, right hip Plan: Patient states that her right hip pain has improved significantly with injections that she gets from Pain Management Follow-up with Pain Management as scheduled (11) Smoker: Code(s): F17.200 - Nicotine dependence, unspecified, uncomplicated Category: Social Hx Plan: Patient is counseled again to continue attempts at smoking cessation Continue Nicorette gum PRN to help patient quit smoking She last had low dose lung CT done in February 2022 for lung cancer screening - (+) bilateral small pulmonary nodules with no focal consolidation or mass; recommend annual lung CT Plan Follow up in 4 months Orders: Orders XR elbow RT min 3V 06/10/24 M25.521 - Pain in right elbow Lipid Panel 4 Months E78.00 - Pure hypercholesterolemia, unspecified Comprehensive [place]. Panel Fast 4 Months E78.00 - Pure hypercholesterolemia, unspecified
[2024-06-08 16:46] VITALS: BP 136/84; PULSE 82; O2SAT 97; BMI 22.0
== END 2024-06-08 17:25 | disposition home or self-care (01) ==
PROVIDERS: PCP Internal Medicine; Visit Provider Internal Medicine
DX: M25.521 Pain in right elbow (principal); I10 Essential (primary) hypertension; E78.00 Pure hypercholesterolemia, unspecified; R73.01 Impaired fasting glucose; R11.15 Cyclical vomiting syndrome unrelated to migraine; J30.9 Allergic rhinitis, unspecified; E55.9 Vitamin D deficiency, unspecified; M85.80 Other specified disorders of bone density and structure, unspecified site; M47.816 Spondylosis without myelopathy or radiculopathy, lumbar region; M16.11 Unilateral primary osteoarthritis, right hip; F17.200 Nicotine dependence, unspecified, uncomplicated

== ENCOUNTER → 2024-06-08 16:36 | Outpatient (BNVA) | payer OTHER, SELFPAY | PROVIDERS: PCP Internal Medicine; Visit Provider Internal Medicine | DX: M25.521 Pain in right elbow (principal); I10 Essential (primary) hypertension; E78.00 Pure hypercholesterolemia, unspecified; R73.01 Impaired fasting glucose; R11.15 Cyclical vomiting syndrome unrelated to migraine; J30.9 Allergic rhinitis, unspecified; E55.9 Vitamin D deficiency, unspecified; M85.80 Other specified disorders of bone density and structure, unspecified site; M47.816 Spondylosis without myelopathy or radiculopathy, lumbar region; M16.11 Unilateral primary osteoarthritis, right hip; F17.200 Nicotine dependence, unspecified, uncomplicated; Z71.6 Tobacco abuse counseling | CPT/HCPCS: 96127; 99212 ==

== ENCOUNTER 2024-06-10 10:51 | Outpatient (REF) | payer OTHER, SELFPAY ==
--- NOTE | ~2024-06-10 | XR_ITS ---
EXAMINATION: XR ELBOW, RIGHT CLINICAL INFORMATION: M25.521 - Pain in right elbow COMPARISON: None available. TECHNIQUE: AP, lateral, and oblique views of the right elbow. FINDINGS: There is slight soft tissue prominence in the olecranon bursal area which could reflect bursitis of. Small areas of calcification the region of the distal triceps tendon likely dystrophic without clinical significance The bone and joints are unremarkable. No effusion. XR/XR elbow RT min 3V IMPRESSION: Possible olecranon bursitis Electronically signed by: Teodoro Aggarwal MD 06/14/2024 01:47 PM EST RP
== END 2024-06-10 10:52 | disposition home or self-care (01) ==
LOC: HO.XRAY 10:51
PROVIDERS: PCP Internal Medicine; Visit Provider Internal Medicine
DX: M25.521 Pain in right elbow (principal)
CPT/HCPCS: 73080

== ENCOUNTER 2024-06-19 09:11 | Outpatient (REF) | payer OTHER, SELFPAY | END 2024-06-19 09:12 | disposition home or self-care (01) | LOC: HO.LAB 09:11 | PROVIDERS: PCP Internal Medicine; Visit Provider Advanced Practice Midwife | DX: R10.2 Pelvic and perineal pain (principal); N93.9 Abnormal uterine and vaginal bleeding, unspecified; N95.0 Postmenopausal bleeding | CPT/HCPCS: 81003; 99212 ==

== ENCOUNTER 2024-06-19 09:11 | Outpatient (AMB) | payer OTHER, SELFPAY ==
[2024-06-19 09:13] VITALS: BMI 22.0
--- NOTE | 2024-06-19 09:13 | A.OFFVIS_ITS ---
Vital Signs 06/19/24 09:13 Height 5 ft 5 in Weight 132 lb BMI 22.0 Intake Visit Reasons: PMB Intake Note: spotting since saturday Director Of Financial Planning: Director Of Financial Planning Present (Chelsey) Allergies Sulfa (Sulfonamide Antibiotics) Allergy (Intermediate, Verified 06/19/24 09:19) Hives, itching trimethoprim [From Bactrim] Allergy (Verified 06/19/24 09:19) Hives HPI Comments Details: Patient is here today with the onset of postmenopausal bleeding 2 days ago she reports lower pelvic cramping, no urinary symptoms. Not sexually active in many years. She does admit to having a vaginal odor today, no itching or vaginal irritation. Pap 08/2023-negative. [facility] Medical History Pure hypercholesterolemia Nicotine dependence, cigarettes, uncomplicated Osteopenia Vitamin D deficiency Benign essential hypertension Chronic, continuous use of opioids Tenosynovitis of thumb Chronic low back pain Cyclical vomiting Surgical History History of tonsillectomy History of selective injection of anesthetic agent around lumbar nerve root History of colonoscopy (~2020) History of breast surgery Hx of shoulder surgery Hx of right knee surgery S/P laparoscopic cholecystectomy (~2009) History of appendectomy Family History Maternal Uncle Diabetes Father No problems noted. Mother No problems noted. Social History Housing: House Alcohol intake: former Patient Tobacco Use Status: Current everyday Tobacco user Tobacco use type: Cigarette Cigarettes Per Day: 5 Years Smoked: (onset 15, 1/2-1ppd x 48yrs, 30+PYH) e-Cigarette/Vaping Use: Never Used Second Hand Smoke Exposure: Yes service: No Current occupational status: retired and disabled Cognitive needs: No Hearing needs: No Vision needs: Yes Female Reproductive History Menstrual Age of Menarche: 14 Review of Systems Const All systems reviewed & are unremarkable except as noted in HPI and below Physical Exam Vital Signs: BMI result Body Mass Index 22.0 Const General: cooperative, healthy appearing and no acute distress Orientation/consciousness: patient oriented x3 GI Inspection: Yes normal to inspection Palpation (GI): Soft to palpation and Other GI palpation findings present (Nontender) Rectal Exam - Female: visual inspection normal General: Yes bladder normal to palpation External Female Exam: normal appearance of the urethra Speculum Exam - Vagina: normal appearance of the vagina, normal palpation, normal vaginal discharge and vagina atrophic Speculum Exam - Cervix: normal appearance of the cervix and normal palpation Bimanual exam- vagina & uterus: normal bimanual exam, normal palpation, uterine size normal, bladder normal to palpation, normal palpation, uterine shape normal and non-tender Bimanual Exam- Adnexa, other: normal adnexae Neuro General: patient oriented x3 Results AMB Urinalysis, Automated UA Leukoctes 0 Neymar/uL Last Edit by HASEEB Fu on 06/19/24 09:27 UA Nitrite Negative Last Edit by HASEEB Fu on 06/19/24 09:27 UA Urobilinogen 0 mg/dL Last Edit by HASEEB Fu on 06/19/24 09:2 7 UA Protein 0 mg/dL Last Edit by HASEEB Fu on 06/19/24 09:27 UA pH 6.5 Last Edit by HASEEB Fu on 06/19/24 09:27 UA Blood 0 Nabor/uL Last Edit by HASEEB Fu on 06/19/24 09:27 UA Specific [place] 1.015 Last Edit by HASEEB Fu on 06/19/24 09:27 UA Ketone Negative Last Edit by HASEEB Fu on 06/19/24 09:27 UA Bilirubin 0 mg/dL Last Edit by HASEEB Fu on 06/19/24 09:27 UA Glucose 0 mg/dL Last Edit by HASEEB Fu on 06/19/24 09:27 Assessment & Plan Assessment & Plan (1) PMB (postmenopausal bleeding): Code(s): N95.0 - Postmenopausal bleeding Category: Medical (2) Vaginal odor: Code(s): N89.8 - Other specified noninflammatory disorders of vagina Plan Discussed: Plan of care, recommended endometrial biopsy to rule out uterine cancer, preprocedure planning to include eating and drinking and taking either Tylenol or ibuprofen if no contraindications 1 hour before the biopsy. Patient prefers to have anesthesia for her procedure she reports she has anesthesia for her injections and she does really well with her procedure, and prefers not to be awake for anything that could be painful. GC chlamydia, and BV panel obtained today. Urine analysis is negative. Pelvic ultrasound ordered. Hysteroscopy appointment consult to be scheduled today for a future appointment. The patient expressed understanding and agreement with the plan of care. All of her questions and concerns were addressed to the best of my ability. This note is constructed using voice recognition software. While every effort has been made to ensure accuracy, construction controller errors may have been included. Orders: Orders AMB Urinalysis Automated Today R10.2 - Pelvic and perineal pain Bacterial Vaginosis Panel Today N93.9 - Abnormal uterine and vaginal bleeding, unspecified, R10.2 - Pelvic and perineal pain CT NG by PCR Today N93.9 - Abnormal uterine and vaginal bleeding, unspecified, R10.2 - Pelvic and perineal pain US pelvic and transvaginal Today N89.8 - Other specified noninflammatory disorders of vagina, N95.0 - Postmenopausal bleeding Coding Level of Care Code Est Pt Level 3 (88418) Diagnoses PMB (postmenopausal bleeding) N95.0 Vaginal odor N89.8
== END 2024-06-19 09:47 | disposition home or self-care (01) ==
LOC: HO.HWS 09:11
PROVIDERS: PCP Internal Medicine; Visit Provider Advanced Practice Midwife
DX: N95.0 Postmenopausal bleeding (principal); N89.8 Other specified noninflammatory disorders of vagina; R10.2 Pelvic and perineal pain
CPT/HCPCS: 99213

== ENCOUNTER 2024-06-19 09:35 | Outpatient (REF) | payer OTHER, SELFPAY ==
[2024-06-19 14:52] LABS: Bacterial Vaginosis PCR NEGATIVE (Negative); Candida Group PCR NOT DETECTED (Not Detect); Candida glab krusei PCR NOT DETECTED (Not Detect); Trichomonas vaginalis PCR NOT DETECTED (Not Detect)
[2024-06-19 15:24] LABS: CT PCR NOT DETECTED (Not Detect.); NG PCR NOT DETECTED (Not Detect.)
== END 2024-06-19 09:36 | disposition home or self-care (01) ==
LOC: HO.LNP 09:35
PROVIDERS: Visit Provider Advanced Practice Midwife
DX: N93.9 Abnormal uterine and vaginal bleeding, unspecified (principal); R10.2 Pelvic and perineal pain
CPT/HCPCS: 0352U; 87491; 87591

== ENCOUNTER 2024-06-22 15:11 | Outpatient (REF) | payer OTHER, SELFPAY ==
--- NOTE | ~2024-06-22 | US_ITS ---
EXAMINATION: US PELVIS CLINICAL INFORMATION: Postmenopausal bleeding COMPARISON: None available. TECHNIQUE: Ultrasound of the pelvis is performed using both transabdominal and transvaginal transducers along with Doppler. Transvaginal imaging is performed due to inadequate visualization transabdominally. FINDINGS: Uterus: The uterus is anteverted and measures 5.0 x 2.3 x 3.5 cm. The double wall endometrial thickness is 5 mm. There is fluid within the endometrial canal. The uterus is smooth in contour and has normal myometrial echogenicity. No visible fibroid. Adnexa: The right ovary is visualized. The left ovary was not visualized. There is normal color flow to the adnexa. There is no ovarian torsion. There is no pelvic ascites or fluid collection. Right ovary measures 1.7 x 1.3 x 1.2 cm. US/US pelvic and transvaginal IMPRESSION: 1. Fluid within the endometrial canal. Recommend gynecological consultation and evaluation for postmenopausal bleeding. 2. Left ovary not visualized. Electronically signed by: Shanta Joseph MD 06/22/2024 08:14 PM RAFAEL GRAYSON
== END 2024-06-22 15:12 | disposition home or self-care (01) ==
LOC: HO.US 15:11
PROVIDERS: PCP Internal Medicine; Visit Provider Advanced Practice Midwife
DX: N95.0 Postmenopausal bleeding (principal); N89.8 Other specified noninflammatory disorders of vagina
CPT/HCPCS: 76830; 76856

== ENCOUNTER 2024-06-24 09:02 | Outpatient (AMB) | payer OTHER, SELFPAY ==
--- NOTE | 2024-06-24 09:02 | A.OFFVIS_ITS ---
Intake Visit Reasons: TV Ultrasound results Intake Note: cell # [phone] Vice President Of Instruction: Vice President Of Instruction Present Allergies Sulfa (Sulfonamide Antibiotics) Allergy (Intermediate, Verified 06/24/24 09:03) Hives, itching trimethoprim [From Bactrim] Allergy (Verified 06/24/24 09:03) Hives Is last menstrual period known: Yes HPI Comments Details: Tele [place] visit [phone]. I spent 2 minutes speaking with the patient on the phone plus an additional 5 minutes reviewing the chart and 5 minutes updating the medical record for a total of 12minutes. Patient presents via phone to discuss: Ultrasound findings, history of postmenopausal bleeding. No further bleeding noted, denies any pelvic pain. [facility] Medical History (Updated 06/19/24 @ 09:38 by Lourdes Khoury CNM) PMB (postmenopausal bleeding) Pure hypercholesterolemia Nicotine dependence, cigarettes, uncomplicated Osteopenia Vitamin D deficiency Benign essential hypertension Chronic, continuous use of opioids Tenosynovitis of thumb Chronic low back pain Cyclical vomiting Surgical History History of tonsillectomy History of selective injection of anesthetic agent around lumbar nerve root History of colonoscopy (~2020) History of breast surgery Hx of shoulder surgery Hx of right knee surgery S/P laparoscopic cholecystectomy (~2009) History of appendectomy Family History Maternal Uncle Diabetes Father No problems noted. Mother No problems noted. Social History Housing: House Alcohol intake: former Patient Tobacco Use Status: Current everyday Tobacco user Tobacco use type: Cigarette Cigarettes Per Day: 5 Years Smoked: (onset 15, 1/2-1ppd x 46yrs, 30+PYH) e-Cigarette/Vaping Use: Never Used Second Hand Smoke Exposure: Yes service: No Current occupational status: retired and disabled Cognitive needs: No Hearing needs: No Vision needs: Yes Female Reproductive History Menstrual Age of Menarche: 14 Review of Systems Const All systems reviewed & are unremarkable except as noted in HPI and below Endo Reports no additional complaints Physical Exam Const General: cooperative, healthy appearing and no acute distress Psych Appearance: well kempt Attitude: cooperative Thought process: Normal thought process present Telehealth Telehealth Telehealth Platform: [employer] Location of provider rendering services: practice address Location of patient: other Patient Identification confirmed using: Name, : Yes Telehealth method: video Patient verbally consented to treatment: Yes Patient verbally consented to billing insurance company: Yes Patient informed of any privacy concerns related to visit: Yes Results Reviewed Results Reviewed: [address] [address] Ultrasound Report Signed Patient: Priya Cardenas MR#: [id number] : 1960 Acct:[id number] Age/Sex: 63 / F ADM Date: 06/22/24 Loc: .[place] Attending Dr: Lourdes Khoury CNM Ordering Physician: Lourdes Khoury CNM Date of Service: 06/22/24 Procedure(s): US pelvic and transvaginal Accession Number(s): [id number] cc: Charly Carrillo MD; Lourdes Khoury CNM~ EXAMINATION: US PELVIS CLINICAL INFORMATION: Postmenopausal bleeding COMPARISON: None available. TECHNIQUE: Ultrasound of the pelvis is performed using both transabdominal and transvaginal transducers along with Doppler. Transvaginal imaging is performed due to inadequate visualization transabdominally. FINDINGS: Uterus: The uterus is anteverted and measures 5.0 x 2.3 x 3.5 cm. The double wall endometrial thickness is 5 mm. There is fluid within the endometrial canal. The uterus is smooth in contour and has normal myometrial echogenicity. No visible fibroid. Adnexa: The right ovary is visualized. The left ovary was not visualized. There is normal color flow to the adnexa. There is no ovarian torsion. There is no pelvic ascites or fluid collection. Right ovary measures 1.7 x 1.3 x 1.2 cm. US/US pelvic and transvaginal IMPRESSION: 1. Fluid within the endometrial canal. Recommend gynecological consultation and evaluation for postmenopausal bleeding. 2. Left ovary not visualized. Electronically signed by: Shanta Joseph MD 06/22/2024 08:14 PM [facility] Dictated By: Shanta Joseph MD Signed By: <Electronically signed by Shanta Joseph MD in OV> 06/22/242013 DD/ 1530 TD/TT: 06/22/24 1545 [employer]: PN Assessment & Plan Assessment & Plan (1) PMB (postmenopausal bleeding): Code(s): N95.0 - Postmenopausal bleeding Category: Medical (2) Encounter to discuss test results: Code(s): Z71.2 - Person consulting for explanation of examination or test findings Plan Discussed: Ultrasound findings endometrial lining 0.5cm w/ endometrial fluid seen. Planned hysteroscopy consult as patient does not want EMB while. The patient expressed understanding and agreement with the plan of care. All of her questions and concerns were addressed to the best of my ability. This note is constructed using voice recognition software. 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 Coding Level of Care Code Tele Est Pt Level 2 (34630) Diagnoses PMB (postmenopausal bleeding) N95.0 Encounter to discuss test results Z71.2
== END 2024-06-24 10:17 | disposition home or self-care (01) ==
LOC: HO.HWS 09:02
PROVIDERS: PCP Internal Medicine; Visit Provider Advanced Practice Midwife
DX: N95.0 Postmenopausal bleeding (principal); Z71.2 Person consulting for explanation of examination or test findings
CPT/HCPCS: 99212

== ENCOUNTER → 2024-06-24 09:02 | Outpatient (BNVA) | payer OTHER, SELFPAY | PROVIDERS: PCP Internal Medicine; Visit Provider Advanced Practice Midwife ==

== ENCOUNTER 2024-06-25 10:55 | Outpatient (AMB) | payer OTHER, SELFPAY ==
--- NOTE | 2024-06-25 10:59 | MHC.OFFVIS ---
Intake Visit Reasons: hysteroscopy consult Photographer Portrait: Photographer Portrait Present (Candida) Accompanied by: Self / Same As Patient Allergies Sulfa (Sulfonamide Antibiotics) Allergy (Intermediate, Verified 06/25/24 11:00) Hives, itching trimethoprim [From Bactrim] Allergy (Verified 06/25/24 11:00) Hives Is last menstrual period known: Yes Last menstrual period: 05/12/20 Post menopausal: No Patient : No Do you need a note to return to daycare/school/sports/work: Yes (for surgery on saturday) HPI Comments Details: Presenting referred from Lourdes Khoury CNM regarding postmenopausal bleeding. The patient had a pelvic ultrasound on 06/22/2024 which showed the following: Uterus: The uterus is anteverted and measures 5.0 x 2.3 x 3.5 cm. The double wall endometrial thickness is 5 mm. There is fluid within the endometrial canal. The uterus is smooth in contour and has normal myometrial echogenicity. No visible fibroid. Adnexa: The right ovary is visualized. The left ovary was not visualized. There is normal color flow to the adnexa. There is no ovarian torsion. There is no pelvic ascites or fluid collection. Right ovary measures 1.7 x 1.3 x 1.2 cm. Last co testing in 09/07 was negative PFSH Medical History PMB (postmenopausal bleeding) Pure hypercholesterolemia Nicotine dependence, cigarettes, uncomplicated Osteopenia Vitamin D deficiency Benign essential hypertension Chronic, continuous use of opioids Tenosynovitis of thumb Chronic low back pain Cyclical vomiting Surgical History History of tonsillectomy History of selective injection of anesthetic agent around lumbar nerve root History of colonoscopy (~2020) History of breast surgery Hx of shoulder surgery Hx of right knee surgery S/P laparoscopic cholecystectomy (~2009) History of appendectomy Family History Maternal Uncle Diabetes Father No problems noted. Mother No problems noted. Social History Housing: House Alcohol intake: former Patient Tobacco Use Status: Current everyday Tobacco user Tobacco use type: Cigarette Cigarettes Per Day: 5 Years Smoked: (onset 15, 1/2-1ppd x 46yrs, 30+PYH) e-Cigarette/Vaping Use: Never Used Second Hand Smoke Exposure: Yes service: No Current occupational status: retired and disabled Cognitive needs: No Hearing needs: No Vision needs: Yes Female Reproductive History Menstrual Age of Menarche: 14 Date of last menstrual period: 05/12/20 Total pregnancies: 2 Full term: 2 Review of Systems Card Reports as per HPI and Reports no additional complaints Resp Reports as per HPI and Reports no additional complaints GI Reports as per HPI and Reports no additional complaints Reports as per HPI Physical Exam Const General: cooperative, healthy appearing and comfortable Resp Effort & Inspection: normal respiratory effort Auscultation: clear to auscultation bilaterally Percussion: percussion normal Cardio Palpation: normal PMI Rate: regular rate Rhythm: regular rhythm Heart sounds: no murmurs and no rubs Peripheral pulses: Peripheral pulses 2+ throughout GI Inspection: Yes normal to inspection Palpation (GI): Soft to palpation, nontender, no guarding, not rigid and No hepatosplenomegaly present Percussion: Yes normal to percussion Auscultation: normal bowel sounds Rectal Exam - Female: deferred Assessment & Plan Assessment & Plan (1) PMB (postmenopausal bleeding): Code(s): N95.0 - Postmenopausal bleeding Category: Medical Plan: Discussed with the patient the pelvic ultrasound findings, the endometrial stripe thickenss measured by ultrasound was more than 4mm. The negative predictive value, positive predictive value, Sensitivity, specificity of using ultrasound measurement of endometrial stripe to detecting endometrial pathology including hyperplasia , polyp or cancer were discussed with the patient. Recommended to the patient that the next step is an endometrial sampling via hysteroscopy D&C possible polypectomy versus endometrial biopsy to r/o endometrial pathology including hyperplasia or cancer. All the pros and cons risks and benefits of each approach were discussed with the patient, endometrial biopsy being less invasive, office procedure with less sensitivity and inability diagnose a polyp and removal versus hysteroscopy done under anesthesia more invasive more sensitive to endometrial cancer and possibility of diagnosing and endometrial polyp with the possibility of polypectomy. All questions were answered pt verbalized understanding and decided to proceed with hysteroscopy D&C possible polypectomy/myomectomy. Discussed with the patient the procedure , all benefits and risks including but not limited to inability to complete the procedure , insufficient endometrial tissue for a complete evaluation of the endometrial cavity , bleeding, infection, possible need for blood transfusion with all its risk ( HIV,syphilis, Hepatitis, anaphylaxis shock, others..), injury to bladder, rectum, possible need for laparoscopy/laparotomy or hysterectomy. The patient verbalized understanding and signed the consent. Instructions given the patient to stay NPO after midnight the day prior to the procedure and to take only the specific medication (s) discussed the morning of the surgical procedure and to schedule a 2 week postoperative appointment Coding Level of Care Code Est Pt Level 3 (89815) Diagnoses PMB (postmenopausal bleeding) N95.0
== END 2024-06-25 11:26 | disposition home or self-care (01) ==
LOC: HO.HWS 10:55
PROVIDERS: PCP Internal Medicine; Visit Provider Obstetrics & Gynecology
DX: N95.0 Postmenopausal bleeding (principal)
CPT/HCPCS: 99213

== ENCOUNTER → 2024-06-25 10:55 | Outpatient (BNVA) | payer OTHER, SELFPAY | PROVIDERS: PCP Internal Medicine; Visit Provider Obstetrics & Gynecology | DX: N95.0 Postmenopausal bleeding (principal) | CPT/HCPCS: 99212 ==

== ENCOUNTER 2024-06-30 12:20 | Day surgery (SDC) | payer OTHER, SELFPAY ==
--- NOTE | 2024-06-29 10:33 | HO.ANESPROP2 ---
HPI - Anesthesia Eval Consult details Narrative: 63yo F for D&C Hysteroscopy,possible myomectomy,possible polypectomy, PMFSH Active Problems Active Problems: All Active Problems PMB (postmenopausal bleeding) (Acute) Olecranon bursitis, right elbow (Acute) Right elbow pain (Acute) Nicotine dependence, cigarettes, uncomplicated (Acute) Dental abscess (Acute) Right hip pain (Acute) Osteopenia (Acute) Epidermoid cyst of skin of scalp (Acute) Breast signs and symptoms (Acute) Breast pain (Acute) Incomplete bladder emptying (Acute) Cough (Acute) Chest wall contusion (Acute) Vitamin D deficiency (Acute) Impaired fasting glucose (Acute) Pure hypercholesterolemia (Acute) Skin exam for malignant neoplasm (Acute) Microscopic hematuria (Acute) Benign essential hypertension (Acute) Chronic, continuous use of opioids (Acute) Myofascial pain (Acute) Spondylosis of lumbar region without myelopathy or radiculopathy (Acute) Chronic low back pain (Acute) Sacroiliac joint pain (Acute) Osteoarthritis of right hip (Acute) Bilateral leg weakness (Acute) Cyclical vomiting (Acute) Allergic rhinitis (Acute) Tenosynovitis of thumb (Acute) Past Medical History Medical History PMB (postmenopausal bleeding) Nicotine dependence, cigarettes, uncomplicated Osteopenia Vitamin D deficiency Pure hypercholesterolemia Benign essential hypertension Chronic, continuous use of opioids Tenosynovitis of thumb Chronic low back pain Cyclical vomiting Family History Family History Maternal Uncle Diabetes Father No problems noted. Mother No problems noted. Family history of problems with anesthesia: No Surgical History Surgical History H/O mastoidectomy History of tonsillectomy History of selective injection of anesthetic agent around lumbar nerve root History of colonoscopy (~2020) History of breast surgery Hx of shoulder surgery Hx of right knee surgery S/P laparoscopic cholecystectomy (~2009) History of appendectomy History of Problems with Anesthesia: No Social History Social History Housing: House Are you a primary memory care program director to a significant other at home: No Do you presently have visiting nurse or other home services: No Alcohol intake: former Patient Tobacco Use Status: Current everyday Tobacco user Tobacco use type: Cigarette Cigarettes Per Day: 4 Years Smoked: 47 Packs per year/per ci.40 e-Cigarette/Vaping Use: Never Used Second Hand Smoke Exposure: Yes service: No Current occupational status: retired and disabled Cognitive needs: No Hearing needs: No Vision needs: Yes Meds Allergies Allergy/AdvReac Type Severity Reaction Status Date / Time Sulfa (Sulfonamide Allergy Intermediate Hives, Verified 07/03/24 14:15 Antibiotics) itching trimethoprim [From Bactrim] Allergy Intermediate Hives Verified 07/03/24 14:15 Home Medications ?Medication ?Instructions ?Recorded ?Confirmed ?Last Taken ?Type nortriptyline 75 mg capsule 75 mg PO BEDTIME 09/14/20 07/03/24 Unknown History Assessment and Plan Assessment Anesthesia Assessment: Chart Reviewed Final Anesthetic Review Family History of Problems with Anesthesia: No History of Problems with Anesthesia: No
[2024-06-30 12:47] VITALS: BP 157/85; PULSE 79; RESP 16; TEMP 36.7; O2SAT 98; BMI 22.0
[2024-06-30] MEDS: Lactated Ringers 1,000 ML 100 ML IVCONT (13:10)
--- NOTE | 2024-06-30 13:56 | MHC.SHP ---
Pre-Procedural Eval Section A - 24 Hr Update-Section A only Date of Service: 06/30/24 The patient is an INPATIENT: No Changes since office visit: No Cold of Flu in the past 2 weeks, No New Medical Problems, No Changes in Medication and No Patient answered all questions The patient has been examined within 24 hours of the surgical procedure. The History & Physical has been completed within 30 days and I have reviewed it.: Yes Section B - Complete if H&P > 30 days Chief Complaint: Postmenopausal bleeding Allergies: Allergies Allergy/AdvReac Type Severity Reaction Status Date / Time Sulfa (Sulfonamide Allergy Intermediate Hives, Verified 06/30/24 12:47 Antibiotics) itching trimethoprim [From Bactrim] Allergy Intermediate Hives Verified 06/30/24 12:47 Plan Diagnosis/Plan: Unchanged I have reviewed the history and physical and performed a pertinent physical examination on my patient. No changes have occurred unless specified. Time Spent With Patient Time: Total time managing care of this patient today ____ minutes.
--- NOTE | 2024-06-30 13:57 | P.CONAN_ITS ---
PENDING SALE TO [facility] Active Problems Active Problems: All Active Problems Olecranon bursitis, right elbow (Acute) Right elbow pain (Acute) Dental abscess (Acute) Right hip pain (Acute) Epidermoid cyst of skin of scalp (Acute) Breast signs and symptoms (Acute) Breast pain (Acute) Incomplete bladder emptying (Acute) Cough (Acute) Chest wall contusion (Acute) Impaired fasting glucose (Acute) Skin exam for malignant neoplasm (Acute) Microscopic hematuria (Acute) Allergic rhinitis (Acute) Myofascial pain (Acute) Bilateral leg weakness (Acute) Osteoarthritis of right hip (Acute) Sacroiliac joint pain (Acute) Spondylosis of lumbar region without myelopathy or radiculopathy (Acute) PMB (postmenopausal bleeding) (Acute) Nicotine dependence, cigarettes, uncomplicated (Acute) Osteopenia (Acute) Vitamin D deficiency (Acute) Pure hypercholesterolemia (Acute) Benign essential hypertension (Acute) Chronic, continuous use of opioids (Acute) Chronic low back pain (Acute) Cyclical vomiting (Acute) Tenosynovitis of thumb (Acute) Past Medical History Medical History PMB (postmenopausal bleeding) Nicotine dependence, cigarettes, uncomplicated Osteopenia Vitamin D deficiency Pure hypercholesterolemia Benign essential hypertension Chronic, continuous use of opioids Tenosynovitis of thumb Chronic low back pain Cyclical vomiting Functional capacity: independent ambulation Patient : No Family History Family History Maternal Uncle Diabetes Father No problems noted. Mother No problems noted. Family history of problems with anesthesia: No Surgical History Surgical History H/O mastoidectomy History of tonsillectomy History of selective injection of anesthetic agent around lumbar nerve root History of colonoscopy (~2020) History of breast surgery Hx of shoulder surgery Hx of right knee surgery S/P laparoscopic cholecystectomy (~2009) History of appendectomy History of Problems with Anesthesia: No Social History Social History Housing: House Are you a primary healthcare financial analyst to a significant other at home: No Do you presently have visiting nurse or other home services: No Alcohol intake: former Patient Tobacco Use Status: Current everyday Tobacco user Tobacco use type: Cigarette Cigarettes Per Day: 4 Years Smoked: 47 Smoked in Last 30 Days: Yes e-Cigarette/Vaping Use: Never Used Second Hand Smoke Exposure: Yes Use of substances other than those prescribed or required for medical reasons: Yes Substance Use Type Other:: Edibles Substance Use Frequency: Occasionally Have you been hit, kicked, punched, or otherwise hurt by someone within the past year? If so, by whom?: No Are you DNR?: No Advance Directives: No Advance Directives Information Provided: No Advance Directives on File: No Recently lost weight without trying: No How much weight loss: Not applicable Eating poorly because of decreased appetite: No Nutrition screen score: 0 Nutrition Risks: No Nutritional Risk Patient : No : No Poor oral hygiene: Yes (front tooth loose, bottom left missing teeth) service: No Current occupational status: retired and disabled Cognitive needs: No Hearing needs: No Vision needs: Yes Meds Allergies Allergy/AdvReac Type Severity Reaction Status Date / Time Sulfa (Sulfonamide Allergy Intermediate Hives, Verified 06/30/24 12:47 Antibiotics) itching trimethoprim [From Bactrim] Allergy Intermediate Hives Verified 06/30/24 12:47 Active Medications: Current Medications Lactated Ringer's (Lr) 1,000 mls @ 100 mls/hr IVCONT .Q10H CHULA Last Admin: 06/30/24 13:10 Dose: 100 mls/hr Home Medications ?Medication ?Instructions ?Recorded ?Confirmed ?Last Taken ?Type nortriptyline 75 mg capsule 75 mg PO BEDTIME 09/14/20 06/30/24 Unknown History Exam Height,Weight and Vital Signs: Height 5 ft 5 in Weight 60.056 kg Last Vital Signs Temp 98.0 F 06/30/24 12:47 Pulse 79 06/30/24 12:47 Resp 16 06/30/24 12:47 BP 157/85 H 06/30/24 12:47 Pulse Ox 98 06/30/24 12:47 O2 Del Method Room Air 06/30/24 12:47 Airway Mallampati Class: II TM Dist: >3cm Neck ROM: Full Heart: RRR Lungs: CTA Other: raspy voice Assessment and Plan Assessment Anesthesia Assessment: Anesthesia Plan Discussed, Smoking Cess. Discussed and Chart Reviewed Final Anesthetic Review Family History of Problems with Anesthesia: No History of Problems with Anesthesia: No NPO: Yes ASA Class: II Final Preanesthetic Review: Meds/Allgs Chart Reviewed, Consent Obtained/Reviewed and Anes Risks/Benef Reviewed Patient Risk: Low Procedure Risk: Low Anesthetic Plan Anesthetic Plan: GA Disposition: Standard PACU
--- NOTE | 2024-06-30 14:44 | P.BOP_ITS ---
Brief Operative Note Date of Service: 06/30/24 Pre-op diagnosis: Postmenopausal bleeding Post-op diagnosis: same (Normal endometrial cavity) Procedure: Hysteroscopy D&C Surgeon: Bandar Li MD Anesthesia: GLMA Was an Tool Operator used for this Procedure?: No Estimated blood loss (mL): 0 Pathology: other (Endometrial Scrapping.) Condition: stable Disposition: PACU
--- NOTE | 2024-06-30 14:44 | P.OP_ITS ---
Operative Note Operative Note Date of Service: 06/30/24 Narrative: Preop Diagnosis: Post Menopausal bleeding Operation: Diagnostic Hysteroscopy, Dilataion & Curettage Post Op Diagnosis: Normal endometrial cavity QBL: Minimal Anesthesia: GLMA Surgeon: Bandar Li MD Delivery Room Clerk: None Complication: None Pathology: Endometrial Scrapings Procedure: The patient was put in the dorsal lithotomy position, scrubbed, and draped in the usual manner. A sterile speculum was inserted in the patient's vagina. The anterior lip of the cervix was grasped with a single tooth tenaculum. The cervix was dilated up to 5 mm, then the scope was inserted in the patient's uterus. Inspection revealed Normal endometrial cavity. The Myosure Reach device was used; the scope was removed from the endometrial cavity , sharp curettings was carried on with minimal to moderate amount of tissues retrieved. At the end of the procedure, all instruments were taken out of the patient uterine and vaginal cavity. The single tooth tenaculum was removed and homeostasis was assured using pressure,. The patient tolerated the procedure well and was transferred to the PACU in a stable condition.
[2024-06-30 14:54] VITALS: BP 122/75; PULSE 77; RESP 16; TEMP 36.3; O2SAT 96
[2024-06-30 14:59] VITALS: BP 124/72; PULSE 68; RESP 16; O2SAT 96
[2024-06-30 15:04] VITALS: BP 114/81; PULSE 77; RESP 16; O2SAT 96
[2024-06-30 15:09] VITALS: BP 116/77; PULSE 81; RESP 16; TEMP 37.3; O2SAT 98
== END 2024-06-30 15:44 | disposition home or self-care (01) ==
PROVIDERS: PCP Internal Medicine; Visit Provider Obstetrics & Gynecology
PROC: 0UDB8ZZ Extraction of Endometrium, Via Natural or Artificial Opening Endoscopic (ICD-10-PCS; CPT 58558; principal; 2024-06-30 14:00)
DX: N95.0 Postmenopausal bleeding (principal); M85.80 Other specified disorders of bone density and structure, unspecified site; E55.9 Vitamin D deficiency, unspecified; I10 Essential (primary) hypertension; E78.00 Pure hypercholesterolemia, unspecified; G89.29 Other chronic pain; M54.50 Low back pain, unspecified; Z79.899 Other long term (current) drug therapy; Z88.2 Allergy status to sulfonamides; Z79.891 Long term (current) use of opiate analgesic; F17.210 Nicotine dependence, cigarettes, uncomplicated; Z98.890 Other specified postprocedural states
CPT/HCPCS: 58558; 88305; J2250; J2704; J3010

== ENCOUNTER → 2024-06-30 12:20 | Outpatient (BNV) | payer OTHER, SELFPAY | PROVIDERS: PCP Internal Medicine; Visit Provider Obstetrics & Gynecology | DX: N95.0 Postmenopausal bleeding (principal) | CPT/HCPCS: 58558 ==

== ENCOUNTER 2024-07-03 10:59 | Outpatient (AMB) | payer OTHER, SELFPAY ==
--- NOTE | 2024-07-03 11:25 | A.OFFVIS_ITS ---
Vital Signs 07/03/24 11:32 Height 5 ft 5 in Weight 132 lb 6 oz BMI 22.0 BP 147/90 H Blood Pressure Location Rt brachial Position Sitting Pulse 80 Pulse Source Pulse Oximeter Pulse Oximetry (%) 97 Oxygen Delivery Method Room Air Intake Visit Reasons: Pill Count Intake Note: Priya comes in today for a pill count to oxycodone-acetaminophen, patient should have 72 tablets and presents with 74 tablets which she last took today 07/03/24 at 7am. 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 Patient is prescribed oxycodone acetaminophen 7.5-325mg, take 1 tablet four times daily. Patient arrived today with the expectation of having 72 pills, she presented 74 pills which were counted in the presence of two staff members and returned to the patient in the original prescription bottle. This demonstrates responsible attitude toward patient's opioid medications. Pain is reported today as 4/10 and last dose of pain medication was taken this morning at 7am. Pain is adequately managed on current opioid regimen. Denies side effects including somnolence, constipation, itching, dyspnea, rash, dizziness or weakness. Had recent uterine biopsy. States anesthesia told her to follow up with ENT regarding something that was visualized during intubation. Patient has appointment with PCP today to care referral for ENT. She is pending intra- articular hip injection, she would like to hold off on this injection until after ENT. [facility] Medical History PMB (postmenopausal bleeding) Nicotine dependence, cigarettes, uncomplicated Osteopenia Vitamin D deficiency Pure hypercholesterolemia Benign essential hypertension Chronic, continuous use of opioids Tenosynovitis of thumb Chronic low back pain Cyclical vomiting Surgical History H/O mastoidectomy History of tonsillectomy History of selective injection of anesthetic agent around lumbar nerve root History of colonoscopy (~2020) History of breast surgery Hx of shoulder surgery Hx of right knee surgery S/P laparoscopic cholecystectomy (~2009) History of appendectomy Family History Maternal Uncle Diabetes Father No problems noted. Mother No problems noted. Social History Housing: House Are you a primary healthcare sales representative to a significant other at home: No Do you presently have visiting nurse or other home services: No Alcohol intake: former Patient Tobacco Use Status: Current everyday Tobacco user Tobacco use type: Cigarette Cigarettes Per Day: 4 Years Smoked: 47 e-Cigarette/Vaping Use: Never Used Second Hand Smoke Exposure: Yes service: No Current occupational status: retired and disabled Cognitive needs: No Hearing needs: No Vision needs: Yes Female Reproductive History Menstrual Age of Menarche: 14 Review of Systems Const All systems reviewed & are unremarkable except as noted in HPI and below Physical Exam Vital Signs: Last Vital Signs Pulse 80 07/03/24 11:32 BP 147/90 H 07/03/24 11:32 Pulse Ox 97 07/03/24 11:32 Oxygen Delivery Method Room Air 07/03/24 11:32 BMI result Body Mass Index 22.0 General: awake, alert, oriented. Answers questions appropriately. Fully engaged in examination. HEENT: Normocephalic. Hearing intact. Cardiac: External chest normal in appearance. Respiratory: No cough, audible wheezing or stridor. Abdomen: without gross distension. MS: No obvious swelling or deformities. Able to transition from sit to stand unassisted. Ambulates with bilaterally normal heel strike and toe off Neurological: Oriented to person, place, time and situation. Thought process intact. No gait abnormalities appreciated. Psychiatric: Appropriate mood and affect. Good judgment and insight. Results Reviewed Results Reviewed: 10/2023 Right hip XR IMPRESSION: 1. Mild degenerative changes in the right hip. 2. Moderate degenerative changes right sacroiliac joint. 08/22/22 MM/XR DEXA axial skeleton IMPRESSION: Osteopenia based on the lowest T-score value of -2.1 in the lumbar spine and femoral neck applying World Health Organization criteria. Assessment & Plan Assessment & Plan (1) Right hip pain: Code(s): M25.551 - Pain in right hip Category: Medical (2) Myofascial pain: Code(s): M79.18 - Myalgia, other site Category: Medical (3) Chronic low back pain: Code(s): M54.5 - Low back pain; G89.29 - Other chronic pain Category: Medical Qualifiers: Back pain laterality: midline Sciatica presence: unspecified whether sciatica present Qualified Code(s): M54.5 - Low back pain; G89.29 - Other chronic pain (4) Spondylosis of lumbar region without myelopathy or radiculopathy: Code(s): M47.816 - Spondylosis without myelopathy or radiculopathy, lumbar region Category: Medical (5) Sacroiliac joint pain: Code(s): M53.3 - Sacrococcygeal disorders, not elsewhere classified Category: Medical (6) Chronic, continuous use of opioids: Code(s): F11.90 - Opioid use, unspecified, uncomplicated Category: Medical (7) Dental abscess: Code(s): K04.7 - Periapical abscess without sinus Category: Medical [facility]. No obvious signs of diversion, abuse or misuse of the opioid medications. Will send in prescription for oxycodone/acetaminophen 7.5-325 mg QID with an advanced date of 07/21/24 Continue with plan for fluoroscopy guided right intra-articular hip injection with local anesthetic, patient would like to hold off on this until after she sees ENT. She will call the office when she is ready to proceed Patient to follow-up in the office in 1 month, sooner if needed. All questions and concerns have been answered and patient agrees with the plan. Medications: Refilled oxycodone-acetaminophen 7.5-325 mg Partial Fill upon patient request. 1 tab PO QID PRN 120 tabs 0RF pain, severe 30 days G89.29 - Other chronic pain, M47.816 - Spondylosis without myelopathy or radiculopathy, lumbar region, M53.3 - Sacrococcygeal disorders, not elsewhere classified, M54.5 - Low back pain Coding Level of Care Code Est Pt Level 4 (88770) Complex EM visit Add On G2211 Diagnoses Right hip pain M25.551 Myofascial pain M79.18 Chronic midline low back pain, unspecified whether sciatica present M54.5; G89.29 Back pain laterality: midline Sciatica presence: unspecified whether sciatica present Spondylosis of lumbar region without myelopathy or radiculopathy M47.816 Sacroiliac joint pain M53.3 Chronic, continuous use of opioids F11.90 Dental abscess K04.7
[2024-07-03 11:32] VITALS: BP 147/90; PULSE 80; O2SAT 97; BMI 22.0
== END 2024-07-03 12:00 | disposition home or self-care (01) ==
PROVIDERS: PCP Internal Medicine; Visit Provider Registered Nurse Emergency
DX: G89.29 Other chronic pain (principal); M25.551 Pain in right hip; M79.18 Myalgia, other site; Z79.891 Long term (current) use of opiate analgesic; M54.50 Low back pain, unspecified; M47.816 Spondylosis without myelopathy or radiculopathy, lumbar region; M53.3 Sacrococcygeal disorders, not elsewhere classified; K04.7 Periapical abscess without sinus
CPT/HCPCS: 99214; G2211

== ENCOUNTER → 2024-07-03 10:59 | Outpatient (BNVA) | payer OTHER, SELFPAY | PROVIDERS: PCP Internal Medicine; Visit Provider Registered Nurse Emergency | DX: J38.2 Nodules of vocal cords (principal); M79.18 Myalgia, other site; M25.551 Pain in right hip; G89.29 Other chronic pain; M54.50 Low back pain, unspecified; M47.816 Spondylosis without myelopathy or radiculopathy, lumbar region; M53.3 Sacrococcygeal disorders, not elsewhere classified; K04.7 Periapical abscess without sinus; Z79.891 Long term (current) use of opiate analgesic | CPT/HCPCS: 96127; 99212 ==

== ENCOUNTER 2024-07-03 13:49 | Outpatient (AMB) | payer OTHER, SELFPAY ==
[2024-07-03 13:54] VITALS: BP 120/82; PULSE 73; O2SAT 98; BMI 22.0
--- NOTE | 2024-07-03 13:54 | A.OFFPC_ITS ---
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 Required: No Accompanied by: Self / Same As Patient Allergies Sulfa (Sulfonamide Antibiotics) Allergy (Intermediate, Verified 07/03/24 14:15) Hives, itching trimethoprim [From Bactrim] Allergy (Intermediate, Verified 07/03/24 14:15) Hives Medication List - Last Reconciled 07/03/24 by Charly Carrillo MD amlodipine 2.5 mg PO DAILY 90 days back brace As directed calcium carbonate (Calcium 600) 600 mg PO DAILY cholecalciferol (vitamin D3) 50 mcg PO DAILY 90 days cyclobenzaprine 10 mg PO BID PRN fluticasone propionate 50 mcg/actuation 2 sprays intranasal DAILY PRN 90 days nortriptyline 75 mg PO BEDTIME oxycodone-acetaminophen 7.5-325 mg 1 tab PO QID PRN 30 days Tobacco use date assessed: 07/03/24 Dental Screening Dental Screen Date: 07/03/24 Did you have a dental visit in the last 12 months?: No Did you have a dental problem in the last 6 months where you did not have access to dental care?: No Was dental information given to patient?: No HPI referral to ear nose & throat HPI Details Patient comes in today mainly to request for a referral to ENT States that she recently underwent a diagnostic hysteroscopy, dilatation & curettage under general anesthesia a few days ago for postmenopausal bleeding (biopsy came out benign) and was advised by the anesthesiologist to see us about getting an ENT referral [facility] for evaluation of some findings in her throat when they were doing the intubation during anesthesia induction Patient states that she was not told what they found States that she currently has no sore throat and has no trouble swallowing but states that her throat feels different since they inserted the ET tube down her throat a few days ago She denies any headaches or dizziness Denies any chest pains, no SOB No nausea/vomiting, no abdominal pain No change in bowel habits noted PFSH Medical History PMB (postmenopausal bleeding) Nicotine dependence, cigarettes, uncomplicated Osteopenia Vitamin D deficiency Pure hypercholesterolemia Benign essential hypertension Chronic, continuous use of opioids Tenosynovitis of thumb Chronic low back pain Cyclical vomiting Surgical History H/O mastoidectomy History of tonsillectomy History of selective injection of anesthetic agent around lumbar nerve root History of colonoscopy (~2020) History of breast surgery Hx of shoulder surgery Hx of right knee surgery S/P laparoscopic cholecystectomy (~2009) History of appendectomy Family History Maternal Uncle Diabetes Father No problems noted. Mother No problems noted. Social History Housing: House Are you a primary ambulatory care to a significant other at home: No Do you presently have visiting nurse or other home services: No Alcohol intake: former Patient Tobacco Use Status: Current everyday Tobacco user Tobacco use type: Cigarette Cigarettes Per Day: 4 Years Smoked: 47 e-Cigarette/Vaping Use: Never Used Second Hand Smoke Exposure: Yes service: No Current occupational status: retired and disabled Cognitive needs: No Hearing needs: No Vision needs: Yes Female Reproductive History Menstrual Age of Menarche: 14 Questionnaire PHQ-9 Over the last 2 weeks, how often have you been bothered by any of the following problems? 1. Little interest or pleasure in doing things: not at all 2. Feeling down, depressed, or hopeless: not at all 3. Trouble falling or staying asleep, or sleeping too much: not at all 4. Feeling tired or having little energy: not at all 5. Poor appetite or overeating: not at all 6. Feeling bad about yourself - or that you are a failure or have let yourself or your family down: not at all 7. Trouble concentrating on things, such as reading the newspaper or watching television: not at all 8. Moving or speaking so slowly that other people could have noticed. Or the opposite - being so fidgety or restless that you have been moving around a lot more than usual: not at all 9. Thoughts that you would be better off or of hurting yourself in some way: not at all Total score: 0 Depression Screening Interpretation: Negative Depression Screening Done: Yes 48104 - PHQ-9 Billing: Yes Source: Developed by Drs. Samuel Flaherty, Afia Engle, Chris Aragon and colleagues, with an educational asida from [employer]. Thrive Questionnaire Date Thrive assessed: 07/03/24 I am a: Patient What is your living situation today?: I have a steady place to live Within the past 12 months, did the food you bought not last and you didn't have the money to get more?: Never true Within the past 12 months, did you worry whether your food would run out before you got money to buy more?: Never true Do you have trouble paying for medicines?: No Do you have trouble getting transportation to medical appointments?: No Do you have trouble paying your heating and electricity bill?: No Do you have trouble taking care of your child, family member or friend?: No Do you have trouble with day-to-day activities such as bathing, preparing meals, shopping, managing finances, etc.?: No Are you currently unemployed and looking for a job?: No Are you interested in more education?: No Please select the resources that you would like help with: None Currently or been in a relationship where the following occur: No concerns reported THRIVE Score: 0 AUDIT C Alcohol Use Questionnaire (AUDIT-C) 1. How often do you have a drink containing alcohol?: Never 3. How often do you have six or more drinks on one occasion?: Never Total Score: 0 Score Reviewed/Action Taken: Yes PACHECO-7 AMB Questionnaire PACHECO-7 Date PACHECO - 7 assessed: 07/03/24 Feeling nervous, anxious, or on edge: 0 = Not at all Not being able to stop or control worryin = Not at all Worrying too much about different things: 0 = Not at all Trouble relaxin = Not at all Being so restless that it is hard to sit still: 0 = Not at all Becoming easily annoyed or irritable: 0 = Not at all Feeling afraid as if something awful might happen: 0 = Not at all Total PACHECO-7 score (0-4 normal; 5-9 mild; 10-14 moderate; 15-21 severe): 0 Source: Developed by Afia Ashby B.W. Oniel, Chris Aragon and colleagues, with an educational saida from [employer]. Review of Systems Const Denies chills, Denies fatigue, Denies fever(s) and Denies headache(s) ENT Denies dysphagia, Denies dizziness, Denies otalgia, Denies headache(s), Denies neck pain, Denies odynophagia and Denies sore throat Card Denies chest pain, Denies irregular heart rhythm, Denies palpitations and Denies dyspnea Resp Denies chest congestion, Denies cough and Denies dyspnea GI Denies abdominal pain, Denies constipation, Denies dysphagia, Denies diarrhea, Denies nausea, Denies odynophagia and Denies vomiting Details: (+) sensation of incomplete bladder emptying at times Denies urinary frequency, Denies nocturia, Denies dysuria, Denies urinary incontinence and Denies urinary urgency Musc Reports back pain (over the lower back - chronic) and Denies neck pain Skin/Breast Denies rash Neuro Denies dizziness and Denies headache(s) Endo Denies fatigue and Denies palpitations Physical exam (Primary Care) Vital Signs: Last Vital Signs Pulse 73 07/03/24 13:54 BP 120/82 07/03/24 13:54 Pulse Ox 98 07/03/24 13:54 Oxygen Delivery Method Room Air 07/03/24 13:54 BMI result Body Mass Index 22.0 Tobacco/Smoking Status: Tobacco use Status Tobacco use date assessed 07/03/24 07/03/24 13:59 Patient Tobacco Use Status Current everyday Tobacco 07/03/24 13:59 Tobacco use type Cigarette 07/03/24 13:59 e-Cigarette/Vaping Use Never Used 07/03/24 13:59 PHQ-9: PHQ-9 Score PHQ-9: Total score 0 07/03/24 13:59 Depression Screening Interpretation: Negative Thrive Assessment: Date of Thrive Assessment Date Thrive assessed 07/03/24 07/03/24 13:59 Currently or been in a relationship where the following occur: No concerns reported Const General: no acute distress and alert HENMT Throat: Yes posterior oropharynx normal and Yes tonsils normal (no TP conge stion) Neck Neck: Yes no lymphadenopathy and Yes supple Thyroid: Thyroid normal Resp Auscultation: clear to auscultation bilaterally, no rales and no wheezes Cardio Rate: regular rate Rhythm: regular rhythm Heart sounds: no murmurs GI Palpation (GI): Soft to palpation and nontender Auscultation: normal bowel sounds General: Yes no CVA tenderness Back/Spine/Pelvis Back: no CVA tenderness Thoracic/Lumbar Spine: lumbar spinal tenderness Skin Rashes: no rashes Extrem General: Yes no clubbing, cyanosis or edema Coding Level of Care Code Est Pt Level 3 (29124) Diagnoses 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 Additional Codes PHQ-9 - 52621 - PHQ-9 Billing: Yes ([id number]) Assessment & Plan Assessment & Plan (1) Vocal cord nodule: Code(s): J38.2 - Nodules of vocal cords Category: Medical Plan: Per anesthesia report from a few days ago, a mass/nodule (?) was visualized by anesthesiologist at the anterior part of the left vocal cord during intubation while prepping patient for surgery a few days ago and patient was advised to seek urgent ENT consultation regarding this Will refer her to ENT for urgent evaluation and management - she will likely need to have the vocal cord lesion biopsied Plan Follow up as scheduled in September 2024 Orders: Referrals Ear/Nose/Throat Referral J38.2 - Nodules of vocal cords
== END 2024-07-03 14:13 | disposition home or self-care (01) ==
PROVIDERS: PCP Internal Medicine; Visit Provider Internal Medicine
DX: J38.2 Nodules of vocal cords (principal)

== ENCOUNTER 2024-07-21 11:44 | Outpatient (AMB) | payer OTHER, SELFPAY ==
[2024-07-21 11:55] VITALS: BMI 22.0
--- NOTE | 2024-07-21 11:55 | MHC.OFFVIS ---
Vital Signs 07/21/24 11:55 Height 5 ft 5 in Weight 132 lb BMI 22.0 Intake Visit Reasons: post op Allergies Sulfa (Sulfonamide Antibiotics) Allergy (Intermediate, Verified 07/03/24 14:15) Hives, itching trimethoprim [From Bactrim] Allergy (Intermediate, Verified 07/03/24 14:15) Hives HPI Comments Details: The patient is presenting post hysteroscopy D&C no complaints minimal vaginal bleeding no feverishness chills or abdominal pain. The pathology showed the following: Endometrium, curettage: Scant strips of benign atrophic endometrium and rare benign endocervical glandular and squamous epithelium; no atypia or carcinoma PFSH Medical History PMB (postmenopausal bleeding) Nicotine dependence, cigarettes, uncomplicated Osteopenia Vitamin D deficiency Pure hypercholesterolemia Benign essential hypertension Chronic, continuous use of opioids Tenosynovitis of thumb Chronic low back pain Cyclical vomiting Surgical History H/O mastoidectomy History of tonsillectomy History of selective injection of anesthetic agent around lumbar nerve root History of colonoscopy (~2020) History of breast surgery Hx of shoulder surgery Hx of right knee surgery S/P laparoscopic cholecystectomy (~2009) History of appendectomy Family History Maternal Uncle Diabetes Father No problems noted. Mother No problems noted. Social History Housing: House Are you a primary critical care nurse practitioner to a significant other at home: No Do you presently have visiting nurse or other home services: No Alcohol intake: former Patient Tobacco Use Status: Current everyday Tobacco user Tobacco use type: Cigarette Cigarettes Per Day: 4 Years Smoked: 47 e-Cigarette/Vaping Use: Never Used Second Hand Smoke Exposure: Yes service: No Current occupational status: retired and disabled Cognitive needs: No Hearing needs: No Vision needs: Yes Female Reproductive History Menstrual Age of Menarche: 14 Review of Systems Const All systems reviewed & are unremarkable except as noted in HPI and below Reports as per HPI and Reports no additional complaints GI Reports no additional complaints Reports no additional complaints Physical Exam Vital Signs: BMI result Body Mass Index 22.0 Assessment & Plan Assessment & Plan (1) PMB (postmenopausal bleeding): Code(s): N95.0 - Postmenopausal bleeding Category: Medical Plan: Discussed with the patient the results of the pathology. Discussed with the patient the sensitivity, specificity, positive and negative predictive value, of endometrial biopsy in detecting endometrial pathology including but not limited to endometrial hyperplasia, cancer and other pathology; instructed the patient to call in case vaginal bleeding bleeding recurs, the next step will be to proceed with further endometrial sampling evaluation to rule out endometrial pathology. All questions answered and the patient verbalized understanding and agreed with the plan. Coding Level of Care Code Est Pt Level 3 (27069) Diagnoses PMB (postmenopausal bleeding) N95.0
== END 2024-07-21 13:14 | disposition home or self-care (01) ==
LOC: HO.HWS 11:44
PROVIDERS: PCP Internal Medicine; Visit Provider Obstetrics & Gynecology
DX: N95.0 Postmenopausal bleeding (principal)
CPT/HCPCS: 99213

== ENCOUNTER → 2024-07-21 11:44 | Outpatient (BNVA) | payer OTHER, SELFPAY | PROVIDERS: PCP Internal Medicine; Visit Provider Obstetrics & Gynecology | DX: N95.0 Postmenopausal bleeding (principal) | CPT/HCPCS: 99212 ==

== ENCOUNTER 2024-07-27 15:08 | Outpatient (REF) | payer OTHER, SELFPAY ==
--- NOTE | ~2024-07-27 | CT_ITS ---
CLINICAL HISTORY: F17.210 - Nicotine dependence, cigarettes, uncomplicated CT lung cancer screening (LDCT) Comparison: None Technique: Axial CT images of the chest using low-dose technique. Referring provider counseled the patient on shared decision-making for LDCT screening. Additional counseling was provided on smoking cessation. Effective radiation dose total: DLP 26.7 mGycm, CTDIvol 0.8 mGy. Findings: Lung screening specific: There are a few scattered micro nodules, for example right middle lobe axial 313 and sagittal 75. Part ground-glass nodule, anterior right lower lobe on axial 286 measuring up to 4 mm. Pulmonary incidentals: Nodular biapical pleural thickening. Mild centrilobular emphysema. Scattered faint ground-glass density for example left upper lobe 159. Mild airway thickening. Non pulmonary incidentals: Coronary artery calcifications: Minimal Mild atherosclerotic disease of the aorta. Limited upper abdomen: Cholecystectomy clips Other: None Impression: LungRADS 2 - Benign Appearance: Continue annual screening with low dose Chest CT in 12 months. ##L2# Category 1: Normal; continue annual screening Category 2: Benign appearance or behavior, continue annual screening Category 3: Probably benign, [address] recommended Category 4A: Suspicious, [address] recommended; may consider PET/CT Category 4B: Suspicious, Additional diagnostics and/or tissue sampling recommended Category 4X: Suspicious, Additional diagnostics and/or tissue sampling recommended Category 0: Recalls (incomplete screen due to Incomplete coverage, Noise, Respiratory motion, Expiration, Obscured by acute abnormality) This document has been electronically signed by: Speedy Lam MD on 07/28/2024 12:49:54
== END 2024-07-27 15:09 | disposition home or self-care (01) ==
LOC: HO.CT 15:08
PROVIDERS: PCP Internal Medicine; Visit Provider Physician Assistant Medical
DX: Z12.2 Encounter for screening for malignant neoplasm of respiratory organs (principal); F17.210 Nicotine dependence, cigarettes, uncomplicated
CPT/HCPCS: 71271

== ENCOUNTER → 2024-07-27 15:13 | Outpatient (BNV) | payer OTHER, SELFPAY | PROVIDERS: PCP Internal Medicine; Visit Provider Radiology Vascular & Interventional Radiology | DX: F17.210 Nicotine dependence, cigarettes, uncomplicated (principal) | CPT/HCPCS: 71271 ==

== ENCOUNTER 2024-08-07 11:10 | Outpatient (AMB) | payer OTHER, SELFPAY ==
--- NOTE | 2024-08-07 11:18 | MHC.OFFVIS ---
Vital Signs 08/07/24 11:30 Height 5 ft 5 in Weight 132 lb BMI 22.0 BP 155/79 H Blood Pressure Location Rt brachial Position Sitting Pulse 84 Pulse Source Pulse Oximeter Pulse Oximetry (%) 96 Oxygen Delivery Method Room Air Intake Visit Reasons: Pill Count Intake Note: Priya comes in today for a pill count to oxycodone-acetaminophen, patient should have 52 tablets and presents with 55 tablets which she last took today 08/07/24 at 8am. Pain today 2/10 Patient resigned opioid contract in office today, copy of signed contract was provided to patient. Director Family Required: No Accompanied by: Self / Same As Patient Allergies Sulfa (Sulfonamide Antibiotics) Allergy (Intermediate, Verified 08/07/24 11:31) Hives, itching trimethoprim [From Bactrim] Allergy (Intermediate, Verified 08/07/24 11:31) Hives HPI Comments Details: Priya presents back to the office today for follow up chronic pain and chronic opioid therapy management. Patient is prescribed oxycodone acetaminophen 7.5-325mg, take 1 tablet four times daily. Patient arrived today with the expectation of having 52 pills, she presented 55 pills which were counted in the presence of two staff members and returned to the patient in the original prescription bottle. This demonstrates responsible attitude toward patient's opioid medications. Pain is reported today as 2/10 and last dose of pain medication was taken this morning at 8am. Pain is adequately managed on current opioid regimen. Denies side effects including somnolence, constipation, itching, dyspnea, rash, dizziness or weakness. [facility] Medical History PMB (postmenopausal bleeding) Nicotine dependence, cigarettes, uncomplicated Osteopenia Vitamin D deficiency Pure hypercholesterolemia Benign essential hypertension Chronic, continuous use of opioids Tenosynovitis of thumb Chronic low back pain Cyclical vomiting Surgical History H/O mastoidectomy History of tonsillectomy History of selective injection of anesthetic agent around lumbar nerve root History of colonoscopy (~2020) History of breast surgery Hx of shoulder surgery Hx of right knee surgery S/P laparoscopic cholecystectomy (~2009) History of appendectomy Family History Maternal Uncle Diabetes Father No problems noted. Mother No problems noted. Social History Housing: House Are you a primary health care marketing specialist to a significant other at home: No Do you presently have visiting nurse or other home services: No Alcohol intake: former Patient Tobacco Use Status: Current everyday Tobacco user Tobacco use type: Cigarette Cigarettes Per Day: 4 Years Smoked: 47 e-Cigarette/Vaping Use: Never Used Second Hand Smoke Exposure: Yes service: No Current occupational status: retired and disabled Cognitive needs: No Hearing needs: No Vision needs: Yes Female Reproductive History Menstrual Age of Menarche: 14 Review of Systems Const All systems reviewed & are unremarkable except as noted in HPI and below Physical Exam Vital Signs: Last Vital Signs Pulse 84 08/07/24 11:30 BP 155/79 H 08/07/24 11:30 Pulse Ox 96 08/07/24 11:30 Oxygen Delivery Method Room Air 08/07/24 11:30 BMI result Body Mass Index 22.0 General: awake, alert, oriented. Answers questions appropriately. Fully engaged in examination. HEENT: Normocephalic. Hearing intact. Cardiac: External chest normal in appearance. Respiratory: No cough, audible wheezing or stridor. Abdomen: without gross distension. MS: No obvious swelling or deformities. Able to transition from sit to stand unassisted. Ambulates with bilaterally normal heel strike and toe off Neurological: Oriented to person, place, time and situation. Thought process intact. No gait abnormalities appreciated. Psychiatric: Appropriate mood and affect. Good judgment and insight. Results Reviewed Results Reviewed: 10/2023 Right hip XR IMPRESSION: 1. Mild degenerative changes in the right hip. 2. Moderate degenerative changes right sacroiliac joint. 08/22/22 MM/XR DEXA axial skeleton IMPRESSION: Osteopenia based on the lowest T-score value of -2.1 in the lumbar spine and femoral neck applying World Health Organization criteria. Assessment & Plan Assessment & Plan (1) Right hip pain: Code(s): M25.551 - Pain in right hip Category: Medical (2) Myofascial pain: Code(s): M79.18 - Myalgia, other site Category: Medical (3) Chronic low back pain: Code(s): M54.5 - Low back pain; G89.29 - Other chronic pain Category: Medical Qualifiers: Back pain laterality: midline Sciatica presence: unspecified whether sciatica present Qualified Code(s): M54.5 - Low back pain; G89.29 - Other chronic pain (4) Spondylosis of lumbar region without myelopathy or radiculopathy: Code(s): M47.816 - Spondylosis without myelopathy or radiculopathy, lumbar region Category: Medical (5) Sacroiliac joint pain: Code(s): M53.3 - Sacrococcygeal disorders, not elsewhere classified Category: Medical (6) Chronic, continuous use of opioids: Code(s): F11.90 - Opioid use, unspecified, uncomplicated Category: Medical (7) Dental abscess: Code(s): K04.7 - Periapical abscess without sinus Category: Medical Plan [place] was reviewed and without concerns. No obvious signs of diversion, abuse or misuse of the opioid medications. Will send in prescription for oxycodone/acetaminophen 7.5-325 mg QID with an advanced date of 08/20/24 Patient to follow-up in the office in 1 month, sooner if needed. All questions and concerns have been answered and patient agrees with the plan. Medications: Refilled oxycodone-acetaminophen 7.5-325 mg Partial Fill upon patient request. 1 tab PO QID PRN 120 tabs 0RF pain, severe 30 days G89.29 - Other chronic pain, M47.816 - Spondylosis without myelopathy or radiculopathy, lumbar region, M53.3 - Sacrococcygeal disorders, not elsewhere classified, M54.5 - Low back pain Coding Level of Care Code Est Pt Level 4 (18601) Complex EM visit Add On G2211 Diagnoses Right hip pain M25.551 Myofascial pain M79.18 Chronic midline low back pain, unspecified whether sciatica present M54.5; G89.29 Back pain laterality: midline Sciatica presence: unspecified whether sciatica present Spondylosis of lumbar region without myelopathy or radiculopathy M47.816 Sacroiliac joint pain M53.3 Chronic, continuous use of opioids F1 Dental abscess K04.7
[2024-08-07 11:30] VITALS: BP 155/79; PULSE 84; O2SAT 96; BMI 22.0
--- OUTSIDE RECORDS SUMMARY | 2024-08-07 13:17 | XMS_ITS | Clinical Summary ---
Author Organization [facility] [address] [facility] Address [address] [place] [address] Phone Care Team Providers Care Tab Cutting Machine Operator Name Role Phone Charly Carrillo MD Primary Care Provider [phone] Allergies Active Allergy Reactions Criticality Noted Date Comments Other 10/09/2006 Bactrim [Na Eidexeia-igqlaljxavotgkbw-uhrjbjedbbw m] Medications Medication Sig Dispensed Refills Start Date End Date Status calcium carbonate (CALCIUM 500 ORAL) Take by mouth daily. 2 caps daily Active cholecalciferol, vitamin D3, (DIALYVITE VITAMIN D ORAL) Cholecalciferol (VITAMIN D OR) Take by mouth. Active phenylephrine/marry taminophn/cpm (FLONASE HEADACHE-ALLERGY RLF ORAL) Fluticasone Propionate (FLONASE ) by route. Active gabapentin (NEURONTIN) 300 mg capsule Take 300 mg by mouth 3 times daily. Active MULTIVITAMIN ORAL Take by mouth. Act jerzy nortriptyline (PAMELOR) 50 mg capsule Take 50 mg by mouth at bedtime. Rx'd by GI Specialist for Gastroparesis 01/11/2014 Active ondansetron (ZOFRAN) 8 mg tablet Take 8 mg by mouth every 8 hours as needed. Active oxyCODONE-acetami nophen (PERCOCET) 7.5-325 mg per tablet Take 1 tablet by mouth every 6 hours. Prn Active pravastatin sodium (PRAVASTATIN ORAL) PRAVASTATIN SODIUM OR Take by mouth daily. Active amLODIPine (NORVASC) 2.5 mg tablet Take 1 tablet (2.5 mg total) by mouth 1 (one) time each day. for 90 days 06/20/2024 Active cyclobenzaprine (FLEXERIL) 10 mg tablet take 1 tablet by mouth 2 times a day as needed for muscle spasm 05/19/2024 Active sucralfate (CARAFATE) 1 gram tablet Take by mouth 4 (four) times a day. Active sucralfate (CARAFATE) 1 gram tabletIndications :Gastroesophageal reflux disease without esophagitis Take 1 tablet (1 g total) by mouth 4 (four) times a day. Take 1 hour before meals and at bedtime 120 each 11 07/30/2024 07/30/2025 Active nortriptyline (Pamelor) 75 mg capsuleIndication s:Cyclical vomiting syndrome Take 1 capsule (75 mg total) by mouth at bedtime. 90 each 3 07/30/2024 07/30/2025 Active Active Problems Problem Noted Date Diagnosed Date Cyclical vomiting syndrome 07/30/2024 Assessment & Plan (07/30/2024 4:09 PM EST): Orders: nortriptyline (Pamelor) 75 mg capsule; Take 1 capsule (75 mg total) by mouth at bedtime. Gastroesophageal reflux disease without esophagi tis 07/30/2024 Assessment & Plan (07/30/2024 4:09 PM EST): Orders: sucralfate (CARAFATE) 1 gram tablet; Take 1 tablet (1 g total) by mouth 4 (four) times a day. Take 1 hour before meals and at bedtime Adenomatous polyp of colon 07/30/2024 Family history of polyps in the colon 07/30/2024 HTN (hypertension) 07/30/2024 Chronic back pain 07/30/2024 Encounters Date Type Department Care Team Description 08/03/2024 Telephone Gastroenterology - [address] [address] Saleem Butt MD 07/31/2024 Telephone Gastroenterology - [address] [phone] Bryan Quintana PA 07/30/2024 3:50 PM EST - 07/30/2024 11:59 PM EST Hospital Encounter [facility] Xray [address] [place] [phone] Projectile vomiting with nausea Discharge Disposition: Home or Self Care 07/30/2024 3:20 PM EST Office Visit Gastroenterology - 299 [facility] [address] [facility] [address] [place] [phone] Bryan Quintana PA Cyclical vomiting syndrome (Primary Dx); Gastroesophageal reflux disease without esophagitis; Projectile vomiting with nausea from Last 3 Months Immunizations Name Administration Dates Next Due Influenza trivalent, with pr eservative (Fluzone; Afluria) 6mo and older 04/20/2013,03/25/2012,04/09/2011 Surgical History Surgery Date Site/Laterality Comments KNEE ARTHROSCOPY PROCEDURE: MT ARTHROSCOPY KNEE DIAGNOSTIC W/WO SYNOVIAL BX SPX; COMMENT: right CARPAL TUNNEL RELEASE RT HAND PROCEDURE: MT NEUROPLASTY &/TRANSPOS MEDIAN NRV CARPAL TUNNE SHOULDER ARTHROSCOPY 01-02-06 PROCEDURE: MT SURGICAL ARTHROSCOPY SHOULDER W/LSS&RESCJ ADS; COMMENT: right OTHER SURGICAL HISTORY PROCEDURE: HISTORICAL MASTOIDECTOMY OTHER SURGICAL HISTORY PROCEDURE: MT UNLISTED LAPS PX HRNAP HERNIORRHAPHY HERNIOTOMY TUBAL LIGATION 2001 PROCEDURE: HISTORICAL TUBAL LIGATION TONSILLECTOMY 1978 PROCEDURE: HISTORICAL TONSILLECTOMY APPENDECTOMY 1979 PROCEDURE: MT APPENDECTOMY CHOLECYSTECTOMY COLONOSCOPY 04/14/2021 - 05/14/2021 tics, rhoids (5yr) COLONOSCOPY 01/13/2016 - 02/12/2016 int rhoids (5 yr) ESOPHAGOGASTRODUODENOSCOPY 06/14/2010 - 07/14/2010 COLONOSCOPY 11/12/2010 - 12/12/2010 mild tics (5 yr) COLONOSCOPY 01/12/2010 - 02/11/2010 TA - flat, right colon (1 YR) Medical History Medical History Date Comments Generalized anxiety disorder DX: Generalized anxiety disorder Depressive disorder, not els ewhere classified DX:Depressive disorder, not elsewhere classified Unspecified intracranial hemorrhage DX:Unspecified intracranial hemorrhage Diverticulosis of colon (wit hout mention of hemorrhage) DX:Diverticulosis of colon ( without mention of hemorrhage) Anxiety state, unspecified DX:An xiety state, unspecified Other and unspecified noninf ectious gastroenteritis and colitis(558.9) DX:Other and unspec ified noninfectious gastroenteritis and colitis(558.9); COMMENT: IBS Back injury DX:Back injury HTN (hypertension) 07/30/2024 Family History Medical History Relation Name Comments Alcohol/Drug Brother 1 alcoholism Other cancer Daughter 1 ? cervical Alcohol/Drug Father alcoholism Heart failure Maternal Grandfather Arthritis Maternal Grandmother Diabetes Maternal Grandmother Heart failure Maternal Grandmother Other: cataracts Maternal Grandmother Heart failure Mother Hypertension Mother Other cancer Paternal Grandmother skin Asthma Son 1 Relation Name Status Comments Brother 1 Brother 2 Alive Daughter 1 Daughter 2 Alive x2 Father Alive Maternal Grandfather Maternal Grandmother Mother Alive Paternal Grandfather Paternal Grandmother Son 1 Son 2 Alive x1 Social History Tobacco Use Types Packs/Day Years Used Date Smoking Tobacco: Every Day Cigarettes Smokeless Tobacco: Never Alcohol Use Standard Drinks/Week Comments Yes 0 (1 standard drink = 0.6 oz pur e alcohol) Sex and Gender Information Value Date Recorded Sex Assigned at Not on file Gender Identity Not on file Sexual Orientation Not on file Job Start Date Occupation Industry Not on file Not on file Not on file Obstetrics History Last Filed Vital Signs Vital Sign Reading Time Taken Comments Blood Pressure - - Pulse - - Temperature - - Respiratory Rate - - Oxygen Saturation - - Inhaled Oxygen Concentration - - Weight 59.9 kg (132 lb) 07/30/2024 3:23 PM EST Height 165.1 cm (5' 5 ) 07/30/2024 3:23 PM EST Body Mass Index 21.97 07/30/2024 3:23 PM EST Plan of Treatment Health Maintenance Due Date Last Done Comments Breast Cancer Screening 1962 COVID-19 Vaccine (#1) 1967 Pneumococcal Vaccine: Pediatrics (0 to 5 Years) and At-Risk Patients (6 to 64 Years) (1 of 2 - PCV) 1968 DTaP,Tdap,and Td Vaccines (1 - Tdap) 1981 Zoster Vaccines (1 of 2) 1981 Cervical Cancer Screening: P ap Smear 04/20/2016 04/20/2013, 04/20/2013 Influenza Vaccine (#1) 2024 3, 03/25/2012, 04/09/2011 Cholesterol Screening (Lipid Panel) 07/24/2024 04/09/2011 Depression Screening 07/24/2024 HIV Screening 07/24/2024 Hepatitis C Screening 07/24/2024 Lung Cancer Screening (Low Dose CT) 07/24/2024 Social Influencers of Health Screening 07/24/2024 Hypertension/CHF/CAD Annual BMP Blood Test 07/30/2024 Colorectal Cancer Screening: Colonoscopy 04/24/2031 04/24/2021 RSV Immunization Patients 60 + Years Old (1 - 1-dose 75+ series) 2037 HIB Vaccines Aged Out No longer eligi ble based on patient's age to complete this topic HPV Vaccines Aged Out No longer eligi ble based on patient's age to complete this topic Hepatitis A Vaccines Aged Out No long er eligible based on patient's age to complete this topic Hepatitis B Vaccines Aged Out No long er eligible based on patient's age to complete this topic IPV Vaccines Aged Out No longer eligi ble based on patient's age to complete this topic MMR Vaccines Aged Out No longer eligi ble based on patient's age to complete this topic Meningococcal ACWY Vaccine Aged Out N o longer eligible based on patient's age to complete this topic RSV Immunization Patients Under 20 months Aged Out No longer eligible b ased on patient's age to complete this topic Varicella Vaccines Aged Out No longer eligible based on patient's age to complete this topic Procedures Procedure Name Priority Date/Time Associated Diagnosis Comments XR ABDOMEN 1 VIEW Routine 07/30/2024 3:5 8 PM EST Projectile vomiting with nausea COLONOSCOPY Routine 04/24/2021 1:24 PM EDT HM HPV Routine 04/20/2013 LIPID PANEL Routine 04/09/2011 from Last 3 Months or Most Recently Relevant to Health Maintenance Results * XR Abdomen 1 View (07/30/2024 3:58 PM EST) Anatomical Region Laterality Modality Body Radiographic Fernanda ging 07/31/2024 12:0 0 PM EST Impressions 07/31/2024 12:01 PM EST Nonobstructive bowel gas pattern. ??There is evidence of mild constipation. Code 97557 -------- FINAL REPORT -------- Dictated By: David Brice Dictated Date: 07/31/2024 12:00 ET Assigned Physician: David Brice Reviewed and Electronically Signed By: David Brice Signed Date: 07/31/2024 12:01 ET Workstation ID: [id number] Transcribed By: Self Edit Transcribed Date: 07/31/2024 12:00 ET Narrative 07/31/2024 12:01 PM EST HISTORY: The patient is a 63-year-old female with nausea and projectile vomiting. FINDINGS: Supine radiograph of the abdomen, without previous for comparison, demonstrates surgical clips in the abdominal right upper quadrant. ??There are degenerative changes of the lumbar spine at the L4-5 level. ??The bowel gas pattern is nonobstructive. ??There is a moderate amount of fecal material in the colon from the cecum to the mid descending colon consistent with mild constipation. ??No mass or radiopaque calculus is seen. Procedure Note David Brice MD - 07/31/2024 HISTORY: The patient is a 63-year-old female with nausea and projectilevomiting. FINDINGS: Supine radiograph of the abdomen, without previous forcomparison, demonstrates surgical clips in the abdominal right upperquadrant. There are degenerative changes of the lumbar spine at the L4-5level. The bowel gas pattern is nonobstructive. There is a moderateamount of fecal material in the colon from the cecum to the mid descendingcolon consistent with mild constipation. No mass or radiopaque calculusis seen. IMPRESSION: Nonobstructive bowel gas pattern. There is evidence of mildconstipation. Code 97417 -------- FINAL REPORT -------- Dictated By: David Brice Dictated Date: 07/31/2024 12:00 ET Assigned Physician: David Brice Reviewed and Electronically Signed By: David Brice Signed Date: 07/31/2024 12:01 ET Workstation ID: [id number] Transcribed By: Self Edit Transcribed Date: 07/31/2024 12:00 ET Bryan Mariano [facility] IMG XR PROCEDURES * COLONOSCOPY (04/24/2021 1:24 PM EDT) Anatomical Region Laterality Modality Endoscopy Historical Provider GI~PROCEDURE YANIQUE BROWER * Cervical Cancer Screening: HPV (04/20/2013) Cervical Cancer Screening: HPV negative, abstracted Historical Provider MD LESLY Quijano * Lipid panel (04/09/2011) LDL/HDL Ratio 0 Comment:no interpretation, a bstracted Triglycerides 0 mg/dL Comment:no interpretation, a bstracted Cholesterol 0 mg/dL Comment:no interpretation, a bstracted HDL 0 mg/dL Comment:no interpretation, a bstracted LDL Cholesterol 0 mg/dL Comment:no interpretation, a bstracted Blood Venous blood specimen / Unknown Historical Provider LAB BLOOD ORDERAB LES from Last 3 Months or Most Recently Relevant to Health Maintenance Care Teams Tab Cutting Machine Operator Relationship Specialty Start Date End Date Charly Carrillo MD [address] [place] [address] Dr [address] [place], [place] PCP - General Internal Medicine 02/02/21
--- OUTSIDE RECORDS SUMMARY | 2024-08-07 13:17 | XMS_ITS | Encounter Summary ---
Author Organization [facility] Address [address] [place] [address] Care Team Providers Care Digital Print Operator Name Role Phone Charly Carrillo MD Primary Care Provider [phone] Encounter Details Date Type Department Care Team (Latest Contact Info) Description 07/30/2024 3:50 PM EST - 07/30/2024 11:59 PM EST Hospital Encounter [facility] Xray [address] [place] [address] Projectile vomiting with nausea Discharge Disposition: Home or Self Care Social History Tobacco Use Types Packs/Day Years [...] file Not on file Not on file documented as of this encounter Medications at Time of Discharge Medication Sig Dispensed Refills Start Date End Date amLODIPine (NORVASC) 2.5 mg tablet Take 1 tablet (2.5 mg total) by mouth 1 (one) time each day. for 90 days 06/20/2024 calcium carbonate (CALCIUM 500 ORAL) Take by mouth daily. 2 caps daily cholecalciferol, vitamin D3, (DIALYVITE VITAMIN D ORAL) Cholecalciferol (VITAMIN D OR) Take by mouth. cyclobenzaprine (FLEXERIL) 10 mg tablet take 1 tablet by mouth 2 times a day as needed for muscle spasm 05/19/2024 gabapentin (NEURONTIN) 300 mg capsule Take 300 mg by mouth 3 times daily. MULTIVITAMIN ORAL Take by mouth. nortriptyline (PAMELOR) 50 mg capsule Take 50 mg by mouth at bedtime. Rx'd by GI Specialist for Gastroparesis 01/11/2014 nortriptyline (Pamelor) 75 mg capsuleIndications:C yclical vomiting syndrome Take 1 capsule (75 mg total) by mouth at bedtime. 90 each 3 07/30/2024 07/30/2025 ondansetron (ZOFRAN) 8 mg tablet Take 8 mg by mouth every 8 hours as needed. oxyCODONE-acetaminop hen (PERCOCET) 7.5-325 mg per tablet Take 1 tablet by mouth every 6 hours. Prn phenylephrine/acetam inophn/cpm (FLONASE HEADACHE-ALLERGY RLF ORAL) Fluticasone Propionate (FLONASE ) by route. pravastatin sodium (PRAVASTATIN ORAL) PRAVASTATIN SODIUM OR Take by mouth daily. sucralfate (CARAFATE) 1 gram tablet Take by mouth 4 (four) times a day. sucralfate (CARAFATE) 1 gram tabletIndications:Ga stroesophageal reflux disease without esophagitis Take 1 tablet (1 g total) by mouth 4 (four) times a day. Take 1 hour before meals and at bedtime 120 each 11 07/30/2024 07/30/2025 documented as of this encounter Discharge Disposition Disposition Code Departure Means Destination Home or Self Care documented in this encounter Plan of Treatment Not on file documented as of this encounter Procedures Procedure Name Priority Date/Time Associated Diagnosis Comments XR ABDOMEN 1 VIEW Routine 07/30/2024 3:5 8 PM EST Projectile vomiting with nausea documented in this encounter Results * XR Abdomen 1 View (07/30/2024 3:58 PM EST) Anatomical Region Laterality Modality Body Radiographic Fernanda ging 07/31/2024 12:0 0 PM EST Impressions 07/31/2024 12:01 PM EST Nonobstructive bowel gas pattern. ??There is evidence of mild constipation. Code 48135 -------- FINAL REPORT -------- Dictated By: David Brice Dictated Date: 07/31/2024 12:00 ET Assigned Physician: David Brice Reviewed and Electronically Signed By: David Brice Signed Date: 07/31/2024 12:01 ET Workstation ID: [id number] Transcribed By: Self Edit Transcribed Date: 07/31/2024 [...] pattern. There is evidence of mildconstipation. Code 73838 -------- FINAL REPORT -------- Dictated By: David Brice Dictated Date: 07/31/2024 12:00 ET Assigned Physician: David Brice Reviewed and Electronically Signed By: David Brice Signed Date: 07/31/2024 12:01 ET Workstation ID: [id number] Transcribed By: Self Edit Transcribed Date: 07/31/2024 12:00 ET Liborioa Mariano [facility] IMG XR PROCEDURES documented in this encounter Visit Diagnoses Diagnosis Projectile vomiting with nausea documented in this encounter Care Teams Digital Print Operator Relationship Specialty Start Date End Date Charly Carrillo MD [address] [place] [address] Dr [address] [place] PCP - General Internal Medicine 02/02/21 documented as of this encounter
--- OUTSIDE RECORDS SUMMARY | 2024-08-07 13:17 | XMS_ITS | Encounter Summary ---
Author Organization [facility] Address [address] [place] [address] Care Team Providers Care Digital Specialist Name Role Phone Charly Carrillo MD Primary Care Provider [phone] Reason for Visit * Reason Comments Follow-up Encounter Details Date Type Department Care Team ([facility] st Contact Info) Description 07/30/2024 3:20 PM EST Office Visit Gastroenterology - [address] [place] [address] Bryan Quintana PA [address] [place] [address] Cyclical vomiting syndrome (Primary Dx); Gastroesophageal reflux disease without esophagitis; Projectile vomiting with nausea Social History Tobacco Use Types Packs/Day Years [...] on file documented as of this encounter Last Filed Vital Signs Vital Sign Reading Time Taken Comments Blood Pressure - - Pulse - - Temperature - - Respiratory Rate - - Oxygen Saturation - - Inhaled Oxygen Concentration - - Weight 59.9 kg (132 lb) 07/30/2024 3:23 PM EST Height 165.1 cm (5' 5 ) 07/30/2024 3:23 PM EST Body Mass Index 21.97 07/30/2024 3:23 PM EST documented in this encounter Ordered Prescriptions Prescription Sig Dispensed Refills Start Date End Da te nortriptyline (Pamelor) 75 mg capsuleIndications:Cyclic al vomiting syndrome Take 1 capsule (75 mg total) by mouth at bedtime. 90 each 3 07/30/2024 07/30/2025 sucralfate (CARAFATE) 1 gram tabletIndications:Gastroe sophageal reflux disease without esophagitis Take 1 tablet (1 g total) by mouth 4 (four) times a day. Take 1 hour before meals and at bedtime 120 each 07/30/2024 07/30/2025 documented in this encounter Progress Notes * CHIRAG Phipps - 07/30/2024 3:20 PM ESTAssociated Problem(s): Cyclical vomiting syndrome Orders: nortriptyline (Pamelor) 75 mg capsule; Take 1 capsule (75 mg total) by mouth at bedtime. * CHIRAG Phipps - 07/30/2024 3:20 PM ESTAssociated Problem(s): Gastroesophageal reflux disease without esophagitis Orders: sucralfate (CARAFATE) 1 gram tablet; Take 1 tablet (1 g total) by mouth 4 (four) times a day. Take 1 hour before meals and at bedtime * CHIRAG Phipps - 07/30/2024 3:20 PM EST Subjective Last Colononscopy/EGD: Colon 05/04 - tics, rhoids (5 yr) HPI: Priya Cardenas is a 63 y.o. old female who presents to the gastroenterology department today for a recent episode of nausea and vomiting. She developed significant abdominal cramping 10 minutesafter eating marroquin eggs and toast for dinner on July 17. She had a normal bowel movement and then started to profusely vomit. She had nausea and vomiting for over 24 hours anytime she tried to drink anything. There was no dry heaving and she was vomiting up green liquid. She had no abdominal painfevers or chills and she never had diarrhea. She does not feel constipated. There were no sick contacts. She lost 8 pounds in that timeframe and has regained 5 of it already. She typically has 1 bowel movement a day although she does have some incomplete evacuation and she wonders about constipation. She has not vomited since early July 19. She never had any melena or rectal bleeding. This vomiting felt very different to her than her typical cyclical vomiting syndrome type episodes where she mostly has a lot of cramping and dry heaving. Review of Systems Constitutional: Negative. Respiratory: Negative. Cardiovascular: Negative. Gastrointestinal: Positive for nausea and vomiting. Genitourinary: Negative. PROBLEM LIST: Patient Active Problem List Diagnosis Cyclical vomiting syndrome Gastroesophageal reflux disease without esophagitis PAST MEDICAL HISTORY: Past Medical History: Diagnosis Date Anxiety state, unspecified DX:Anxiety state, unspecified Back injury DX:Back injury Depressive disorder, not elsewhere classified DX:Depressive disorder, not elsewhere classified Diverticulosis of colon (without mention of hemorrhage) DX:Diverticulosis of colon (without mention of hemorrhage) Generalized anxiety disorder DX:Generalized anxiety disorder Other and unspecified noninfectious gastroenteritis and colitis(558.9) DX:Other and unspecified noninfectious gastroenteritis and colitis(558.9); COMMENT: IBS Unspecified intracranial hemorrhage DX:Unspecified intracranial hemorrhage PAST SURGICAL HISTORY: Past Surgical History: Procedure Laterality Date APPENDECTOMY 1979 PROCEDURE: TN APPENDECTOMY CARPAL TUNNEL RELEASE RT HAND PROCEDURE: TN NEUROPLASTY &/TRANSPOS MEDIAN NRV CARPAL TUNNE KNEE ARTHROSCOPY PROCEDURE: TN ARTHROSCOPY KNEE DIAGNOSTIC W/WO SYNOVIAL BX SPX; COMMENT: right OTHER SURGICAL HISTORY PROCEDURE: HISTORICAL MASTOIDECTOMY OTHER SURGICAL HISTORY PROCEDURE: TN UNLISTED LAPS PX HRNAP HERNIORRHAPHY HERNIOTOMY SHOULDER ARTHROSCOPY 01-02-06 PROCEDURE: TN SURGICAL ARTHROSCOPY SHOULDER W/LSS&RESCJ ADS; COMMENT: right TONSILLECTOMY 1978 PROCEDURE: HISTORICAL TONSILLECTOMY TUBAL LIGATION 2001 PROCEDURE: HISTORICAL TUBAL LIGATION SOCIAL HISTORY: Social History Tobacco Use Smoking status: Every Day Current packs/day: 1.00 Types: Cigarettes Smokeless tobacco: Never Substance Use Topics Alcohol use: Yes FAMILY HISTORY: Family History Problem Relation Name Age of Onset Heart failure Mother Hypertension Mother Alcohol/Drug Father alcoholism Alcohol/Drug Brother alcoholism Heart failure Maternal Grandmother Diabetes Maternal Grandmother Other (Other: cataracts) Maternal Grandmother Arthritis Maternal Grandmother Heart failure Maternal Grandfather Other cancer Paternal Grandmother skin Other cancer Daughter ? cervical Asthma Son ACTIVE MEDICATIONS: Current Outpatient Medications Medication Sig Dispense Refill amLODIPine (NORVASC) 2.5 mg tablet Take 1 tablet (2.5 mg total) by mouth 1 (one) time each day. for90 days calcium carbonate (CALCIUM 500 ORAL) Take by mouth daily. 2 caps daily cholecalciferol, vitamin D3, (DIALYVITE VITAMIN D ORAL) Cholecalciferol (VITAMIN D OR) Take by mouth. cyclobenzaprine (FLEXERIL) 10 mg tablet take 1 tablet by mouth 2 times a day as needed for muscle spasm nortriptyline (PAMELOR) 50 mg capsule Take 50 mg by mouth at bedtime. Rx'd by GI Specialist for Gastroparesis ondansetron (ZOFRAN) 8 mg tablet Take 8 mg by mouth every 8 hours as needed. oxyCODONE-acetaminophen (PERCOCET) 7.5-325 mg per tablet Take 1 tablet by mouth every 6 hours. Prn phenylephrine/acetaminophn/cpm (FLONASE HEADACHE-ALLERGY RLF ORAL) Fluticasone Propionate (FLONASE) by route. sucralfate (CARAFATE) 1 gram tablet Take by mouth 4 (four) times a day. gabapentin (NEURONTIN) 300 mg capsule Take 300 mg by mouth 3 times daily. (Patient not taking: Reported on 07/30/2024) MULTIVITAMIN ORAL Take by mouth. (Patient not taking: Reported on 07/30/2024) nortriptyline (Pamelor) 75 mg capsule Take 1 capsule (75 mg total) by mouth at bedtime. 90 each 3 pravastatin sodium (PRAVASTATIN ORAL) PRAVASTATIN SODIUM OR Take by mouth daily. (Patient not taking: Reported on 07/30/2024) sucralfate (CARAFATE) 1 gram tablet Take 1 tablet (1 g total) by mouth 4 (four) times a day. Take 1hour before meals and at bedtime 120 each 11 No current facility-administered medications for this visit. ALLERGIES: Allergies Allergen Reactions Other Bactrim [Na Xivuslwu-mqzvxzkjwtezmfmz-gvtqaskmbkbr] Physical Exam Constitutional: Appearance: Normal appearance. HENT: Head: Normocephalic. Cardiovascular: Rate and Rhythm: Normal rate and regular rhythm. Pulmonary: Effort: Pulmonary effort is normal. Breath sounds: Normal breath sounds. Abdominal: General: There is no distension. Palpations: Abdomen is soft. There is no mass. Tenderness: There is no abdominal tenderness. There is no guarding or rebound. Comments: Diminished bowel sounds Skin: General: Skin is warm. Neurological: Mental Status: She is alert and oriented to person, place, and time. Psychiatric: Mood and Affect: Mood normal. Behavior: Behavior normal. IMPRESSION: 1. Cyclical vomiting syndrome 2. Gastroesophageal reflux disease without esophagitis 3. Projectile vomiting with nausea Assessment/Plan Assessment & Plan Cyclical vomiting syndrome Orders: nortriptyline (Pamelor) 75 mg capsule; Take 1 capsule (75 mg total) by mouth at bedtime. Gastroesophageal reflux disease without esophagitis Orders: sucralfate (CARAFATE) 1 gram tablet; Take 1 tablet (1 g total) by mouth 4 (four) times a day. Take 1 hour before meals and at bedtime Projectile vomiting with nausea Orders: XR Abdomen 1 View; Future CVS is stable with nortriptyline 75 mg qhs Recent N/V very different than CVS episodes. Suspect viral. KUB ordered, rule out severe constipation, partial sob. GERD stable with sucralfate prn. Follow up in about 1 year (around 07/30/2025). CHIRAG Phipps 3:44 PM EST documented in this encounter Plan of Treatment Not on file documented as of this encounter Results * XR Abdomen 1 View (07/30/2024 3:58 PM EST) Anatomical Region Laterality Modality Body Radiographic Fernanda ging 07/31/2024 12:0 0 PM EST Impressions 07/31/2024 12:01 PM EST Nonobstructive bowel gas pattern. ??There is evidence of mild constipation. Code 00378 -------- FINAL REPORT -------- Dictated By: David Brice Dictated Date: 07/31/2024 12:00 ET Assigned Physician: David Brice Reviewed and Electronically Signed By: David Brice Signed Date: 07/31/2024 12:01 ET Workstation ID: [id number] Transcribed By: Self Edit Transcribed Date: 07/31/2024 [...] pattern. There is evidence of mildconstipation. Code 00472 -------- FINAL REPORT -------- Dictated By: David Brice Dictated Date: 07/31/2024 12:00 ET Assigned Physician: David Brice Reviewed and Electronically Signed By: David Brice Signed Date: 07/31/2024 12:01 ET Workstation ID: [id number] Transcribed By: Self Edit Transcribed Date: 07/31/2024 12:00 ET Bryan BEARD IMG XR PROCEDURES documented in this encounter Visit Diagnoses Diagnosis Cyclical vomiting syndrome- Primary Persistent vomiting Gastroesophageal reflux disease without esophagitis Esophageal reflux Projectile vomiting with nausea Projectile vomiting with nausea documented in this encounter Historical Medications * This list may reflect changes made after this encounter. Medication Sig Dispensed Refills Start Date End Date sucralfate (CARAFATE) 1 gram tablet Take by mouth 4 (four) times a day. cyclobenzaprine (FLEXERIL) 10 mg tablet take 1 tablet by mouth 2 times a day as needed for muscle spasm 05/19/2024 amLODIPine (NORVASC) 2.5 mg tablet Take 1 tablet (2.5 mg total) by mouth 1 (one) time each day. for 90 days 06/20/2024 added in this encounter Care Teams Digital Specialist Relationship Specialty Start Date End Date Charly Carrillo MD [address] [place] [address] [address] [place], [place] PCP - General Internal Medicine 02/02/21 documented as of this encounter
--- OUTSIDE RECORDS SUMMARY | 2024-08-07 13:17 | XMS_ITS | Encounter Summary ---
Author Organization [facility] Address [address] [place] [address] Care Team Providers Care Manager Fitness Name Role Phone Charly Carrillo MD Primary Care Provider + [phone] Encounter Details Date Type Department Care Team ([facility] st Contact Info) Description 07/31/2024 Telephone Gastroenterology - [address] [facility] [address] [place] [phone] Bryan Quintana PA [address] [facility] [address] [address] [place] [address] Social History Tobacco Use Types Packs/Day Years [...] on file documented as of this encounter Progress Notes * CHIRAG Phipps - 07/31/2024 12:46 PM EST Left pt message that KUB noted mild constipation. Moderate amount of stool throughout colon. Try 4 tbl of MOM or bottle of magnesium citrate for a clean out. Try using Miralax at least once a week toprevent stool from backing up. documented in this encounter Plan of Treatment Not on file documented as of this encounter Visit Diagnoses Not on filedocumented in this encounter Care Teams Manager Fitness Relationship Specialty Start Date End Date Charly Carrillo MD [address] [place] PCP - General Internal Medicine 02/02/21 documented as of this encounter
--- OUTSIDE RECORDS SUMMARY | 2024-08-07 13:17 | XMS_ITS | Encounter Summary ---
Author Organization [facility] Address [address] [place] [address] Care Team Providers Care Security Advisor Name Role Phone Charly Carrillo MD Primary Care Provider [phone] Encounter Details Date Type Department Care Team ([facility] Contact Info) Description 08/03/2024 Telephone Gastroenterology - [address] [phone] Saleem Butt MD [address] [facility] [address] [place] [address] Social History Tobacco Use Types Packs/Day Years [...] encounter Progress Notes * CHIRAG Phipps - 08/03/2024 3:54 PM EST Spoke with pt. She tried mag citrate and vomited after 2 sips. Took 4 tbl MOM yesterday and just a regular BM today. Try 4tbl MOM again today. If no clean out , can get 4.3oz miralax bottle, add entire thing to 64 oz juice, lemonade, etc and drink it like colonoscopy prep. Take 2 senna before the drink. She will call if one of these do not work. * Sujata Bang - 08/03/2024 11:58 AM EST 08 PT STATES ADVICE YOU LEFT FOR HER SATURDAY IS NOT WORKING OUT, WOULD LIKE A CALL BACK documented in this encounter Plan of Treatment Not on file documented as of this encounter Visit Diagnoses Not on filedocumented in this encounter Care Teams Security Advisor Relationship Specialty Start Date End Date Charly Carrillo MD [address] [place] [address] [address] [place] PCP - General Internal Medicine 02/02/21 documented as of this encounter
== END 2024-08-07 11:50 | disposition home or self-care (01) ==
PROVIDERS: PCP Internal Medicine; Visit Provider Registered Nurse Emergency
DX: G89.29 Other chronic pain (principal); M25.551 Pain in right hip; M79.18 Myalgia, other site; Z79.891 Long term (current) use of opiate analgesic; M54.50 Low back pain, unspecified; M47.816 Spondylosis without myelopathy or radiculopathy, lumbar region; M53.3 Sacrococcygeal disorders, not elsewhere classified; K04.7 Periapical abscess without sinus
CPT/HCPCS: 99214; G2211

== ENCOUNTER → 2024-08-07 11:10 | Outpatient (BNVA) | payer OTHER, SELFPAY | PROVIDERS: PCP Internal Medicine; Visit Provider Registered Nurse Emergency | DX: Z51.81 Encounter for therapeutic drug level monitoring (principal); F11.20 Opioid dependence, uncomplicated; M25.551 Pain in right hip; M79.18 Myalgia, other site; M47.816 Spondylosis without myelopathy or radiculopathy, lumbar region; M53.3 Sacrococcygeal disorders, not elsewhere classified; M54.59 Other low back pain; K04.7 Periapical abscess without sinus; G89.29 Other chronic pain | CPT/HCPCS: 99212 ==

== ENCOUNTER 2024-08-25 12:54 | Outpatient (REF) | payer OTHER, SELFPAY ==
--- OUTSIDE RECORDS SUMMARY | 2024-08-25 14:54 | XMS_ITS | Encounter Summary ---
Author Organization [facility] Address [address] [place] [address] Care Team Providers Care Curtain Stretcher Assembler Name Role Phone Charly Carrillo MD Primary Care Provider + [phone] Encounter Details Date Type Department Care Team ([facility] st Contact Info) Description 07/31/2024 Telephone Gastroenterology - [address] [facility] [address] [place] [phone] Bryan Quintana PA [address] [facility] [address] [place] [address] Social History Tobacco Use Types Packs/Day Years [...] on filedocumented in this encounter Care Teams Curtain Stretcher Assembler Relationship Specialty Start Date End Date Charly Carrillo MD [address] [place] [address] Dr [address] [place] PCP - General Internal Medicine 02/02/21 documented as of this encounter
--- OUTSIDE RECORDS SUMMARY | 2024-08-25 14:54 | XMS_ITS | Clinical Summary ---
Author Organization [facility] 299 [facility] Address [address] [place] [address] Phone Care Team Providers Care Lining Cutter Name Role Phone Charly Carrillo MD Primary Care Provider Allergies Active Allergy Reactions Criticality Noted Date Comments Other 10/09/2006 Bactrim [Na Yzpkjwfg-fivkkxckxugnznox-yjcflpyuvjf m] Medications calcium carbonate (CALCIUM 500 ORAL) [...] Description 08/03/2024 Telephone Gastroenterology - [address] [place] [phone] Saleem Butt MD 07/31/2024 Telephone Gastroenterology - [address] [phone] Bryan Quintana PA 07/30/2024 3:50 PM EST - 07/30/2024 11:59 PM EST Hospital Encounter [facility] Xray [address] [place] [address] Projectile vomiting with nausea Discharge Disposition: Home or Self Care 07/30/2024 3:20 PM EST Office Visit Gastroenterology - [address] [facility] [address] [place] [phone] Bryan Quintana PA Cyclical vomiting syndrome (Primary Dx); Gastroesophageal reflux disease without esophagitis; Projectile vomiting with nausea from Last 3 Months Immunizations Name Administration Dates Next Due Influenza trivalent, with pr eservative (Fluzone; Afluria) 6mo and older 04/20/2013,03/25/2012,04/09/2011 Surgical History Surgery Date Site/Laterality Comments KNEE ARTHROSCOPY PROCEDURE: [place] ARTHROSCOPY KNEE DIAGNOSTIC W/WO SYNOVIAL BX SPX; COMMENT: right CARPAL TUNNEL RELEASE RT HAND PROCEDURE: [place] NEUROPLASTY &/TRANSPOS MEDIAN NRV CARPAL TUNNE SHOULDER ARTHROSCOPY 01-02-06 PROCEDURE: [place] SURGICAL ARTHROSCOPY SHOULDER W/LSS&RESCJ ADS; COMMENT: right OTHER SURGICAL HISTORY PROCEDURE: HISTORICAL MASTOIDECTOMY OTHER SURGICAL HISTORY PROCEDURE: [place] UNLISTED LAPS PX HRNAP HERNIORRHAPHY HERNIOTOMY TUBAL LIGATION 2001 PROCEDURE: HISTORICAL TUBAL LIGATION TONSILLECTOMY 1978 PROCEDURE: HISTORICAL TONSILLECTOMY APPENDECTOMY 1979 PROCEDURE: [place] APPENDECTOMY CHOLECYSTECTOMY COLONOSCOPY 04/14/2021 - 05/14/2021 tics, [...] ??There is evidence of mild constipation. Code 84322 -------- FINAL REPORT -------- Dictated By: David Brice Dictated Date: 07/31/2024 12:00 ET Assigned Physician: David Brice Reviewed and Electronically Signed By: David Brice Signed Date: 07/31/2024 12:01 ET Workstation ID: [id number] Transcribed By: Self Edit Transcribed Date: 07/31/2024 [...] pattern. There is evidence of mildconstipation. Code 70449 -------- FINAL REPORT -------- Dictated By: David Brice Dictated Date: 07/31/2024 12:00 ET Assigned Physician: David Brice Reviewed and Electronically Signed By: David Brice Signed Date: 07/31/2024 12:01 ET Workstation ID: [id number] Transcribed By: Self Edit Transcribed Date: 07/31/2024 12:00 ET Bryan BEARD IMG XR PROCEDURES Final Resu lt * COLONOSCOPY (04/24/2021 1:24 PM EDT) Anatomical Region Laterality Modality Endoscopy Result [facility] Historical Provider GI~PROCEDURE ORDERABLES F inal Result * Cervical Cancer Screening: HPV (04/20/2013) Pathologist [facility] Cervical Cancer Screening: HPV negative, abstracted Historical Provider HEALTH MAINTENANCE Final Result * Lipid panel (04/09/2011) [facility] LDL/HDL Ratio 0 Comment:no interpretation, a bstracted Triglycerides 0 mg/dL Comment:no interpretation, a bstracted Cholesterol 0 mg/dL Comment:no interpretation, a bstracted HDL 0 mg/dL Comment:no interpretation, a bstracted LDL Cholesterol 0 mg/dL Comment:no interpretation, a bstracted Blood Venous blood specimen / Unknown Historical Provider LAB BLOOD ORDERABLES Karly l Result from Last 3 Months or Most Recently Relevant to Health Maintenance [place] [address] [place] [address] HEALTH PLAN Care Teams Lining Cutter Relationship Specialty Start Date End Date Charly Carrillo MD [address] [place] [address] [address] [place], [place] PCP - General Internal Medicine 02/02/21
--- OUTSIDE RECORDS SUMMARY | 2024-08-25 14:54 | XMS_ITS | Encounter Summary ---
Author Organization [facility] Address [address] [place] [address] Care Team Providers Care Carriage Operator Name Role Phone Charly Carrillo MD Primary Care Provider [phone] Encounter Details Date Type Department Care Team ([facility] Contact Info) Description 08/03/2024 Telephone Gastroenterology - [address] [phone] Saleem Butt MD [address] [facility] [address] [place] [address] Social History Tobacco Use Types Packs/Day Years [...] on filedocumented in this encounter Care Teams Carriage Operator Relationship Specialty Start Date End Date Charly Carrillo MD [address] [place] [address] Dr [address] [place] PCP - General Internal Medicine 02/02/21 documented as of this encounter
--- OUTSIDE RECORDS SUMMARY | 2024-08-25 14:54 | XMS_ITS | Encounter Summary ---
Author Organization [facility] Address [address] [place] [address] Care Team Providers Care Sales Promotion Coordinator Name Role Phone Charly Carrillo MD Primary Care Provider [phone] Encounter Details Date Type Department Care Team (Latest Contact Info) Description 07/30/2024 3:50 PM EST - 07/30/2024 11:59 PM EST Hospital Encounter [facility] Xray [address] [place] [address] Projectile vomiting with nausea Discharge Disposition: Home [...] ??There is evidence of mild constipation. Code 19851 -------- FINAL REPORT -------- Dictated By: David Brice Dictated Date: 07/31/2024 12:00 ET Assigned Physician: David Brice Reviewed and Electronically Signed By: David Brice Signed Date: 07/31/2024 12:01 ET Workstation ID: [id number] Transcribed By: Self Edit Transcribed Date: 07/31/2024 [...] pattern. There is evidence of mildconstipation. Code 01860 -------- FINAL REPORT -------- Dictated By: David Brice Dictated Date: 07/31/2024 12:00 ET Assigned Physician: David Brice Reviewed and Electronically Signed By: David Brice Signed Date: 07/31/2024 12:01 ET Workstation ID: [id number] Transcribed By: Self Edit Transcribed Date: 07/31/2024 12:00 ET Bryan BEARD IMG XR PROCEDURES Final Resu lt documented in this encounter Visit Diagnoses Diagnosis Projectile vomiting with nausea documented in this encounter Care Teams Sales Promotion Coordinator Relationship Specialty Start Date End Date Gerardo, Charly, MD [address] [place] [address] Dr [address] [place] PCP - General Internal Medicine 02/02/21 documented as of this encounter
--- OUTSIDE RECORDS SUMMARY | 2024-08-25 14:54 | XMS_ITS | Encounter Summary ---
Author Organization [facility] Address [address] [place] [address] Care Team Providers Care Admissions Rn Name Role Phone Charly Carrillo MD Primary Care Provider [phone] Reason for Visit * Reason Comments Follow-up Encounter Details Date Type Department Care Team ([facility] st Contact Info) Description 07/30/2024 3:20 PM EST Office Visit Gastroenterology - [address] [place] [address] Bryan Quintana PA [address] [place] [address] Cyclical vomiting syndrome (Primary Dx); Gastroesophageal reflux [...] ALLERGIES: Allergies Allergen Reactions Other Bactrim [Na Vvmlpedb-ayvrlpbfalnmoazn-khgxmfznpcvf] Physical Exam Constitutional: Appearance: Normal appearance. HENT: [...] ??There is evidence of mild constipation. Code 67262 -------- FINAL REPORT -------- Dictated By: David Brice Dictated Date: 07/31/2024 12:00 ET Assigned Physician: David Brice Reviewed and Electronically Signed By: David Brice Signed Date: 07/31/2024 12:01 ET Workstation ID: [id number] Transcribed By: Self Edit Transcribed Date: 07/31/2024 [...] pattern. There is evidence of mildconstipation. Code 22488 -------- FINAL REPORT -------- Dictated By: David Brice Dictated Date: 07/31/2024 12:00 ET Assigned Physician: David Brice Reviewed and Electronically Signed By: David Brice Signed Date: 07/31/2024 12:01 ET Workstation ID: [id number] Transcribed By: Self Edit Transcribed Date: 07/31/2024 [...] 06/20/2024 added in this encounter Care Teams Admissions Rn Relationship Specialty Start Date End Date Charly Carrillo MD [address] [place] [address] [address] [place], [place] PCP - General Internal Medicine 02/02/21 documented as of this encounter
== END 2024-08-25 12:55 | disposition home or self-care (01) ==
LOC: HO.LAB 12:54
PROVIDERS: PCP Internal Medicine; Visit Provider Advanced Practice Midwife
DX: Z01.419 Encounter for gynecological examination (general) (routine) without abnormal findings (principal); R10.2 Pelvic and perineal pain
CPT/HCPCS: 81003; 87086; 99396; 99459

== ENCOUNTER 2024-08-25 12:54 | Outpatient (AMB) | payer OTHER, SELFPAY ==
--- NOTE | 2024-08-25 13:02 | A.OFFVIS_ITS ---
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 She is doing well with hose inspector concerns: Lower abdominal suprapubic cramping since last night. She denies any constipation or diarrhea. No vaginal bleeding. Currently not sexually active for 15 years. Denies any vaginal dryness or irritation. STI testing offered; she declined. Attempting to eat a healthy diet with calcium and vitamin D and stays active with exercise. Last pap smear; 2023. Last mammogram; 2023. Colonoscopy is UTD. Denies any family history of breast, ovarian or colon cancer. [facility] Medical History (Updated 08/25/24 @ 13:40 by Lourdes Khoury CNM) Pelvic cramping Nicotine dependence, cigarettes, uncomplicated Osteopenia Vitamin D deficiency Pure hypercholesterolemia Benign essential hypertension Chronic, continuous use of opioids Tenosynovitis of thumb Chronic low back pain Cyclical vomiting Surgical History History of hysteroscopy H/O mastoidectomy History of tonsillectomy History of selective injection of anesthetic agent around lumbar nerve root History of colonoscopy (~2020) History of breast surgery Hx of shoulder surgery Hx of right knee surgery S/P laparoscopic cholecystectomy (~2009) History of appendectomy Family History Maternal Uncle Diabetes Father No problems noted. Mother No problems noted. Social History Housing: House Are you a primary dialysis patient care technician to a significant other at home: No Do you presently have visiting nurse or other home services: No Alcohol intake: former Patient Tobacco Use Status: Current everyday Tobacco user Tobacco use type: Cigarette Cigarettes Per Day: 4 Years Smoked: 47 e-Cigarette/Vaping Use: Never Used Second Hand Smoke Exposure: Yes service: No Current occupational status: retired and disabled Cognitive needs: No Hearing needs: No Vision needs: Yes Female Reproductive History Menstrual Age of Menarche: 14 Total pregnancies: 3 Full term: 3 Number of Living Children: 3 Date of last pap smear: 08/20/23 (neg pap and hpv) Date of Mammogram: 06/19/24 (Birad 1) Review of Systems Const All systems reviewed & are unremarkable except as noted in HPI and below Reports as per HPI Eyes Reports no additional complaints ENT Reports no additional complaints Card Reports no additional complaints Resp Reports no additional complaints GI Reports as per HPI and Reports no additional complaints Reports as per HPI Musc Reports no additional complaints Skin/Breast Reports as per HPI Neuro Reports no additional complaints Psych Reports no additional complaints Endo Reports no additional complaints Denilson/Lymph Reports no additional complaints Aller/Immun Reports no additional complaints Physical Exam Vital Signs: Last Vital Signs BP 122/82 08/25/24 13:03 BMI result Body Mass Index 21.6 Const General: cooperative, healthy appearing, no acute distress, well developed and alert Orientation/consciousness: patient oriented x3 HEENT Head: Yes normal to inspection Eyes General: appearance normal, both eyes and all related structures Neck Neck: Yes normal visual inspection Thyroid: Thyroid normal Chest Chest palpation & inspection: normal inspection of the chest and other (no puckering, dimpling, peau de orange, retraction, discharge, masses) Breast/axilla inspection: normal inspection of the breasts Breast/axilla palpation: normal palpation of the breasts Resp Effort & Inspection: normal respiratory effort GI Inspection: Yes normal to inspection Palpation (GI): Soft to palpation Rectal Exam - Female: deferred General: Yes bladder normal to palpation External Female Exam: normal external appearance and normal appearance of the urethra Speculum Exam - Vagina: normal appearance of the vagina, normal palpation, normal vaginal discharge and vagina atrophic Speculum Exam - Cervix: normal appearance of the cervix and normal palpation Bimanual exam- vagina & uterus: normal bimanual exam, normal palpation, uterine size normal, bladder normal to palpation, normal palpation and non-tender Bimanual Exam- Adnexa, other: no masses Skin General skin exam: no rashes or lesions noted Rashes: no rashes Neuro General: patient oriented x3 Cognition (Neuro): normal cognition Extrem General: Yes normal to inspection Psych Attitude: cooperative Thought process: Normal thought process present Assessment & Plan Assessment & Plan (1) Encounter for well woman exam with routine gynecological exam: Code(s): Z01.419 - Encounter for gynecological examination (general) (routine) without abnormal findings Category: Medical (2) Pelvic cramping: Code(s): R10.2 - Pelvic and perineal pain Category: Medical Plan: UA clean-catch today- Plan Discussed: Current recommendations for pap smears per ASCCP guidelines. Breast awareness, periodic self breast exams and yearly mammogram. Maintain a healthy lifestyle, well balanced diet including Calcium 1,200 mg and Vitamin D 600 IU daily, and routine exercise. Contact the office with any postmenopausal bleeding. UA sent for culture. Patient verbalizes understanding and agrees to the plan of care. She was given opportunity to ask questions and all questions were answered to the best of my ability. RTO in 1 year for annual hose inspector exam. This note is constructed using voice recognition software. While every effort has been made to ensure accuracy, bender machine errors may have been included. Coding Level of Care Code Est Pt Prev Care 40-64y(41228) Diagnoses Encounter for well woman exam with routine gynecological exam Z01.419 Pelvic cramping R10.2
[2024-08-25 13:03] VITALS: BP 122/82; BMI 21.6
--- OUTSIDE RECORDS SUMMARY | 2024-08-25 13:59 | XMS_ITS | Continuity of Care Document ---
Author Organization [place] [facility], [facility] Address [address] [place] [address] Care Team Providers Care Lean Coach Name Role Phone LANCE MAZARIEGOS Referring Provider Assessment Encounter Date Assessment Date Assessment LastModified by Organization Details LastModified Time 08/10/2024 08/10/2024 After reviewing their history and discussing the physical exam including office fiberoptic laryngoscopy I recommend we proceed to the operating room for direct laryngoscopy with biopsy. This procedure has risks of damaging the structures we are working on or around including the lips, teeth, gums, tongue, palate, oropharynx, larynx and trachea. If biopsy of the vocal cords is performed there is a risk of temporary or permanent hoarseness and vocal changes. There is also the possibility of need for further intervention to support the airway with a temporary breathing tube called a tracheotomy. Pending results of pathology a further treatment plan may be discussed including further surgery or referral to appropriate parts of the care team [email or web address] Not available 08/10/2024 13:20:22 Plan of Treatment Reminders Order Date Submit Date Provider Last Modified By Organization Details Last Modified Time Details Appointments SURGERY 60 2024 09:00A Teresa CABRLA MD Not available Not available Not available Lab None recorded. Referral None recorded. Procedures None recorded. Surgeries laryngosc opy, direct, operative , with excision of tumor and/or stripping of vocal cords or epiglotti s (SURG) 2024 025 Not available 08/10/2024 16:34:12 Imaging None recorded. Medication Orders None recorded. Patient TargetsNo targets recorded. Patient InstructionsNo instructions recorded. Reason for Referral None Reported. Problems Name Problem SNOMED Code Status Onset Date Resolution Date Notes Provider Name and Address Organization Details Recorded Time Polyp of vocal cord 0697120 Active 2024 MANSI CABRAL MD [address] [place] [address], [place], [phone], [facility] 13:19:09 Perforation of nasal septum 31448241 Active 2024 MANSI CABRAL MD [address] [place] [address], [phone], [facility] 13:19:14 Tobacco dependence caused by cigarettes [id number] 9107 Active 2024 MANSI CABRAL MD [address] [place] [address], [place], [address], [facility] 13:24:06 Problem Notes None recorded. Procedures Surgical History Date Name Laterality Status Provider Name and Address Organization Details Recorded Time 08/10/2024 FOL_DP completed MANSI CABRAL MD [address] [place] [address], [phone], [facility] 08/10/2024 13:19:03 Imaging Results None recorded. Procedure Notes None recorded. Medical Equipment None Reported. Allergies Allergen ID Allergen Name Allergen Category Reaction Reaction Severity Criticality Documentation Date Start Date Code Code System Note Provider Name and Address Organization Details Recorded Time 883269 Bactrim medicatio n Not available Not available Not available 08/10/2024 14889 9 RxNorm MANSI CABRAL MD [address] [place] [address], [place], [phone], [facility] 13:14:11 Medications Name Sig Start Date Stop Date Status Note LastModified by Organization Details LastModified Time cyclobenzapr ine 10 mg tablet 1 mg as needed by oral route. active Not Available Not Available Not Available amoxicillin 500 mg capsule TAKE 1 CAPSULE BY MOUTH THREE TIMES A DAY active Not Available Not Available Not Available sucralfate 1 gram tablet TAKE 1 TABLET (1 G TOTAL) BY MOUTH 4 TIMES A DAY 1 HOUR BEFORE MEALS AND AT BEDTIME active Not Available Not Available N ot Available metronidazol e 0.75 % (37.5 mg/5 gram) vaginal gel INSERT 1 APPLICATORF UL VAGINALLY BEDTIME FOR 5 DAYS active Not Available Not Available No t Available Flonase 50 mcg/actuatio n nasal spray,suspen destiny 2 sprays every day by nasal route. active Not Available Not Available No t Available amlodipine 2.5 mg tablet 1 mg every day by oral route. active Not Available Not Available No t Available metronidazol e 500 mg tablet TAKE 1 TABLET BY MOUTH 2 TIMES A DAY FOR 7 DAYS TAKE WITH FOOD, AVOID ALCOHOL AND VINEGAR PRODUCTS active Not Available Not Available No t Available calcium 600 mg (as calcium carbonate 1,500 mg) tablet TAKE 1 TABLET BY MOUTH EVERY DAY active Not Available Not Available No t Available nortriptylin e 75 mg capsule 1 capsule every day by oral route. active Not Available Not Available No t Available oxycodone-ac etaminophen 7.5 mg-325 mg tablet 1 tablet every 6 hours by oral route. active Not Available Not Available Not Available Calcium 600 600 mg-200 unit-25mg tablet 1 tablet every day by oral route. active Not Available Not Available No t Available cyclobenzapr ine 5 mg tablet TAKE 1 TABLET BY MOUTH TWICE A DAY NEEDED FOR MUSCLE SPASM active Not Available Not Available No t Available cholecalcife rol (vitamin D3) 50 mcg (2,000 unit) capsule TAKE 1 CAPSULE BY MOUTH EVERY DAY active Not Available Not Available No t Available Vitamin D3 50 mcg (2,000 unit) tablet 1 microgram every day by oral route. active Not Available Not Available No t Available Vitals Date Recorded Body height Body mass index (BMI) Body weight Provider Name and Address Organization Details Last Updated DateTime 08/10/2024 165.1 cm 22 kg/m2 74867.19 g Hector Wiseman [place] [facility] 08/10/2024 13:06:50 Social History None recorded. Functional Status None recorded. Mental Status None recorded. Family History Nothing Reported. Medical History Condition Response Allergies/Hayfever N Heart Problems Y Anxiety N Tonsil Infections N Emphysema N Migraines N Thyroid Problems N Glaucoma N Depression N COPD N Developmental Delay N Nasal or Sinus Problems Y Anemia N Immune System Disorder N Anesthesia Complications N Heart Attack ([place]) N Other Skin Condition N Diabetes N Rhinitis N Bleeding Disorder N Food Allergy N Arthritis N Hearing Loss N Hyperlipidemia N Cancer N Stroke N Dementia N Nasal polyps N Asthma N High Cholesterol N Sleep Disorder N GERD/Reflux N Liver Disease N Headaches N Fibromyalgia N Hypertension N Speech Delay N Kidney Disease N Gynecological HistoryNo gynecological history recorded. Obstetrics History GPAL:G 0 P 0 0 0 0 Past Encounters Encounter ID Performer Location Encounter Start Date Encounter Closed Date Diagnosis/Indication Diagnosis SNOMED-CT Code Diagnosis ICD10 Code Diagnosis Note [id number] MANSI CABRAL MD [facility] [address] [phone] 08/10/2024 12:54:58 08/10/2024 13:25:01 Polyp of vocal cord 5498638 J38.1 PROLAPSING RIGHT VOCAL CORD POLYP Perforatio n of nasal septum 08475903 J34.89 long standing, not related to prior surgery or cocaine Tobacco de pendence caused by cigarettes [id number] 5013045 F17.210 cessation efforts discussed Health Concerns Section Related Observation LastModified by Organization Detai ls LastModified Time None Recorded Concern Status LastModified by Organization Details LastModified Time None Recorded Payers Encounter Date Sequence Insurance Name Policy Number Policy Swain Covered Member ID Swain Member ID Guarantor Name 08/10/2024 1 [facility] NET PLAN (MEDICAID HMO) [employer] Priya Cardenas [id number] Priya Cardenas Notes Date Note Type Note Provider Name and Address Organization Details Recorded Time 08/10/2024 text/html vocal nodulesincidental finding by anesthesiology during intubation for CAP COVERER procedure in Jun 2024tobacco 1ppd, cutting down to 5/dayno hemoptysisdenies dysphagiano prior voice surgeryretired - retired [employer], now cares for her kids dogs MANSI CABRAL MD [address], [address], [facility] - [facility] 08/10/2024 13:24:46 OBGyn Episode No OBEpisode recorded.
--- OUTSIDE RECORDS SUMMARY | 2024-08-25 13:59 | XMS_ITS | Clinical Summary ---
Author Organization [facility] [address] [facility] Address [address] [place] [address] Phone Care Team Providers Care Boat Builder And Repairer Name Role Phone Charly Carrillo MD Primary Care Provider Allergies Active Allergy Reactions Criticality Noted Date Comments Other 10/09/2006 Bactrim [Na Pywwdnuc-pjwmmkjfvsevwdrt-wqsyxprbemp m] Medications calcium carbonate (CALCIUM 500 ORAL) Take by mouth daily. 2 caps daily Activ e cholecalciferol , vitamin D3, (DIALYVITE VITAMIN D ORAL) Cholecalciferol (VITAMIN D OR) Take by mouth. Active phenylephrine/a cetaminophn/cpm (FLONASE HEADACHE-ALLERG Y RLF ORAL) Fluticasone Propionate (FLONASE ) by route. Active gabapentin (NEURONTIN) 300 mg capsule Take 300 mg by mouth 3 times daily. Active MULTIVITAMIN ORAL Take by mouth. Activ e nortriptyline (PAMELOR) 50 mg capsule Take 50 mg by mouth at bedtime. Rx'd by GI Specialist for Gastroparesis 01/12/20 14 Active ondansetron (ZOFRAN) 8 mg tablet Take 8 mg by mouth every 8 hours as needed. Active oxyCODONE-aceta minophen (PERCOCET) 7.5-325 mg per tablet Take 1 tablet by mouth every 6 hours. Prn Active pravastatin sodium (PRAVASTATIN ORAL) PRAVASTATIN SODIUM OR Take by mouth daily. Active amLODIPine (NORVASC) 2.5 mg tablet Take 1 tablet (2.5 mg total) by mouth 1 (one) time each day. for 90 days 06/20/20 24 Active cyclobenzaprine (FLEXERIL) 10 mg tablet take 1 tablet by mouth 2 times a day as needed for muscle spasm 05/19/20 24 Active sucralfate (CARAFATE) 1 gram tablet Take by mouth 4 (four) times a day. Activ e sucralfate (CARAFATE) 1 gram tabletIndicatio ns:Gastroesopha geal reflux disease without esophagitis Take 1 tablet (1 g total) by mouth 4 (four) times a day. Take 1 hour before meals and at bedtime 120 each 11 07/30/19 25 026 Active nortriptyline (Pamelor) 75 mg capsuleIndicati ons:Cyclical vomiting syndrome Take 1 capsule (75 mg total) by mouth at bedtime. 90 each 3 07/30/19 25 Active Active Problems Problem Noted Date Diagnosed [...] Team Description 08/03/2024 Telephone Gastroenterology - [address] [place] [phone] Saleem Butt MD 07/31/2024 Telephone Gastroenterology - [address] [phone] Bryan Quintana PA 07/30/2024 3:50 PM EST - 07/30/2024 11:59 PM EST Hospital Encounter [facility] Xray [address] [place] [address] Projectile vomiting with nausea Discharge Disposition: Home or Self Care 07/30/2024 3:20 PM EST Office Visit Gastroenterology - [address] [facility] [address] [place] [phone] Bryan Quintana PA Cyclical vomiting syndrome (Primary Dx); Gastroesophageal reflux disease without esophagitis; Projectile vomiting with nausea from Last 3 Months Immunizations Name Administration Dates Next Due Influenza trivalent, with pr eservative (Fluzone; Afluria) 6mo and older 04/20/2013,03/25/2012,04/09/2011 Surgical History Surgery Date Site/Laterality Comments KNEE ARTHROSCOPY PROCEDURE: NM ARTHROSCOPY KNEE DIAGNOSTIC W/WO SYNOVIAL BX SPX; COMMENT: right CARPAL TUNNEL RELEASE RT HAND PROCEDURE: NM NEUROPLASTY &/TRANSPOS MEDIAN NRV CARPAL TUNNE SHOULDER ARTHROSCOPY 01-02-06 PROCEDURE: NM SURGICAL ARTHROSCOPY SHOULDER W/LSS&RESCJ ADS; COMMENT: right OTHER SURGICAL HISTORY PROCEDURE: HISTORICAL MASTOIDECTOMY OTHER SURGICAL HISTORY PROCEDURE: NM UNLISTED LAPS PX HRNAP HERNIORRHAPHY HERNIOTOMY TUBAL LIGATION 2001 PROCEDURE: HISTORICAL TUBAL LIGATION TONSILLECTOMY 1978 PROCEDURE: HISTORICAL TONSILLECTOMY APPENDECTOMY 1979 PROCEDURE: NM APPENDECTOMY CHOLECYSTECTOMY COLONOSCOPY 04/14/2021 - 05/14/2021 tics, [...] drink = 0.6 oz pur e alcohol) Comments Unknown Sex and Gender Information Value Date Recorded Sex Assigned at Not on file Legal Sex Female 1:34 PM EST Gender Identity Not on file Sexual Orientation Not on file Obstetrics History Last Filed [...] Cancer Screening 1962 COVID-19 Vaccine (#1) 1967 DTaP,Tdap,and Td Vaccines (1 - Tdap) 1969 Pneumococcal Vaccine: 50+ Years (1 of 2 - PCV) 1981 Pneumococcal Vaccine: Pediatrics (0 to 5 Years) and At-Risk Patients (6 to 64 Years) (1 of 2 - PCV) 1981 Zoster Vaccines (1 of 2) 1981 [...] patient's age to complete this topic Meningococcal B Vacine Aged Out No lo nger eligible based on patient's age to complete [...] ??There is evidence of mild constipation. Code 80100 -------- FINAL REPORT -------- Dictated By: David Brice Dictated Date: 07/31/2024 12:00 ET Assigned Physician: David Brice Reviewed and Electronically Signed By: David Brice Signed Date: 07/31/2024 12:01 ET Workstation ID: [id number] Transcribed By: Self Edit Transcribed Date: 07/31/2024 [...] pattern. There is evidence of mildconstipation. Code 80012 -------- FINAL REPORT -------- Dictated By: David Brice Dictated Date: 07/31/2024 12:00 ET Assigned Physician: David Brice Reviewed and Electronically Signed By: David Brice Signed Date: 07/31/2024 12:01 ET Workstation ID: [id number] Transcribed By: Self Edit Transcribed Date: 07/31/2024 12:00 ET Bryan BEARD IMG XR PROCEDURES Final Resu lt * COLONOSCOPY (04/24/2021 1:24 PM EDT) Anatomical Region Laterality Modality Endoscopy Result [facility] Historical Provider GI~PROCEDURE ORDERABLES F inal Result * Cervical Cancer Screening: HPV (04/20/2013) Pathologist [facility] Cervical Cancer Screening: HPV negative, abstracted Historical Provider HEALTH MAINTENANCE Final Result * Lipid panel (04/09/2011) [facility] LDL/HDL Ratio 0 Comment:no interpretation, a bstracted Triglycerides 0 mg/dL Comment:no interpretation, a bstracted Cholesterol 0 mg/dL Comment:no interpretation, a bstracted HDL 0 mg/dL Comment:no interpretation, a bstracted LDL Cholesterol 0 mg/dL Comment:no interpretation, a bstracted Blood Venous blood specimen / Unknown Historical Provider LAB BLOOD ORDERABLES Karly l Result from Last 3 Months or Most Recently Relevant to Health Maintenance [place] [address] [place] [address] HE[employer] PLAN Care Teams Boat Builder And Repairer Relationship Specialty Start Date End Date Charly Carrillo MD [address] [place] [address] [address] [place], [place] PCP - General Internal Medicine 02/02/21
--- OUTSIDE RECORDS SUMMARY | 2024-08-25 13:59 | XMS_ITS | Encounter Summary ---
Author Organization [facility] Address [address] [place] [address] Care Team Providers Care Grade Setter Name Role Phone Charly Carrillo MD Primary Care Provider [phone] Encounter Details Date Type Department Care Team (Latest Contact Info) Description 07/30/2024 3:50 PM EST - 07/30/2024 11:59 PM EST Hospital Encounter [facility] Xray [address] [place] [address] Projectile vomiting with nausea Discharge Disposition: Home [...] on file Sexual Orientation Not on file documented as of this encounter Medications at Time of Discharge amLODIPine (NORVASC) 2.5 mg tablet Take 1 tablet (2.5 mg total) by mouth 1 (one) time each day. for 90 days 4 calcium carbonate (CALCIUM 500 ORAL) Take by mouth daily. 2 caps daily cholecalciferol, vitamin D3, (DIALYVITE VITAMIN D ORAL) Cholecalciferol (VITAMIN D OR) Take by mouth. cyclobenzaprine (FLEXERIL) 10 mg tablet take 1 tablet by mouth 2 times a day as needed for muscle spasm 4 gabapentin (NEURONTIN) 300 mg capsule Take 300 mg by mouth 3 times daily. MULTIVITAMIN ORAL Take by mouth. nortriptyline (PAMELOR) 50 mg capsule Take 50 mg by mouth at bedtime. Rx'd by GI Specialist for Gastroparesis 4 nortriptyline (Pamelor) 75 mg capsuleIndicatio ns:Cyclical vomiting syndrome Take 1 capsule (75 mg total) by mouth at bedtime. 90 each 3 5 07/30/19 26 ondansetron (ZOFRAN) 8 mg tablet Take 8 mg by mouth every 8 hours as needed. oxyCODONE-acetam inophen (PERCOCET) 7.5-325 mg per tablet Take 1 tablet by mouth every 6 hours. Prn phenylephrine/ac etaminophn/cpm (FLONASE HEADACHE-ALLERGY RLF ORAL) Fluticasone Propionate (FLONASE ) by route. pravastatin sodium (PRAVASTATIN ORAL) PRAVASTATIN SODIUM OR Take by mouth daily. sucralfate (CARAFATE) 1 gram tablet Take by mouth 4 (four) times a day. sucralfate (CARAFATE) 1 gram tabletIndication s:Gastroesophage al reflux disease without esophagitis Take 1 tablet (1 g total) by mouth 4 (four) times a day. Take 1 hour before meals and at bedtime 120 each 11 5 07/30/19 26 documented as of this encounter Discharge Disposition [...] ??There is evidence of mild constipation. Code 76820 -------- FINAL REPORT -------- Dictated By: David Brice Dictated Date: 07/31/2024 12:00 ET Assigned Physician: David Brice Reviewed and Electronically Signed By: David Brice Signed Date: 07/31/2024 12:01 ET Workstation ID: [id number] Transcribed By: Self Edit Transcribed Date: 07/31/2024 [...] pattern. There is evidence of mildconstipation. Code 57221 -------- FINAL REPORT -------- Dictated By: David Brice Dictated Date: 07/31/2024 12:00 ET Assigned Physician: David Brice Reviewed and Electronically Signed By: David Brice Signed Date: 07/31/2024 12:01 ET Workstation ID: [id number] Transcribed By: Self Edit Transcribed Date: 07/31/2024 12:00 ET Bryan BEARD IMG XR PROCEDURES Final Resu lt documented in this encounter Visit Diagnoses Diagnosis Projectile vomiting with nausea documented in this encounter Care Teams Grade Setter Relationship Specialty Start Date End Date Gerardo, Charly, MD [address] [place] [address] [address] [place] PCP - General Internal Medicine 02/02/21 documented as of this encounter
--- OUTSIDE RECORDS SUMMARY | 2024-08-25 13:59 | XMS_ITS | Encounter Summary ---
Author Organization [facility] Address [address] [place] [address] Care Team Providers Care Mold Maker Helper Name Role Phone Charly Carrillo MD Primary Care Provider [phone] Encounter Details Date Type Department Care Team ([facility] Contact Info) Description 08/03/2024 Telephone Gastroenterology - [address] [phone] Saleem Butt MD [address] [facility] [address] [place] [address] Social History Tobacco Use Types Packs/Day Years [...] on filedocumented in this encounter Care Teams Mold Maker Helper Relationship Specialty Start Date End Date Charly Carrillo MD [address] [place] [address] [address] [place] PCP - General Internal Medicine 02/02/21 documented as of this encounter
--- OUTSIDE RECORDS SUMMARY | 2024-08-25 13:59 | XMS_ITS | Encounter Summary ---
Author Organization [facility] Address [address] [place] [address] Care Team Providers Care Call Center Associate Name Role Phone Charly Carrillo MD Primary Care Provider [phone] Encounter Details Date Type Department Care Team ([facility] st Contact Info) Description 07/31/2024 Telephone Gastroenterology - [address] [facility] [address] [place] [phone] Bryan Quintana PA [address] [facility] [address] [place] [address] Social History Tobacco Use Types Packs/Day Years [...] on filedocumented in this encounter Care Teams Call Center Associate Relationship Specialty Start Date End Date Charly Carrillo MD [address] [place] [address] [address] [place] PCP - General Internal Medicine 02/02/21 documented as of this encounter
--- OUTSIDE RECORDS SUMMARY | 2024-08-25 14:00 | XMS_ITS | Data Portability ---
Author Organization [place] [facility], Allergy Address [address] [address] Care Team Providers Care Circular Tank Cooper Name Role Phone ASHLYN MAZARIEGOSH Referring Provider Assessment Encounter Date Assessment Date [...] Details Appointments SURGERY 60 2024 09:00A Teresa CABRAL MD Not available Not available Not available Lab None recorded. Referral None recorded. Procedures None recorded. Surgeries laryngosc opy, direct, operative , with excision of tumor and/or stripping of vocal cords or epiglotti s (SURG) 2024 025 [email or web address] Not available 08/10/2024 16:34:12 Imaging None recorded. Medication Orders None recorded. Patient TargetsNo targets recorded. Patient InstructionsNo instructions recorded. Reason for Referral None Reported. Problems Name Problem SNOMED Code Status Onset Date Resolution Date Notes Provider Name and Address Organization Details Recorded Time Polyp of vocal cord 6293370 Active 2024 MANSI CABRAL MD [address] [place] [address], [phone], [facility] 13:19:09 Perforation of nasal septum 43075688 Active 2024 MANSI CABRAL MD [address] [place] [address], [address], [facility] 13:19:14 Tobacco dependence caused by cigarettes 9136003819427 9107 Active 2024 MANSI CABRAL MD [address] [place] [address], [address], [facility] 13:24:06 Problem Notes None recorded. Procedures Surgical History Date Name Laterality Status Provider Name and Address Organization Details Recorded Time 08/10/2024 FOL_DP completed MANSI CABRAL MD [address] [place] [address], [phone], [facility] 08/10/2024 13:19:03 Imaging Results None recorded. Procedure Notes None recorded. Medical Equipment None Reported. Allergies Allergen ID Allergen Name Allergen Category Reaction Reaction Severity Criticality Documentation Date Start Date Code Code System Note Provider Name and Address Organization Details Recorded Time 974245 Bactrim medicatio n Not available Not available Not available 08/10/2024 61887 9 RxNorm MANSI CABRAL MD [address] [place] [address], [phone], [facility] 13:14:11 Medications Name Sig Start Date [...] Updated DateTime 08/10/2024 165.1 cm 22 kg/m2 91436.19 g Hector Wiseman [place] [facility] 08/10/2024 13:06:50 Social History None recorded. Functional Status None recorded. Mental Status None recorded. Family History Nothing Reported. Medical History Condition Response Allergies/Hayfever N Heart Problems Y Anxiety N Tonsil Infections N Emphysema N Migraines N Thyroid Problems N Glaucoma N Developmental Delay N Depression N COPD N Nasal or Sinus Problems Y Anemia N Immune System Disorder N Anesthesia Complications N Heart Attack ([place]) N Other Skin Condition N Diabetes N Rhinitis N Bleeding Disorder N Food Allergy N Hearing Loss N Arthritis N Hyperlipidemia N Cancer N Stroke N Dementia N Nasal polyps N Asthma N Sleep Disorder N High Cholesterol N GERD/Reflux N Liver Disease N Headaches N Fibromyalgia N Hypertension N Speech Delay N Kidney Disease N Gynecological HistoryNo gynecological history recorded. Obstetrics History GPAL:G 0 P 0 0 0 0 Past Encounters Encounter ID Performer Location Encounter Start Date Encounter Closed Date Diagnosis/Indication Diagnosis SNOMED-CT Code Diagnosis ICD10 Code Diagnosis Note [id number] MANSI CABRAL MD [facility] [address] [place] [address] 08/10/2024 12:54:58 08/10/2024 13:25:01 Polyp of vocal cord 2164372 J38.1 PROLAPSING RIGHT VOCAL CORD POLYP Perforatio n of nasal septum 81707885 J34.89 long standing, not related to prior surgery or cocaine Tobacco de pendence caused by cigarettes 2835791063 1759971 F17.210 cessation efforts discussed Health Concerns Section Related Observation LastModified by Organization Detai ls LastModified Time None Recorded Concern Status LastModified by Organization Details LastModified Time None Recorded Advance Directives Directive None Recorded Payers Encounter Date Sequence Insurance Name Policy Number Policy Swain Covered Member ID Swain Member ID Guarantor Name 08/10/2024 1 [facility] HE[facility] NET PLAN (MEDICAID HMO) [employer] Priya Cardenas [id number] Priya Cardenas Notes Date Note Type Note Provider Name and Address Organization Details Recorded Time 08/10/2024 text/html vocal nodulesincidental finding by anesthesiology during intubation for FERRULER procedure in Jun 2024tobacco 1ppd, cutting down to 5/dayno hemoptysisdenies dysphagiano prior voice surgeryretired - retired [employer], now cares for her kids dogs MANSI CABRAL MD [address], [address], [facility] - [facility] 08/10/2024 13:24:46 OBGyn Episode No OBEpisode recorded.
--- OUTSIDE RECORDS SUMMARY | 2024-08-25 14:00 | XMS_ITS | Encounter Summary ---
Author Organization [facility] Address [address] [place] [address] Care Team Providers Care Nut Processing Supervisor Name Role Phone Charly Carrillo MD Primary Care Provider [phone] Reason for Visit * Reason Comments Follow-up Encounter Details Date Type Department Care Team ([facility] st Contact Info) Description 07/30/2024 3:20 PM EST Office Visit Gastroenterology - [address] [facility] [address] [place] [address] Bryan Quintana PA [address] [place] [address] Cyclical vomiting syndrome (Primary Dx); Gastroesophageal reflux [...] in this encounter Ordered Prescriptions Prescription Sig Dispense Quantity Refills Last Filled Start Date End Date nortriptyline (Pamelor) 75 mg capsuleIndications :Cyclical vomiting syndrome Take 1 capsule (75 mg total) by mouth at bedtime. 90 each 3 07/30/2024 sucralfate (CARAFATE) 1 gram tabletIndications: Gastroesophageal reflux disease without esophagitis Take 1 tablet (1 g total) by mouth 4 (four) times a day. Take 1 hour before meals and at bedtime 120 each 11 07/30/2024 documented in this encounter Progress Notes * [...] History: Procedure Laterality Date APPENDECTOMY 1979 PROCEDURE: [place] APPENDECTOMY CARPAL TUNNEL RELEASE RT HAND PROCEDURE: [place] NEUROPLASTY &/TRANSPOS MEDIAN NRV CARPAL TUNNE KNEE ARTHROSCOPY PROCEDURE: [place] ARTHROSCOPY KNEE DIAGNOSTIC W/WO SYNOVIAL BX SPX; COMMENT: right OTHER SURGICAL HISTORY PROCEDURE: HISTORICAL MASTOIDECTOMY OTHER SURGICAL HISTORY PROCEDURE: [place] UNLISTED LAPS PX HRNAP HERNIORRHAPHY HERNIOTOMY SHOULDER ARTHROSCOPY 01-02-06 PROCEDURE: [place] SURGICAL ARTHROSCOPY SHOULDER W/LSS&RESCJ ADS; COMMENT: right [...] phenylephrine/acetaminophn/cpm (FLONASE HEADACHE-ALLERGY RLF ORAL) Fluticasone Propionate (FLONASE ) by route. sucralfate (CARAFATE) 1 gram tablet [...] ALLERGIES: Allergies Allergen Reactions Other Bactrim [Na Zihjrwhb-irzcxmygqvtpdgol-jedpqpstrnct] Physical Exam Constitutional: Appearance: Normal appearance. HENT: [...] ??There is evidence of mild constipation. Code 10496 -------- FINAL REPORT -------- Dictated By: David Brice Dictated Date: 07/31/2024 12:00 ET Assigned Physician: David Brice Reviewed and Electronically Signed By: David Brice Signed Date: 07/31/2024 12:01 ET Workstation ID: [id number] Transcribed By: Self Edit Transcribed Date: 07/31/2024 [...] pattern. There is evidence of mildconstipation. Code 19228 -------- FINAL REPORT -------- Dictated By: David Brice Dictated Date: 07/31/2024 12:00 ET Assigned Physician: David Brice Reviewed and Electronically Signed By: Dvaid Brice Signed Date: 07/31/2024 12:01 ET Workstation ID: [id number] Transcribed By: Self Edit Transcribed Date: 07/31/2024 12:00 ET us Bryan BEARD IMG XR PROCEDURES Final Resu lt documented in this encounter Visit Diagnoses Diagnosis Cyclical vomiting syndrome- Primary Persistent vomiting Gastroesophageal reflux disease without esophagitis Esophageal reflux Projectile vomiting with nausea Projectile vomiting with nausea documented in this encounter Historical Medications * This list may reflect changes made after this encounter. sucralfate (CARAFATE) 1 gram tablet Take by mouth 4 (four) times a day. cyclobenzaprine (FLEXERIL) 10 mg tablet take 1 tablet by mouth 2 times a day as needed for muscle spasm 05/19/2024 amLODIPine (NORVASC) 2.5 mg tablet Take 1 tablet (2.5 mg total) by mouth 1 (one) time each day. for 90 days 06/20/2024 added in this encounter Care Teams Nut Processing Supervisor Relationship Specialty Start Date End Date Charly Carrillo MD [address] [place] [address] [address] [place], [place] PCP - General Internal Medicine 02/02/21 documented as of this encounter
== END 2024-08-25 13:58 | disposition home or self-care (01) ==
LOC: HO.HWS 12:54
PROVIDERS: PCP Internal Medicine; Visit Provider Advanced Practice Midwife
DX: Z01.419 Encounter for gynecological examination (general) (routine) without abnormal findings (principal); R10.2 Pelvic and perineal pain
CPT/HCPCS: 99396; 99459

== ENCOUNTER 2024-09-04 13:20 | Outpatient (AMB) | payer OTHER, SELFPAY ==
--- NOTE | 2024-09-04 13:29 | MHC.OFFVIS ---
Vital Signs 09/04/24 13:36 Height 5 ft 5 in Weight 130 lb BMI 21.6 BP 134/87 Blood Pressure Location Rt brachial Position Sitting Pulse 84 Pulse Source Pulse Oximeter Pulse Oximetry (%) 97 Oxygen Delivery Method Room Air Intake Visit Reasons: PILL COUNT Intake Note: Priya comes in today for a pill count to oxycodone-acetaminophen, patient should have 56 tablets and presents with 63 tablets which she last took today 09/04/24 at 10am. Pain today 10 Consulting Services Manager Required: No Accompanied by: Self / Same As Patient Allergies Sulfa (Sulfonamide Antibiotics) Allergy (Intermediate, Verified 09/04/24 13:36) Hives, itching trimethoprim [From Bactrim] Allergy (Intermediate, Verified 09/04/24 13:36) Hives HPI Comments Details: Priya presents back to the office today for follow up chronic pain and chronic opioid therapy management. Patient is prescribed oxycodone acetaminophen 7.5-325mg, take 1 tablet four times daily. Patient arrived today with the expectation of having 56 pills, she presented 63 pills which were counted in the presence of two staff members and returned to the patient in the original prescription bottle. This demonstrates responsible attitude toward patient's opioid medications. Pain is reported today as 410 and last dose of pain medication was taken this morning at 10am. Pain is adequately managed on current opioid regimen. Denies side effects including somnolence, constipation, itching, dyspnea, rash, dizziness or weakness. Continues with right hip pain. Throat surgery is now scheduled for November, she would like to proceed with right hip steroid injection at this time. [facility] Medical History (Updated 08/25/24 @ 13:40 by Lourdes Khoury CNM) Pelvic cramping Nicotine dependence, cigarettes, uncomplicated Osteopenia Vitamin D deficiency Pure hypercholesterolemia Benign essential hypertension Chronic, continuous use of opioids Tenosynovitis of thumb Chronic low back pain Cyclical vomiting Surgical History History of hysteroscopy H/O mastoidectomy History of tonsillectomy History of selective injection of anesthetic agent around lumbar nerve root History of colonoscopy (~2020) History of breast surgery Hx of shoulder surgery Hx of right knee surgery S/P laparoscopic cholecystectomy (~2009) History of appendectomy Family History Maternal Uncle Diabetes Father No problems noted. Mother No problems noted. Social History Housing: House Are you a primary caregivers homecare to a significant other at home: No Do you presently have visiting nurse or other home services: No Alcohol intake: former Patient Tobacco Use Status: Current everyday Tobacco user Tobacco use type: Cigarette Cigarettes Per Day: 4 Years Smoked: 47 e-Cigarette/Vaping Use: Never Used Second Hand Smoke Exposure: Yes service: No Current occupational status: retired and disabled Cognitive needs: No Hearing needs: No Vision needs: Yes Female Reproductive History Menstrual Age of Menarche: 14 Review of Systems Const All systems reviewed & are unremarkable except as noted in HPI and below Physical Exam Vital Signs: Last Vital Signs Pulse 84 09/04/24 13:36 BP 134/87 09/04/24 13:36 Pulse Ox 97 09/04/24 13:36 Oxygen Delivery Method Room Air 09/04/24 13:36 BMI result Body Mass Index 21.6 General: awake, alert, oriented. Answers questions appropriately. Fully engaged in examination. HEENT: Normocephalic. Hearing intact. Cardiac: External chest normal in appearance. Respiratory: No cough, audible wheezing or stridor. Abdomen: without gross distension. MS: No obvious swelling or deformities. Able to transition from sit to stand unassisted. Ambulates with bilaterally normal heel strike and toe off Neurological: Oriented to person, place, time and situation. Thought process intact. No gait abnormalities appreciated. Psychiatric: Appropriate mood and affect. Good judgment and insight. Results Reviewed Results Reviewed: 10/2023 Right hip XR IMPRESSION: 1. Mild degenerative changes in the right hip. 2. Moderate degenerative changes right sacroiliac joint. 08/22/22 MM/XR DEXA axial skeleton IMPRESSION: Osteopenia based on the lowest T-score value of -2.1 in the lumbar spine and femoral neck applying World Health Organization criteria. Assessment & Plan Assessment & Plan (1) Right hip pain: Code(s): M25.551 - Pain in right hip Category: Medical (2) Myofascial pain: Code(s): M79.18 - Myalgia, other site Category: Medical (3) Chronic low back pain: Code(s): M54.5 - Low back pain; G89.29 - Other chronic pain Category: Medical Qualifiers: Back pain laterality: midline Sciatica presence: unspecified whether sciatica present Qualified Code(s): M54.5 - Low back pain; G89.29 - Other chronic pain (4) Spondylosis of lumbar region without myelopathy or radiculopathy: Code(s): M47.816 - Spondylosis without myelopathy or radiculopathy, lumbar region Category: Medical (5) Sacroiliac joint pain: Code(s): M53.3 - Sacrococcygeal disorders, not elsewhere classified Category: Medical (6) Chronic, continuous use of opioids: Code(s): F11.90 - Opioid use, unspecified, uncomplicated Category: Medical (7) Dental abscess: Code(s): K04.7 - Periapical abscess without sinus Category: Medical Plan Masspat was reviewed and without concerns. No obvious signs of diversion, abuse or misuse of the opioid medications. Will send in prescription for oxycodone/acetaminophen 7.5-325 mg QID with an advanced date of 09/19/24 Continue with plan for intra-articular right hip injection Patient to follow-up in the office in 1 month, sooner if needed. All questions and concerns have been answered and patient agrees with the plan. Medications: Refilled oxycodone-acetaminophen 7.5-325 mg Partial Fill upon patient request. 1 tab PO QID PRN 120 tabs 0RF pain, severe 30 days G89.29 - Other chronic pain, M47.816 - Spondylosis without myelopathy or radiculopathy, lumbar region, M53.3 - Sacrococcygeal disorders, not elsewhere classified, M54.5 - Low back pain Coding Level of Care Code Est Pt Level 4 (85574) Complex EM visit Add On G2211 Diagnoses Right hip pain M25.551 Myofascial pain M79.18 Chronic midline low back pain, unspecified whether sciatica present M54.5; G89.29 Back pain laterality: midline Sciatica presence: unspecified whether sciatica present Spondylosis of lumbar region without myelopathy or radiculopathy M47.816 Sacroiliac joint pain M53.3 Chronic, continuous use of opioids F1. Dental abscess K04.7
[2024-09-04 13:36] VITALS: BP 134/87; PULSE 84; O2SAT 97; BMI 21.6
--- OUTSIDE RECORDS SUMMARY | 2024-09-04 13:46 | XMS_ITS | Continuity of Care Document ---
Author Organization [place] - [facility], [facility] Address [address] [place] [address] Care Team Providers Care Gasket Inspector Name Role Phone LANCE MAZARIEGOS Referring Provider [...] cords or epiglotti s (SURG) 2024 025 [email or web address] Not available 08/10/2024 16:34:12 Imaging None recorded. Medication Orders None recorded. Patient TargetsNo targets recorded. Patient InstructionsNo instructions recorded. Reason for Referral None Reported. 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 MANSI CABRAL MD [address] [place] [address], [place], [address], [facility] 13:19:09 Perforation of nasal septum 25522918 Active 2024 MANSI CABRAL MD [address] [place] [address], [phone], [facility] 13:19:14 Tobacco dependence caused by cigarettes 5624813839530 9107 Active 2024 MANSI CABRAL MD [address] [place] [address], [place], [address], [facility] 13:24:06 Problem Notes None recorded. Procedures Surgical History Date Name Laterality Status Provider Name and Address Organization Details Recorded Time 08/10/2024 FOL_DP completed MANSI CABRAL MD [address] [place] [address], [phone], [facility] 08/10/2024 13:19:03 Imaging Results None recorded. Procedure Notes None recorded. Medical Equipment None Reported. Allergies Allergen ID Allergen Name Allergen Category Reaction Reaction Severity Criticality Documentation Date Start Date Code Code System Note Provider Name and Address Organization Details Recorded Time 992718 Bactrim medicatio n Not available Not available Not available 08/10/2024 59677 9 RxNorm MANSI CABRAL MD [address] [place] [address], [place], [phone], [facility] 13:14:11 Medications Name Sig Start Date Stop [...] Updated DateTime 08/10/2024 165.1 cm 22 kg/m2 96636.19 g Hector Wiseman [place] - [facility] 08/10/2024 13:06:50 Social History None recorded. Functional Status None recorded. Mental Status None recorded. Family History Nothing Reported. 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 n of nasal septum 76966570 J34.89 long standing, not related to prior surgery or cocaine Tobacco de pendence caused by cigarettes 8991514920 7705135 F17.210 cessation efforts discussed Health Concerns Section Related Observation LastModified by Organization Detai ls LastModified Time None Recorded Concern Status LastModified by Organization Details LastModified Time None Recorded Payers Encounter Date Sequence Insurance Name Policy Number Policy Swain Covered Member ID Swain Member ID Guarantor Name 08/10/2024 1 [facility] - HEALTH NET PLAN (MEDICAID HMO) [employer] Priya Cardenas [id number] Priya Cardenas Notes Date Note Type Note Provider Name and Address Organization Details Recorded Time 08/10/2024 text/html vocal nodulesincidental finding by anesthesiology during intubation for ADMINISTRATIVE JUDGE procedure in Jun 2024tobacco 1ppd, cutting down to 5/dayno hemoptysisdenies dysphagiano prior voice surgeryretired - retired [employer], now cares for her kids dogs MANSI CABRAL MD [address], [address], [facility] - [facility] 08/10/2024 13:24:46 OBGyn Episode No OBEpisode recorded.
--- OUTSIDE RECORDS SUMMARY | 2024-09-04 13:46 | XMS_ITS | Data Portability ---
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 Medication Orders None recorded. Patient TargetsNo targets recorded. Patient InstructionsNo instructions recorded. Reason for Referral None Reported. Problems Name Problem SNOMED Code Status Onset Date Resolution Date Notes Provider Name and Address Organization Details Recorded Time Polyp of vocal cord 0582989 Active 2024 MANSI CABRAL MD [address] [place] [address], [phone], [facility] 13:19:09 Perforation of nasal septum 75510594 Active 2024 MANSI CABRAL MD [address] [place] [address], [address], [facility] 13:19:14 Tobacco dependence caused by cigarettes 1106848812305 9107 Active 2024 MANSI CABRAL MD [address] [place] [address], [address], [facility] 13:24:06 Problem Notes None recorded. Procedures Surgical History Date Name Laterality Status Provider Name and Address Organization Details Recorded Time 08/10/2024 FOL_DP completed MANSI CABRAL MD [address] [place] [address], [phone], [facility] 08/10/2024 13:19:03 Imaging Results None recorded. Procedure Notes None recorded. Medical Equipment None Reported. Allergies Allergen ID Allergen Name Allergen Category Reaction Reaction Severity Criticality Documentation Date Start Date Code Code System Note Provider Name and Address Organization Details Recorded Time 576943 Bactrim medicatio n Not available Not available Not available 08/10/2024 93893 9 RxNorm MANSI CABRAL MD [address] [place] [address], [phone], [facility] 13:14:11 Medications Name Sig Start Date Stop [...] Updated DateTime 08/10/2024 165.1 cm 22 kg/m2 11417.19 g Hector Wiseman [place] - [facility] 08/10/2024 13:06:50 Social History None recorded. Functional [...] Disorder N Anesthesia Complications N Heart Attack (AR) N Other Skin Condition N Diabetes N Rhinitis N Bleeding Disorder N Food Allergy N Arthritis N Hearing Loss N Hyperlipidemia N Cancer N Stroke N Dementia N Nasal polyps N Asthma N Sleep Disorder N GERD/Reflux N High Cholesterol N Liver Disease N Headaches N Fibromyalgia N Hypertension N Speech Delay N Kidney Disease N Gynecological HistoryNo gynecological history recorded. Obstetrics History GPAL:G 0 P 0 0 0 0 Past Encounters Encounter ID Performer Location Encounter Start Date Encounter Closed Date Diagnosis/Indication Diagnosis SNOMED-CT Code Diagnosis ICD10 Code Diagnosis Note [id number] MANSI CABRAL MD [facility] [address] [place] [address] 08/10/2024 12:54:58 08/10/2024 13:25:01 Polyp of vocal cord 1001559 J38.1 PROLAPSING RIGHT VOCAL CORD POLYP Perforatio n of nasal septum 14343170 J34.89 long standing, not related to prior surgery or cocaine Tobacco de pendence caused by cigarettes 1359811194 1321837 F17.210 cessation efforts discussed Health Concerns Section Related Observation LastModified by Organization Detai ls LastModified Time None Recorded Concern Status LastModified by Organization Details LastModified Time None Recorded Advance Directives Directive None Recorded Payers Encounter Date Sequence Insurance Name Policy Number Policy Swain Covered Member ID Swain Member ID Guarantor Name 08/10/2024 1 [facility] - HEALTH NET PLAN (MEDICAID HMO) [employer] Priya Cardenas [id number] Priya Cardenas Notes Date Note Type Note Provider Name and Address Organization Details Recorded Time 08/10/2024 text/html vocal nodulesincidental finding by anesthesiology during intubation for 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 - [facility] 08/10/2024 13:24:46 OBGyn Episode No OBEpisode recorded.
--- OUTSIDE RECORDS SUMMARY | 2024-09-04 13:46 | XMS_ITS | Clinical Summary ---
Author Organization [facility] [address] [facility] Address [address] [place] [address] Phone Care Team Providers Care Hydramatic Mechanic Name Role Phone Charly Carrillo MD Primary Care Provider Allergies Active Allergy Reactions Criticality Noted Date Comments Other 10/09/2006 Bactrim [Na Kxwcsnuf-ovlxrnuuuslekqqf-eizweofyuse m] Medications calcium carbonate (CALCIUM 500 ORAL) [...] Description 08/03/2024 Telephone Gastroenterology - [address] [place] [phone] Saleem Butt MD 07/31/2024 Telephone Gastroenterology - [address] [phone] Bryan Quintana PA 07/30/2024 3:50 PM EST - 07/30/2024 11:59 PM EST Hospital Encounter [facility] Xray [address] [place] [address] Projectile vomiting with nausea Discharge Disposition: Home or Self Care 07/30/2024 3:20 PM EST Office Visit Gastroenterology - [address] [facility] [address] [place] [phone] Bryan Quintana PA Cyclical vomiting syndrome (Primary Dx); Gastroesophageal reflux disease without esophagitis; Projectile vomiting with nausea from Last 3 Months Immunizations Name Administration Dates Next Due Influenza trivalent, with pr eservative (Fluzone; Afluria) 6mo and older 04/20/2013,03/25/2012,04/09/2011 Surgical History Surgery Date Site/Laterality Comments KNEE ARTHROSCOPY PROCEDURE: OK ARTHROSCOPY KNEE DIAGNOSTIC W/WO SYNOVIAL BX SPX; COMMENT: right CARPAL TUNNEL RELEASE RT HAND PROCEDURE: OK NEUROPLASTY &/TRANSPOS MEDIAN NRV CARPAL TUNNE SHOULDER ARTHROSCOPY 01-02-06 PROCEDURE: OK SURGICAL ARTHROSCOPY SHOULDER W/LSS&RESCJ ADS; COMMENT: right OTHER SURGICAL HISTORY PROCEDURE: HISTORICAL MASTOIDECTOMY OTHER SURGICAL HISTORY PROCEDURE: OK UNLISTED LAPS PX HRNAP HERNIORRHAPHY HERNIOTOMY TUBAL LIGATION 2001 PROCEDURE: HISTORICAL TUBAL LIGATION TONSILLECTOMY 1978 PROCEDURE: HISTORICAL TONSILLECTOMY APPENDECTOMY 1979 PROCEDURE: OK APPENDECTOMY CHOLECYSTECTOMY COLONOSCOPY 04/14/2021 - 05/14/2021 tics, [...] 1967 DTaP,Tdap,and Td Vaccines (1 - Tdap) 1981 Pneumococcal Vaccine: 50+ Years (1 of 2 [...] ??There is evidence of mild constipation. Code 94088 -------- FINAL REPORT -------- Dictated By: David Brice Dictated Date: 07/31/2024 12:00 ET Assigned Physician: David Brice Reviewed and Electronically Signed By: David Brice Signed Date: 07/31/2024 12:01 ET Workstation ID: [id number] Transcribed By: Self Edit Transcribed Date: 07/31/2024 [...] pattern. There is evidence of mildconstipation. Code 58787 -------- FINAL REPORT -------- Dictated By: David Brice Dictated Date: 07/31/2024 12:00 ET Assigned Physician: David Brice Reviewed and Electronically Signed By: David Brice Signed Date: 07/31/2024 12:01 ET Workstation ID: [id number] Transcribed By: Self Edit Transcribed Date: 07/31/2024 12:00 ET Bryan BEARD IMG XR PROCEDURES Final Resu lt * COLONOSCOPY (04/24/2021 1:24 PM EDT) Anatomical Region Laterality Modality Endoscopy Result [facility] Historical Provider GI~PROCEDURE ORDERABLES F inal Result * Cervical Cancer Screening: HPV (04/20/2013) Pathologist [facility] Cervical Cancer Screening: HPV negative, abstracted Historical Provider HEALTH MAINTENANCE Final Result * Lipid panel (04/09/2011) [facility] LDL/HDL Ratio 0 Comment:no interpretation, a bstracted Triglycerides 0 mg/dL Comment:no interpretation, a bstracted Cholesterol 0 mg/dL Comment:no interpretation, a bstracted HDL 0 mg/dL Comment:no interpretation, a bstracted LDL Cholesterol 0 mg/dL Comment:no interpretation, a bstracted Blood Venous blood specimen / Unknown Historical Provider LAB BLOOD ORDERABLES Karly l Result from Last 3 Months or Most Recently Relevant to Health Maintenance Insurance [place] [address] HEALTH PLAN Care Teams Hydramatic Mechanic Relationship Specialty Start Date End Date Charly Carrillo MD [address] [place] [address] [address] [place], [place] PCP - General Internal Medicine 02/02/21
== END 2024-09-04 13:58 | disposition home or self-care (01) ==
PROVIDERS: PCP Internal Medicine; Visit Provider Registered Nurse Emergency
DX: M25.551 Pain in right hip (principal); M79.18 Myalgia, other site; M54.50 Low back pain, unspecified; Z79.891 Long term (current) use of opiate analgesic; G89.29 Other chronic pain; M47.816 Spondylosis without myelopathy or radiculopathy, lumbar region; M53.3 Sacrococcygeal disorders, not elsewhere classified; K04.7 Periapical abscess without sinus
CPT/HCPCS: 99214; G2211

== ENCOUNTER → 2024-09-04 13:20 | Outpatient (BNVA) | payer OTHER, SELFPAY | PROVIDERS: PCP Internal Medicine; Visit Provider Registered Nurse Emergency | DX: Z51.81 Encounter for therapeutic drug level monitoring (principal); F11.20 Opioid dependence, uncomplicated; M25.551 Pain in right hip; M79.18 Myalgia, other site; M54.59 Other low back pain; M47.816 Spondylosis without myelopathy or radiculopathy, lumbar region; M53.3 Sacrococcygeal disorders, not elsewhere classified; G89.29 Other chronic pain; K04.7 Periapical abscess without sinus | CPT/HCPCS: 99212 ==

== ENCOUNTER 2024-10-01 08:13 | Outpatient (REF) | payer OTHER, SELFPAY ==
[2024-10-01 09:44] LABS: Appearance Urine Clear; Color Urine Yellow; Glucose Urine UA Negative (Negative); Leukocyte Esterase Urine Small (1+) (Negative); Nitrite Urine Negative (Negative); UMIC TRIGGER UACC YES; Urine Blood Negative (Negative); Urine Ketones Negative (Negative); Urine Protein Negative (Neg-Trace)
[2024-10-01 09:55] LABS: Bacteria Urine Trace (None Seen); Hyaline Casts Urine 0-2 /LPF (0-2); RBC Urine 0-2 /HPF (0-2); UACC Culture Trigger YES; WBC Urine 0-5 /HPF (0-5)
[2024-10-01 10:08] LABS: Alanine Aminotransferase 18 U/L (0-31); Albumin Level 3.9 g/dL (3.5-5.0); Alkaline Phosphatase 110 U/L (39-117); Anion Gap 9 (12-20); Aspartate Amino Transferase 19 U/L (5-31); Bilirubin Total 0.2 mg/dL (0.0-1.0); Blood Urea Nitrogen 16 mg/dL (9-16); Calcium 8.9 mg/dL (8.4-10.2); Carbon Dioxide 28 mmol/L (22-29); Chloride 107 mmol/L (96-108); Cholesterol 173 mg/dL (<200); Estimated Glomerular Filt Rate > 60; Glucose Fasting 104 mg/dL (60-99); HDL Cholesterol 40 mg/dL (>40); LDL Cholesterol Calculated 112 mg/dL (<100); Potassium 4.3 mmol/L (3.3-5.1); Sodium 140 mmol/L (135-145); Total Protein 6.9 g/dL (6.5-8.0); Triglycerides 109 mg/dL (<150)
== END 2024-10-01 08:14 | disposition home or self-care (01) ==
LOC: HO.LAB 08:13
PROVIDERS: PCP Internal Medicine; Visit Provider Internal Medicine
DX: E78.00 Pure hypercholesterolemia, unspecified (principal)
CPT/HCPCS: 36415; 80053; 80061; 81001; 87086

== ENCOUNTER 2024-10-07 12:34 | Outpatient (AMB) | payer OTHER, SELFPAY ==
--- NOTE | 2024-10-07 12:48 | MHC.PC.OV ---
Vital Signs 10/07/24 12:50 Height 5 ft 5 in Weight 128 lb 4 oz BMI 21.3 BP 124/78 Blood Pressure Location Lt brachial Position Sitting Pulse 79 Pulse Source Pulse Oximeter Pulse Oximetry (%) 97 Oxygen Delivery Method Room Air Intake Visit Reasons: 4 month f/u Outpatient Physical Therapist Assistant Required: No Accompanied by: Self / Same As Patient Allergies Sulfa (Sulfonamide Antibiotics) Allergy (Intermediate, Verified 10/09/24 13:18) Hives, itching trimethoprim [From Bactrim] Allergy (Intermediate, Verified 10/09/24 13:18) Hives Medication List - Last Reconciled 10/07/24 by Charly Carrillo MD amlodipine 2.5 mg PO DAILY 90 days back brace As directed calcium carbonate (Calcium 600) 600 mg PO DAILY cholecalciferol (vitamin D3) 50 mcg PO DAILY 90 days cyclobenzaprine 10 mg PO BID PRN fluticasone propionate 50 mcg/actuation 2 sprays intranasal DAILY PRN 90 days nortriptyline 75 mg PO BEDTIME oxycodone-acetaminophen 7.5-325 mg 1 tab PO QID PRN 30 days sucralfate PO Tobacco use date assessed: 10/07/24 Dental Screening Dental Screen Date: 10/07/24 Did you have a dental visit in the last 12 months?: No Did you have a dental problem in the last 6 months where you did not have access to dental care?: No Was dental information given to patient?: No HPI 4 month f/u HPI Details Patient comes in today for her follow up visit States that she feels okay She denies any headaches or dizziness Denies any chest pains, no increased shortness of breath No nausea / vomiting, no abdominal pain No change in bowel habits noted She had her follow up labs done last week - to discuss her results She is currently scheduled for surgical biopsy of her vocal cord nodule with ENT on 11/23/2024 She is also scheduled for eye surgery to correct her glaucoma on 11/22/2024 in the right eye and a couple of weeks later on 12/24/2024 in the left eye [facility] Medical History (Updated 10/07/24 @ 13:36 by Charly Carrillo MD) Glaucoma Pelvic cramping Nicotine dependence, cigarettes, uncomplicated Osteopenia Vitamin D deficiency Pure hypercholesterolemia Benign essential hypertension Chronic, continuous use of opioids Tenosynovitis of thumb Chronic low back pain Cyclical vomiting Surgical History History of hysteroscopy H/O mastoidectomy History of tonsillectomy History of selective injection of anesthetic agent around lumbar nerve root History of colonoscopy (~2020) History of breast surgery Hx of shoulder surgery Hx of right knee surgery S/P laparoscopic cholecystectomy (~2009) History of appendectomy Family History Maternal Uncle Diabetes Father No problems noted. Mother No problems noted. Social History Housing: House Are you a primary health care attorney to a significant other at home: No Do you presently have visiting nurse or other home services: No Alcohol intake: former Patient Tobacco Use Status: Current everyday Tobacco user Tobacco use type: Cigarette Cigarettes Per Day: 4 Years Smoked: 47 e-Cigarette/Vaping Use: Never Used Second Hand Smoke Exposure: Yes service: No Current occupational status: retired and disabled Cognitive needs: No Hearing needs: No Vision needs: Yes Female Reproductive History Menstrual Age of Menarche: 14 Questionnaire PHQ-9 Over the last 2 weeks, how often have you been bothered by any of the following problems? 1. Little interest or pleasure in doing things: not at all 2. Feeling down, depressed, or hopeless: not at all 3. Trouble falling or staying asleep, or sleeping too much: not at all 4. Feeling tired or having little energy: not at all 5. Poor appetite or overeating: not at all 6. Feeling bad about yourself - or that you are a failure or have let yourself or your family down: not at all 7. Trouble concentrating on things, such as reading the newspaper or watching television: not at all 8. Moving or speaking so slowly that other people could have noticed. Or the opposite - being so fidgety or restless that you have been moving around a lot more than usual: not at all 9. Thoughts that you would be better off or of hurting yourself in some way: not at all Total score: 0 Depression Screening Interpretation: Negative Depression Screening Done: Yes 18739 - PHQ-9 Billing: Yes Source: Developed by Drs. Samuel Flaherty, Chris Nunez and colleagues, with an educational saida from [employer]. Thrive Questionnaire Date Thrive assessed: 10/07/24 I am a: Patient What is your living situation today?: I have a steady place to live Within the past 12 months, did the food you bought not last and you didn't have the money to get more?: Never true Within the past 12 months, did you worry whether your food would run out before you got money to buy more?: Never true Do you have trouble paying for medicines?: No Do you have trouble getting transportation to medical appointments?: No Do you have trouble paying your heating and electricity bill?: No Do you have trouble taking care of your child, family member or friend?: No Do you have trouble with day-to-day activities such as bathing, preparing meals, shopping, managing finances, etc.?: No Are you currently unemployed and looking for a job?: No Are you interested in more education?: No Please select the resources that you would like help with: None Currently or been in a relationship where the following occur: No concerns reported THRIVE Score: 0 AUDIT C Alcohol Use Questionnaire (AUDIT-C) 1. How often do you have a drink containing alcohol?: Never 3. How often do you have six or more drinks on one occasion?: Never Total Score: 0 Score Reviewed/Action Taken: Yes PACHECO-7 AMB Questionnaire PACHECO-7 Date PACHECO - 7 assessed: 10/07/24 Feeling nervous, anxious, or on edge: 0 = Not at all Not being able to stop or control worryin = Not at all Worrying too much about different things: 0 = Not at all Trouble relaxin = Not at all Being so restless that it is hard to sit still: 0 = Not at all Becoming easily annoyed or irritable: 0 = Not at all Feeling afraid as if something awful might happen: 0 = Not at all Total PACHECO-7 score (0-4 normal; 5-9 mild; 10-14 moderate; 15-21 severe): 0 Source: Developed by Afia Ashby Kurt Kroenke and colleagues, with an educational saida from [employer]. Review of Systems Const Denies chills, Denies fatigue, Denies fever(s) and Denies headache(s) ENT Denies dysphagia, Denies dizziness, Denies otalgia, Denies headache(s), Denies neck pain, Denies odynophagia and Denies sore throat Card Denies chest pain, Denies irregular heart rhythm, Denies palpitations and Denies dyspnea Resp Denies chest congestion, Denies cough and Denies dyspnea GI Denies abdominal pain, Denies constipation, Denies dysphagia, Denies diarrhea, Denies nausea, Denies odynophagia and Denies vomiting Details: (+) sensation of incomplete bladder emptying at times Denies urinary frequency, Denies nocturia, Denies dysuria, Denies urinary incontinence and Denies urinary urgency Musc Reports back pain (over the lower back - chronic) and Denies neck pain Skin/Breast Denies rash Neuro Denies dizziness and Denies headache(s) Endo Denies fatigue and Denies palpitations Physical exam (Primary Care) Vital Signs: Last Vital Signs Pulse 79 10/07/24 12:50 BP 124/78 10/07/24 12:50 Pulse Ox 97 10/07/24 12:50 Oxygen Delivery Method Room Air 10/07/24 12:50 BMI result Body Mass Index 21.3 Tobacco/Smoking Status: Tobacco use Status Tobacco use date assessed 10/07/24 10/07/24 12:54 Patient Tobacco Use Status Current everyday Tobacco 10/07/24 12:54 Tobacco use type Cigarette 10/07/24 12:54 e-Cigarette/Vaping Use Never Used 10/07/24 12:54 PHQ-9: PHQ-9 Score PHQ-9: Total score 0 10/07/24 13:26 Depression Screening Interpretation: Negative Thrive Assessment: Date of Thrive Assessment Date Thrive assessed 10/07/24 10/07/24 12:54 Currently or been in a relationship where the following occur: No concerns reported Const General: no acute distress and alert HENMT Ears: TM's normal bilaterally and EAC's normal Throat: Yes posterior oropharynx normal and Yes tonsils normal (no TP congestion) Neck Neck: Yes supple and No lymphadenopathy Thyroid: Thyroid normal Resp Auscultation: clear to auscultation bilaterally, no rales and no wheezes Cardio Rate: regular rate Rhythm: regular rhythm Heart sounds: no murmurs GI Palpation (GI): Soft to palpation and nontender Auscultation: normal bowel sounds General: Yes no CVA tenderness Back/Spine/Pelvis Back: no CVA tenderness Thoracic/Lumbar Spine: lumbar spinal tenderness Skin Rashes: no rashes Extrem General: Yes no clubbing, cyanosis or edema Results Reviewed Results Reviewed: Laboratory Tests 10/01/24 10/01/24 08:29 08:33 Sodium 140 Potassium 4.3 D Creatinine 0.77 Estimated GFR > 60 Fasting Glucose 104 H Calcium 8.9 D AST 19 ALT 18 Triglycerides 109 Cholesterol 173 LDL Cholesterol, Calc 112 H HDL Cholesterol 40 L Ur Specific [place] 1.020 Urine Protein Negative Urine Glucose (UA) Negative Urine Blood Negative Urine Nitrite Negative Ur Leukocyte Esterase Small (1+) H Coding Level of Care Code Est Pt Level 4 (90773) Complex EM visit Add On G2211 Diagnoses Benign essential hypertension I10 Pure hypercholesterolemia E78.00 Impaired fasting glucose R73.01 Cyclical vomiting R11.15 Allergic rhinitis, unspecified seasonality, unspecified trigger J30.9 Allergic rhinitis seasonality: unspecified Allergic rhinitis trigger: unspecified Vitamin D deficiency E55.9 Vocal cord polyp J38.1 Osteopenia, unspecified location M85.80 Osteopenia location: unspecified Spondylosis of lumbar region without myelopathy or radiculopathy M47.816 Primary osteoarthritis of right hip M16.11 Osteoarthritis type: primary Glaucoma of both eyes, unspecified glaucoma type H40.9 Glaucoma type: unspecified Laterality: bilateral Smoker F17.200 Additional Codes PHQ-9 - 99809 - PHQ-9 Billing: Yes ([id number]) Assessment & Plan Assessment & Plan (1) Benign essential hypertension: Code(s): I10 - Essential (primary) hypertension Category: Medical Plan: Reinforced low sodium diet - goal is systolic BP of 120 mm or less Continue Amlodipine 2.5 mg QD Patient is reminded to continue monitoring her blood pressure regularly - notes again that her blood pressure readings tend to be much better and lower at home than the ones obtained here (2) Pure hypercholesterolemia: Code(s): E78.00 - Pure hypercholesterolemia, unspecified Category: Medical Plan: Results of her labs done last week reviewed and discussed with patient - her cholesterol levels have improved significantly from previous Reinforced low cholesterol diet Will have patient recheck her labs and fasting lipids again in 4 months for follow up (3) Impaired fasting glucose: Code(s): R73.01 - Impaired fasting glucose Category: Medical Plan: Her fasting serum glucose was at 104 mg/dl on her recent labs; her HgbA1c was normal at 5.2% when previously checked Reinforced low calorie diet/exercise as tolerated (4) Cyclical vomiting: Code(s): R11.15 - Cyclical vomiting syndrome unrelated to migraine Category: Medical Plan: Patient states that her symptoms have remained stable lately Continue Nortriptyline 75 mg Q HS (5) Allergic rhinitis: Code(s): J30.9 - Allergic rhinitis, unspecified Category: Medical Qualifiers: Allergic rhinitis seasonality: unspecified Allergic rhinitis trigger: unspecified Qualified Code(s): J30.9 - Allergic rhinitis, unspecified Plan: Continue Fluticasone 50 mcg nasal spray QD PRN (6) Vitamin D deficiency: Code(s): E55.9 - Vitamin D deficiency, unspecified Category: Medical Plan: Continue Vitamin D3 2000 units QD (7) Vocal cord polyp: Code(s): J38.1 - Polyp of vocal cord and larynx Category: Medical Plan: This was first noticed/visualized at the anterior part of the left vocal cord by anesthesiology during intubation back in June 2024 while they were prepping patient for surgery We then referred patient to ENT for urgent evaluation and management She was seen by ENT for this back in July 2024 and she is now scheduled to have this biopsied in a few weeks on 11/23/2024 Follow up with ENT as scheduled (8) Osteopenia: Code(s): M85.80 - Other specified disorders of bone density and structure, unspecified site Category: Medical Qualifiers: Osteopenia location: unspecified Qualified Code(s): M85.80 - Other specified disorders of bone density and structure, unspecified site Plan: BMD done back in August 2022 revealed (+) osteopenia based on the lowest T-score value of -2.1 in the lumbar spine - this is her baseline exam Have again encouraged patient to try to stay active physically and to exercise regularly when she can Continue daily oral Vitamin D and Calcium supplements Will continue to monitor her BMD every 2 to 3 years (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: Code(s): M47.816 - Spondylosis without myelopathy or radiculopathy, lumbar region Category: Medical Plan: Reinforced activity and weight-lifting restrictions Continue Oxycodone-Acetaminophen 7.5 mg-325 mg 1 tablet QID PRN Follow up with [facility] [place] [facility] Pain Management as scheduled (10) Osteoarthritis of right hip: Code(s): M16.11 - Unilateral primary osteoarthritis, right hip Category: Medical Qualifiers: Osteoarthritis type: primary Qualified Code(s): M16.11 - Unilateral primary osteoarthritis, right hip Plan: Patient states that her right hip pain has improved significantly with injections that she gets from Pain Management Follow-up with Pain Management as scheduled (11) Glaucoma: Code(s): H40.9 - Unspecified glaucoma Category: Medical Qualifiers: Glaucoma type: unspecified Laterality: bilateral Qualified Code(s): H40.9 - Unspecified glaucoma Plan: Follow up with ophthalmology as scheduled She is scheduled for eye surgery (trabeculectomy or laser surgery) of the right eye on 12/03/2024 and of the left eye on 12/24/2024 (12) Smoker: Code(s): F17.200 - Nicotine dependence, unspecified, uncomplicated Category: Social Hx Plan: Patient is counseled again to continue attempts at smoking cessation Continue Nicorette gum PRN to help patient quit smoking She last had low dose lung CT done in July 2024 for lung cancer screening - benign appearance; recommend to continue annual lung CT screening Plan Follow up in 4 months Orders: Orders Comprehensive Milfay. Panel Fast 4 Months E78.00 - Pure hypercholesterolemia, unspecified Lipid Panel 4 Months E78.00 - Pure hypercholesterolemia, unspecified Hemoglobin A1c 4 Months R73.01 - Impaired fasting glucose UA CC w/rflx Micro + Cult 4 Months R30.0 - Dysuria Complete Blood Count Auto Diff 4 Months D64.9 - Anemia, unspecified
[2024-10-07 12:50] VITALS: BP 124/78; PULSE 79; O2SAT 97; BMI 21.3
== END 2024-10-07 13:29 | disposition home or self-care (01) ==
LOC: HO.HMCH 12:34
PROVIDERS: PCP Internal Medicine; Visit Provider Internal Medicine
DX: I10 Essential (primary) hypertension (principal); E78.00 Pure hypercholesterolemia, unspecified; R73.01 Impaired fasting glucose; R11.15 Cyclical vomiting syndrome unrelated to migraine; J30.9 Allergic rhinitis, unspecified; E55.9 Vitamin D deficiency, unspecified; J38.1 Polyp of vocal cord and larynx; M85.80 Other specified disorders of bone density and structure, unspecified site; M47.816 Spondylosis without myelopathy or radiculopathy, lumbar region; M16.11 Unilateral primary osteoarthritis, right hip; H40.9 Unspecified glaucoma; F17.200 Nicotine dependence, unspecified, uncomplicated

== ENCOUNTER → 2024-10-07 12:34 | Outpatient (BNVA) | payer OTHER, SELFPAY | PROVIDERS: PCP Internal Medicine; Visit Provider Internal Medicine | DX: I10 Essential (primary) hypertension (principal); E78.00 Pure hypercholesterolemia, unspecified; R73.01 Impaired fasting glucose; R11.15 Cyclical vomiting syndrome unrelated to migraine; J30.9 Allergic rhinitis, unspecified; E55.9 Vitamin D deficiency, unspecified; J38.1 Polyp of vocal cord and larynx; M85.80 Other specified disorders of bone density and structure, unspecified site; M47.816 Spondylosis without myelopathy or radiculopathy, lumbar region; M16.11 Unilateral primary osteoarthritis, right hip; H40.9 Unspecified glaucoma; F17.200 Nicotine dependence, unspecified, uncomplicated; Z71.6 Tobacco abuse counseling | CPT/HCPCS: 96127; 99212 ==

== ENCOUNTER 2024-10-09 13:06 | Outpatient (AMB) | payer OTHER, SELFPAY ==
--- NOTE | 2024-10-09 13:08 | A.OFFVIS_ITS ---
Vital Signs 10/09/24 13:18 Height 5 ft 5 in Weight 129 lb 8 oz BMI 21.5 BP 179/93 H Blood Pressure Location Rt brachial Position Sitting Pulse 71 Pulse Source Pulse Oximeter Pulse Oximetry (%) 98 Oxygen Delivery Method Room Air Intake Visit Reasons: Pill Count Intake Note: Priya comes in today for a pill count to oxycodone-acetaminophen, patient should have 36 tablets and presents with 42 tablets which she last took today 10/09/24 at 11am. Pain today 08/24 Pharmacy Service Associate Required: No Allergies Sulfa (Sulfonamide Antibiotics) Allergy (Intermediate, Verified 10/09/24 13:18) Hives, itching trimethoprim [From Bactrim] Allergy (Intermediate, Verified 10/09/24 13:18) Hives HPI Comments Details: Priya presents back to the office today for follow up chronic pain and chronic opioid therapy management. Patient is prescribed oxycodone acetaminophen 7.5-325mg, take 1 tablet four times daily. Patient arrived today with the expectation of having 36 pills, she presented 42 pills which were counted in the presence of two staff members and returned to the patient in the original prescription bottle. This demonstrates responsible attitude toward patient's opioid medications. Pain is reported today as 2/10 and last dose of pain medication was taken this morning at 11am. Pain is adequately managed on current opioid regimen. Denies side effects including somnolence, constipation, itching, dyspnea, rash, dizziness or weakness. Continues with right hip pain, awaiting intra-articular steroid injection. [facility] Medical History (Updated 10/07/24 @ 13:36 by Charly Carrillo MD) Glaucoma Pelvic cramping Nicotine dependence, cigarettes, uncomplicated Osteopenia Vitamin D deficiency Pure hypercholesterolemia Benign essential hypertension Chronic, continuous use of opioids Tenosynovitis of thumb Chronic low back pain Cyclical vomiting Surgical History History of hysteroscopy H/O mastoidectomy History of tonsillectomy History of selective injection of anesthetic agent around lumbar nerve root History of colonoscopy (~2020) History of breast surgery Hx of shoulder surgery Hx of right knee surgery S/P laparoscopic cholecystectomy (~2009) History of appendectomy Family History Maternal Uncle Diabetes Father No problems noted. Mother No problems noted. Social History Housing: House Are you a primary child care supervisor to a significant other at home: No Do you presently have visiting nurse or other home services: No Alcohol intake: former Patient Tobacco Use Status: Current everyday Tobacco user Tobacco use type: Cigarette Cigarettes Per Day: 4 Years Smoked: 47 e-Cigarette/Vaping Use: Never Used Second Hand Smoke Exposure: Yes service: No Current occupational status: retired and disabled Cognitive needs: No Hearing needs: No Vision needs: Yes Female Reproductive History Menstrual Age of Menarche: 14 Review of Systems Const All systems reviewed & are unremarkable except as noted in HPI and below Physical Exam Vital Signs: Last Vital Signs Pulse 71 10/09/24 13:18 BP 179/93 H 10/09/24 13:18 Pulse Ox 98 10/09/24 13:18 Oxygen Delivery Method Room Air 10/09/24 13:18 BMI result Body Mass Index 21.5 General: awake, alert, oriented. Answers questions appropriately. Fully engaged in examination. HEENT: Normocephalic. Hearing intact. Cardiac: External chest normal in appearance. Respiratory: No cough, audible wheezing or stridor. Abdomen: without gross distension. MS: No obvious swelling or deformities. Able to transition from sit to stand unassisted. Ambulates with bilaterally normal heel strike and toe off Neurological: Oriented to person, place, time and situation. Thought process intact. No gait abnormalities appreciated. Psychiatric: Appropriate mood and affect. Good judgment and insight. Results Reviewed Results Reviewed: 10/2023 Right hip XR IMPRESSION: 1. Mild degenerative changes in the right hip. 2. Moderate degenerative changes right sacroiliac joint. 08/22/22 MM/XR DEXA axial skeleton IMPRESSION: Osteopenia based on the lowest T-score value of -2.1 in the lumbar spine and femoral neck applying World Health Organization criteria. Assessment & Plan Assessment & Plan (1) Right hip pain: Code(s): M25.551 - Pain in right hip Category: Medical (2) Myofascial pain: Code(s): M79.18 - Myalgia, other site Category: Medical (3) Chronic low back pain: Code(s): M54.5 - Low back pain; G89.29 - Other chronic pain Category: Medical Qualifiers: Back pain laterality: midline Sciatica presence: unspecified whether sciatica present Qualified Code(s): M54.5 - Low back pain; G89.29 - Other chronic pain (4) Spondylosis of lumbar region without myelopathy or radiculopathy: Code(s): M47.816 - Spondylosis without myelopathy or radiculopathy, lumbar region Category: Medical (5) Sacroiliac joint pain: Code(s): M53.3 - Sacrococcygeal disorders, not elsewhere classified Category: Medical (6) Chronic, continuous use of opioids: Code(s): F11.90 - Opioid use, unspecified, uncomplicated Category: Medical (7) Dental abscess: Code(s): K04.7 - Periapical abscess without sinus Category: Medical Plan [place]pat was reviewed and without concerns. No obvious signs of diversion, abuse or misuse of the opioid medications. Will send in prescription for oxycodone/acetaminophen 7.5-325 mg QID with an advanced date of 10/19/24. Continue with plan for intra-articular right hip injection All questions and concerns have been answered and patient agrees with the plan. Follow-up in the office in 1 month, sooner if needed. Medications: Refilled oxycodone-acetaminophen 7.5-325 mg Partial Fill upon patient request. 1 tab PO QID 30 days PRN 120 tabs 0RF pain, severe G89.29 - Other chronic pain, M47.816 - Spondylosis without myelopathy or radiculopathy, lumbar region, M53.3 - Sacrococcygeal disorders, not elsewhere classified, M54.5 - Low back pain Coding Level of Care Code Est Pt Level 4 (54410) Complex EM visit Add On G2211 Diagnoses Right hip pain M25.551 Myofascial pain M79.18 Chronic midline low back pain, unspecified whether sciatica present M54.5; G89.29 Back pain laterality: midline Sciatica presence: unspecified whether sciatica present Spondylosis of lumbar region without myelopathy or radiculopathy M47.816 Sacroiliac joint pain M53.3 Chronic, continuous use of opioids F11.90 Dental abscess K04.7
[2024-10-09 13:18] VITALS: BP 179/93; PULSE 71; O2SAT 98; BMI 21.5
== END 2024-10-09 13:56 | disposition home or self-care (01) ==
LOC: HO.PMC 13:07
PROVIDERS: PCP Internal Medicine; Visit Provider Registered Nurse Emergency
DX: M25.551 Pain in right hip (principal); M79.18 Myalgia, other site; M54.50 Low back pain, unspecified; Z79.891 Long term (current) use of opiate analgesic; G89.29 Other chronic pain; M47.816 Spondylosis without myelopathy or radiculopathy, lumbar region; M53.3 Sacrococcygeal disorders, not elsewhere classified; K04.7 Periapical abscess without sinus
CPT/HCPCS: 99214; G2211

== ENCOUNTER → 2024-10-09 13:06 | Outpatient (BNVA) | payer OTHER, SELFPAY | PROVIDERS: PCP Internal Medicine; Visit Provider Registered Nurse Emergency | DX: Z51.81 Encounter for therapeutic drug level monitoring (principal); F11.20 Opioid dependence, uncomplicated; M25.551 Pain in right hip; M79.18 Myalgia, other site; M54.59 Other low back pain; M47.816 Spondylosis without myelopathy or radiculopathy, lumbar region; M53.3 Sacrococcygeal disorders, not elsewhere classified; K04.7 Periapical abscess without sinus; G89.29 Other chronic pain | CPT/HCPCS: 99212 ==

== ENCOUNTER 2024-10-30 08:05 | Day surgery (SDC) | payer OTHER, SELFPAY ==
--- OUTSIDE RECORDS SUMMARY | 2024-10-21 14:32 | XMS_ITS | Data Portability ---
Author Organization [place] - [facility], Allergy Address [address] [address] Care Team Providers Care Office Spec Name Role Phone LANCE MAZARIEGOS Referring Provider [...] MD Not available Not available Not available Post Op 2024 02:30P Teresa CABRAL MD Not available Not available Not available Lab None recorded. Referral None recorded. Procedures None recorded. Surgeries laryngosc opy, direct, operative , with excision of tumor and/or stripping of vocal cords or epiglotti s (SURG) 2024 025 [email or web address] Not available 08/10/2024 16:34:12 Imaging None recorded. Medication Orders None recorded. Patient TargetsNo targets recorded. Patient InstructionsNo instructions recorded. Reason for Referral None Reported. 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 MANSI CABRAL MD [address] [place] [address],[place] [address], [place], [phone], [facility] 13:19:09 Perforation of nasal septum 38642734 Active 2024 MANSI CABRAL MD [address] [place] [address], [place], [phone], [facility] 13:19:14 Tobacco dependence caused by cigarettes 6214874767837 9107 Active 2024 MANSI CABRAL MD [address] [place] [address], [place], [address], [facility] 13:24:06 Problem Notes None recorded. Procedures Surgical History Date Name Laterality Status Provider Name and Address Organization Details Recorded Time 08/10/2024 FOL_DP completed MANSI CABRAL MD [address] [place] [address], [phone], [facility] 08/10/2024 13:19:03 Imaging Results None recorded. Procedure Notes None recorded. Medical Equipment None Reported. Allergies Allergen ID Allergen Name Allergen Category Reaction Reaction Severity Criticality Documentation Date Start Date Code Code System Note Provider Name and Address Organization Details Recorded Time 043328 Bactrim medicatio n Not available Not available Not available 08/10/2024 95549 9 RxNorm MANSI CABRAL MD [address] [place] [address], [place], [phone], [facility] 13:14:11 Medications Name Sig Start Date [...] Updated DateTime 08/10/2024 165.1 cm 22 kg/m2 70480.19 g Hector Wiseman [place] - [facility] 08/10/2024 13:06:50 Social History None recorded. [...] Disorder N Anesthesia Complications N Heart Attack ([place]) N Other Skin Condition N Diabetes N [...] SNOMED-CT Code Diagnosis ICD10 Code Diagnosis Note [id number] MANSI CABRAL MD [facility] [address] [place] [address] 08/10/2024 12:54:58 08/10/2024 13:25:01 Polyp of vocal cord 4469480 J38.1 PROLAPSING RIGHT VOCAL CORD POLYP Perforatio n of nasal septum 97221332 J34.89 long standing, not related to prior surgery or cocaine Tobacco de pendence caused by cigarettes [id number] 9416333 F17.210 cessation efforts discussed Health Concerns Section Related Observation LastModified by Organization Detai ls LastModified Time None Recorded Concern Status LastModified by Organization Details LastModified Time None Recorded Advance Directives Directive None Recorded Payers Encounter Date Sequence Insurance Name Policy Number Policy Swain Covered Member ID Swani Member ID Guarantor Name 08/10/2024 1 [facility] (MEDICAID HMO) RIZWANA Cardenas [id number] Priya Cardenas Notes Date Note Type Note Provider Name and Address Organization Details Recorded Time 08/10/2024 text/html vocal nodulesincidental finding by anesthesiology during intubation for SOURCING COORDINATOR procedure in Jun 2024tobacco 1ppd, cutting down to 5/dayno hemoptysisdenies dysphagiano prior voice surgeryretired - retired [employer], now cares for her kids dogs MANSI CABRAL MD [address] [place] [address], [phone], [facility] - [facility] 08/10/2024 13:24:46 OBGyn Episode No OBEpisode recorded.
--- OUTSIDE RECORDS SUMMARY | 2024-10-21 14:32 | XMS_ITS | Clinical Summary ---
Author Organization [facility] Address [address] [place] [address] Phone Care Team Providers Care Telephone Service Adviser Name Role Phone Charly Carrillo MD Primary Care Provider Allergies Active Allergy Reactions Criticality Noted Date Comments Other 10/09/2006 Bactrim [Na Gfiqdqyv-dqbhuygfrkivpbam-tcukkfhfunv m] Medications calcium carbonate (CALCIUM 500 ORAL) [...] Description 08/03/2024 Telephone Gastroenterology - [address] [place] [phone] Saleem Butt MD 07/31/2024 Telephone Gastroenterology - [address] [phone] Bryan Quintana PA 07/30/2024 3:50 PM EST - 07/30/2024 11:59 PM EST Hospital Encounter [facility] [address] [place] [address] Projectile vomiting with nausea Discharge Disposition: Home or Self Care 07/30/2024 3:20 PM EST Office Visit Gastroenterology - [address] [facility] [address] [place] [phone] Bryan Quintana PA Cyclical vomiting syndrome (Primary Dx); Gastroesophageal reflux disease without esophagitis; Projectile vomiting with nausea from Last 3 Months Immunizations Name Administration Dates Next Due Influenza trivalent, with pr eservative (Fluzone; Afluria) 6mo and older 04/20/2013,03/25/2012,04/09/2011 Surgical History Surgery Date Site/Laterality Comments KNEE ARTHROSCOPY PROCEDURE: [place] ARTHROSCOPY KNEE DIAGNOSTIC W/WO SYNOVIAL BX SPX; COMMENT: right CARPAL TUNNEL RELEASE RT HAND PROCEDURE: [place] NEUROPLASTY &/TRANSPOS MEDIAN NRV CARPAL TUNNE SHOULDER ARTHROSCOPY 01-02-06 PROCEDURE: [place] SURGICAL ARTHROSCOPY SHOULDER W/LSS&RESCJ ADS; COMMENT: right OTHER SURGICAL HISTORY PROCEDURE: HISTORICAL MASTOIDECTOMY OTHER SURGICAL HISTORY PROCEDURE: [place] UNLISTED LAPS PX HRNAP HERNIORRHAPHY HERNIOTOMY TUBAL LIGATION 2001 PROCEDURE: HISTORICAL TUBAL LIGATION TONSILLECTOMY 1978 PROCEDURE: HISTORICAL TONSILLECTOMY APPENDECTOMY 1979 PROCEDURE: [place] APPENDECTOMY CHOLECYSTECTOMY COLONOSCOPY 04/14/2021 - 05/14/2021 tics, [...] Screening: P ap Smear 04/20/2016 04/20/2013, 04/20/2013 Cholesterol Screening (Lipid Panel) 07/24/2024 04/09/2011 Depression Screening 07/24/2024 HIV Screening 07/24/2024 Hepatitis C Screening 07/24/2024 Lung Cancer Screening (Low Dose CT) 07/24/2024 Social Influencers of Health Screening 07/24/2024 Hypertension/CHF/CAD Annual BMP Blood Test 07/30/2024 Influenza Vaccine (Season Ended) 2025 04/20/2013, 03/25/2012, 04/09/2011 Colorectal Cancer Screening: Colonoscopy 04/24/2031 04/24/2021 RSV Immunization Adult Patients (1 - 1-dose 75+ series) 2037 HIB [...] age to complete this topic Meningococcal B Vaccine Aged Out No l onger eligible based on patient's age to complete [...] ??There is evidence of mild constipation. Code 55263 -------- FINAL REPORT -------- Dictated By: David Brice Dictated Date: 07/31/2024 12:00 ET Assigned Physician: David Brice Reviewed and Electronically Signed By: David Brice Signed Date: 07/31/2024 12:01 ET Workstation ID: [id number] Transcribed By: Self Edit Transcribed Date: 07/31/2024 [...] pattern. There is evidence of mildconstipation. Code 26553 -------- FINAL REPORT -------- Dictated By: David Brice Dictated Date: 07/31/2024 12:00 ET Assigned Physician: David Brice Reviewed and Electronically Signed By: David Brice Signed Date: 07/31/2024 12:01 ET Workstation ID: [id number] Transcribed By: Self Edit Transcribed Date: 07/31/2024 12:00 ET Bryan Quintana PA IMG XR PROCEDURES Final Resu lt * COLONOSCOPY (04/24/2021 1:24 PM EDT) Anatomical Region Laterality Modality Endoscopy Historical Provider GI~PROCEDURE ORDERABLES F inal Result * Cervical Cancer Screening: HPV (04/20/2013) Cervical Cancer Screening: HPV negative, abstracted Historical Provider HEALTH MAINTENANCE Final Result * Lipid panel (04/09/2011) LDL/HDL Ratio 0 [...] Most Recently Relevant to Health Maintenance Insurance [facility] Care Teams Telephone Service Adviser Relationship Specialty Start Date End Date Charly Carrillo MD [address] [place] [address] [address] [place], [place] PCP - General Internal Medicine 02/02/21
[2024-10-28 08:45] VITALS: BMI 21.5
--- NOTE | 2024-10-29 09:20 | HO.ANESPROP2 ---
Documented by User: Effie Mathew NP 10/29/24 09:21 HPI - Anesthesia Eval Consult details Narrative: 64yo F for Right Intraarticular Hip Steroid Injection s/p D&C 06/2024 with GETA 7.5 PMFSH Active Problems Active Problems: All Active Problems Vocal cord polyp (Acute) Encounter for well woman exam with routine gynecological exam (Acute) Vocal cord nodule (Acute) Olecranon bursitis, right elbow (Acute) Right elbow pain (Acute) Dental abscess (Acute) Right hip pain (Acute) Epidermoid cyst of skin of scalp (Acute) Breast signs and symptoms (Acute) Breast pain (Acute) Incomplete bladder emptying (Acute) Cough (Acute) Chest wall contusion (Acute) Impaired fasting glucose (Acute) Skin exam for malignant neoplasm (Acute) Microscopic hematuria (Acute) Allergic rhinitis (Acute) Myofascial pain (Acute) Bilateral leg weakness (Acute) Osteoarthritis of right hip (Acute) Sacroiliac joint pain (Acute) Spondylosis of lumbar region without myelopathy or radiculopathy (Acute) Glaucoma (Acute) Pelvic cramping (Acute) Nicotine dependence, cigarettes, uncomplicated (Acute) Osteopenia (Acute) Vitamin D deficiency (Acute) Pure hypercholesterolemia (Acute) Benign essential hypertension (Acute) Chronic, continuous use of opioids (Acute) Chronic low back pain (Acute) Cyclical vomiting (Acute) Tenosynovitis of thumb (Acute) Past Medical History Medical History (Updated 10/28/24 @ 08:44 by Julianna Olivarez RN) Vocal cord polyp Glaucoma Pelvic cramping Nicotine dependence, cigarettes, uncomplicated Osteopenia Vitamin D deficiency Pure hypercholesterolemia Benign essential hypertension Chronic, continuous use of opioids Tenosynovitis of thumb Chronic low back pain Cyclical vomiting Family History Family History Maternal Uncle Diabetes Father No problems noted. Mother No problems noted. Family history of problems with anesthesia: No Surgical History Surgical History (Updated 10/30/24 @ 08:22 by Alma Ritter RN) History of surgery History of hysteroscopy H/O mastoidectomy History of tonsillectomy History of selective injection of anesthetic agent around lumbar nerve root History of colonoscopy (~2020) History of breast surgery Hx of shoulder surgery Hx of right knee surgery S/P laparoscopic cholecystectomy (~2009) History of appendectomy History of Problems with Anesthesia: No Social History Social History Housing: House Are you a primary home care administrator to a significant other at home: No Do you presently have visiting nurse or other home services: No Alcohol intake: former Patient Tobacco Use Status: Current everyday Tobacco user Tobacco use type: Cigarette Cigarettes Per Day: 5 Years Smoked: 47 e-Cigarette/Vaping Use: Never Used Second Hand Smoke Exposure: Yes Use of substances other than those prescribed or required for medical reasons: Yes Are you DNR?: No Advance Directives: No Advance Directives Information Provided: Yes service: No Current occupational status: retired and disabled Cognitive needs: No Hearing needs: No Vision needs: Yes Meds Allergies Allergy/AdvReac Type Severity Reaction Status Date / Time Sulfa (Sulfonamide Allergy Intermediate Hives, Verified 10/09/24 13:18 Antibiotics) itching trimethoprim [From Bactrim] Allergy Intermediate Hives Verified 10/09/24 13:18 Home Medications ?Medication ?Instructions ?Recorded ?Confirmed ?Last Taken ?Type nortriptyline 75 mg capsule 75 mg PO BEDTIME 09/14/20 10/28/24 Unknown History sucralfate 1 gram tablet 1 g PO QID 09/04/24 10/28/24 Unknown History Exam Height,Weight and Vital Signs: Height 5 ft 5 in Weight 58.74 kg Assessment and Plan Assessment Anesthesia Assessment: Chart Reviewed Final Anesthetic Review Family History of Problems with Anesthesia: No History of Problems with Anesthesia: No Documented by User: Shashi Morales MD 10/30/24 09:25 [facility] Past Medical History Medical History (Updated 10/28/24 @ 08:44 by Julianna Olivarez RN) Vocal cord polyp Glaucoma Pelvic cramping Nicotine dependence, cigarettes, uncomplicated Osteopenia Vitamin D deficiency Pure hypercholesterolemia Benign essential hypertension Chronic, continuous use of opioids Tenosynovitis of thumb Chronic low back pain Cyclical vomiting Family History Family History Maternal Uncle Diabetes Father No problems noted. Mother No problems noted. Surgical History Surgical History (Updated 10/30/24 @ 08:22 by Alma Ritter RN) History of surgery History of hysteroscopy H/O mastoidectomy History of tonsillectomy History of selective injection of anesthetic agent around lumbar nerve root History of colonoscopy (~2020) History of breast surgery Hx of shoulder surgery Hx of right knee surgery S/P laparoscopic cholecystectomy (~2009) History of appendectomy Social History Social History Housing: House Are you a primary home care administrator to a significant other at home: No Do you presently have visiting nurse or other home services: No Alcohol intake: former Patient Tobacco Use Status: Current everyday Tobacco user Tobacco use type: Cigarette Cigarettes Per Day: 5 Years Smoked: 47 e-Cigarette/Vaping Use: Never Used Second Hand Smoke Exposure: Yes Use of substances other than those prescribed or required for medical reasons: Yes Are you DNR?: No Advance Directives: No Advance Directives Information Provided: Yes service: No Current occupational status: retired and disabled Cognitive needs: No Hearing needs: No Vision needs: Yes Meds Allergies Allergy/AdvReac Type Severity Reaction Status Date / Time Sulfa (Sulfonamide Allergy Intermediate Hives, Verified 10/09/24 13:18 Antibiotics) itching trimethoprim [From Bactrim] Allergy Intermediate Hives Verified 10/09/24 13:18 Home Medications ?Medication ?Instructions ?Recorded ?Confirmed ?Last Taken ?Type nortriptyline 75 mg capsule 75 mg PO BEDTIME 09/14/20 10/28/24 Unknown History sucralfate 1 gram tablet 1 g PO QID 09/04/24 10/28/24 Unknown History Exam Airway Mallampati Class: I TM Dist: >3cm Neck ROM: Full Loose/Missing/Broken Teeth: No Heart: ok Lungs: ok Assessment and Plan Assessment Anesthesia Assessment: Anesthesia Plan Discussed Final Anesthetic Review NPO: Yes ASA Class: II Final Preanesthetic Review: No Changes in Pt Med Stat, Meds/Allgs Chart Reviewed, Consent Obtained/Reviewed and Anes Risks/Benef Reviewed Patient Risk: Intermediate Procedure Risk: Low Anesthetic Plan Anesthetic Plan: MAC: and Agree w/ Assess. and Plan Disposition: Standard PACU
--- NOTE | ~2024-10-30 | FL_ITS ---
EXAMINATION: XR FLUOROSCOPY WITH IMAGES CLINICAL INFORMATION: Right hip pain management. COMPARISON: None available. TECHNIQUE: Fluoroscopy provided to: Dr. Herrera Fluoroscopy time: 14.9 seconds DAP: 2.0460 Gycm2 Images: 4 FINDINGS: 4 fluoroscopic spot images obtained during right hip pain management injection. Please refer to the full operative report for details. FL/FL guidance in OR IMPRESSION: Fluoroscopic guidance. Electronically signed by: Edy Macedo MD 10/30/2024 10:13 AM EDT
[2024-10-30 08:23] VITALS: BMI 21.2
[2024-10-30 08:34] VITALS: BP 136/62; PULSE 72; RESP 17; TEMP 37.1; O2SAT 96
[2024-10-30] MEDS: Lactated Ringers 1,000 ML 100 ML IVCONT (08:43)
--- NOTE | 2024-10-30 09:01 | MHC.SHP ---
Pre-Procedural Eval Section A - 24 Hr Update-Section A only Date of Service: 10/30/24 Section B - Complete if H&P > 30 days Chief Complaint: Pain in right hip Details of Present Illness: as above Relevant Family History (Specify if Yes): No Relevant Social History: Tobacco Use Present Medications: see Short Stay Collaborative assessment Medical History: Significant History History of Previous Operations: No relevant previous surgery Allergies: Allergies Allergy/AdvReac Type Severity Reaction Status Date / Time Sulfa (Sulfonamide Allergy Intermediate Hives, Verified 10/09/24 13:18 Antibiotics) itching trimethoprim [From Bactrim] Allergy Intermediate Hives Verified 10/09/24 13:18 Review of Systems Sugical H&P ROS: Negative: Constitution, Cardiovascular, Respiratory, Neurological, Psychiatric, Hem-Onc, Allergic/Immunologic, Gastrointestinal, Genitourinary, Integumentary, Endocrine and Eyes/Ears/Nose/Throat and Yes, Specify: Musculoskeletal (Hip OA) Exam Surgical H&P Exam: Normal: HEENT, Normal: Heart, Normal: Lungs, Normal: Extremities, Normal: Abdomen, Normal: Skin and Normal: Neurological Plan Diagnosis/Plan: Unchanged I have reviewed the history and physical and performed a pertinent physical examination on my patient. No changes have occurred unless specified. Time Spent With Patient Time: Total time managing care of this patient today ___5_ minutes.
[2024-10-30 09:54] VITALS: BP 95/55; PULSE 73; RESP 18; TEMP 37.1; O2SAT 96
[2024-10-30 10:10] VITALS: BP 128/80; PULSE 75; RESP 18; TEMP 36.9; O2SAT 98
--- NOTE | 2024-10-30 10:13 | PM.OP ---
Brief Operative Note Date of Service: 10/30/24 Pre-op diagnosis: Right hip osteoarthritis, right hip pain Post-op diagnosis: same Procedure: Intra-articular right hip steroid injection. Surgeon: Jaime Herrera MD Anesthesia: MAC Was an [employer] Machine Tender used for this Procedure?: No Estimated blood loss (mL): 0 Condition: stable Disposition: PACU
--- NOTE | 2024-10-30 10:15 | P.OP_ITS ---
Operative Note Operative Note Date of Service: 10/30/24 Narrative: Intra-articular right hip steroid injection. Informed consent was explained to the patient. All questions were explained and? answered. The patient was taken inside the operating room where she was positioned left lateral decubitus on the operating table.? Time-out was performed delineating correct site, side, the nature of the procedure, patient's allergy, preoperative antibiotic if needed.? All operating room staff was participating in OR time-out procedure.? ASA monitors were applied and patient was moderately sedated. Non dependent right hip was prepped with ChloraPrep and draped with sterile t owels.? The C-arm was brought over the operating field and the picture of bilateral hip joints were obtained on the screen.? The smaller right hip joint was chosen as the target for the injection.? The trochanter position was noted on the screen.? The projection of the trochanter to the skin was noted, the direction of the femoral neck was noted.? The skin was anesthetized using 2% lidocaine mixed with ropivacaine 0.5% at the trochanter area.? 22 gauge 5 in needle was inserted through the skin and advanced to the hip joint silhouette on under intermittent lateral and anterior posterior views.? When needle entered the Silhouette of the joint injection of the contrast Omnipaque was performed demonstrating intra-articular spread of the contrast.? After that 4 cc of ropivacaine 0.5% mixed with Kenalog 40 mg was injected into the area.?,upon completion of the procedure the needle was removed and sterile Band-Aid was applied. Patient tolerated the procedure well.
== END 2024-10-30 10:27 | disposition home or self-care (01) ==
PROVIDERS: PCP Internal Medicine; Visit Provider Anesthesiology
PROC: (CPT 20610; principal; 2024-10-30 12:00)
DX: M25.551 Pain in right hip (principal); G89.29 Other chronic pain; M54.50 Low back pain, unspecified; M79.18 Myalgia, other site; M47.816 Spondylosis without myelopathy or radiculopathy, lumbar region; M53.3 Sacrococcygeal disorders, not elsewhere classified; Z79.891 Long term (current) use of opiate analgesic; M85.80 Other specified disorders of bone density and structure, unspecified site; I10 Essential (primary) hypertension; E78.00 Pure hypercholesterolemia, unspecified; E55.9 Vitamin D deficiency, unspecified; H40.9 Unspecified glaucoma; Z88.2 Allergy status to sulfonamides; Z98.890 Other specified postprocedural states; F17.210 Nicotine dependence, cigarettes, uncomplicated
CPT/HCPCS: 20610; J2003; J2250; J2704; J2795; J3010; J3301; Q9967

== ENCOUNTER → 2024-10-30 08:05 | Outpatient (BNV) | payer OTHER, SELFPAY | PROVIDERS: PCP Internal Medicine; Visit Provider Anesthesiology | DX: M25.552 Pain in left hip (principal); M16.12 Unilateral primary osteoarthritis, left hip | CPT/HCPCS: 20610; 77002 ==

== ENCOUNTER 2024-11-06 12:50 | Outpatient (AMB) | payer OTHER, SELFPAY ==
--- NOTE | 2024-11-06 12:54 | A.OFFVIS_ITS ---
Vital Signs 11/06/24 13:01 Height 5 ft 5 in Weight 125 lb BMI 20.8 BP 139/79 Blood Pressure Location Rt brachial Position Sitting Pulse 79 Pulse Source Pulse Oximeter Pulse Oximetry (%) 98 Oxygen Delivery Method Room Air Intake Visit Reasons: Pill Count Intake Note: Priya comes in today for a pill count to oxycodone-acetaminophen, patient should have 44 tablets and presents with 50 tablets which she last took today 11/06/24 at 12pm. Pain today 2 Data Processing Manager Required: No Allergies Sulfa (Sulfonamide Antibiotics) Allergy (Intermediate, Verified 11/06/24 13:01) Hives, itching trimethoprim [From Bactrim] Allergy (Intermediate, Verified 11/06/24 13:01) Hives HPI Comments Details: Priya presents back to the office today for follow up chronic pain and chronic opioid therapy management. Patient is prescribed oxycodone acetaminophen 7.5-325mg, take 1 tablet four times daily. Patient arrived today with the expectation of having 44 pills, she presented 50 pills which were counted in the presence of two staff members and returned to the patient in the original prescription bottle. This demonstrates responsible attitude toward patient's opioid medications. Pain is reported today as 2/10 and last dose of pain medication was taken today at noon. Underwent hip injection 1 week ago, tolerated well. Reports pain, function and mobility have improved notably since the injection. Denies side effects including somnolence, constipation, itching, dyspnea, rash, dizziness or weakness. [facility] Medical History (Updated 10/28/24 @ 08:44 by Julianna Olivarez RN) Vocal cord polyp Glaucoma Pelvic cramping Nicotine dependence, cigarettes, uncomplicated Osteopenia Vitamin D deficiency Pure hypercholesterolemia Benign essential hypertension Chronic, continuous use of opioids Tenosynovitis of thumb Chronic low back pain Cyclical vomiting Surgical History (Updated 10/30/24 @ 08:22 by Alma Ritter RN) History of surgery History of hysteroscopy H/O mastoidectomy History of tonsillectomy History of selective injection of anesthetic agent around lumbar nerve root History of colonoscopy (~2020) History of breast surgery Hx of shoulder surgery Hx of right knee surgery S/P laparoscopic cholecystectomy (~2009) History of appendectomy Family History Maternal Uncle Diabetes Father No problems noted. Mother No problems noted. Social History Housing: House Are you a primary women's health care nurse practitioner to a significant other at home: No Do you presently have visiting nurse or other home services: No Alcohol intake: former Patient Tobacco Use Status: Current everyday Tobacco user Tobacco use type: Cigarette Cigarettes Per Day: 5 Years Smoked: 47 e-Cigarette/Vaping Use: Never Used Second Hand Smoke Exposure: Yes service: No Current occupational status: retired and disabled Cognitive needs: No Hearing needs: No Vision needs: Yes Female Reproductive History Menstrual Age of Menarche: 14 Review of Systems Const All systems reviewed & are unremarkable except as noted in HPI and below Physical Exam Vital Signs: Last Vital Signs Pulse 79 11/06/24 13:01 BP 139/79 11/06/24 13:01 Pulse Ox 98 11/06/24 13:01 Oxygen Delivery Method Room Air 11/06/24 13:01 BMI result Body Mass Index 20.8 General: awake, alert, oriented. Answers questions appropriately. Fully engaged in examination. HEENT: Normocephalic. Hearing intact. Cardiac: External chest normal in appearance. Respiratory: No cough, audible wheezing or stridor. Abdomen: without gross distension. MS: No obvious swelling or deformities. Able to transition from sit to stand unassisted. Ambulates with bilaterally normal heel strike and toe off Neurological: Oriented to person, place, time and situation. Thought process intact. No gait abnormalities appreciated. Psychiatric: Appropriate mood and affect. Good judgment and insight. Results Reviewed Results Reviewed: 10/2023 Right hip XR IMPRESSION: 1. Mild degenerative changes in the right hip. 2. Moderate degenerative changes right sacroiliac joint. 08/22/22 MM/XR DEXA axial skeleton IMPRESSION: Osteopenia based on the lowest T-score value of -2.1 in the lumbar spine and femoral neck applying World Health Organization criteria. Assessment & Plan Assessment & Plan (1) Right hip pain: Code(s): M25.551 - Pain in right hip Category: Medical (2) Myofascial pain: Code(s): M79.18 - Myalgia, other site Category: Medical (3) Chronic low back pain: Code(s): M54.5 - Low back pain; G89.29 - Other chronic pain Category: Medical Qualifiers: Back pain laterality: midline Sciatica presence: unspecified whether sciatica present Qualified Code(s): M54.5 - Low back pain; G89.29 - Other chronic pain (4) Spondylosis of lumbar region without myelopathy or radiculopathy: Code(s): M47.816 - Spondylosis without myelopathy or radiculopathy, lumbar region Category: Medical (5) Sacroiliac joint pain: Code(s): M53.3 - Sacrococcygeal disorders, not elsewhere classified Category: Medical (6) Chronic, continuous use of opioids: Code(s): F11.90 - Opioid use, unspecified, uncomplicated Category: Medical (7) Dental abscess: Code(s): K04.7 - Periapical abscess without sinus Category: Medical Plan [place]pat was reviewed and without concerns. No obvious signs of diversion, abuse or misuse of the opioid medications. Will send in prescription for oxycodone/acetaminophen 7.5-325 mg QID All questions and concerns have been answered and patient agrees with the plan. Follow-up in the office in 1 month, sooner if needed. Medications: Refilled oxycodone-acetaminophen 7.5-325 mg Partial Fill upon patient request. 1 tab PO QID PRN 120 tabs 0RF pain, severe 30 days G89.29 - Other chronic pain, M47.816 - Spondylosis without myelopathy or radiculopathy, lumbar region, M53.3 - Sacrococcygeal disorders, not elsewhere classified, M54.5 - Low back pain Coding Level of Care Code Est Pt Level 3 (66030) Complex EM visit Add On G2211 Diagnoses Right hip pain M25.551 Myofascial pain M79.18 Chronic midline low back pain, unspecified whether sciatica present M54.5; G89.29 Back pain laterality: midline Sciatica presence: unspecified whether sciatica present Spondylosis of lumbar region without myelopathy or radiculopathy M47.816 Sacroiliac joint pain M53.3 Chronic, continuous use of opioids F1. Dental abscess K04.7
[2024-11-06 13:01] VITALS: BP 139/79; PULSE 79; O2SAT 98; BMI 20.8
--- OUTSIDE RECORDS SUMMARY | 2024-11-06 13:29 | XMS_ITS | Clinical Summary ---
Author Organization [facility] [address] [facility] Address [address] [place] [address] Phone Care Team Providers Care Ore Digger Name Role Phone Charyl Carrillo MD Primary Care Provider Allergies Active Allergy Reactions Criticality Noted Date Comments Other 10/09/2006 Bactrim [Na Bopqnxaf-cpiickhgmlvxnqzk-vneytkvgztv m] Medications calcium carbonate (CALCIUM 500 ORAL) [...] at bedtime. 90 each 3 07/30/19 25 026 Active Active Problems Problem Noted Date Diagnosed [...] HTN (hypertension) 07/30/2024 Chronic back pain 07/30/2024 Immunizations Name Administration Dates Next Due Influenza trivalent, with pr eservative (Fluzone; Afluria) 6mo and older 04/20/2013,03/25/2012,04/09/2011 Surgical History Surgery Date Site/Laterality Comments KNEE ARTHROSCOPY PROCEDURE: [place] ARTHROSCOPY KNEE DIAGNOSTIC W/WO SYNOVIAL BX SPX; COMMENT: right CARPAL TUNNEL RELEASE RT HAND PROCEDURE: [place] NEUROPLASTY &/TRANSPOS MEDIAN NRV CARPAL TUNNE SHOULDER ARTHROSCOPY 01-02-06 PROCEDURE: [place] SURGICAL ARTHROSCOPY SHOULDER W/LSS&RESCJ ADS; COMMENT: right OTHER SURGICAL HISTORY PROCEDURE: HISTORICAL MASTOIDECTOMY OTHER SURGICAL HISTORY PROCEDURE: [place] UNLISTED LAPS PX HRNAP HERNIORRHAPHY HERNIOTOMY TUBAL LIGATION 2001 PROCEDURE: HISTORICAL TUBAL LIGATION TONSILLECTOMY 1978 PROCEDURE: HISTORICAL TONSILLECTOMY APPENDECTOMY 1979 PROCEDURE: [place] APPENDECTOMY CHOLECYSTECTOMY COLONOSCOPY 04/14/2021 - 05/14/2021 tics, [...] Procedure Name Priority Date/Time Associated Diagnosis Comments COLONOSCOPY Routine 04/24/2021 1:24 PM EDT HPV Routine 04/20/2013 LIPID PANEL Routine 04/09/2011 from Last 3 Months or Most Recently Relevant to Health Maintenance Results * COLONOSCOPY (04/24/2021 1:24 PM EDT) Anatomical Region Laterality Modality Endoscopy Historical Provider GI~PROCEDURE ORDERABLES F inal Result * Cervical Cancer Screening: HPV (04/20/2013) Pathologist [facility] 1928–1983 Cervical Cancer Screening: HPV negative, abstracted Historical Provider HEALTH MAINTENANCE Final Result * Lipid panel (04/09/2011) Pathologist [facility] [place] LDL/HDL Ratio 0 Comment:no interpretation, a bstracted Triglycerides 0 mg/dL Comment:no interpretation, a bstracted Cholesterol 0 mg/dL Comment:no interpretation, a bstracted HDL 0 mg/dL Comment:no interpretation, a bstracted LDL Cholesterol 0 mg/dL Comment:no interpretation, a bstracted Blood Venous blood specimen / Unknown Historical Provider LAB BLOOD ORDERABLES Karly l Result from Last 3 Months or Most Recently Relevant to Health Maintenance [place] [address] [address] HEALTH PLAN Care Teams Ore Digger Relationship Specialty Start Date End Date Charly Carrillo MD [address] [place] [address] [address] [place], [place] PCP - General Internal Medicine 02/02/21
--- OUTSIDE RECORDS SUMMARY | 2024-11-06 13:30 | XMS_ITS | Data Portability ---
Author Organization [place] - [facility], Allergy Address [address] [address] Care Team Providers Care Pedal Assembler Name Role Phone LANCE MAZARIEGOS Referring Provider [...] cords or epiglotti s (SURG) 2024 025 [email or web address] Not available 08/10/2024 16:34:12 Imaging None recorded. Medication Orders None recorded. Patient TargetsNo targets recorded. Patient InstructionsNo instructions recorded. Reason for Referral None Reported. Problems Name Problem SNOMED Code Status Onset Date Resolution Date Notes Provider Name and Address Organization Details Recorded Time Polyp of vocal cord 1705963 Active 2024 MANSI CABRAL MD [address] [place] [address],[place] [address], [place], [phone], [facility] 13:19:09 Perforation of nasal septum 99476197 Active 2024 MANSI CABRAL MD [address] [place] [address], [place], [address], [facility] 13:19:14 Tobacco dependence caused by cigarettes 6138448900994 9107 Active 2024 MANSI CABRAL MD [address] [place] [address], [place], [address], [facility] 13:24:06 Problem Notes None recorded. Procedures Surgical History Date Name Laterality Status Provider Name and Address Organization Details Recorded Time 08/10/2024 FOL_DP completed MANSI CABRAL MD [address] [place] [address], [phone], [facility] 08/10/2024 13:19:03 Imaging Results None recorded. Procedure Notes None recorded. Medical Equipment None Reported. Allergies Allergen ID Allergen Name Allergen Category Reaction Reaction Severity Criticality Documentation Date Start Date Code Code System Note Provider Name and Address Organization Details Recorded Time 035626 Bactrim medicatio n Not available Not available Not available 08/10/2024 78004 9 RxNorm MANSI CABRAL MD [address] [place] [address], [place], [address], [facility] 13:14:11 Medications Name Sig Start [...] Updated DateTime 08/10/2024 165.1 cm 22 kg/m2 07928.19 g Hector Wiseman [place] - [facility] 08/10/2024 13:06:50 Social History None [...] Disorder N Anesthesia Complications N Heart Attack ([place]) N Other Skin Condition N Diabetes N [...] SNOMED-CT Code Diagnosis ICD10 Code Diagnosis Note [id number] MANSI CABRAL MD [facility] [address] [place] [address] 08/10/2024 12:54:58 08/10/2024 13:25:01 Polyp of vocal cord 3396368 J38.1 PROLAPSING RIGHT VOCAL CORD POLYP Perforatio n of nasal septum 51644595 J34.89 long standing, not related to prior surgery or cocaine Tobacco de pendence caused by cigarettes 8021442239 9520329 F17.210 cessation efforts discussed Health Concerns Section Related Observation LastModified by Organization Detai ls LastModified Time None Recorded Concern Status LastModified by Organization Details LastModified Time None Recorded Advance Directives Directive None Recorded Payers Encounter Date Sequence Insurance Name Policy Number Policy Swain Covered Member ID Swain Member ID Guarantor Name 08/10/2024 1 [facility] - HEALTH NET PLAN (MEDICAID HMO) RIZWANA Cardenas [id number] Priya Cardenas Notes Date Note Type Note Provider Name and Address Organization Details Recorded Time 08/10/2024 text/html vocal nodulesincidental finding by anesthesiology during 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
== END 2024-11-06 13:40 | disposition home or self-care (01) ==
LOC: HO.PMC 12:51
PROVIDERS: PCP Internal Medicine; Visit Provider Registered Nurse Emergency
DX: M25.551 Pain in right hip (principal); M79.18 Myalgia, other site; M54.50 Low back pain, unspecified; G89.29 Other chronic pain; M47.816 Spondylosis without myelopathy or radiculopathy, lumbar region; M53.3 Sacrococcygeal disorders, not elsewhere classified; Z79.891 Long term (current) use of opiate analgesic; K04.7 Periapical abscess without sinus
CPT/HCPCS: 99213; G2211

== ENCOUNTER → 2024-11-06 12:50 | Outpatient (BNVA) | payer OTHER, SELFPAY | PROVIDERS: PCP Internal Medicine; Visit Provider Registered Nurse Emergency | DX: M25.551 Pain in right hip (principal); M79.18 Myalgia, other site; M54.50 Low back pain, unspecified; G89.29 Other chronic pain; M47.816 Spondylosis without myelopathy or radiculopathy, lumbar region; M53.3 Sacrococcygeal disorders, not elsewhere classified; F11.90 Opioid use, unspecified, uncomplicated; K04.7 Periapical abscess without sinus; Z51.81 Encounter for therapeutic drug level monitoring; Z79.891 Long term (current) use of opiate analgesic | CPT/HCPCS: 99212 ==

== ENCOUNTER 2024-11-20 10:06 | Outpatient (AMB) | payer OTHER, SELFPAY ==
--- OUTSIDE RECORDS SUMMARY | 2024-11-20 10:35 | XMS_ITS | Clinical Summary ---
Author Organization [facility] [address] [facility] Address [address] [place] [address] Phone Care Team Providers Care Certified Ophthalmic Assistant Name Role Phone Charly Carrillo MD Primary Care Provider Allergies Active Allergy Reactions Criticality Noted Date Comments Other 10/09/2006 Bactrim [Na Qqfealnf-taeloyuoqicwsmel-qhcowkvdfft m] Medications calcium carbonate (CALCIUM 500 ORAL) [...] Surgery Date Site/Laterality Comments KNEE ARTHROSCOPY PROCEDURE: [place] ARTHROSCOPY KNEE DIAGNOSTIC W/WO SYNOVIAL BX SPX; COMMENT: right CARPAL TUNNEL RELEASE RT HAND PROCEDURE: [place] NEUROPLASTY &/TRANSPOS MEDIAN NRV CARPAL TUNNE SHOULDER ARTHROSCOPY 01-02-06 PROCEDURE: [place] SURGICAL ARTHROSCOPY SHOULDER W/LSS&RESCJ ADS; COMMENT: right OTHER SURGICAL HISTORY PROCEDURE: HISTORICAL MASTOIDECTOMY OTHER SURGICAL HISTORY PROCEDURE: [place] UNLISTED LAPS PX HRNAP HERNIORRHAPHY HERNIOTOMY TUBAL LIGATION 2001 PROCEDURE: HISTORICAL TUBAL LIGATION TONSILLECTOMY 1978 PROCEDURE: HISTORICAL TONSILLECTOMY APPENDECTOMY 1979 PROCEDURE: [place] APPENDECTOMY CHOLECYSTECTOMY COLONOSCOPY 04/14/2021 - 05/14/2021 tics, [...] DTaP,Tdap,and Td Vaccines (1 - Tdap) 1981 Hepatitis A Vaccines (1 of 2 - Risk 2-dose series) 1981 Pneumococcal Vaccine: 50+ Years (1 of [...] * Cervical Cancer Screening: HPV (04/20/2013) Pathologist [facility] Cervical Cancer Screening: HPV negative, abstracted Historical Provider HEALTH MAINTENANCE Final Result * Lipid panel (04/09/2011) Pathologist [facility] LDL/HDL Ratio 0 Comment:no interpretation, a bstracted Triglycerides 0 mg/dL Comment:no interpretation, a bstracted Cholesterol 0 mg/dL Comment:no interpretation, a bstracted HDL 0 mg/dL Comment:no interpretation, a bstracted LDL Cholesterol 0 mg/dL Comment:no interpretation, a bstracted Blood Venous blood specimen / Unknown Historical Provider LAB BLOOD ORDERABLES Karly l Result from Last 3 Months or Most Recently Relevant to Health Maintenance [place] [place] [address] HEALTH PLAN Care Teams Certified Ophthalmic Assistant Relationship Specialty Start Date End Date Charly Carrillo MD [address] [place] [address] [address] [place], [place] PCP - General Internal Medicine 02/02/21
--- OUTSIDE RECORDS SUMMARY | 2024-11-20 10:35 | XMS_ITS | Data Portability ---
Author Organization [place] - [facility], Allergy Address [address] [address] Care Team Providers Care Unleavened Dough Mixer Name Role Phone LANCE MAZARIEGOS Referring Provider [...] cords or epiglotti s (SURG) 2024 025 [email or web address] Not available 08/10/2024 16:34:12 Imaging None recorded. Medication Orders None recorded. Patient TargetsNo targets recorded. Patient InstructionsNo instructions recorded. Reason for Referral None Reported. Problems Name Problem SNOMED Code Status Onset Date Resolution Date Notes Provider Name and Address Organization Details Recorded Time Polyp of vocal cord 9651350 Active 2024 MANSI CABRAL MD [address] [place] [address],[place] [address], [place], [phone], [facility] 13:19:09 Perforation of nasal septum 51787401 Active 2024 MANSI CABRAL MD [address] [place] [address], [place], [address], [facility] 13:19:14 Tobacco dependence caused by cigarettes 7722272787959 9107 Active 2024 MANSI CABRAL MD [address] [place] [address], [place], [address], [facility] 13:24:06 Problem Notes None recorded. Procedures Surgical History Date Name Laterality Status Provider Name and Address Organization Details Recorded Time 08/10/2024 FOL_DP completed MANSI CABRAL MD [address] [place] [address], [phone], [facility] 08/10/2024 13:19:03 Imaging Results None recorded. Procedure Notes None recorded. Medical Equipment None Reported. Allergies Allergen ID Allergen Name Allergen Category Reaction Reaction Severity Criticality Documentation Date Start Date Code Code System Note Provider Name and Address Organization Details Recorded Time 203372 Bactrim medicatio n Not available Not available Not available 08/10/2024 10050 9 RxNorm MANSI CABRAL MD [address] [place] [address], [place], [phone], [facility] 13:14:11 Medications Name Sig Start Date [...] Updated DateTime 08/10/2024 165.1 cm 22 kg/m2 19883.19 g Hector Wiseman [place] [facility] 08/10/2024 13:06:50 Social History None recorded. [...] Disorder N Anesthesia Complications N Heart Attack ([place]) N Other Skin Condition N Diabetes N [...] SNOMED-CT Code Diagnosis ICD10 Code Diagnosis Note [id number] MANSI CABRAL MD [facility] [address] [place] [address] 08/10/2024 12:54:58 08/10/2024 13:25:01 Polyp of vocal cord 6991289 J38.1 PROLAPSING RIGHT VOCAL CORD POLYP Perforatio n of nasal septum 10337155 J34.89 long standing, not related to prior surgery or cocaine Tobacco de pendence caused by cigarettes 1687787900 1627117 F17.210 cessation efforts discussed Health Concerns Section Related Observation LastModified by Organization Detai ls LastModified Time None Recorded Concern Status LastModified by Organization Details LastModified Time None Recorded Advance Directives Directive None Recorded Payers Insurance Date Sequence Insurance Name Policy Number Policy Swain Covered Member ID Swain Member ID Guarantor Name 11/20/2024 1 [facility] - HEALTH NET PLAN (MEDICAID HMO) RIZWANA Cardenas [id number] Priya Cardenas Notes Date Note Type Note Provider Name and Address Organization Details Recorded Time 08/10/2024 text/html vocal nodulesincidental finding by anesthesiology during 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
--- NOTE | 2024-11-20 10:36 | AM.OFFWIN_ITS ---
Intake Vital Signs 11/20/24 10:37 Height 5 ft 5 in Weight 125 lb BMI 20.8 BP 132/70 Blood Pressure Location Rt brachial Position Sitting Pulse 82 Pulse Source Pulse Oximeter Temp 98.5 F Temp Source Oral Pulse Oximetry (%) 96 Oxygen Delivery Method Room Air Intake Visit Reasons: EP RT rib pain Patient Tobacco Use Status: Current everyday Tobacco user Allergies Sulfa (Sulfonamide Antibiotics) Allergy (Intermediate, Verified 11/20/24 10:37) Hives, itching trimethoprim [From Bactrim] Allergy (Intermediate, Verified 11/20/24 10:37) Hives Medication List - Last Reconciled 11/20/24 by Marco A Her MD amlodipine 2.5 mg PO DAILY 90 days back brace As directed calcium carbonate (Calcium 600) 600 mg PO DAILY cholecalciferol (vitamin D3) 50 mcg PO DAILY 90 days cyclobenzaprine 10 mg PO BID PRN fluticasone propionate 50 mcg/actuation 2 sprays intranasal DAILY PRN 90 days nicotine 1 patch transdermal Q24H 28 days nortriptyline 75 mg PO BEDTIME oxycodone-acetaminophen 7.5-325 mg 1 tab PO QID PRN 30 days sucralfate 1 g PO QID Do you need a note to return to daycare/school/sports/work: No HPI EP RT rib pain HPI Details History - The patient is a 64 year old female pr esenting with rib pain and cough. - Rib pain began on Saturday night foll owing an incident where the patient leaned on her knee while pulling up a piece of carpet, causing the knee to impact her chest and something to 'pop' under the right breast. - Initially, the rib pain was manageable , but by the following night, it became severe, especially when breathing or coughing. - The patient has also started experienc ing a congested cough. - The cough produced thick, clear phlegm with no associated fever or chills. - The patient is scheduled for throat orozco rgery on Saturday to remove a cyst from the vocal cord, which has caused hoarseness. - The patient smokes approximately four to five cigarettes a day and has used a smoking cessation aid to quit prior to surgery. - The patient denies a history of osteop orosis but does have a history of osteopenia. Problem List - Rib Contusion - Upper Respiratory Tract Infection - Vocal Cord Cyst - Cigarette Smoking - Osteopenia Patient Instructions - Proceed with the prescribed azithromyc in antibiotic, especially considering the upcoming surgery. - Follow up with the x-ray examination n ext door to evaluate the rib. - Visit the pharmacy to obtain the presc ribed antibiotic. - Monitor symptoms and proceed with surg usman as scheduled unless advised otherwise. - Take prescribed pain medication as dir ected. Review of Systems - General: No fever no chills - Neurological: No headaches no dizziness - Ear nose throat: No sore throat no hearing difficulty no ear pain - Cardiovascular: No syncope, no palpitations - Gastrointestinal: No nausea vomiting or diarrhea Physical Exam General: No acute distress HEENT: Hoarseness due to cyst on vocal cord Neck: Supple Respiratory system: Congested cough, able to talk in full sentences, no audible wheeze Chest : tender over 5 th rib right side mid clavicular line with pressure Cardiovascular: S1-S2 regular in rate and rhythm Gastrointestinal: No pain Extremities: No new findings QUALITY CLOTH TESTER: Alert awake oriented x3 motor sensory intact Skin: Normal turgor PFSH Medical History Vocal cord polyp Glaucoma Pelvic cramping Nicotine dependence, cigarettes, uncomplicated Osteopenia Vitamin D deficiency Pure hypercholesterolemia Benign essential hypertension Chronic, continuous use of opioids Tenosynovitis of thumb Chronic low back pain Cyclical vomiting Surgical History History of surgery History of hysteroscopy H/O mastoidectomy History of tonsillectomy History of selective injection of anesthetic agent around lumbar nerve root History of colonoscopy (~2020) History of breast surgery Hx of shoulder surgery Hx of right knee surgery S/P laparoscopic cholecystectomy (~2009) History of appendectomy Family History Maternal Uncle Diabetes Father No problems noted. Mother No problems noted. Social History Housing: House Are you a primary home care physical therapist to a significant other at home: No Do you presently have visiting nurse or other home services: No Alcohol intake: former Patient Tobacco Use Status: Current everyday Tobacco user Tobacco use type: Cigarette Cigarettes Per Day: 5 Years Smoked: 47 e-Cigarette/Vaping Use: Never Used Second Hand Smoke Exposure: Yes service: No Current occupational status: retired and disabled Cognitive needs: No Hearing needs: No Vision needs: Yes Female Reproductive History Menstrual Age of Menarche: 14 Physical Exam Vital Signs: Last Vital Signs Temp 98.5 F 11/20/24 10:37 Pulse 82 11/20/24 10:37 BP 132/70 11/20/24 10:37 Pulse Ox 96 11/20/24 10:37 Oxygen Delivery Method Room Air 11/20/24 10:37 BMI result Body Mass Index 20.8 Assessment & Plan Assessment & Plan (1) Rib pain on right side: Code(s): R07.81 - Pleurodynia (2) Chest congestion: Code(s): R09.89 - Other specified symptoms and signs involving the circulatory and respiratory systems (3) Vocal cord polyp: Code(s): J38.1 - Polyp of vocal cord and larynx (4) Osteopenia: Code(s): M85.80 - Other specified disorders of bone density and structure, unspecified site Qualifiers: Osteopenia location: unspecified Qualified Code(s): M85.80 - Other specified disorders of bone density and structure, unspecified site Plan History - The patient is a 64 year old female presenting with rib pain and cough. - Rib pain began on Saturday night following an incident where the patient leaned on her knee while pulling up a piece of carpet, causing the knee to impact her chest and something to 'pop' under the right breast. - Initially, the rib pain was manageable, but by the following night, it became severe, especially when breathing or coughing. - The patient has also started experiencing a congested cough. - The cough produced thick, clear phlegm with no associated fever or chills. - The patient is scheduled for throat surgery on Saturday to remove a cyst from the vocal cord, which has caused hoarseness. - The patient smokes approximately four to five cigarettes a day and has used a smoking cessation aid to quit prior to surgery. - The patient denies a history of osteoporosis but does have a history of osteopenia. Problem List - Rib Contusion - Upper Respiratory Tract Infection - Vocal Cord Cyst - Cigarette Smoking - Osteopenia Patient Instructions - Proceed with the prescribed azithromycin antibiotic, especially considering the upcoming surgery. - Follow up with the x-ray examination next door to evaluate the rib. - Visit the pharmacy to obtain the prescribed antibiotic. - Monitor symptoms and proceed with surgery as scheduled unless advised otherw ise. - Take prescribed pain medication as directed. Orders: Orders XR ribs RT min 3V w CXR1V Today R07.81 - Pleurodynia, R09.89 - Other specified symptoms and signs involving the circulatory and respiratory systems Medications: New azithromycin Take 2 tablets today then 1 daily 250 mg PO ONCE 5 days 6 tabs 0RF J06.9 - Acute upper respiratory infection, unspecified Coding Level of Care Code Est Pt Level 4 (11099) Diagnoses Rib pain on right side R07.81 Chest congestion R09.89 Vocal cord polyp J38.1 Osteopenia, unspecified location M85.80 Osteopenia location: unspecified
[2024-11-20 10:37] VITALS: BP 132/70; PULSE 82; TEMP 36.9; O2SAT 96; BMI 20.8
== END 2024-11-20 10:49 | disposition home or self-care (01) ==
PROVIDERS: PCP Internal Medicine; Visit Provider Internal Medicine
DX: R07.81 Pleurodynia (principal); R09.89 Other specified symptoms and signs involving the circulatory and respiratory systems; J38.1 Polyp of vocal cord and larynx; M85.80 Other specified disorders of bone density and structure, unspecified site

== ENCOUNTER 2024-11-20 10:06 | Outpatient (REF) | payer OTHER, SELFPAY ==
--- NOTE | ~2024-11-20 | XR_ITS ---
EXAMINATION: XR RIBS, RIGHT CLINICAL INFORMATION: R07.81 - Pleurodynia COMPARISON: None available. TECHNIQUE: 3 views of the right ribs were obtained. FINDINGS: No consolidation, pleural effusion or pneumothorax. Cardiomediastinal silhouette size is normal. I do not see acute cortical disruption in the ribs of the thorax. Vascular clips right upper quadrant abdomen likely prior cholecystectomy. XR/XR ribs RT min 3V w CXR1V IMPRESSION: No acute airspace disease. No acute rib fracture. Electronically signed by: Cruzito Christensen MD 11/20/2024 02:15 PM EDT
--- OUTSIDE RECORDS SUMMARY | 2024-11-20 11:27 | XMS_ITS | Clinical Summary ---
Author Organization [facility] [address] [facility] Address [address] [place] [address] Phone Care Team Providers Care Track Hoe Operator Name Role Phone Charly Carrillo MD Primary Care Provider [phone] Allergies Active Allergy Reactions Criticality Noted Date Comments Other 10/09/2006 Bactrim [Na Rbghxlpf-hhiaauswqzupqpoa-sgzkwjqlwxp m] Medications calcium carbonate (CALCIUM 500 ORAL) [...] Surgery Date Site/Laterality Comments KNEE ARTHROSCOPY PROCEDURE: [place] ARTHROSCOPY KNEE DIAGNOSTIC W/WO SYNOVIAL BX SPX; COMMENT: right CARPAL TUNNEL RELEASE RT HAND PROCEDURE: VT NEUROPLASTY &/TRANSPOS MEDIAN NRV CARPAL TUNNE SHOULDER ARTHROSCOPY 01-02-06 PROCEDURE: VT SURGICAL ARTHROSCOPY SHOULDER W/LSS&RESCJ ADS; COMMENT: right OTHER SURGICAL HISTORY PROCEDURE: HISTORICAL MASTOIDECTOMY OTHER SURGICAL HISTORY PROCEDURE: VT UNLISTED LAPS PX HRNAP HERNIORRHAPHY HERNIOTOMY TUBAL LIGATION 2001 PROCEDURE: HISTORICAL TUBAL LIGATION TONSILLECTOMY 1978 PROCEDURE: HISTORICAL TONSILLECTOMY APPENDECTOMY 1979 PROCEDURE: VT APPENDECTOMY CHOLECYSTECTOMY COLONOSCOPY 04/14/2021 - 05/14/2021 tics, [...] * Cervical Cancer Screening: HPV (04/20/2013) Pathologist [facility] Cervical Cancer Screening: HPV negative, abstracted Historical Provider HEALTH MAINTENANCE Final Result * Lipid panel (04/09/2011) Pathologist [facility] LDL/HDL Ratio 0 Comment:no interpretation, a bstracted Triglycerides 0 mg/dL Comment:no interpretation, a bstracted Cholesterol 0 mg/dL Comment:no interpretation, a bstracted HDL 0 mg/dL Comment:no interpretation, a bstracted LDL Cholesterol 0 mg/dL Comment:no interpretation, a bstracted Blood Venous blood specimen / Unknown Historical Provider LAB BLOOD ORDERABLES Karly l Result from Last 3 Months or Most Recently Relevant to Health Maintenance [place] [address] [place] [address] HEALTH PLAN Care Teams Track Hoe Operator Relationship Specialty Start Date End Date Charly Carrillo MD [address] [place] [address] [address] [place], [place] PCP - General Internal Medicine 02/02/21
== END 2024-11-20 10:07 | disposition home or self-care (01) ==
LOC: HO.HMGCX 10:06
PROVIDERS: PCP Internal Medicine; Visit Provider Internal Medicine
DX: R07.81 Pleurodynia (principal); R09.89 Other specified symptoms and signs involving the circulatory and respiratory systems; J38.1 Polyp of vocal cord and larynx; M85.80 Other specified disorders of bone density and structure, unspecified site
CPT/HCPCS: 71101

== ENCOUNTER → 2024-11-20 10:58 | Outpatient (BNV) | payer OTHER, SELFPAY | PROVIDERS: PCP Internal Medicine; Visit Provider Radiology Diagnostic Radiology | DX: R07.81 Pleurodynia (principal) | CPT/HCPCS: 71101 ==

== ENCOUNTER 2024-12-02 14:38 | Outpatient (REF) | payer OTHER, SELFPAY ==
--- NOTE | ~2024-12-02 | XR_ITS ---
CLINICAL HISTORY: R07.81 - Pleurodynia Single view of the chest with bilateral rib films. COMPARISON: XR chest and right ribs dated 11/20/24 at 11:08 EDT FINDINGS: Cholecystectomy clips. Normal heart size. Atherosclerotic thoracic aorta No consolidation. No definite pleural effusion. No pneumothorax. No fracture identified. Mild spondylosis. IMPRESSION: 1. No acute cardiopulmonary abnormality. 2. No rib fracture identified. This document has been electronically signed by: Korey Alcaraz MD on 12/04/2024 14:42:04
--- NOTE | ~2024-12-02 | XR_ITS ---
CLINICAL HISTORY: M25.551 - Pain in right hip Two views of the right hip. COMPARISON: XR right hip dated 11/04/23 at 09:27 EDT FINDINGS: Visualized portions of the proximal right femur appears intact. No trabecular disruption or cortical discontinuity. Femoral head is appropriately seated in the acetabulum. No significant right hip joint degenerative changes. Visualized portions of the pelvis appear intact. Mild to moderate degenerative changes of the right sacroiliac joint. IMPRESSION: 1. No radiographic evidence of acute injury to the right hip. 2. [id number] degenerative changes of the right sacroiliac joint, similar to prior imaging.. This document has been electronically signed by: Korey Alcaraz MD on 12/04/2024 14:45:24
--- OUTSIDE RECORDS SUMMARY | 2024-12-03 10:49 | XMS_ITS | Clinical Summary ---
Author Organization [facility] [address] [facility] Address [address] [place] [address] Phone Care Team Providers Care Pulp Refiner Operator Name Role Phone Charly Carrillo MD Primary Care Provider Allergies Active Allergy Reactions Criticality Noted Date Comments Other 10/09/2006 Bactrim [Na Afudscpo-dzgsozctsktlswfx-[id number] m] Medications calcium carbonate (CALCIUM 500 ORAL) [...] Surgery Date Site/Laterality Comments KNEE ARTHROSCOPY PROCEDURE: [place] ARTHROSCOPY KNEE DIAGNOSTIC W/WO SYNOVIAL BX SPX; COMMENT: right CARPAL TUNNEL RELEASE RT HAND PROCEDURE: [place] NEUROPLASTY &/TRANSPOS MEDIAN NRV CARPAL TUNNE SHOULDER ARTHROSCOPY 01-02-06 PROCEDURE: [place] SURGICAL ARTHROSCOPY SHOULDER W/LSS&RESCJ ADS; COMMENT: right OTHER SURGICAL HISTORY PROCEDURE: HISTORICAL MASTOIDECTOMY OTHER SURGICAL HISTORY PROCEDURE: [place] UNLISTED LAPS PX HRNAP HERNIORRHAPHY HERNIOTOMY TUBAL LIGATION 2001 PROCEDURE: HISTORICAL TUBAL LIGATION TONSILLECTOMY 1978 PROCEDURE: HISTORICAL TONSILLECTOMY APPENDECTOMY 1979 PROCEDURE: [place] APPENDECTOMY CHOLECYSTECTOMY COLONOSCOPY 04/14/2021 - 05/14/2021 tics, [...] * Cervical Cancer Screening: HPV (04/20/2013) Pathologist [facility] Cervical Cancer Screening: HPV negative, abstracted Historical Provider HEALTH MAINTENANCE Final Result * Lipid panel (04/09/2011) Pathologist [facility] LDL/HDL Ratio 0 Comment:no interpretation, a bstracted Triglycerides 0 mg/dL Comment:no interpretation, a bstracted Cholesterol 0 mg/dL Comment:no interpretation, a bstracted HDL 0 mg/dL Comment:no interpretation, a bstracted LDL Cholesterol 0 mg/dL Comment:no interpretation, a bstracted Blood Venous blood specimen / Unknown Historical Provider LAB BLOOD ORDERABLES Karly l Result from Last 3 Months or Most Recently Relevant to Health Maintenance [place] [address] HEALTH PLAN Care Teams Pulp Refiner Operator Relationship Specialty Start Date End Date Charly Carrillo MD [address] [place] [address] [address] [place], [place] PCP - General Internal Medicine 02/02/21
== END 2024-12-02 14:39 | disposition home or self-care (01) ==
LOC: HO.XRAY 14:38
PROVIDERS: PCP Internal Medicine; Visit Provider Internal Medicine
DX: M25.551 Pain in right hip (principal); R07.81 Pleurodynia
CPT/HCPCS: 71111; 73502; 96127

== ENCOUNTER 2024-12-02 14:38 | Outpatient (AMB) | payer OTHER, SELFPAY ==
--- OUTSIDE RECORDS SUMMARY | 2024-12-02 14:47 | XMS_ITS | Clinical Summary ---
Author Organization [facility] [address] [facility] Address [address] [place] [address] Phone Care Team Providers Care Housing Development Specialist Name Role Phone Charly Carrillo MD Primary Care Provider [phone] Allergies Active Allergy Reactions Criticality Noted Date Comments Other 10/09/2006 Bactrim [Na Dowmdzpn-pbwztdipcypzqmmy-hrotfzxbkme m] Medications calcium carbonate (CALCIUM 500 ORAL) [...] Surgery Date Site/Laterality Comments KNEE ARTHROSCOPY PROCEDURE: [place] ARTHROSCOPY KNEE DIAGNOSTIC W/WO SYNOVIAL BX SPX; COMMENT: right CARPAL TUNNEL RELEASE RT HAND PROCEDURE: MN NEUROPLASTY &/TRANSPOS MEDIAN NRV CARPAL TUNNE SHOULDER ARTHROSCOPY 01-02-06 PROCEDURE: MN SURGICAL ARTHROSCOPY SHOULDER W/LSS&RESCJ ADS; COMMENT: right OTHER SURGICAL HISTORY PROCEDURE: HISTORICAL MASTOIDECTOMY OTHER SURGICAL HISTORY PROCEDURE: MN UNLISTED LAPS PX HRNAP HERNIORRHAPHY HERNIOTOMY TUBAL LIGATION 2001 PROCEDURE: HISTORICAL TUBAL LIGATION TONSILLECTOMY 1978 PROCEDURE: HISTORICAL TONSILLECTOMY APPENDECTOMY 1979 PROCEDURE: MN APPENDECTOMY CHOLECYSTECTOMY COLONOSCOPY 04/14/2021 - 05/14/2021 tics, [...] * Cervical Cancer Screening: HPV (04/20/2013) Pathologist [facility] Cervical Cancer Screening: HPV negative, abstracted Historical Provider HEALTH MAINTENANCE Final Result * Lipid panel (04/09/2011) Pathologist [facility] LDL/HDL Ratio 0 Comment:no interpretation, a bstracted Triglycerides 0 mg/dL Comment:no interpretation, a bstracted Cholesterol 0 mg/dL Comment:no interpretation, a bstracted HDL 0 mg/dL Comment:no interpretation, a bstracted LDL Cholesterol 0 mg/dL Comment:no interpretation, a bstracted Blood Venous blood specimen / Unknown Historical Provider LAB BLOOD ORDERABLES Karly l Result from Last 3 Months or Most Recently Relevant to Health Maintenance [place] [address] [address] [place] [address] HEALTH PLAN Care Teams Housing Development Specialist Relationship Specialty Start Date End Date Charly Carrillo MD [address] [place] [address] [address] [place], [place] PCP - General Internal Medicine 02/02/21
--- OUTSIDE RECORDS SUMMARY | 2024-12-02 14:48 | XMS_ITS | Data Portability ---
Author Organization ID - [facility], Allergy Address [address] [address] Care Team Providers Care Recreation Facility Attendant Name Role Phone ASHLYN MAZARIEGOSH Referring Provider [...] Modified Time Details Appointments SURGERY 60 2024 12:00P Teresa CABRAL MD Not available Not available Not available Lab None recorded. Referral None recorded. Procedures None recorded. Surgeries laryngosc opy, direct, operative , with excision of tumor and/or stripping of vocal cords or epiglotti s (SURG) 2024 025 [email or web address] Not available 08/10/2024 16:34:12 Imaging None recorded. Medication Orders None recorded. Patient TargetsNo targets recorded. Patient InstructionsNo instructions recorded. Reason for Referral None Reported. Problems Name Problem SNOMED Code Status Onset Date Resolution Date Notes Provider Name and Address Organization Details Recorded Time Polyp of vocal cord 5713957 Active 2024 MANSI CABRAL MD [address] [place] [address], [phone], [facility] 13:19:09 Perforation of nasal septum 08690090 Active 2024 MANSI CABRAL MD [address] [place] [address], [phone], [facility] 13:19:14 Tobacco dependence caused by cigarettes 2718751277780 9107 Active 2024 MANSI CABRAL MD [address] [place] [address], [phone], [facility] 13:24:06 Problem Notes None recorded. Procedures Surgical History Date Name Laterality Status Provider Name and Address Organization Details Recorded Time 08/10/2024 FOL_DP completed MANSI CABRAL MD [address] [place] [address], [phone], [facility] 08/10/2024 13:19:03 Imaging Results None recorded. Procedure Notes None recorded. Medical Equipment None Reported. Allergies Allergen ID Allergen Name Allergen Category Reaction Reaction Severity Criticality Documentation Date Start Date Code Code System Note Provider Name and Address Organization Details Recorded Time 347348 Bactrim medicatio n Not available Not available Not available 08/10/2024 70060 9 RxNorm MANSI CABRAL MD [address] [place] [address], [phone], [facility] 13:14:11 Medications Name Sig Start Date [...] Updated DateTime 08/10/2024 165.1 cm 22 kg/m2 07953.19 g Hector Wiseman [place] - [facility] 08/10/2024 13:06:50 Social History None recorded. [...] Disorder N Anesthesia Complications N Heart Attack (NM) N Other Skin Condition N Diabetes N [...] SNOMED-CT Code Diagnosis ICD10 Code Diagnosis Note [id number] MANSI CABRAL MD [facility] [address] [place] [address] 08/10/2024 12:54:58 08/10/2024 13:25:01 Polyp of vocal cord 9734519 J38.1 PROLAPSING RIGHT VOCAL CORD POLYP Perforatio n of nasal septum 53344354 J34.89 long standing, not related to prior surgery or cocaine Tobacco de pendence caused by cigarettes [id number] 5997849 F17.210 cessation efforts discussed Health Concerns Section Related Observation LastModified by Organization Detai ls LastModified Time None Recorded Concern Status LastModified by Organization Details LastModified Time None Recorded Advance Directives Directive None Recorded Payers Insurance Date Sequence Insurance Name Policy Number Policy Swain Covered Member ID Swain Member ID Guarantor Name 11/20/2024 1 [employer] (MEDICAID HMO) [employer] Priya Cardenas [id number] Priya Cardenas Notes Date Note Type Note Provider Name and Address Organization Details Recorded Time 08/10/2024 text/html vocal nodulesincidental finding by anesthesiology during intubation for [facility] procedure in Jun 2024tobacco 1ppd, cutting down to 5/dayno hemoptysisdenies dysphagiano prior voice surgeryretired - retired [employer], now cares for her kids dogs MANSI CABRAL MD [address], [address], [facility] - [facility] 08/10/2024 13:24:46 OBGyn Episode No OBEpisode recorded.
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
[2024-12-02 14:57] VITALS: BP 140/82; PULSE 85; O2SAT 97; BMI 20.5
== END 2024-12-02 15:57 | disposition home or self-care (01) ==
LOC: HO.HMCH 14:38
PROVIDERS: PCP Internal Medicine; Visit Provider Internal Medicine
DX: R07.81 Pleurodynia (principal); M25.551 Pain in right hip; V89.2XXA Person injured in unspecified motor-vehicle accident, traffic, initial encounter; Z04.3 Encounter for examination and observation following other accident

== ENCOUNTER → 2024-12-03 10:25 | Outpatient (BNV) | payer OTHER, SELFPAY | PROVIDERS: PCP Internal Medicine; Visit Provider Radiology Diagnostic Radiology | DX: I70.0 Atherosclerosis of aorta (principal); M16.11 Unilateral primary osteoarthritis, right hip | CPT/HCPCS: 71111; 73502 ==

== ENCOUNTER 2024-12-04 13:05 | Outpatient (AMB) | payer OTHER, SELFPAY ==
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
--- OUTSIDE RECORDS SUMMARY | 2024-12-04 13:08 | XMS_ITS | Clinical Summary ---
Author Organization [facility] [address] [facility] Address [address] [place] [address] Phone Care Team Providers Care Utilization Management Rn Name Role Phone Charly Carrillo MD Primary Care Provider Allergies Active Allergy Reactions Criticality Noted Date Comments Other 10/09/2006 Bactrim [Na Sxbhyndm-qmuqtyoemhmmzaaz-lrvstptauph m] Medications calcium carbonate (CALCIUM 500 ORAL) [...] Surgery Date Site/Laterality Comments KNEE ARTHROSCOPY PROCEDURE: [place] ARTHROSCOPY KNEE DIAGNOSTIC W/WO SYNOVIAL BX SPX; COMMENT: right CARPAL TUNNEL RELEASE RT HAND PROCEDURE: [place] NEUROPLASTY &/TRANSPOS MEDIAN NRV CARPAL TUNNE SHOULDER ARTHROSCOPY 01-02-06 PROCEDURE: [place] SURGICAL ARTHROSCOPY SHOULDER W/LSS&RESCJ ADS; COMMENT: right OTHER SURGICAL HISTORY PROCEDURE: HISTORICAL MASTOIDECTOMY OTHER SURGICAL HISTORY PROCEDURE: [place] UNLISTED LAPS PX HRNAP HERNIORRHAPHY HERNIOTOMY TUBAL LIGATION 2001 PROCEDURE: HISTORICAL TUBAL LIGATION TONSILLECTOMY 1978 PROCEDURE: HISTORICAL TONSILLECTOMY APPENDECTOMY 1979 PROCEDURE: [place] APPENDECTOMY CHOLECYSTECTOMY COLONOSCOPY 04/14/2021 - 05/14/2021 tics, [...] * Cervical Cancer Screening: HPV (04/20/2013) Pathologist [facility] Cervical Cancer Screening: HPV negative, abstracted Historical Provider HEALTH MAINTENANCE Final Result * Lipid panel (04/09/2011) Pathologist [facility] LDL/HDL Ratio 0 Comment:no interpretation, a bstracted Triglycerides 0 mg/dL Comment:no interpretation, a bstracted Cholesterol 0 mg/dL Comment:no interpretation, a bstracted HDL 0 mg/dL Comment:no interpretation, a bstracted LDL Cholesterol 0 mg/dL Comment:no interpretation, a bstracted Blood Venous blood specimen / Unknown Historical Provider LAB BLOOD ORDERABLES Karly l Result from Last 3 Months or Most Recently Relevant to Health Maintenance [place] [address] [place] [address] HEALTH PLAN Care Teams Utilization Management Rn Relationship Specialty Start Date End Date Charly Carrillo MD [address] [place] [address] [address] [place], [place] PCP - General Internal Medicine 02/02/21
[2024-12-04 13:14] VITALS: BP 154/85; PULSE 82; O2SAT 98
== END 2024-12-04 13:39 | disposition home or self-care (01) ==
LOC: HO.PMC 13:06
PROVIDERS: PCP Internal Medicine; Visit Provider Registered Nurse Emergency
DX: M25.551 Pain in right hip (principal); M79.18 Myalgia, other site; M54.50 Low back pain, unspecified; G89.29 Other chronic pain; M47.816 Spondylosis without myelopathy or radiculopathy, lumbar region; M53.3 Sacrococcygeal disorders, not elsewhere classified; Z79.891 Long term (current) use of opiate analgesic
CPT/HCPCS: 99213; G2211

== ENCOUNTER → 2024-12-04 13:05 | Outpatient (BNVA) | payer OTHER, SELFPAY | PROVIDERS: PCP Internal Medicine; Visit Provider Registered Nurse Emergency | DX: G89.29 Other chronic pain (principal); M25.511 Pain in right shoulder; M79.18 Myalgia, other site; M54.50 Low back pain, unspecified; M47.816 Spondylosis without myelopathy or radiculopathy, lumbar region; M53.3 Sacrococcygeal disorders, not elsewhere classified; F11.90 Opioid use, unspecified, uncomplicated; Z51.81 Encounter for therapeutic drug level monitoring | CPT/HCPCS: 99212 ==

== ENCOUNTER 2024-12-30 14:20 | Outpatient (AMB) | payer OTHER, SELFPAY ==
[2024-12-30 14:31] VITALS: BP 126/74; PULSE 76; RESP 18; TEMP 37; O2SAT 96; BMI 20.5
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
--- OUTSIDE RECORDS SUMMARY | 2024-12-30 16:28 | XMS_ITS | Clinical Summary ---
Author Organization [facility] [address] [facility] Address [address] [place] [address] Phone Care Team Providers Care Key Attendant Name Role Phone Charly Carrillo MD Primary Care Provider Allergies Active Allergy Reactions Criticality Noted Date Comments Other 10/09/2006 Bactrim [Na Foviwmlf-lvcuvjfinrxdocfw-aubgfkaeatu m] Medications calcium carbonate (CALCIUM 500 ORAL) [...] Surgery Date Site/Laterality Comments KNEE ARTHROSCOPY PROCEDURE: IN ARTHROSCOPY KNEE DIAGNOSTIC W/WO SYNOVIAL BX SPX; COMMENT: right CARPAL TUNNEL RELEASE RT HAND PROCEDURE: IN NEUROPLASTY &/TRANSPOS MEDIAN NRV CARPAL TUNNE SHOULDER ARTHROSCOPY 01-02-06 PROCEDURE: IN SURGICAL ARTHROSCOPY SHOULDER W/LSS&RESCJ ADS; COMMENT: right OTHER SURGICAL HISTORY PROCEDURE: HISTORICAL MASTOIDECTOMY OTHER SURGICAL HISTORY PROCEDURE: IN UNLISTED LAPS PX HRNAP HERNIORRHAPHY HERNIOTOMY TUBAL LIGATION 2001 PROCEDURE: HISTORICAL TUBAL LIGATION TONSILLECTOMY 1978 PROCEDURE: HISTORICAL TONSILLECTOMY APPENDECTOMY 1979 PROCEDURE: IN APPENDECTOMY CHOLECYSTECTOMY COLONOSCOPY 04/14/2021 - 05/14/2021 tics, [...] * Cervical Cancer Screening: HPV (04/20/2013) Pathologist [facility] Cervical Cancer Screening: HPV negative, abstracted Historical Provider HEALTH MAINTENANCE Final Result * Lipid panel (04/09/2011) Pathologist [facility] LDL/HDL Ratio 0 Comment:no interpretation, a bstracted Triglycerides 0 mg/dL Comment:no interpretation, a bstracted Cholesterol 0 mg/dL Comment:no interpretation, a bstracted HDL 0 mg/dL Comment:no interpretation, a bstracted LDL Cholesterol 0 mg/dL Comment:no interpretation, a bstracted Blood Venous blood specimen / Unknown Historical Provider LAB BLOOD ORDERABLES Karly l Result from Last 3 Months or Most Recently Relevant to Health Maintenance [place] [address] [place] [address] HEALTH PLAN Care Teams Key Attendant Relationship Specialty Start Date End Date Charly Carrillo MD [address] [place] [address] [address] [place], [place] PCP - General Internal Medicine 02/02/21
== END 2024-12-30 15:04 | disposition home or self-care (01) ==
LOC: HO.HMCH 14:21
PROVIDERS: PCP Internal Medicine
DX: S20.219S Contusion of unspecified front wall of thorax, sequela (principal); S70.01XD Contusion of right hip, subsequent encounter; F43.10 Post-traumatic stress disorder, unspecified

== ENCOUNTER → 2024-12-30 14:20 | Outpatient (BNVA) | payer OTHER, SELFPAY | PROVIDERS: PCP Internal Medicine | DX: Z13.89 Encounter for screening for other disorder (principal) ==

== ENCOUNTER 2025-01-01 13:23 | Outpatient (AMB) | payer OTHER, SELFPAY ==
--- OUTSIDE RECORDS SUMMARY | 2025-01-01 13:26 | XMS_ITS | Clinical Summary ---
Author Organization [facility] [address] [facility] Address [address] [place] [address] Phone Care Team Providers Care Province Archivist Name Role Phone Charly Carrillo MD Primary Care Provider Allergies Active Allergy Reactions Criticality Noted Date Comments Other 10/09/2006 Bactrim [Na Jbhvuhef-mpgncqgvyynkzuqm-aiiidcvbtsh m] Medications calcium carbonate (CALCIUM 500 ORAL) [...] Surgery Date Site/Laterality Comments KNEE ARTHROSCOPY PROCEDURE: VA ARTHROSCOPY KNEE DIAGNOSTIC W/WO SYNOVIAL BX SPX; COMMENT: right CARPAL TUNNEL RELEASE RT HAND PROCEDURE: VA NEUROPLASTY &/TRANSPOS MEDIAN NRV CARPAL TUNNE SHOULDER ARTHROSCOPY 01-02-06 PROCEDURE: VA SURGICAL ARTHROSCOPY SHOULDER W/LSS&RESCJ ADS; COMMENT: right OTHER SURGICAL HISTORY PROCEDURE: HISTORICAL MASTOIDECTOMY OTHER SURGICAL HISTORY PROCEDURE: VA UNLISTED LAPS PX HRNAP HERNIORRHAPHY HERNIOTOMY TUBAL LIGATION 2001 PROCEDURE: HISTORICAL TUBAL LIGATION TONSILLECTOMY 1978 PROCEDURE: HISTORICAL TONSILLECTOMY APPENDECTOMY 1979 PROCEDURE: VA APPENDECTOMY CHOLECYSTECTOMY COLONOSCOPY 04/14/2021 - 05/14/2021 tics, [...] Cervical Cancer Screening: HPV (04/20/2013) Pathologist [facility] Cervical Cancer Screening: HPV negative, abstracted Historical Provider HEALTH MAINTENANCE Final Result * Lipid panel (04/09/2011) Pathologist [facility] LDL/HDL Ratio 0 Comment:no interpretation, a bstracted Triglycerides 0 mg/dL Comment:no interpretation, a bstracted Cholesterol 0 mg/dL Comment:no interpretation, a bstracted HDL 0 mg/dL Comment:no interpretation, a bstracted LDL Cholesterol 0 mg/dL Comment:no interpretation, a bstracted Blood Venous blood specimen / Unknown Historical Provider LAB BLOOD ORDERABLES Karly l Result from Last 3 Months or Most Recently Relevant to Health Maintenance [place] [address] [place] [address] HEALTH PLAN Care Teams Province Archivist Relationship Specialty Start Date End Date Charly Carrillo MD [address] [place] [address] [address] [place], [place] PCP - General Internal Medicine 02/02/21
--- NOTE | 2025-01-01 13:28 | A.OFFVIS_ITS ---
Vital Signs 01/01/25 13:29 Height 5 ft 5 in Weight 123 lb BMI 20.5 BP 133/80 Blood Pressure Location Rt brachial Position Sitting Respiration 16 Pulse 65 Pulse Source Pulse Oximeter Pulse Oximetry (%) 98 Oxygen Delivery Method Room Air Intake Visit Reasons: PILL COUNT Intake Note: Patient presents today for a pill count routine of Oxycodone-Acetaminophen. Per direction patient should have 60 pills. She presented 65 pills. Patient took last pill at 10am. 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 Patient is prescribed oxycodone acetaminophen 7.5-325mg, take 1 tablet four times daily. Patient arrived today with the expectation of having 60 pills, she presented 65 pills which were counted in the presence of two staff members and returned to the patient in the original prescription bottle. This demonstrates responsible attitude toward patient's opioid medications. Pain is reported today as 2/10 and last dose of pain medication was taken today at 10:00 this morning. Denies side effects including somnolence, constipation, itching, dyspnea, rash, dizziness or weakness. FORMERLY [facility] Medical History (Updated 12/30/24 @ 15:14 by JORI Lawson) Vocal cord polyp Glaucoma Pelvic cramping Nicotine dependence, cigarettes, uncomplicated Osteopenia Vitamin D deficiency Pure hypercholesterolemia Benign essential hypertension Chronic, continuous use of opioids Tenosynovitis of thumb Chronic low back pain Cyclical vomiting Surgical History (Updated 12/30/24 @ 14:38 by Ruthie Kyle CMA) Hx of LASIK History of surgery History of hysteroscopy H/O mastoidectomy History of tonsillectomy History of selective injection of anesthetic agent around lumbar nerve root History of colonoscopy (~2020) History of breast surgery Hx of shoulder surgery Hx of right knee surgery S/P laparoscopic cholecystectomy (~2009) History of appendectomy Family History Maternal Uncle Diabetes Father No problems noted. Mother No problems noted. Social History (Reviewed 12/30/24 @ 14:32 by ANDI Denise Housing: House Are you a primary child care centre director to a significant other at home: No Do you presently have visiting nurse or other home services: No Alcohol intake: former Patient Tobacco Use Status: Current everyday Tobacco user Tobacco use type: Cigarette Cigarette Packs Per Day: 0.25 Cigarettes Per Day: 5 Years Smoked: 47 e-Cigarette/Vaping Use: Never Used Second Hand Smoke Exposure: Yes service: No Current occupational status: retired and disabled Cognitive needs: No Hearing needs: No Vision needs: Yes (Glasses) Female Reproductive History Menstrual Age of Menarche: 14 Review of Systems Const All systems reviewed & are unremarkable except as noted in HPI and below Physical Exam Vital Signs: Last Vital Signs Pulse 65 01/01/25 13:29 Resp 16 01/01/25 13:29 BP 133/80 01/01/25 13:29 Pulse Ox 98 01/01/25 13:29 Oxygen Delivery Method Room Air 01/01/25 13:29 BMI result Body Mass Index 20.5 General: awake, alert, oriented. Answers questions appropriately. Fully engaged in examination. HEENT: Normocephalic. Hearing intact. Cardiac: External chest normal in appearance. Respiratory: No cough, audible wheezing or stridor. Abdomen: without gross distension. MS: No obvious swelling or deformities. Able to transition from sit to stand unassisted. Ambulates with bilaterally normal heel strike and toe off Neurological: Oriented to person, place, time and situation. Thought process intact. No gait abnormalities appreciated. Psychiatric: Appropriate mood and affect. Good judgment and insight. Results Reviewed Results Reviewed: 10/2023 Right hip XR IMPRESSION: 1. Mild degenerative changes in the right hip. 2. Moderate degenerative changes right sacroiliac joint. 08/22/22 MM/XR DEXA axial skeleton IMPRESSION: Osteopenia based on the lowest T-score value of -2.1 in the lumbar spine and femoral neck applying World Health Organization criteria. Assessment & Plan Assessment & Plan (1) Right hip pain: Code(s): M25.551 - Pain in right hip Category: Medical (2) Myofascial pain: Code(s): M79.18 - Myalgia, other site Category: Medical (3) Chronic low back pain: Code(s): M54.5 - Low back pain; G89.29 - Other chronic pain Category: Medical Qualifiers: Back pain laterality: midline Sciatica presence: unspecified whether sciatica present Qualified Code(s): M54.5 - Low back pain; G89.29 - Other chronic pain (4) Spondylosis of lumbar region without myelopathy or radiculopathy: Code(s): M47.816 - Spondylosis without myelopathy or radiculopathy, lumbar region Category: Medical (5) Sacroiliac joint pain: Code(s): M53.3 - Sacrococcygeal disorders, not elsewhere classified Category: Medical (6) Chronic, continuous use of opioids: Code(s): F11.90 - Opioid use, unspecified, uncomplicated Category: Medical Plan Masspat was reviewed and without concerns. No obvious signs of diversion, abuse or misuse of the opioid medications. Will send in prescription for oxycodone/acetaminophen 7.5-325 mg QID All questions and concerns have been answered and patient agrees with the plan. Follow-up in the office in 1 month, sooner if needed. Medications: Refilled oxycodone-acetaminophen 7.5-325 mg Partial Fill upon patient request. 1 tab PO QID PRN 120 tabs 0RF pain, severe 30 days G89.29 - Other chronic pain, M47.816 - Spondylosis without myelopathy or radiculopathy, lumbar region, M53.3 - Sacrococcygeal disorders, not elsewhere classified, M54.5 - Low back pain Coding Level of Care Code Est Pt Level 3 (87060) Complex EM visit Add On G2211 Diagnoses Right hip pain M25.551 Myofascial pain M79.18 Chronic midline low back pain, unspecified whether sciatica present M54.5; G89.29 Back pain laterality: midline Sciatica presence: unspecified whether sciatica present Spondylosis of lumbar region without myelopathy or radiculopathy M47.816 Sacroiliac joint pain M53.3 Chronic, continuous use of opioids F11.90
[2025-01-01 13:29] VITALS: BP 133/80; PULSE 65; RESP 16; O2SAT 98; BMI 20.5
== END 2025-01-01 14:16 | disposition home or self-care (01) ==
LOC: HO.PMC 13:23
PROVIDERS: PCP Internal Medicine; Visit Provider Registered Nurse Emergency
DX: M25.551 Pain in right hip (principal); M79.18 Myalgia, other site; M54.50 Low back pain, unspecified; G89.29 Other chronic pain; M47.816 Spondylosis without myelopathy or radiculopathy, lumbar region; M53.3 Sacrococcygeal disorders, not elsewhere classified; Z79.891 Long term (current) use of opiate analgesic
CPT/HCPCS: 99213; G2211

== ENCOUNTER → 2025-01-01 13:23 | Outpatient (BNVA) | payer OTHER, SELFPAY | PROVIDERS: PCP Internal Medicine; Visit Provider Registered Nurse Emergency | DX: M79.18 Myalgia, other site (principal); M25.551 Pain in right hip; M54.50 Low back pain, unspecified; G89.29 Other chronic pain; M47.816 Spondylosis without myelopathy or radiculopathy, lumbar region; M53.3 Sacrococcygeal disorders, not elsewhere classified; Z79.891 Long term (current) use of opiate analgesic; Z51.81 Encounter for therapeutic drug level monitoring | CPT/HCPCS: 99212 ==

== ENCOUNTER 2025-02-05 12:52 | Outpatient (AMB) | payer OTHER, SELFPAY ==
--- OUTSIDE RECORDS SUMMARY | 2025-02-05 12:54 | XMS_ITS | Clinical Summary ---
Author Organization [facility] [address] [facility] Address [address] [place] [address] Phone Care Team Providers Care Rehab Services Aide Name Role Phone Charly Carrillo MD Primary Care Provider Allergies Active Allergy Reactions Criticality Noted Date Comments Other 10/09/2006 Bactrim [Na Dtouzluc-trfzpchohyebpliu-oojsqagfqvw m] Medications calcium carbonate (CALCIUM 500 ORAL) [...] Surgery Date Site/Laterality Comments KNEE ARTHROSCOPY PROCEDURE: ND ARTHROSCOPY KNEE DIAGNOSTIC W/WO SYNOVIAL BX SPX; COMMENT: right CARPAL TUNNEL RELEASE RT HAND PROCEDURE: ND NEUROPLASTY &/TRANSPOS MEDIAN NRV CARPAL TUNNE SHOULDER ARTHROSCOPY 01-02-06 PROCEDURE: ND SURGICAL ARTHROSCOPY SHOULDER W/LSS&RESCJ ADS; COMMENT: right OTHER SURGICAL HISTORY PROCEDURE: HISTORICAL MASTOIDECTOMY OTHER SURGICAL HISTORY PROCEDURE: ND UNLISTED LAPS PX HRNAP HERNIORRHAPHY HERNIOTOMY TUBAL LIGATION 2001 PROCEDURE: HISTORICAL TUBAL LIGATION TONSILLECTOMY 1978 PROCEDURE: HISTORICAL TONSILLECTOMY APPENDECTOMY 1979 PROCEDURE: ND APPENDECTOMY CHOLECYSTECTOMY COLONOSCOPY 04/14/2021 - 05/14/2021 tics, [...] Years (1 of 2 - PCV) 1981 Zoster Vaccines (1 of 2) 1981 Cervical Cancer Screening: P ap Smear 04/20/2016 04/20/2013, 04/20/2013 Depression Screening 07/15/2024 Cholesterol Screening (Lipid Panel) 07/24/2024 04/09/2011 HIV Screening 07/24/2024 Hepatitis C Screening 07/24/2024 Lung Cancer Screening (Low Dose CT) 07/24/2024 Social Influencers of Health Screening 07/24/2024 Hypertension/CHF/CAD Annual BMP Blood Test 07/30/2024 Influenza Vaccine (#1) 2025 3, 03/25/2012, 04/09/2011 Colorectal Cancer Screening: Colonoscopy 04/24/2031 [...] PM EDT) Anatomical Region Laterality Modality Endoscopy [facility] Provider GI~PROCEDURE ORDERABLES F inal Result * [...] Most Recently Relevant to Health Maintenance Insurance [facility] Care Teams Rehab Services Aide Relationship Specialty Start Date End Date Charly Carrillo MD [address] [place] [address] [address] [place] PCP - General Internal Medicine 02/02/21
--- OUTSIDE RECORDS SUMMARY | 2025-02-05 12:54 | XMS_ITS | Data Portability ---
Author Organization [place] - [facility], Allergy Address [address] [address] Care Team Providers Care Credit Control Assistant Name Role Phone LANCE MAZARIEGOS Referring Provider [...] Modified Time Details Appointments SURGERY 60 2024 01:45P Teresa CABRAL MD Not available Not available Not available Post Op 2024 10:30A Teresa CABRAL MD Not available Not available Not available Lab None recorded. Referral None recorded. Procedures None recorded. Surgeries laryngosc opy, direct, operative , with excision of tumor and/or stripping of vocal cords or epiglotti s (SURG) 2024 025 [id number] Not available 08/10/2024 16:34:12 Imaging None recorded. Medication Orders None recorded. Patient TargetsNo targets recorded. Patient InstructionsNo instructions recorded. Reason for Referral None Reported. Problems Name Problem SNOMED Code Status Onset Date Resolution Date Notes Provider Name and Address Organization Details Recorded Time Polyp of vocal cord 2594066 Active 2024 MANSI CABRAL MD [address] [facility], [place], [address], [facility] 13:19:09 Perforation of nasal septum 02308031 Active 2024 MANSI CABRAL MD [address] [facility], [address] [facility], [place], [address], [facility] 13:19:14 Tobacco dependence caused by cigarettes 1300572668316 9107 Active 2024 MANSI CABRAL MD [address] [facility], [address] [facility], [place], [address], [facility] 13:24:06 Problem Notes None recorded. Procedures Surgical History Date Name Laterality Status Provider Name and Address Organization Details Recorded Time 08/10/2024 FOL_DP completed MANSI CABRAL MD [address] [place] [address], [phone], [facility] 08/10/2024 13:19:03 Imaging Results None recorded. Procedure Notes None recorded. Medical Equipment None Reported. Allergies Allergen ID Allergen Name Allergen Category Reaction Reaction Severity Criticality Documentation Date Start Date Code Code System Note Provider Name and Address Organization Details Recorded Time 469940 Bactrim medicatio n Not available Not available Not available 08/10/2024 79670 9 RxNorm MANSI CABRAL MD [address] [facility], [place], [address], [facility] 13:14:11 Medications Name Sig Start Date Stop [...] Updated DateTime 08/10/2024 165.1 cm 22 kg/m2 94170.19 g Hector Wiseman [place] - [facility] 08/10/2024 13:06:50 Social History None recorded. Functional [...] Disorder N Anesthesia Complications N Heart Attack ([place]) N Other Skin Condition N Diabetes N [...] SNOMED-CT Code Diagnosis ICD10 Code Diagnosis Note [id number] MANSI CABRAL MD [facility] [address] [place] [address] 08/10/2024 12:54:58 08/10/2024 13:25:01 Polyp of vocal cord 5099256 J38.1 PROLAPSING RIGHT VOCAL CORD POLYP Perforatio n of nasal septum 66581552 J34.89 long standing, not related to prior surgery or cocaine Tobacco de pendence caused by cigarettes 8624180203 4256317 F17.210 cessation efforts discussed Health Concerns Section Related Observation LastModified by Organization Detai ls LastModified Time None Recorded Concern Status LastModified by Organization Details LastModified Time None Recorded Advance Directives Directive None Recorded Payers Insurance Date Sequence Insurance Name Policy Number Policy Swain Covered Member ID Swain Member ID Guarantor Name 02/01/2025 1 [facility] (MEDICAID HMO) RIZWANA Driscoll Cimmino [id number] Priya Cummingsmino Notes Date Note Type Note Provider Name and Address Organization Details Recorded Time 08/10/2024 text/html ROS as noted in the HPI vocal nodulesincidental finding by anesthesiology during intubation for DIGITAL STRATEGIST procedure in Jun 2024tobacco 1ppd, cutting down to 5/dayno hemoptysisdenies dysphagiano prior voice surgeryretired - retired [employer], now cares for her kids dogs MANSI CABRAL MD [address] [place] [address], [phone], [facility] - [facility] 08/10/2024 13:24:46 OBGyn Episode No OBEpisode recorded.
--- NOTE | 2025-02-05 12:55 | A.OFFVIS_ITS ---
Vital Signs 02/05/25 12:56 Height 5 ft 5 in Weight 123 lb BMI 20.5 BP 139/80 Blood Pressure Location Rt brachial Position Sitting Respiration 16 Pulse 69 Pulse Source Pulse Oximeter Pulse Oximetry (%) 98 Oxygen Delivery Method Room Air Intake Visit Reasons: Pill Count- next appt need to be in AM Intake Note: Patient here for a pill count routine of Oxycodone. Per directions patient should have 40 pills. Patient presented 47 pills. Last took 11am. Ladle Operator Required: No Accompanied by: Self / Same As Patient Allergies Sulfa (Sulfonamide Antibiotics) Allergy (Intermediate, Verified 02/05/25 13:03) Hives, itching trimethoprim (From Bactrim) Allergy (Intermediate, Verified 02/05/25 13:03) Hives HPI Comments Details: Priya presents back to the office today for follow up chronic pain and chronic opioid therapy management. Patient is prescribed oxycodone acetaminophen 7.5-325mg, take 1 tablet four times daily. Patient arrived today with the expectation of having 40 pills, she presented 47 pills which were counted in the presence of two staff members and returned to the patient in the original prescription bottle. This demonstrates responsible attitude toward patient's opioid medications. Pain is reported today as 2/10 and last dose of pain medication was taken today at 11:00 this morning. Denies side effects including somnolence, constipation, itching, dyspnea, rash, dizziness or weakness. [facility] Medical History (Updated 12/30/24 @ 15:14 by JORI Lawson) Vocal cord polyp Glaucoma Pelvic cramping Nicotine dependence, cigarettes, uncomplicated Osteopenia Vitamin D deficiency Pure hypercholesterolemia Benign essential hypertension Chronic, continuous use of opioids Tenosynovitis of thumb Chronic low back pain Cyclical vomiting Surgical History Hx of LASIK History of surgery History of hysteroscopy H/O mastoidectomy History of tonsillectomy History of selective injection of anesthetic agent around lumbar nerve root History of colonoscopy (~2020) History of breast surgery Hx of shoulder surgery Hx of right knee surgery S/P laparoscopic cholecystectomy (~2009) History of appendectomy Family History Maternal Uncle Diabetes Father No problems noted. Mother No problems noted. Social History Housing: House Are you a primary health care sanitary technician to a significant other at home: No Do you presently have visiting nurse or other home services: No Alcohol intake: former Patient Tobacco Use Status: Current everyday Tobacco user Tobacco use type: Cigarette Cigarette Packs Per Day: 0.25 Cigarettes Per Day: 5 Years Smoked: 47 e-Cigarette/Vaping Use: Never Used Second Hand Smoke Exposure: Yes service: No Current occupational status: retired and disabled Cognitive needs: No Hearing needs: No Vision needs: Yes (Glasses) Female Reproductive History Menstrual Age of Menarche: 14 Review of Systems Const All systems reviewed & are unremarkable except as noted in HPI and below Physical Exam Vital Signs: Last Vital Signs Pulse 69 02/05/25 12:56 Resp 16 02/05/25 12:56 BP 139/80 02/05/25 12:56 Pulse Ox 98 02/05/25 12:56 Oxygen Delivery Method Room Air 02/05/25 12:56 BMI result Body Mass Index 20.5 General: awake, alert, oriented. Answers questions appropriately. Fully engaged in examination. HEENT: Normocephalic. Hearing intact. Cardiac: External chest normal in appearance. Respiratory: No cough, audible wheezing or stridor. Abdomen: without gross distension. MS: No obvious swelling or deformities. Able to transition from sit to stand unassisted. Ambulates with bilaterally normal heel strike and toe off Neurological: Oriented to person, place, time and situation. Thought process intact. No gait abnormalities appreciated. Psychiatric: Appropriate mood and affect. Good judgment and insight. Results Reviewed Results Reviewed: 10/2023 Right hip XR IMPRESSION: 1. Mild degenerative changes in the right hip. 2. Moderate degenerative changes right sacroiliac joint. 08/22/22 MM/XR DEXA axial skeleton IMPRESSION: Osteopenia based on the lowest T-score value of -2.1 in the lumbar spine and femoral neck applying World Health Organization criteria. Assessment & Plan Assessment & Plan (1) Right hip pain: Code(s): M25.551 - Pain in right hip Category: Medical (2) Myofascial pain: Code(s): M79.18 - Myalgia, other site Category: Medical (3) Chronic low back pain: Code(s): M54.5 - Low back pain; G89.29 - Other chronic pain Category: Medical Qualifiers: Back pain laterality: midline Sciatica presence: unspecified whether sciatica present Qualified Code(s): M54.5 - Low back pain; G89.29 - Other chronic pain (4) Spondylosis of lumbar region without myelopathy or radiculopathy: Code(s): M47.816 - Spondylosis without myelopathy or radiculopathy, lumbar region Category: Medical (5) Sacroiliac joint pain: Code(s): M53.3 - Sacrococcygeal disorders, not elsewhere classified Category: Medical (6) Chronic, continuous use of opioids: Code(s): F11.90 - Opioid use, unspecified, uncomplicated Category: Medical Plan Masspat was reviewed and without concerns. No obvious signs of diversion, abuse or misuse of the opioid medications. Will send in prescription for oxycodone/acetaminophen 7.5-325 mg QID All questions and concerns have been answered and patient agrees with the plan. Follow-up in the office in 1 month, sooner if needed. Medications: Refilled oxycodone-acetaminophen 7.5-325 mg Partial Fill upon patient request. 1 tab PO QID PRN 120 tabs 0RF pain, severe 30 days G89.29 - Other chronic pain, M47.816 - Spondylosis without myelopathy or radiculopathy, lumbar region, M53.3 - Sacrococcygeal disorders, not elsewhere classified, M54.5 - Low back pain Coding Level of Care Code Est Pt Level 3 (26429) Complex EM visit Add On G2211 Diagnoses Right hip pain M25.551 Myofascial pain M79.18 Chronic midline low back pain, unspecified whether sciatica present M54.5; G89.29 Back pain laterality: midline Sciatica presence: unspecified whether sciatica present Spondylosis of lumbar region without myelopathy or radiculopathy M47.816 Sacroiliac joint pain M53.3 Chronic, continuous use of opioids F11.90
[2025-02-05 12:56] VITALS: BP 139/80; PULSE 69; RESP 16; O2SAT 98; BMI 20.5
== END 2025-02-05 13:16 | disposition home or self-care (01) ==
LOC: HO.PMC 12:53
PROVIDERS: PCP Internal Medicine; Visit Provider Registered Nurse Emergency
DX: M25.551 Pain in right hip (principal); M79.18 Myalgia, other site; M54.50 Low back pain, unspecified; Z79.891 Long term (current) use of opiate analgesic; G89.29 Other chronic pain; M47.816 Spondylosis without myelopathy or radiculopathy, lumbar region; M53.3 Sacrococcygeal disorders, not elsewhere classified
CPT/HCPCS: 99213; G2211

== ENCOUNTER → 2025-02-05 12:52 | Outpatient (BNVA) | payer OTHER, SELFPAY | PROVIDERS: PCP Internal Medicine; Visit Provider Registered Nurse Emergency | DX: M79.18 Myalgia, other site (principal); M54.50 Low back pain, unspecified; G89.29 Other chronic pain; M47.816 Spondylosis without myelopathy or radiculopathy, lumbar region; M25.551 Pain in right hip; M53.3 Sacrococcygeal disorders, not elsewhere classified; Z79.891 Long term (current) use of opiate analgesic | CPT/HCPCS: 99212 ==

== ENCOUNTER 2025-02-08 13:07 | Outpatient (AMB) | payer OTHER, SELFPAY ==
[2025-02-08 13:10] VITALS: BP 130/78; PULSE 92; O2SAT 96; BMI 20.7
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
--- OUTSIDE RECORDS SUMMARY | 2025-02-08 13:48 | XMS_ITS | Clinical Summary ---
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 Name Role Phone Charly Carrillo MD Primary Care Provider Allergies Active Allergy Reactions Criticality Noted Date Comments Other 10/09/2006 Bactrim [Na [id number] m] Medications calcium carbonate (CALCIUM 500 ORAL) [...] PM EDT) Anatomical Region Laterality Modality Endoscopy [facility] Provider GI~PROCEDURE ORDERABLES F inal Result * Cervical Cancer Screening: HPV (04/20/2013) Pathologist [facility] Cervical Cancer Screening: HPV negative, abstracted [...] Most Recently Relevant to Health Maintenance Insurance [facility] [facility] Care Teams Sliver Machine Operator Relationship Specialty Start Date End Date Charly Carrillo MD [address] [place] [address] [address] [place] PCP - General Internal Medicine 02/02/21
--- OUTSIDE RECORDS SUMMARY | 2025-02-08 13:48 | XMS_ITS | Data Portability ---
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 Medication Orders None recorded. Patient TargetsNo targets recorded. Patient InstructionsNo instructions recorded. Reason for Referral None Reported. Problems Name Problem SNOMED Code Status Onset Date Resolution Date Notes Provider Name and Address Organization Details Recorded Time Polyp of vocal cord 1322477 Active 2024 MANSI CABRAL MD [address] [facility], [place], [address], [facility] 13:19:09 Perforation of nasal septum 97584356 Active 2024 MANSI CABRAL MD [address] [facility], [address] [facility], [place], [address], [facility] 13:19:14 Tobacco dependence caused by cigarettes [id number] 9107 Active 2024 MANSI CABRAL MD [address] [facility], [address] [facility], [place], [address], [facility] 13:24:06 Problem Notes None recorded. Procedures Surgical History Date Name Laterality Status Provider Name and Address Organization Details Recorded Time 08/10/2024 FOL_DP completed MANSI CABRAL MD [address] [place] [address], [id number], [facility] 08/10/2024 13:19:03 Imaging Results None recorded. Procedure Notes None recorded. Medical Equipment None Reported. Allergies Allergen ID Allergen Name Allergen Category Reaction Reaction Severity Criticality Documentation Date Start Date Code Code System Note Provider Name and Address Organization Details Recorded Time 933540 Bactrim medicatio n Not available Not available Not available 08/10/2024 14076 9 RxNorm MANSI CABRAL MD [address] [facility], [address], [place], [address], [facility] 13:14:11 Medications Name Sig Start Date Stop [...] Updated DateTime 08/10/2024 165.1 cm 22 kg/m2 69600.19 g Hector Wiseman [place] - [facility] 08/10/2024 13:06:50 Social History None recorded. Functional [...] Disorder N Anesthesia Complications N Heart Attack (IN) N Other Skin Condition N Diabetes N [...] SNOMED-CT Code Diagnosis ICD10 Code Diagnosis Note [id number] MANSI CABRAL MD [facility] [address] [place] [address] 08/10/2024 12:54:58 08/10/2024 13:25:01 Polyp of vocal cord 7372721 J38.1 PROLAPSING RIGHT VOCAL CORD POLYP Perforatio n of nasal septum 47941215 J34.89 long standing, not related to prior surgery or cocaine Tobacco de pendence caused by cigarettes [id number] F17.210 cessation efforts discussed Health Concerns Section Related Observation LastModified by Organization Detai ls LastModified Time None Recorded Concern Status LastModified by Organization Details LastModified Time None Recorded Advance Directives Directive None Recorded Payers Insurance Date Sequence Insurance Name Policy Number Policy Swain Covered Member ID Swain Member ID Guarantor Name 02/01/2025 1 [facility] (MEDICAID HMO) RIZWANA Cardenas [id number] Priya Cardenas OBGyn Episode No OBEpisode recorded.
== END 2025-02-08 13:47 | disposition home or self-care (01) ==
LOC: HO.HMCH 13:08
PROVIDERS: PCP Internal Medicine; Visit Provider Internal Medicine
DX: I10 Essential (primary) hypertension (principal); E78.00 Pure hypercholesterolemia, unspecified; R73.01 Impaired fasting glucose; R11.15 Cyclical vomiting syndrome unrelated to migraine; J30.9 Allergic rhinitis, unspecified; E55.9 Vitamin D deficiency, unspecified; J38.1 Polyp of vocal cord and larynx; M85.80 Other specified disorders of bone density and structure, unspecified site; M47.816 Spondylosis without myelopathy or radiculopathy, lumbar region; M16.11 Unilateral primary osteoarthritis, right hip; H40.9 Unspecified glaucoma; F17.200 Nicotine dependence, unspecified, uncomplicated

== ENCOUNTER → 2025-02-08 13:07 | Outpatient (BNVA) | payer OTHER, SELFPAY | PROVIDERS: PCP Internal Medicine; Visit Provider Internal Medicine | DX: I10 Essential (primary) hypertension (principal); E78.00 Pure hypercholesterolemia, unspecified; R73.01 Impaired fasting glucose; R11.15 Cyclical vomiting syndrome unrelated to migraine; J30.9 Allergic rhinitis, unspecified; E55.9 Vitamin D deficiency, unspecified; J38.1 Polyp of vocal cord and larynx; M85.80 Other specified disorders of bone density and structure, unspecified site; M47.816 Spondylosis without myelopathy or radiculopathy, lumbar region; M16.11 Unilateral primary osteoarthritis, right hip; H40.9 Unspecified glaucoma; E53.8 Deficiency of other specified B group vitamins; F17.210 Nicotine dependence, cigarettes, uncomplicated | CPT/HCPCS: 96127; 99212 ==

== ENCOUNTER 2025-03-03 13:22 | Outpatient (AMB) | payer OTHER, SELFPAY ==
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
[2025-03-03 13:25] VITALS: BP 132/90; PULSE 67; O2SAT 99; BMI 20.5
--- OUTSIDE RECORDS SUMMARY | 2025-03-03 14:15 | XMS_ITS | Clinical Summary ---
Author Organization [facility] [address] [facility] Address [address] [place] [address] Phone Care Team Providers Care Main Line Station Engineer Name Role Phone Charly Carrillo MD Primary Care Provider Allergies Active Allergy Reactions Criticality Noted Date Comments Other 10/09/2006 Bactrim [Na Vtkdpxwf-akktvyupvoxiewqp-zdeadxjcxmz m] Medications calcium carbonate (CALCIUM 500 ORAL) [...] PM EDT) Anatomical Region Laterality Modality Endoscopy [facility] Provider GI~PROCEDURE ORDERABLES F inal Result * Cervical Cancer Screening: HPV (04/20/2013) Pathologist [facility] Cervical Cancer Screening: HPV negative, abstracted [...] Most Recently Relevant to Health Maintenance Insurance [facility] [employer] Care Teams Main Line Station Engineer Relationship Specialty Start Date End Date Charly Carrillo MD [address] [place] [address] [address] [place] PCP - General Internal Medicine 02/02/21
== END 2025-03-03 14:15 | disposition home or self-care (01) ==
LOC: HO.HMCH 13:22
PROVIDERS: PCP Internal Medicine
DX: F43.10 Post-traumatic stress disorder, unspecified (principal); S20.219A Contusion of unspecified front wall of thorax, initial encounter; V89.2XXA Person injured in unspecified motor-vehicle accident, traffic, initial encounter; Z04.3 Encounter for examination and observation following other accident

== ENCOUNTER → 2025-03-03 13:22 | Outpatient (BNVA) | payer OTHER, SELFPAY | PROVIDERS: PCP Internal Medicine | DX: I10 Essential (primary) hypertension (principal); F43.10 Post-traumatic stress disorder, unspecified; F41.9 Anxiety disorder, unspecified; S20.219S Contusion of unspecified front wall of thorax, sequela; V89.2XXS Person injured in unspecified motor-vehicle accident, traffic, sequela | CPT/HCPCS: 99212 ==

== ENCOUNTER 2025-03-05 13:22 | Outpatient (AMB) | payer OTHER, SELFPAY ==
--- OUTSIDE RECORDS SUMMARY | 2025-03-05 13:25 | XMS_ITS | Clinical Summary ---
Author Organization [facility] [address] [facility] Address [address] [place] [address] Phone Care Team Providers Care Physics Department Chair Name Role Phone Charly Carrillo MD Primary Care Provider [phone] Allergies Active Allergy Reactions Criticality Noted Date Comments Other 10/09/2006 Bactrim [Na Ckyufxmc-dszuktrrhmdgnqkr-[id number] m] Medications calcium carbonate (CALCIUM 500 ORAL) [...] PM EDT) Anatomical Region Laterality Modality Endoscopy [facility] Provider GI~PROCEDURE ORDERABLES F inal Result [...] Most Recently Relevant to Health Maintenance Insurance [facility] [employer] Care Teams Physics Department Chair Relationship Specialty Start Date End Date Charly Carrillo MD [address] [place] [address] [address] [place] PCP - General Internal Medicine 02/02/21
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
[2025-03-05 13:35] VITALS: BP 163/93; PULSE 83; RESP 16; O2SAT 96
== END 2025-03-05 14:01 | disposition home or self-care (01) ==
LOC: HO.PMC 13:23
PROVIDERS: PCP Internal Medicine; Visit Provider Registered Nurse Emergency
DX: M25.551 Pain in right hip (principal); M79.18 Myalgia, other site; M54.50 Low back pain, unspecified; G89.29 Other chronic pain; M47.816 Spondylosis without myelopathy or radiculopathy, lumbar region; M53.3 Sacrococcygeal disorders, not elsewhere classified; Z79.891 Long term (current) use of opiate analgesic
CPT/HCPCS: 99213

== ENCOUNTER → 2025-03-05 13:22 | Outpatient (BNVA) | payer OTHER, SELFPAY | PROVIDERS: PCP Internal Medicine; Visit Provider Registered Nurse Emergency | DX: M25.551 Pain in right hip (principal); M79.18 Myalgia, other site; M54.50 Low back pain, unspecified; G89.29 Other chronic pain; M53.3 Sacrococcygeal disorders, not elsewhere classified; F11.90 Opioid use, unspecified, uncomplicated | CPT/HCPCS: 99212 ==

== ENCOUNTER 2025-05-14 12:51 | Outpatient (AMB) | payer OTHER, SELFPAY ==
--- NOTE | 2025-05-14 12:56 | A.OFFVIS_ITS ---
Vital Signs 05/14/25 13:05 Height 5 ft 5 in Weight 123 lb BMI 20.5 BP 148/85 H Blood Pressure Location Rt brachial Position Sitting Pulse 80 Pulse Source Pulse Oximeter Pulse Oximetry (%) 97 Oxygen Delivery Method Room Air Intake Visit Reasons: Pill Count Intake Note: Priya comes in today for a pill count to oxycodone-acetaminophen, patient should have 16 tablets and presents with 19 tablets which she last took today 05/14/25 at 8 am. Pain today 3.5/10 Circulation Director Required: No Accompanied by: Self / Same As Patient Allergies Sulfa (Sulfonamide Antibiotics) Allergy (Intermediate, Verified 05/14/25 13:06) Hives, itching trimethoprim (From Bactrim) Allergy (Intermediate, Verified 05/14/25 13:06) Hives HPI Comments Details: Priya presents back to the office today for follow up chronic pain and chronic opioid therapy management. Patient is prescribed oxycodone acetaminophen 7.5-325mg, take 1 tablet four times daily. Patient arrived today with the expectation of having 16 pills, she presented 19 pills which were counted in the presence of two staff members and returned to the patient in the original prescription bottle. This demonstrates responsible attitude toward patient's opioid medications. Pain is reported today as 3.5/10 and last dose of pain medication was taken today at 8am. Denies side effects including somnolence, constipation, itching, dyspnea, rash, dizziness or weakness. [facility] Medical History Vocal cord polyp Glaucoma Pelvic cramping Nicotine dependence, cigarettes, uncomplicated Osteopenia Vitamin D deficiency Pure hypercholesterolemia Benign essential hypertension Chronic, continuous use of opioids Tenosynovitis of thumb Chronic low back pain Cyclical vomiting Surgical History Hx of LASIK History of surgery History of hysteroscopy H/O mastoidectomy History of tonsillectomy History of selective injection of anesthetic agent around lumbar nerve root History of colonoscopy (~2020) History of breast surgery Hx of shoulder surgery Hx of right knee surgery S/P laparoscopic cholecystectomy (~2009) History of appendectomy Family History Maternal Uncle Diabetes Father No problems noted. Mother No problems noted. Social History Housing: House Are you a primary care process manager to a significant other at home: No Do you presently have visiting nurse or other home services: No Alcohol intake: former Patient Tobacco Use Status: Current everyday Tobacco user Tobacco use type: Cigarette Cigarette Packs Per Day: 0.25 Cigarettes Per Day: 5 Years Smoked: 47 e-Cigarette/Vaping Use: Never Used Second Hand Smoke Exposure: Yes service: No Current occupational status: retired and disabled Cognitive needs: No Hearing needs: No Vision needs: Yes (Glasses) Female Reproductive History Menstrual Age of Menarche: 14 Review of Systems Const All systems reviewed & are unremarkable except as noted in HPI and below Physical Exam Exam Exam: General: awake, alert, oriented. Answers questions appropriately. Fully engaged in examination. HEENT: Normocephalic. Hearing intact. Cardiac: External chest normal in appearance. Respiratory: No cough, audible wheezing or stridor. Abdomen: without gross distension. MS: No obvious swelling or deformities. Able to transition from sit to stand unassisted. Ambulates with bilaterally normal heel strike and toe off Neurological: Oriented to person, place, time and situation. Thought process intact. No gait abnormalities appreciated. Psychiatric: Appropriate mood and affect. Good judgment and insight. Vital Signs: Last Vital Signs Pulse 80 05/14/25 13:05 BP 148/85 H 05/14/25 13:05 Pulse Ox 97 05/14/25 13:05 Oxygen Delivery Method Room Air 05/14/25 13:05 BMI result Body Mass Index 20.5 Results Reviewed Results Reviewed: 10/2023 Right hip XR IMPRESSION: 1. Mild degenerative changes in the right hip. 2. Moderate degenerative changes right sacroiliac joint. 08/22/22 MM/XR DEXA axial skeleton IMPRESSION: Osteopenia based on the lowest T-score value of -2.1 in the lumbar spine and femoral neck applying World Health Organization criteria. Assessment & Plan Assessment & Plan (1) Right hip pain: Code(s): M25.551 - Pain in right hip Category: Medical (2) Myofascial pain: Code(s): M79.18 - Myalgia, other site Category: Medical (3) Chronic low back pain: Code(s): M54.5 - Low back pain; G89.29 - Other chronic pain Category: Medical Qualifiers: Back pain laterality: midline Sciatica presence: unspecified whether sciatica present Qualified Code(s): M54.5 - Low back pain; G89.29 - Other chronic pain (4) Spondylosis of lumbar region without myelopathy or radiculopathy: Code(s): M47.816 - Spondylosis without myelopathy or radiculopathy, lumbar region Category: Medical (5) Sacroiliac joint pain: Code(s): M53.3 - Sacrococcygeal disorders, not elsewhere classified Category: Medical (6) Chronic, continuous use of opioids: Code(s): F11.90 - Opioid use, unspecified, uncomplicated Category: Medical Plan Masspat was reviewed and without concerns. No obvious signs of diversion, abuse or misuse of the opioid medications. Will send in prescription for oxycodone/acetaminophen 7.5-325 mg QID All questions and concerns have been answered and patient agrees with the plan. Follow-up in the office in 1 month, sooner if needed. Medications: Refilled oxycodone-acetaminophen 7.5-325 mg Partial Fill upon patient request. 1 tab PO QID PRN 120 tabs 0RF pain, severe 30 days G89.29 - Other chronic pain, M47.816 - Spondylosis without myelopathy or radiculopathy, lumbar region, M53.3 - Sacrococcygeal disorders, not elsewhere classified, M54.5 - Low back pain Coding Level of Care Code Est Pt Level 3 (35084) Complex EM visit Add On G2211 Diagnoses Right hip pain M25.551 Myofascial pain M79.18 Chronic midline low back pain, unspecified whether sciatica present M54.5; G89.29 Back pain laterality: midline Sciatica presence: unspecified whether sciatica present Spondylosis of lumbar region without myelopathy or radiculopathy M47.816 Sacroiliac joint pain M53.3 Chronic, continuous use of opioids F11.90
[2025-05-14 13:05] VITALS: BP 148/85; PULSE 80; O2SAT 97; BMI 20.5
--- OUTSIDE RECORDS SUMMARY | 2025-05-14 13:58 | XMS_ITS | Clinical Summary ---
Author Organization 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 Role Phone Charly Carrilol MD Primary Care Provider Allergies Active Allergy Reactions Criticality Noted Date Comments Other 10/09/2006 Bactrim [Na Pjscmspf-lonbnxojulwzzrmi-ktgfbetzltj m] Medications calcium carbonate (CALCIUM 500 ORAL) [...] (hypertension) 07/30/2024 Chronic back pain 07/30/2024 Immunizations Immunization Administration Dates Next Due Influenza trivalent, with pr eservative (Fluzone; Afluria) 6mo and older 04/20/2013,03/25/2012,04/09/2011 Surgical History Surgery Date Site/Laterality Comments KNEE ARTHROSCOPY PROCEDURE: UT ARTHROSCOPY KNEE DIAGNOSTIC W/WO SYNOVIAL BX SPX; COMMENT: right CARPAL TUNNEL RELEASE RT HAND PROCEDURE: UT NEUROPLASTY &/TRANSPOS MEDIAN NRV CARPAL TUNNE SHOULDER ARTHROSCOPY 01-02-06 PROCEDURE: UT SURGICAL ARTHROSCOPY SHOULDER W/LSS&RESCJ ADS; COMMENT: right OTHER SURGICAL HISTORY PROCEDURE: HISTORICAL MASTOIDECTOMY OTHER SURGICAL HISTORY PROCEDURE: UT UNLISTED LAPS PX HRNAP HERNIORRHAPHY HERNIOTOMY TUBAL LIGATION 2001 PROCEDURE: HISTORICAL TUBAL LIGATION TONSILLECTOMY 1978 PROCEDURE: HISTORICAL TONSILLECTOMY APPENDECTOMY 1979 PROCEDURE: UT APPENDECTOMY CHOLECYSTECTOMY COLONOSCOPY 04/14/2021 - 05/14/2021 tics, [...] 07/30/2024 3:23 PM EST Plan of Treatment Upcoming Encounters Date Type Department Care Team (Late st Contact Info) Description 10/05/2025 1:00 PM EDT Office Visit Gastroenterology - [address] [facility] [address] [place] [address] Kyleigh Hudson, [address] [place] [address] Health Maintenance Due Date Last Done Comments [...] PM EDT) Anatomical Region Laterality Modality Endoscopy [facility] Provider GI~PROCEDURE ORDERABLES F inal Result * Cervical Cancer Screening: HPV (04/20/2013) [facility] Cervical Cancer Screening: HPV negative, abstracted Historical Provider HEALTH MAINTENANCE Final Result * Lipid panel (04/09/2011) [facility] LDL/HDL Ratio 0 Comment:no interpretation, a bstracted Triglycerides 0 mg/dL Comment:no interpretation, a bstracted Cholesterol 0 mg/dL Comment:no interpretation, a bstracted HDL 0 mg/dL Comment:no interpretation, a bstracted LDL Cholesterol 0 mg/dL Comment:no interpretation, a bstracted Blood Venous blood specimen / Unknown Historical Provider LAB BLOOD ORDERABLES Karly l Result from Last 3 Months or Most Recently Relevant to Health Maintenance Insurance [facility] Care Teams Electric Motor Rebuilder Relationship Specialty Start Date End Date Charly Carrillo MD [address] [place] [address] [address] [place] PCP - General Internal Medicine 02/02/21
--- OUTSIDE RECORDS SUMMARY | 2025-05-14 13:58 | XMS_ITS | Data Portability ---
Author Organization [place] 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 Lab None recorded. Referral None recorded. Procedures None recorded. Surgeries laryngoscop y, direct, operative, with excision of tumor and/or stripping of vocal cords or epiglottis (SURG) 2024 025 [email or web address] [id number] Not available 16:34:12 Imaging None recorded. Medication Orders None recorded. Patient TargetsNo targets recorded. Patient InstructionsNo instructions recorded. Reason for Referral None Reported. Problems Name Problem SNOMED Code Status Onset Date Resolution Date Notes Provider Name and Address Organization Details Recorded Time Polyp of vocal cord 0802472 Active 2024 MANSI CABRAL MD [address] [address], [place], [address], [facility] 13:19:09 Perforation of nasal septum 57476007 Active 2024 MANSI CABRAL MD [address] [address], [place], [address], [facility] 13:19:14 Tobacco dependence caused by cigarettes 3020376046931 9107 Active 2024 MANSI CABRAL MD [address] [address], [place], [address], [facility] 13:24:06 Problem Notes None recorded. Procedures Surgical History Date Name Laterality Status Provider Name and Address Organization Details Recorded Time 08/10/2024 FOL_DP completed MANSI CABRAL MD [address] [place] [address], [phone], [facility] 08/10/2024 13:19:03 Imaging Results None recorded. Procedure Notes None recorded. Medical Equipment None Reported. Allergies Allergen ID Allergen Name Allergen Category Reaction Reaction Severity Criticality Documentation Date Start Date Code Code System Note Provider Name and Address Organization Details Recorded Time 005191 Bactrim medicatio n Not available Not available Not available 08/10/2024 71447 9 RxNorm MANSI CABRAL MD [address] [address], [place], [address], [facility] 13:14:11 Medications Name Sig Start Date [...] Updated DateTime 08/10/2024 165.1 cm 22 kg/m2 07986.19 g Hector Wiseman [place] - [facility] 08/10/2024 13:06:50 Social History None recorded. [...] Diagnosis SNOMED-CT Code Diagnosis ICD10 Code Diagnosis IMO Codes Diagnosis Note [id number] MANSI CABRAL MD [facility] [address] [place] [address] 08/10/2024 12:54:58 08/10/2024 13:25:01 Polyp of vocal cord 2149854 J38.1 PROLAPSING RIGHT VOCAL CORD POLYP Perforatio n of nasal septum 62005178 J34.89 long standing, not related to prior surgery or cocaine Tobacco de pendence caused by cigarettes [id number] F17.210 cessation efforts discussed Health Concerns Section Related Observation LastModified by Organization Detai ls LastModified Time None Recorded Concern Status LastModified by Organization Details LastModified Time None Recorded Advance Directives Directive None Recorded Payers Insurance Date Sequence Insurance Name Policy Number Policy Swain Covered Member ID Swain Member ID Guarantor Name 02/09/2025 1 [employer] - [employer] (MEDICAID HMO) [employer] Priya L Cimmino [id number] Priya Cimmino Notes Date Note Type Note Provider Name and Address Organization Details Recorded Time 08/10/2024 text/html ROS as noted in the HPI vocal nodulesincidental finding by anesthesiology during intubation for REGISTERED OCCUPATIONAL THERAPIST procedure in Jun 2024tobacco 1ppd, cutting down to 5/dayno hemoptysisdenies dysphagiano prior voice surgeryretired - retired [employer], now cares for her kids dogs MANSI CABRAL MD [address] [place] [address], [phone], [facility] - [facility] 08/10/2024 13:24:46 OBGyn Episode No OBEpisode recorded.
== END 2025-05-14 13:21 | disposition home or self-care (01) ==
LOC: HO.PMC 12:52
PROVIDERS: PCP Internal Medicine; Visit Provider Registered Nurse Emergency
DX: G89.29 Other chronic pain (principal); M25.551 Pain in right hip; M79.18 Myalgia, other site; M54.50 Low back pain, unspecified; M47.816 Spondylosis without myelopathy or radiculopathy, lumbar region; M53.3 Sacrococcygeal disorders, not elsewhere classified; F11.90 Opioid use, unspecified, uncomplicated
CPT/HCPCS: 99213

== ENCOUNTER → 2025-05-14 12:51 | Outpatient (BNVA) | payer OTHER, SELFPAY | PROVIDERS: PCP Internal Medicine; Visit Provider Registered Nurse Emergency | DX: G89.29 Other chronic pain (principal); M25.551 Pain in right hip; M54.50 Low back pain, unspecified; M79.18 Myalgia, other site; M47.816 Spondylosis without myelopathy or radiculopathy, lumbar region; M53.3 Sacrococcygeal disorders, not elsewhere classified; Z51.81 Encounter for therapeutic drug level monitoring; Z79.891 Long term (current) use of opiate analgesic | CPT/HCPCS: 99212 ==

== ENCOUNTER 2025-05-17 13:22 | Outpatient (AMB) | payer OTHER, SELFPAY ==
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
[2025-05-17 13:49] VITALS: BP 130/78; PULSE 83; TEMP 36.2; O2SAT 97; BMI 20.5
== END 2025-05-17 14:25 | disposition home or self-care (01) ==
LOC: HO.HMCH 13:23
PROVIDERS: PCP Internal Medicine
DX: S20.219S Contusion of unspecified front wall of thorax, sequela (principal); V89.2XXA Person injured in unspecified motor-vehicle accident, traffic, initial encounter; F43.10 Post-traumatic stress disorder, unspecified; S70.01XD Contusion of right hip, subsequent encounter; F41.9 Anxiety disorder, unspecified; F32.A Depression, unspecified; M25.552 Pain in left hip

== ENCOUNTER → 2025-05-17 13:22 | Outpatient (BNVA) | payer OTHER, SELFPAY | PROVIDERS: PCP Internal Medicine | DX: S70.01XD Contusion of right hip, subsequent encounter (principal); S20.219D Contusion of unspecified front wall of thorax, subsequent encounter; F43.10 Post-traumatic stress disorder, unspecified; F41.9 Anxiety disorder, unspecified; R07.9 Chest pain, unspecified; F32.A Depression, unspecified; M25.552 Pain in left hip; V89.2XXD Person injured in unspecified motor-vehicle accident, traffic, subsequent encounter | CPT/HCPCS: 99212 ==

== ENCOUNTER 2025-06-14 09:05 | Outpatient (REF) | payer OTHER, SELFPAY ==
[2025-06-14 09:32] LABS: MANUAL DIFF FLAG NO
[2025-06-14 09:48] LABS: Hematocrit 40.8 % (37.0-47.0); Hemoglobin 13.5 g/dl (12.0-16.0); Imm Gran Abs Auto 0.03 X10*3/uL (0.00-0.03); Imm Gran Pct Auto 0.3 % (0.0-0.4); Lymphocytes Absolute Auto 3.5 X10*3/uL (1.2-4.9); Mean Corpuscular HGB Conc 33.1 g/dl (31.0-35.0); Mean Corpuscular Hemoglobin 30.5 pg (27.0-33.0); Mean Corpuscular Volume 92.1 fL (80.0-98.0); NRBC Abs Auto 0.000 X10*3/uL (0.0-0.012); NRBC Pct Auto 0.0 /100WBC (0.0-0.2); Platelet Count 390 X10*3/uL (160-400); Red Blood Count 4.43 X10*6/uL (4.20-5.50); White Blood Count 10.5 X10*3/uL (4.8-10.8)
[2025-06-14 10:14] LABS: Appearance Urine Cloudy; Glucose Urine UA Negative (Negative); PH 7.0 (5.0-9.0); Specific Gravity - Urine 1.020 (1.005-1.025); UMIC TRIGGER UACC YES
[2025-06-14 10:30] LABS: Alanine Aminotransferase 12 U/L (0-31); Albumin Level 4.6 g/dL (3.5-5.0); Alkaline Phosphatase 95 U/L (39-117); Anion Gap 12 (12-20); Aspartate Amino Transferase 20 U/L (5-31); Blood Urea Nitrogen 16 mg/dL (9-16); Calcium 9.3 mg/dL (8.4-10.2); Carbon Dioxide 27 mmol/L (22-29); Chloride 107 mmol/L (96-108); Cholesterol 196 mg/dL (<200); Estimated Glomerular Filt Rate > 60; HDL Cholesterol 42 mg/dL (>40); Potassium 4.2 mmol/L (3.3-5.1); Sodium 142 mmol/L (135-145); Total Protein 7.2 g/dL (6.5-8.0); Triglycerides 84 mg/dL (<150)
--- OUTSIDE RECORDS SUMMARY | 2025-06-14 10:34 | XMS_ITS | Data Portability ---
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 Medication Orders None recorded. Patient TargetsNo targets recorded. Patient InstructionsNo instructions recorded. Reason for Referral None Reported. Problems Name Problem SNOMED Code Status Onset Date Resolution Date Notes Provider Name and Address Organization Details Recorded Time Polyp of vocal cord 1859792 Active 2024 MANSI CABRAL MD [address] [address], [place], [address], [facility] 13:19:09 Perforation of nasal septum 69538965 Active 2024 MANSI CABRAL MD [address] [address], [place], [address], [facility] 13:19:14 Tobacco dependence caused by cigarettes 6189768069611 9107 Active 2024 MANSI CABRAL MD [address] [address], [place], [address], [facility] 13:24:06 Problem Notes None recorded. Procedures Surgical History Date Name Laterality Status Provider Name and Address Organization Details Recorded Time 08/10/2024 FOL_DP completed MANSI CABRAL MD [address] [place] [address], [phone], [facility] 08/10/2024 13:19:03 Imaging Results None recorded. Procedure Notes None recorded. Medical Equipment None Reported. Allergies Allergen ID Allergen Name Allergen Category Reaction Reaction Severity Criticality Documentation Date Start Date Code Code System Note Provider Name and Address Organization Details Recorded Time 772121 Bactrim medicatio n Not available Not available Not available 08/10/2024 05108 9 RxNorm MANSI CABRAL MD [address] [address], [place], [address], [facility] [...] Updated DateTime 08/10/2024 165.1 cm 22 kg/m2 58680.19 g Hector Wiseman [place] - [facility] [...] Disorder N Anesthesia Complications N Heart Attack ([place]) N Other Skin Condition N Diabetes N [...] ICD10 Code Diagnosis IMO Codes Diagnosis Note [id number] MANSI CABRAL MD [facility] [address] [place] [address] 08/10/2024 12:54:58 08/10/2024 13:25:01 Polyp of vocal cord 8410344 J38.1 PROLAPSING RIGHT VOCAL CORD POLYP Perforatio n of nasal septum 44953828 J34.89 long standing, not related to prior surgery or cocaine Tobacco de pendence caused by cigarettes [id number] 2887704 F17.210 cessation efforts discussed Health Concerns Section Related Observation LastModified by Organization Detai ls LastModified Time None Recorded Concern Status LastModified by Organization Details LastModified Time None Recorded Advance Directives Directive None Recorded Payers Insurance Date Sequence Insurance Name Policy Number Policy Swain Covered Member ID Swain Member ID Guarantor Name 02/09/2025 1 [facility]ID H[facility]) [employer] Priya L Cimmino [id number] Priya Cimmino Notes Date Note Type Note Provider Name and Address Organization Details Recorded Time 08/10/2024 text/html ROS as noted in the HPI vocal nodulesincidental finding by anesthesiology during intubation for 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
--- OUTSIDE RECORDS SUMMARY | 2025-06-14 10:34 | XMS_ITS | Clinical Summary ---
Author Organization [facility] [address] [facility] [address] Address [address] [place] [address] Phone Care Team Providers Care Dial Equipment Engineer Name Role Phone Charly Carrillo MD Primary Care Provider Allergies Active Allergy Reactions Criticality Noted Date Comments Other 10/09/2006 Bactrim [Na Ghnrijtl-wdksfggvztttqnhf-kiixglkjfmw m] Medications calcium carbonate (CALCIUM 500 ORAL) [...] Surgery Date Site/Laterality Comments KNEE ARTHROSCOPY PROCEDURE: NV ARTHROSCOPY KNEE DIAGNOSTIC W/WO SYNOVIAL BX SPX; COMMENT: right CARPAL TUNNEL RELEASE RT HAND PROCEDURE: NV NEUROPLASTY &/TRANSPOS MEDIAN NRV CARPAL TUNNE SHOULDER ARTHROSCOPY 01-02-06 PROCEDURE: NV SURGICAL ARTHROSCOPY SHOULDER W/LSS&RESCJ ADS; COMMENT: right OTHER SURGICAL HISTORY PROCEDURE: HISTORICAL MASTOIDECTOMY OTHER SURGICAL HISTORY PROCEDURE: NV UNLISTED LAPS PX HRNAP HERNIORRHAPHY HERNIOTOMY TUBAL LIGATION 2001 PROCEDURE: HISTORICAL TUBAL LIGATION TONSILLECTOMY 1978 PROCEDURE: HISTORICAL TONSILLECTOMY APPENDECTOMY 1979 PROCEDURE: NV APPENDECTOMY CHOLECYSTECTOMY COLONOSCOPY 04/14/2021 - 05/14/2021 tics, [...] Office Visit Gastroenterology - [address] [facility] [address] [place] [phone] Kyleigh Hudson, ELVIA [address] [facility] [address] [place] [address] Health Maintenance Due Date Last Done Comments Breast Cancer Screening 1962 COVID-19 Vaccine (#1) 1967 DTaP,Tdap,and Td Vaccines (1 - Tdap) 1981 Hepatitis A Vaccines (1 of 2 - Risk 2-dose series) 1981 Pneumococcal Vaccine: 50+ Years (1 of 2 - PCV) 1981 Zoster Vaccines (1 of 2) 1981 Cervical Cancer Screening: P ap Smear 04/20/2016 04/20/2013 Depression Screening 07/15/2024 Cholesterol Screening (Lipid [...] Comments COLONOSCOPY Routine 04/24/2021 1:24 PM EDT PAP SMEAR Routine 04/20/2013 LIPID PANEL Routine 04/09/2011 from Last 3 Months or Most Recently Relevant to Health Maintenance Results * COLONOSCOPY (04/24/2021 1:24 PM EDT) Anatomical Region Laterality Modality Endoscopy [facility] Provider GI~PROCEDURE ORDERABLES F inal Result * Pap Smear (04/20/2013) Pap smear negative, abstracted [facility] Provider HEALTH MAINTENANCE Final Result * Lipid [...] Most Recently Relevant to Health Maintenance Insurance [facility] Care Teams Dial Equipment Engineer Relationship Specialty Start Date End Date Charly Carrillo MD [address] [place] [address] [place] [address] [place] PCP - General Internal Medicine 02/02/21
[2025-06-14 11:14] LABS: Folate 7.4 ng/mL (> or = 4.0); Vitamin B12 < 148 pg/mL (200-900)
== END 2025-06-14 09:06 | disposition home or self-care (01) ==
LOC: HO.LAB 09:05
PROVIDERS: PCP Internal Medicine; Visit Provider Internal Medicine
DX: Z00.00 Encounter for general adult medical examination without abnormal findings (principal); E53.8 Deficiency of other specified B group vitamins; R73.01 Impaired fasting glucose; E78.00 Pure hypercholesterolemia, unspecified; E55.9 Vitamin D deficiency, unspecified; D64.9 Anemia, unspecified
CPT/HCPCS: 36415; 80053; 80061; 81001; 81003; 82306; 82607; 82746; 83036; 84443; 85025

== ENCOUNTER 2025-06-16 12:35 | Outpatient (AMB) | payer OTHER, SELFPAY ==
[2025-06-16 12:49] VITALS: BP 130/86; PULSE 86; O2SAT 95; BMI 20.2
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
--- OUTSIDE RECORDS SUMMARY | 2025-06-16 14:49 | XMS_ITS | Data Portability ---
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 Medication Orders None recorded. Patient TargetsNo targets recorded. Patient InstructionsNo instructions recorded. Reason for Referral None Reported. 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 MANSI CABRAL MD [address] [address], [place], [phone], [facility] 13:19:09 Perforation of nasal septum 09187650 Active 2024 MANSI CABRAL MD [address] [address], [place], [address], [facility] 13:19:14 Tobacco dependence caused by cigarettes 9209940942507 9107 Active 2024 MANSI CABRAL MD [address] [address], [place], [address], [facility] 13:24:06 Problem Notes None recorded. Procedures Surgical History Date Name Laterality Status Provider Name and Address Organization Details Recorded Time 08/10/2024 FOL_DP completed MANSI CABRAL MD [address] [place] [address], [phone], [facility] 08/10/2024 13:19:03 Imaging Results None recorded. Procedure Notes None recorded. Medical Equipment None Reported. Allergies Allergen ID Allergen Name Allergen Category Reaction Reaction Severity Criticality Documentation Date Start Date Code Code System Note Provider Name and Address Organization Details Recorded Time 248478 Bactrim medicatio n Not available Not available Not available 08/10/2024 28433 9 RxNorm MANSI CABRAL MD [address] [address], [place], [address], [facility] 13:14:11 Medications Name Sig Start [...] Updated DateTime 08/10/2024 165.1 cm 22 kg/m2 46337.19 g Hector Wiseman [place] - [facility] 08/10/2024 13:06:50 Social History None recorded. Functional Status None recorded. Mental Status None recorded. Family History Nothing Reported. Medical History Condition Response Tonsil Infections N Emphysema N Depression N COPD N Arthritis N Cancer N Stroke N Headaches N Fibromyalgia N Kidney Disease N Heart Problems Y Anxiety N Migraines N Other Skin Condition N Rhinitis N Bleeding Disorder N Food Allergy N Nasal polyps N Asthma N Sleep Disorder N GERD/Reflux N Glaucoma N Nasal or Sinus Problems Y Anesthesia Complications N Hearing Loss N High Cholesterol N Liver Disease N Speech Delay N Allergies/Hayfever N Thyroid Problems N Developmental Delay N Anemia N Immune System Disorder N Heart Attack ([place]) N Diabetes N Hyperlipidemia N Dementia N Hypertension N Gynecological HistoryNo gynecological history recorded. Obstetrics History GPAL:G 0 P 0 0 0 0 Past Encounters Encounter ID Performer Location Encounter Start Date Encounter Closed Date Diagnosis/Indication Diagnosis SNOMED-CT Code Diagnosis ICD10 Code Diagnosis IMO Codes Diagnosis Note [id number] MANSI CABRAL MD [facility] [address] [place] [address] 08/10/2024 12:54:58 08/10/2024 13:25:01 Polyp of vocal cord 8546740 J38.1 PROLAPSING RIGHT VOCAL CORD POLYP Perforatio n of nasal septum 13579273 J34.89 long standing, not related to prior surgery or cocaine Tobacco de pendence caused by cigarettes [id number] 0142690 F17.210 cessation efforts discussed Health Concerns Section Related Observation LastModified by Organization Detai ls LastModified Time None Recorded Concern Status LastModified by Organization Details LastModified Time None Recorded Advance Directives Directive None Recorded Payers Insurance Date Sequence Insurance Name Policy Number Policy Swain Covered Member ID Swain Member ID Guarantor Name 02/09/2025 1 [facility]ID H[facility]) [employer] Priya L Cimmino [id number] Priya Cimmino Notes Date Note Type Note Provider Name and Address Organization Details Recorded Time 08/10/2024 text/html ROS as noted in the HPI vocal nodulesincidental finding by anesthesiology during intubation for [facility]ER procedure in Jun 2024tobacco 1ppd, cutting down to 5/dayno hemoptysisdenies dysphagiano prior voice surgeryretired - retired [employer], now cares for her kids dogs MANSI CABRAL MD [address] [place] [address], [phone], [facility] - [facility] 08/10/2024 13:24:46 OBGyn Episode No OBEpisode recorded.
--- OUTSIDE RECORDS SUMMARY | 2025-06-16 14:49 | XMS_ITS | Clinical Summary ---
Author Organization [facility] [address] [facility] [place] Address [address] [place] [address] Phone Care Team Providers Care [employer] Name Role Phone Charly Carrillo MD Primary Care Provider [phone] Allergies Active Allergy Reactions Criticality Noted Date Comments Other 10/09/2006 Bactrim [Na Eacoosgw-vxtsvrsuxltxthlq-cqetjaxqnfr m] Medications calcium carbonate (CALCIUM 500 ORAL) [...] Surgery Date Site/Laterality Comments KNEE ARTHROSCOPY PROCEDURE: LA ARTHROSCOPY KNEE DIAGNOSTIC W/WO SYNOVIAL BX SPX; COMMENT: right CARPAL TUNNEL RELEASE RT HAND PROCEDURE: LA NEUROPLASTY &/TRANSPOS MEDIAN NRV CARPAL TUNNE SHOULDER ARTHROSCOPY 01-02-06 PROCEDURE: LA SURGICAL ARTHROSCOPY SHOULDER W/LSS&RESCJ ADS; COMMENT: right OTHER SURGICAL HISTORY PROCEDURE: HISTORICAL MASTOIDECTOMY OTHER SURGICAL HISTORY PROCEDURE: LA UNLISTED LAPS PX HRNAP HERNIORRHAPHY HERNIOTOMY TUBAL LIGATION 2001 PROCEDURE: HISTORICAL TUBAL LIGATION TONSILLECTOMY 1978 PROCEDURE: HISTORICAL TONSILLECTOMY APPENDECTOMY 1979 PROCEDURE: LA APPENDECTOMY CHOLECYSTECTOMY COLONOSCOPY 04/14/2021 - 05/14/2021 tics, [...] Visit Gastroenterology - [address] [facility] [address] [place] [id number] Kyleigh uHdson, ELVIA [address] [facility] [address] [place] [address] Health Maintenance Due Date Last Done Comments [...] PM EDT) Anatomical Region Laterality Modality Endoscopy [facility] Provider GI~PROCEDURE ORDERABLES F inal Result * Pap Smear (04/20/2013) Pap smear negative, abstracted [facility] Provider HEALTH MAINTENANCE Final Result * Lipid [...] Most Recently Relevant to Health Maintenance Insurance [facility] [employer] Care Teams [employer] Relationship Specialty Start Date End Date Charly Carrillo MD [address] [place] [address] [place] [address] [place] PCP - General Internal Medicine 02/02/21
== END 2025-06-16 13:40 | disposition home or self-care (01) ==
LOC: HO.HMCH 12:36
PROVIDERS: PCP Internal Medicine; Visit Provider Internal Medicine
DX: Z00.00 Encounter for general adult medical examination without abnormal findings (principal); I10 Essential (primary) hypertension; E78.00 Pure hypercholesterolemia, unspecified; R73.01 Impaired fasting glucose; R11.15 Cyclical vomiting syndrome unrelated to migraine; J30.9 Allergic rhinitis, unspecified; E55.9 Vitamin D deficiency, unspecified; J38.1 Polyp of vocal cord and larynx; M85.80 Other specified disorders of bone density and structure, unspecified site; M47.816 Spondylosis without myelopathy or radiculopathy, lumbar region; M16.11 Unilateral primary osteoarthritis, right hip; K04.7 Periapical abscess without sinus; E53.8 Deficiency of other specified B group vitamins; H40.9 Unspecified glaucoma; F32.A Depression, unspecified; F17.200 Nicotine dependence, unspecified, uncomplicated

== ENCOUNTER → 2025-06-16 12:35 | Outpatient (BNVA) | payer OTHER, SELFPAY | PROVIDERS: PCP Internal Medicine; Visit Provider Internal Medicine | DX: Z00.00 Encounter for general adult medical examination without abnormal findings (principal); F32.A Depression, unspecified; I10 Essential (primary) hypertension; E78.00 Pure hypercholesterolemia, unspecified; R73.01 Impaired fasting glucose; R11.15 Cyclical vomiting syndrome unrelated to migraine; J30.9 Allergic rhinitis, unspecified; E55.9 Vitamin D deficiency, unspecified; J38.1 Polyp of vocal cord and larynx; M85.80 Other specified disorders of bone density and structure, unspecified site; M47.816 Spondylosis without myelopathy or radiculopathy, lumbar region; M16.11 Unilateral primary osteoarthritis, right hip; K04.7 Periapical abscess without sinus; E53.8 Deficiency of other specified B group vitamins; H40.9 Unspecified glaucoma; F17.210 Nicotine dependence, cigarettes, uncomplicated; Z78.0 Asymptomatic menopausal state | CPT/HCPCS: 96127; 99396 ==